=== PATIENT | female | born 2000 | race Caucasian/White ===

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

== ENCOUNTER 2023-07-24 17:36 | Outpatient (CLI) | payer OTHER, MEDICAID, SELFPAY ==
[2023-07-24 17:47] VITALS: BP 112/71; PULSE 73; PULSE 84; O2SAT 99
[2023-07-24 17:48] VITALS: TEMP 36.6
[2023-07-24 17:50] VITALS: BMI 35.3
--- OUTSIDE RECORDS SUMMARY | 2023-07-24 17:52 | XMS RPT_ITS | CCD ---
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 Name Role Phone SANDRA CHOI Keven Unavailable Unavailable REFERRED, SELF Unavailable Unavailable DAVE, IMANI A Unavailable Unavailable DAVE, IMANI A Unavailable Unavailable REFERRED, SELF Unavailable Unavailable DAVE, IMANI A Unavailable Unavailable TERELL MEJIA Unavailable Unavailable REFERRED, SELF Unavailable Unavailable DAVE, IMANI A Unavailable Unavailable DAVE, IMANI A Unavailable Unavailable REFERRED, SELF Unavailable Unavailable DAVE, IMANI A Unavailable Unavailable Unavailable Primary Care Provider Unavailabl e Unavailable Primary Care Provider Unavailabl e Luz Cooper Primary Care Provider Luz Cooper CNP Primary Care Provider LUZ COOPER Primary Care Unavailable ALLISON, LUZ Admitting Unavailable ALLISON, LUZ Attending Unavailable ALLISON, LUZ Consulting Unavailable PROVIDER, UNKNOWN Consulting Unavailable ALLISON, LUZ Primary Care Unavailable ALLISON, LUZ Consulting Unavailable ALLISON, LUZ Admitting Unavailable ALLISON, LUZ Attending Unavailable PROVIDER, UNKNOWN Consulting Unavailable RIZZO, MARE R Admitting Unavailable ALLISON, LUZ Consulting Unavailable RIZZORHONDA SCHWABLE R Attending Unavailable RIZZO, MARE R Primary Care Unavailable PROVIDER, UNKNOWN Consulting Unavailable ALLISON, LUZ Primary Care Unavailable ALLISON, LUZ Admitting Unavailable ALLISON, LUZ Attending Unavailable ALLISON, LUZ Consulting Unavailable PROVIDER, UNKNOWN Consulting Unavailable MEHUL NEVAREZ MD Admitting Unavailable ALLISON, LUZ Referring Unavailable MEHUL NEVAREZ MD Attending Unavailable MEHUL NEVAREZ MD Primary Care Unavailable ALLISON, LUZ Consulting Unavailable PROVIDER, UNKNOWN Consulting Unavailable ALLISON, LUZ Admitting Unavailable ALLISON, LUZ Attending Unavailable ALLISON, LUZ Consulting Unavailable ALLISON, LUZ Primary Care Unavailable PROVIDER, UNKNOWN Consulting Unavailable ALLISON, LUZ Primary Care Unavailable ALLISON, LUZ Admitting Unavailable ALLISON, LUZ Attending Unavailable ALLISON, LUZ Consulting Unavailable PROVIDER, UNKNOWN Consulting Unavailable ALLISON, LUZ K Primary Care Unavailable FER RIOS Attending Unavail able ALLISON, LUZ K Primary Care Unavailable FRANNY MCKEON Attending Unavailable ALLISON, LUZ K Primary Care Unavailable ITA OLIVAS Referring Unavailable ALLISON, LUZ K Primary Care Unavailable ALLISON, LUZ K Primary Care Unavailable KARLA ACOSTA Attending Unavailable ALLISON, LUZ K Primary Care Unavailable KARLA ACOSTA Attending Unavailable ALLISON, LUZ K Primary Care Unavailable KARLA ACOSTA Referring Unavailable ALLISON, LUZ K Primary Care Unavailable BAN, KELLY Referring Unavailable KARLA ACOSTA Attending Unavailable ALLISON, LUZ K Primary Care Unavailable FRANNY MCKEON Attending Unavailable ALLISON, LUZ K Primary Care Unavailable JARED JACOBS Attending Unavailable ALLISON, LUZ K Primary Care Unavailable BAN, KELLY Referring Unavailable ALLISON, LUZ K Primary Care Unavailable BAN, KELLY Referring Unavailable ALLISON, LUZ K Primary Care Unavailable KAYLYN VIVEROS Referring Unavailable ALLISON, LUZ K Primary Care Unavailable ALLISON, LUZ K Primary Care Unavailable KELLY IRELAND Attending Unavailable ITA OLIVAS Referring Unavailable ALLISON, LUZ K Primary Care Unavailable Medications Current Medications Medication Drug Class(es) Dates Sig (Normalized) Sig (Original) metroNIDAZOLE 500 mg oral tablet (2 sources) Nitroimidazole Antimicrobial Start: 01-13-2022 End: 01-20-2022 take 1 tablet by mouth twice daily metroNIDAZOLE (FLAGYL) 500 mg tablet Indications: BV (bacterial vaginosis) Take 1 tablet by mouth twice daily for 7 days. 14 tablet 0 01/13/2022 01/20/2022 Active Completed/Discontinued Medications Medication Drug Class(es) Dates Sig (Normalized) Sig (Original) cephalexin 500 mg oral capsule (3 sources) Cephalosporin Antibacterial Start: 03-25-2023 End: 04-01-2023 take 1 capsule by mouth four times daily cephALEXin (KEFLEX) 500 mg capsule Indications: 12 weeks gestation of , Dysuria Take 1 capsule by mouth four times daily for 7 days. 28 capsule 0 03/25/2023 04/01/2023 Problems Active Problems Problem Classification Problem Date Documented Date Episodic/Chronic Allergic reactions (1 source) Contact dermatitis; Translations: [Unspecified contact dermatitis, unspecified cause] Episodic Genitourinary symptoms and ill-defined conditions (1 source) Dysuria; Translations: [Dysuria] 03-25-2023 Episodic Immunizations and screening for infectious disease (6 sources) Patient encounter status; Translations: [Encounter for screening for infections with a predominantly sexual mode of transmission] Onset: 04-30-2023 Episodic Other female genital disorders (1 source) Vaginal discharge; Translations: [Other specified noninflammatory disorders of vagina] 05-06-2023 Episodic Other and delivery including normal (20 sources) with uncertain dates; Translations: [Encounter for supervision of normal , unspecified, first trimester] Onset: 03-04-2023 03-04-2023 Episodic Other screening for suspected conditions (not mental disorders or infectious disease) (1 source) Encounter for screening for nuchal translucency; Translations: [Encounter for screening for nuchal translucency] Onset: 05-06-2023 Episodic Residual codes; unclassified (2 sources) Gestation period, 13 weeks; Translations: [13 weeks gestation of ] 03-28-2023 Episodic Residual codes; unclassified (1 source) Gestation period, 12 weeks; Translations: [12 weeks gestation of ] 03-25-2023 Episodic Residual codes; unclassified (1 source) Gestation period, 15 weeks; Translations: [15 weeks gestation of ] 04-15-2023 Episodic Residual codes; unclassified (2 sources) Gestation period, 18 weeks; Translations: [18 weeks gestation of ] 05-06-2023 Episodic Residual codes; unclassified (1 source) Gestation period, 22 weeks; Translations: [22 weeks gestation of ] 06-03-2023 Episodic Residual codes; unclassified (1 source) 22 weeks gestation of ; Translations: [22 weeks gestation of ] Onset: 07-16-2023 Episodic Past or Other Problems Problem Classification Problem Date Documented Da te Episodic/Chronic Inflammatory diseases of female pelvic organs (1 source) Female pelvic inflammatory disease, unspecified; Translations: [Female pelvic inflammatory disease, unspecified] Onset: 12-05-2022 Episodic Nausea and vomiting (3 sources) Vomiting, unspecified; Translations: [Vomiting, unspecified] Onset: 05-11-2022 Episodic Other complications of (2 sources) with inconclusive viability, not applicable or unspecified; Translations: [ with inconclusive viability] Onset: 03-04-2023 03-04-2023 Episodic Other lower respiratory disease (1 source) Shortness of breath; Translations: [SOB (shortness of breath)] Onset: 11-29-2022 Episodic NEGATED: Highlighted row has been ruled out!Unclassified (3 sources) No known active problems 03-04-2023 Results Test Name Value Interpretation Reference Range Facil ity Vital Signs Date Time Vital Sign Value Performing Clinician Faci lity 06-03-2023 11:54-0500 Body height 157.5 cm Karla Acosta MD Work Phone: [facility] 06-03-2023 11:47-0500 Body weight 82.37 kg Karla Acosta MD Work Phone: [facility] 06-03-2023 11:47-0500 Diastolic blood pressure 60 mm[Hg] Karla Acosta MD Work Phone: [facility] 06-03-2023 11:47-0500 Systolic blood pressure 98 mm[Hg] Karla Acosta MD Work Phone: [facility] 05-06-2023 11:41-0500 Body weight 73.9368 kg LUZ COOPER [facility] Encounters Encounter Date Encounter Type Care Provider Facility Start: 07-16-2023 End: 07-17-2023 ambulatory LUZ COOPER Facility:[facility] Start: 06-03-2023 End: 06-03-2023 ambulatory LUZ COOPER Facility:[facility] Start: 06-03-2023 End: 06-03-2023 Patient encounter procedure Karla Acosta MD Work Phone: OB/Gynecology Procedures Date Procedure Procedure Detail Performing Clinician Start: 06-03-2023 URINE OB DIP B/O Dion Acosta MD Work Phone: Start: 05-06-2023 URINE OB DIP B/O Franny suárez MD Work Phone: Start: 05-06-2023 Us preg uterus after 1st trimest 1/ gestation Ita Olivas APRN.CNM Work Phone: Start: 04-15-2023 INFLUENZA VACCINE, A GE 6 MO - 64 YR, QUADRIVALENT (AFLURIA, FLULAVAL, FLUZONE) Fer Alicea MD Work Phone: Start: 04-01-2023 nuchal translucency 1st gestation Kelly Ireland APRNShahidFLOATLIGHT LOADING SUPERVISOR Work Phone: Start: 03-28-2023 URINE OB DIP B/O Jared Jacobs MD Work Phone: Start: 03-25-2023 Urnls dip stick/tabl et rgnt auto w/o microscopy Franny Mckeon MD Work Phone: Start: 03-11-2023 Antibody screen LUZ CROWELL Plan of Treatment Date Care Activity Detail Author Start: 01-27-2025 Urine microalbumin profile DTaP,Tdap,Td Vaccine (7 - Td or Tdap) [facility] Start: 04-30-2024 Chlamydia Screening (18-24) Chlamydia Screening (18-24) [facility] Start: 04-30-2024 GC (Gonorrhea) Screening (18-24) GC (Gonorrhea) Screening (18-24) [facility] Start: 03-04-2024 CHLAMYDIA SCREENING (18-24) CHLAMYDIA SCREENING (18-24) [facility] Start: 03-04-2024 GC (GONORRHEA) SCREENING (18-24) GC (GONORRHEA) SCREENING (18-24) [facility] Start: 01-23-2024 CHLAMYDIA SCREENING (18-24) CHLAMYDIA SCREENING (18-24) [facility] Start: 01-23-2024 GC (GONORRHEA) SCREENING (18-24) GC (GONORRHEA) SCREENING (18-24) [facility] Start: 07-04-2023 End: 10-03-2023 CBC W Auto Differential panel - Blood CBC + DIFF Lab Routine 22 weeks gestation of Encounter for supervision of normal first in second trimester Expected: 07/04/2023 (Approximate), Expires: 10/03/2023 [facility] Work Phone: Immunizations Immunization Date Immunization Notes Care Provider Fa cility 04-15-2023 influenza, injectabl e, quadrivalent, contains preservative Fer Alicea MD Work Phone: [facility] 04-07-2009 influenza virus vacc ine, unspecified formulation Franny Mckeon MD Work Phone: [facility] Payers Date Payer Category Payer Medicaid [id number] 2021 Unknown [id number] 2021 Unknown MMO MMO [employer] [id number] 2021-Present [phone] [address] [address] [place] [address] Indemnity [id number] 2021 Unknown [id number] 2002 Unknown [id number] 2002 Unknown [id number] 2002 Unknown [id number] 2002 Unknown [id number] 2002 Unknown [id number] 2002 Unknown [id number] 1979 Unknown [id number] Social History Date Type Detail Facility Start: 01-12-2022 End: 09-17-2022 Tobacco smoking status NHIS Occasional tobacco smoker [facility] Start: 01-12-2022 End: 03-04-2023 Tobacco use and exposure Smokeless tobacco non-user [facility] Start: 01-12-2022 End: 09-17-2022 Tobacco Comment Occasional Vape [facility] Start: 2002 Sex Assigned At Not on file [facility] Start: 01-02-2022 End: 01-12-2022 Exposure to SARS-CoV-2 (event) Not sure [facility] Start: 03-04-2023 Tobacco smoking stat us NHIS Ex-smoker [facility] Work Phone: History of tobacco use Current smoker [facility] Work Phone: History of tobacco use Cigarette Smoker [facility] Work Phone: Start: 03-04-2023 End: 06-03-2023 Alcohol intake Lifetime non-drinker (finding) [facility] Start: 03-04-2023 End: 03-28-2023 History of Social function [facility] Start: 03-04-2023 End: 03-28-2023 Tobacco use panel [facility] Start: 01-08-2023 [facility] Start: 2002 Sex Assigned At Female [facility] Start: 03-09-2023 Gender identity Identifies as female gender (finding) [facility] Start: 03-09-2023 Sexual orientation Heterosexual (fin ding) [facility] National Score (1-100), lower number is lower risk 48 [facility] NEGATED: Highlighted rowStart: NINF History of tobacco use Passive smoker [facility] Work Phone: Goals Date Patient Goal Desired Activity /State Personal health goal Clinical Notes 01-12-2022 to 06-03-2023 Quick Notes - Karla Acosta MD - 06/03/2023 11:55 AM ESTPatient InstructionsPrenatal Quick Notes - Franny Mckeon MD - 05/06/2023 9:05 AM ESTPatient InstructionsPatient Instructions Note Date & Type Note Facility 06-03-2023 Miscellaneous Notes RR- VB No. LOF No. CTXS No. Movement: present. Other c/o: gets lightheaded w/ standing at [employer] register at works Medication list reviewed. Physical Exam See Flow Sheet Abd: soft, nontender, gravid Ext: edema: Trace A/P 22w6d Estimated Date of Delivery: 10/01/23 d./w her symptomatic measures for lightheadedness at work. Note for stool at dow[employer] register given f/u in 4-5 weeks for 28 week labs reviewed US. Karla Acosta M.D. documented in this encounter [facility] 06-03-2023 Instructions Ramonita AvilezJEFF - 06/03/2023 11:41 AM EST SEQUENTIAL SCREENINGS The [facility] offers sequential screenings for women who are interested in screenings for chromosomal abnormalities and certain defects during a . The sequential screen combines ultrasound and blood tests to determine the risk of chromosomal abnormalities, including Down's Syndrome (Trisomy 21) and Trisomy 18, as well as open neural tube defects including spina bifida. Ultrasound examination is performed between 11 weeks and 13 weeks gestational age. Blood tests are drawn after the ultrasound and again later in the between 15 and 21 weeks gestational age. Please let your physician know if you are interested in this testing. It will require an appointment with our emergency department technician. This is not an ultrasound performed by a physician in our office during a routine visit. SIGNS AND SYMPTOMS OF LABOR 1. Contractions every 10 minutes or more often 2. Clear, pink, or brownish fluid (water) leaking from vagina 3. Feeling that baby is pushing down, pressure 4. Low, dull backache 5. Cramps that feel like a period 6. Cramps with or without diarrhea If you notice any of the above symptoms, contact our office at [phone] and ask to speak with a nurse. After hours, you can call doctors registry at [phone] OR call [facility] at [phone] and ask to have the doctor subscription agent paged. If you consider this an emergency, dial [phone]- or go to your nearest emergency department. NEED HELP? Are you dealing with a violent or abusive relationship? Are you a victim of rape or sexual assult? Call [facility] ([place]) 24 hour Crisis Hotline: 488.792.3647 or 446-309-1578. MANUAL Your Guide to a Healthy manual is now on-line. Visit [email or web address] to download your free copy documented in this encounter [facility] 05-06-2023 Miscellaneous Notes SW- Having thick vaginal discharge, vaginal itching and burning. Has had yeast infections before and this feels similar. Has been on antibiotics twice now. Has some spotting. No cramping or LOF. No FM yet. No fevers, chills, nausea, vomiting, urinary symptoms. Instructed to start Monistat 7. Most recent urine cx reviewed with pt from ER. Anatomy US today and final report pending. Blood work today to complete sequential screen. Bleeding and pain precautions reviewed. RTO 4 wks. Franny Mckeon DO documented in this encounter [facility] 05-06-2023 Instructions Ramonita Avilez MA - 05/06/2023 8:54 AM EST SEQUENTIAL SCREENINGS The [facility] offers sequential screenings for women who are interested in screenings for chromosomal abnormalities and certain defects during a . The sequential screen combines ultrasound and blood tests to determine the risk of chromosomal abnormalities, including Down's Syndrome (Trisomy 21) and Trisomy 18, as well as open neural tube defects including spina bifida. Ultrasound examination is performed between 11 weeks and 13 weeks gestational age. Blood tests are drawn after the ultrasound and again later in the between 15 and 21 weeks gestational age. Please let your physician know if you are interested in this testing. It will require an appointment with our emergency department technician. This is not an ultrasound performed by a physician in our office during a routine visit. SIGNS AND SYMPTOMS OF LABOR 1. Contractions every 10 minutes or more often 2. Clear, pink, or brownish fluid (water) leaking from vagina 3. Feeling that baby is pushing down, pressure 4. Low, dull backache 5. Cramps that feel like a period 6. Cramps with or without diarrhea If you notice any of the above symptoms, contact our office at [phone] and ask to speak with a nurse. After hours, you can call doctors registry at [phone] OR call [facility] at [phone] and ask to have the doctor subscription agent paged. If you consider this an emergency, dial 9--6 or go to your nearest emergency department. NEED HELP? Are you dealing with a violent or abusive relationship? Are you a victim of rape or sexual assult? Call [facility] ([place]) 24 hour Crisis Hotline: 783.779.3430 or 479-541-0108. MANUAL Your Guide to a Healthy manual is now on-line. Visit [email or web address] to download your free copy documented in this encounter [facility] 05-01-2023 Miscellaneous Notes Patient is on antibiotics. Notified other recommendations. Denise Reid RN Agree with plan of care. I assume she is taking antibiotics for the UTI? Keep well hydrated, and wiping front to back, keeping dry and wearing cotton underwear. Ita Olivas APRN.CNM 18w1d Appointment 05/06 with [facility]. Called patient to further triage and patient reported going to [facility] ED last night and they are treating her for UTI. Denies any further blood and unable to differentiate if from urine or vaginal. Patient didn't have further concerns regarding symptoms, but asking recommendations to prevent UTIs. This RN did advise wiping front to back and urinating after intercourse but patient states she already does that and wondering if we have any further recommendations for her. Denise Reid RN documented in this encounter [facility] 04-15-2023 Miscellaneous Notes DM- Pt doing well today. Denies Vaginal Bleeding, Leaking fluid, or contractions. Pt reports good movement. Will start ASA. Repeat urine culture today. Flu vaccine today. RTO 4 wks. Fer Lara MD documented in this encounter [facility] 04-15-2023 Instructions Raghav RamonitaJEFF colindres - 04/15/2023 8:20 AM EDT SEQUENTIAL SCREENINGS The [facility] offers sequential screenings for women who are interested in screenings for chromosomal abnormalities and certain defects during a . The sequential screen combines ultrasound and blood tests to determine the risk of chromosomal abnormalities, including Down's Syndrome (Trisomy 21) and Trisomy 18, as well as open neural tube defects including spina bifida. Ultrasound examination is performed between 11 weeks and 13 weeks gestational age. Blood tests are drawn after the ultrasound and again later in the between 15 and 21 weeks gestational age. Please let your physician know if you are interested in this testing. It will require an appointment with our emergency department technician. This is not an ultrasound performed by a physician in our office during a routine visit. SIGNS AND SYMPTOMS OF LABOR 1. Contractions every 10 minutes or more often 2. Clear, pink, or brownish fluid (water) leaking from vagina 3. Feeling that baby is pushing down, pressure 4. Low, dull backache 5. Cramps that feel like a period 6. Cramps with or without diarrhea If you notice any of the above symptoms, contact our office at [phone] and ask to speak with a nurse. After hours, you can call doctors registry at [phone] OR call [facility] at [phone] and ask to have the doctor subscription agent paged. If you consider this an emergency, dial 9--2 or go to your nearest emergency department. NEED HELP? Are you dealing with a violent or abusive relationship? Are you a victim of rape or sexual assult? Call [facility] ([place]) 24 hour Crisis Hotline: 912.805.2855 or 074-313-8975. MANUAL Your Guide to a Healthy manual is now on-line. Visit [email or web address] to download your free copy documented in this encounter [facility] 03-28-2023 Miscellaneous Notes KJ - No VB/LOF/ctxs. She still has some lower abdominal pain but flank pain has resolved. Patient is taking the keflex. A&P: NT next week Routine care Jared Jacobs MD documented in this encounter [facility] 03-28-2023 Instructions Masters Jordon Epperson - 03/28/2023 9:53 AM EDT SEQUENTIAL SCREENINGS The [facility] offers sequential screenings for women who are interested in screenings for chromosomal abnormalities and certain defects during a . The sequential screen combines ultrasound and blood tests to determine the risk of chromosomal abnormalities, including Down's Syndrome (Trisomy 21) and Trisomy 18, as well as open neural tube defects including spina bifida. Ultrasound examination is performed between 11 weeks and 13 weeks gestational age. Blood tests are drawn after the ultrasound and again later in the between 15 and 21 weeks gestational age. Please let your physician know if you are interested in this testing. It will require an appointment with our emergency department technician. This is not an ultrasound performed by a physician in our office during a routine visit. SIGNS AND SYMPTOMS OF LABOR 1. Contractions every 10 minutes or more often 2. Clear, pink, or brownish fluid (water) leaking from vagina 3. Feeling that baby is pushing down, pressure 4. Low, dull backache 5. Cramps that feel like a period 6. Cramps with or without diarrhea If you notice any of the above symptoms, contact our office at [phone] and ask to speak with a nurse. After hours, you can call doctors registry at [phone] OR call [facility] at [phone] and ask to have the doctor subscription agent paged. If you consider this an emergency, dial or go to your nearest emergency department. NEED HELP? Are you dealing with a violent or abusive relationship? Are you a victim of rape or sexual assult? Call [facility] ([place]) 24 hour Crisis Hotline: 952.645.7533 or 189-361-9045. MANUAL Your Guide to a Healthy manual is now on-line. Visit [email or web address] to download your free copy documented in this encounter [facility] 03-25-2023 Miscellaneous Notes SW- Add on visit for left flank pain. She notices a discomfort with uriantion. No hematuria. +Increased urinary frequency. No urinary urgency. No vb, lof. No ctx or abd pain. Denies fevers, chills, nausea, vomiting. PE: Gen: NAD, well appearing Abd: Soft, gravid, NT MSK: No CVA tenderness +FHT on doppler A/p 13 wk gestation with urinary symptoms - Start Keflex - Urine dip and urine cx - Discussed signs and symptoms of pyelo and reasons to call Franny Mckeon DO documented in this encounter [facility] 03-25-2023 Instructions Ramonita Avilez MA - 03/25/2023 2:21 PM EDT SEQUENTIAL SCREENINGS The [facility] offers sequential screenings for women who are interested in screenings for chromosomal abnormalities and certain defects during a . The sequential screen combines ultrasound and blood tests to determine the risk of chromosomal abnormalities, including Down's Syndrome (Trisomy 21) and Trisomy 18, as well as open neural tube defects including spina bifida. Ultrasound examination is performed between 11 weeks and 13 weeks gestational age. Blood tests are drawn after the ultrasound and again later in the between 15 and 21 weeks gestational age. Please let your physician know if you are interested in this testing. It will require an appointment with our emergency department technician. This is not an ultrasound performed by a physician in our office during a routine visit. SIGNS AND SYMPTOMS OF LABOR 1. Contractions every 10 minutes or more often 2. Clear, pink, or brownish fluid (water) leaking from vagina 3. Feeling that baby is pushing down, pressure 4. Low, dull backache 5. Cramps that feel like a period 6. Cramps with or without diarrhea If you notice any of the above symptoms, contact our office at [phone] and ask to speak with a nurse. After hours, you can call doctors registry at [phone] OR call [facility] at [phone] and ask to have the doctor subscription agent paged. If you consider this an emergency, dial [phone] or go to your nearest emergency department. NEED HELP? Are you dealing with a violent or abusive relationship? Are you a victim of rape or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 reviewed. No pertinent family history. Social History Tobacco Use Smoking status: Some Days Smokeless tobacco: Never Tobacco comments: Occasional Vape BP 98/54 Pulse 89 Temp 37 C (98.6 F) Resp 21 Wt 81.6 kg (179 lb 12.8 oz) LMP 12/22/2021 (LMP Unknown) SpO2 100% Review of Systems Constitutional: Negative for chills, fever and malaise/fatigue. HENT: Negative for congestion, ear discharge, ear pain, sinus pain and sore throat. Eyes: Negative for blurred vision, pain, discharge and redness. Respiratory: Negative for cough, hemoptysis, sputum production, shortness of breath, wheezing and stridor. Cardiovascular: Negative for chest pain. Gastrointestinal: Negative for abdominal pain, diarrhea, nausea and vomiting. Musculoskeletal: Negative for myalgias. Skin: Positive for itching and rash. Neurological: Negative for dizziness and headaches. Objective Physical Exam Constitutional: General: She is not in acute distress. Appearance: She is not diaphoretic. HENT: Head: Normocephalic. Mouth/Throat: Mouth: Mucous membranes are moist. Pharynx: Oropharynx is clear. No oropharyngeal exudate or posterior oropharyngeal erythema. Eyes: Conjunctiva/sclera: Conjunctivae normal. Pupils: Pupils are equal, round, and reactive to light. Cardiovascular: Rate and Rhythm: Normal rate and regular rhythm. Heart sounds: Normal heart sounds. Pulmonary: Effort: Pulmonary effort is normal. No tachypnea, accessory muscle usage or respiratory distress. Breath sounds: Normal breath sounds. No stridor. Abdominal: General: There is no distension. Palpations: Abdomen is soft. Tenderness: There is no abdominal tenderness. There is no guarding or rebound. Musculoskeletal: Cervical back: Normal range of motion and neck supple. No rigidity or tenderness. Lymphadenopathy: Cervical: No cervical adenopathy. Skin: General: Skin is warm and dry. Comments: Maculopapular rash linear fluid-filled vesicles in the highlighted area. No remote redness. No adenopathy. No involvement of palms of hands. No mucosal membrane involvement. Neurological: Mental Status: She is alert and oriented to person, place, and time. ASSESSMENT/PLAN: 1. Contact dermatitis, unspecified contact dermatitis type, unspecified trigger - ICD9: 692.9, ICD10: L25.9 Diagnosed with contact dermatitis. Suspicious of poison kathi etiology. Use trace and along cream as instructed. Notable areas of thin skin face or with occlusive dressing. If symptoms are not improving with topical use of cream over the next 48 to 72 hours will discontinue cream and use steroid taper. Patient was educated on supportive therapies. Patient will follow up with primary care provider as needed. Patient was instructed to immediately proceed to emergency room for any new, worsening, or symptoms lasting longer than anticipated. The patient's clinical presentation is otherwise unremarkable at this time. Based on exam and clinical finding, the patient is stable for discharge. Plan of care was discussed with patient. Patient verbalizes understanding and agrees to plan of care. This note was generated using Double Fusion software. It may contain errors in wording, punctuation, or spelling. Pepito Johansen APRN.[facility] documented in this encounter [facility] 01-13-2022 Miscellaneous Notes Results have returned. Syphillis negative HIV negative Hep C negative Hep B negative Herpes simplex has returned +, Reached out to patient. Results discussed. She remains asymptomatic. No lesions At this time no action needed Follow up with PCP documented in this encounter [facility] 01-13-2022 Miscellaneous Notes Patient notified. Verbalized understanding. Please call and inform patient that her gonorrhea and chlamydia are negative. documented in this encounter [facility] 01-12-2022 History of Presen t illness Narrative Subjective HPI Nidia Gunn is a 21 year old female who presents with concern for STD. She wants to have full STD panel testing. States she may have had an exposure to genital herpes. She denies any current symptoms of herpes. She is currently sexually active, multiple male partners, not using condoms. LMP 12/22/21. Has Nexplanon for control. Review of Systems Constitutional: Negative for chills and fever. Respiratory: Negative. Cardiovascular: Negative. Genitourinary: Negative for dysuria, frequency and urgency. Skin: Negative for itching and rash. BP 108/72 Pulse 78 Temp 37.3 C (99.2 F) Resp 20 Wt 83.2 kg (183 lb 6.4 oz) LMP 12/22/2021 (LMP Unknown) SpO2 99% No past medical history on file. No past surgical history on file. ALLERGIES Patient has no known allergies. MEDICATIONS etonogestrel (NEXPLANON) subdermal implant 68 mg 68 mg by SUBDERMAL route. citalopram (CELEXA) 20 mg tablet Take by mouth once daily. pantoprazole DR (PROTONIX) 40 mg tablet TAKE 1 TABLET ORALLY DAILY, WITH SIP OF WATER 30 MINS PRIOR TO EATING IN THE AM No family history on file. Social History Tobacco Use Smoking status: Current Some Day Smoker Smokeless tobacco: Never Used Tobacco comment: Occasional Vape Substance Use Topics Alcohol use: Not on file Drug use: Not on file Objective Physical Exam Vitals and nursing note reviewed. Exam conducted with a cigar tobacco processing supervisor present. Constitutional: Appearance: She is obese. Cardiovascular: Rate and Rhythm: Normal rate. Pulmonary: Effort: Pulmonary effort is normal. Genitourinary: General: Normal vulva. Exam position: Lithotomy position. Pubic Area: No rash. Labia: Right: No rash, tenderness, lesion or injury. Left: No rash, tenderness, lesion or injury. Urethra: No urethral pain or urethral lesion. Vagina: Normal. No vaginal discharge, tenderness or lesions. Cervix: Normal. Skin: General: Skin is warm and dry. Findings: No erythema or rash. Neurological: Mental Status: She is alert. ASSESSMENT/PLAN: 1. Screening for STD (sexually transmitted disease) - ICD9: V74.5, ICD10: Z11.3 (primary diagnosis) - GC/CHLAMYDIA DNA DET - SYPHILIS TOTAL W/REFLEX - HIV 1 2 COMBO(AG/AB),WITH REFLEX TO DIFFERENTIATION - HEP C AB IA W/CONF SCRN - HEP B SURF AG SCRN - HERPES SIMPLEX TYPE 1 AND 2 IG - WAQAR / TRICHOMONAS AMPLIFICATION - BACTERIAL VAGINOSIS AMPLIFICATION 2. Exposure to genital herpes - ICD9: V01.79, ICD10: Z20.2 - GC/CHLAMYDIA DNA DET - SYPHILIS TOTAL W/REFLEX - HIV 1 2 COMBO(AG/AB),WITH REFLEX TO DIFFERENTIATION - HEP C AB IA W/CONF SCRN - HEP B SURF AG SCRN - HERPES SIMPLEX TYPE 1 AND 2 IG - WAQAR / TRICHOMONAS AMPLIFICATION - BACTERIAL VAGINOSIS AMPLIFICATION - exam is normal today, no evidence of genital herpes. Kaylyn Viveros APRN.CNP documented in this encounter [facility] 01-12-2022 Instructions Kaylyn Viveros APRN.CNP - 01/12/2022 4:18 PM EDT ASSESSMENT/PLAN: 1. Screening for STD (sexually transmitted disease) - ICD9: V74.5, ICD10: Z11.3 (primary diagnosis) - GC/CHLAMYDIA DNA DET - SYPHILIS TOTAL W/REFLEX - HIV 1 2 COMBO(AG/AB),WITH REFLEX TO DIFFERENTIATION - HEP C AB IA W/CONF SCRN - HEP B SURF AG SCRN - HERPES SIMPLEX TYPE 1 AND 2 IG - WAQAR / TRICHOMONAS AMPLIFICATION - BACTERIAL VAGINOSIS AMPLIFICATION 2. Exposure to genital herpes - ICD9: V01.79, ICD10: Z20.2 - GC/CHLAMYDIA DNA DET - SYPHILIS TOTAL W/REFLEX - HIV 1 2 COMBO(AG/AB),WITH REFLEX TO DIFFERENTIATION - HEP C AB IA W/CONF SCRN - HEP B SURF AG SCRN - HERPES SIMPLEX TYPE 1 AND 2 IG - WAQAR / TRICHOMONAS AMPLIFICATION - BACTERIAL VAGINOSIS AMPLIFICATION - exam is normal today, no evidence of genital herpes. Kaylyn Viveros APRN.CNP SAFER SEX: Your doctor wants you to have this information about the infections that can be transmitted from sexual contact and how to prevent them. The idea behind safer sex is that you can be sexually active and at the same time reduce the risk of giving or getting a sexually transmitted disease (STD). STD s are transmitted by sharing body fluids which harbor viruses or bacteria. Semen, urine, blood and vaginal mucous can all transmit infections during sex. Examples of sexually transmitted infections include chlamydia, gonorrhea, herpes, hepatitis, genital warts and AIDS. Sexual diseases often cause few or no symptoms until they are advanced, so a person can be infected and spread the infection without knowing it. You never become immune to sexual diseases. Some STD s respond to treatment very well, others, like AIDS and herpes, cannot be cured, but are treated to reduce their effects. Being careful cannot eliminate all risk of infection, but sex can be made much safer. Safe sexual practices include hugging, body massage, and gentle touching. Masturbation is safe as long as body fluids do not contact any skin that has sores or cuts. Dry kissing and oral sex on a man wearing a latex condom or on a woman wearing a female condom is also safe. Slightly less safe is intercourse while the man wears a latex condom and wet kissing. Alcohol and recreational drugs are often the reason given for not practicing safer sex. These substances affect not only your judgment, but also impair your immune system, making you more vulnerable to disease. Risky and dangerous sexual practices include vaginal or anal sex without a condom, oral sex on a man without a condom, oral sex on a woman without a female condom, using saliva to lubricate a condom, or any other sexual contact in which body fluids or blood from one partner contacts the other. You should use only latex condoms and water soluble lubricants like K-Y jelly. Vaseline or oils used to lubricate a condom will weaken the condom and increase the chance it will break. Use spermacide gel that contains at least 5% Nonoxynol-9 along with the condom; this reduces the risk of as well as transmitting the AIDS virus. Think very carefully before having sex with anyone who is high risk for STD and AIDS. These include IV drug users, people with multiple sexual partners, or those that have had a positive HIV blood test. documented in this encounter [facility] Diagnosis Contact dermatitis, unspecified contact dermatitis type, unspecified trigger- Primary [facility] Diagnosis with uncertain dates in first trimester- Primary Encounter for care in first trimester of first [facility] Diagnosis with uncertain dates in first trimester- Primary of unknown anatomic location state, incidental [facility] [place] [facility] Diagnosis care, subsequent in first trimester- Primary 13 weeks gestation of state, incidental Encounter for supervision of normal first in first trimester Supervision of normal first [facility] Diagnosis 12 weeks gestation of - Primary state, incidental with uncertain dates in first trimester Dysuria [facility] Diagnosis Encounter for (NT) nuchal translucency scan- Primary Other specified screening Encounter for care in first trimester of first 13 weeks gestation of state, incidental [facility] [place] [facility]* Diagnosis 15 weeks gestation of - Primary state, incidental Encounter for supervision of normal first in second trimester Supervision of normal first Need for influenza vaccination Need for prophylactic vaccination and inoculation against influenza [facility] [place] [facility]* Diagnosis 18 weeks gestation of - Primary state, incidental Encounter for supervision of normal first in second trimester Supervision of normal first Vaginal discharge Leukorrhea, not specified as infective [facility] [place] [facility]* Diagnosis Encounter for anatomic survey- Primary Encounter for supervision of normal first in second trimester Supervision of normal first 18 weeks gestation of state, incidental [facility] [place] [facility]* Diagnosis 22 weeks gestation of - Primary state, incidental Encounter for supervision of normal first in second trimester Supervision of normal first [facility] Diagnostic Procedure Only (Routine) - Authorized Specialty Diagnoses / Procedures Referred By Silver wheeler Referred To Contact [facility] Diagnoses with uncertain dates in first trimester Encounter for care in first trimester of first Procedures NUCHAL TRANSLUCENCY WHI US NUCHAL TRANSLUCENCY 1ST GESTATION Kelly Ireland APRN.CNP [address] [place] [address] [address] Referral ID Status Reason Start Date Expiration Date Visits Requested Visits Authorized [id number] Authorized Auto-Generat ed Referral 03/04/2023 03/03/2024 1 1 [facility] Summary Purpose Family History No Family History Records FoundNo Family History Records FoundNo Family History Records FoundNo Family History Records Found Advance Directives No Advanced Directives Records FoundNo Advanced Directives Records FoundNo Advanced Directives Records FoundNo Advanced Directives Records Found Health Concerns Problem Noted Date Diagnosed Date [facility] - [facility] 03/04/2023 Education - [place] 03/04/2023 Problem Noted Date Diagnosed Date [facility] - [facility] 03/04/2023 Education - [place] 03/04/2023 Problem Noted Date Diagnosed Date [facility] - [facility] 03/04/2023 Education - [place] 03/04/2023 Problem Noted Date Diagnosed Date [facility] - [facility] 03/04/2023 Education - [place] 03/04/2023 Problem Noted Date Diagnosed Date [facility] - [facility] 03/04/2023 Education - [place] 03/04/2023 Problem Noted Date Diagnosed Date [facility] - [facility] 03/04/2023 Education - [place] 03/04/2023 Problem Noted Date Diagnosed Date [facility] - [facility] 03/04/2023 Education - [place] 03/04/2023 Problem Noted Date Diagnosed Date [facility] - [facility] 03/04/2023 Education - [place] 03/04/2023 Additional Source Comments INFORMATION SOURCE (unrecogn ized section and content) DATE CREATED AUTHOR AUTHOR'S ORGANIZ ATION 04/23/2021 [facility] DATE CREATED AUTHOR AUTHOR'S ORGANIZ ATION 05/07/2023 [facility] DATE CREATED AUTHOR AUTHOR'S ORGANIZ ATION 07/18/2023 [facility] Source Comments (unrecognize d section and content) In the event this informatio n is protected by the Federal Confidentiality of Alcohol and Drug Abuse Patient Records regulations: The Federal rules restrict any use of the information to criminally investigate or prosecute any alcohol or drug abuse patient.[facility] the event this information is protected by the Federal Confidentiality of Alcohol and Drug Abuse Patient Records regulations: The Federal rules restrict any use of the information to criminally investigate or prosecute any alcohol or drug abuse patient.[facility] the event this information is protected by the Federal Confidentiality of Alcohol and Drug Abuse Patient Records regulations: The Federal rules restrict any use of the information to criminally investigate or prosecute any alcohol or drug abuse patient.[facility] the event this information is protected by the Federal Confidentiality of Alcohol and Drug Abuse Patient Records regulations: The Federal rules restrict any use of the information to criminally investigate or prosecute any alcohol or drug abuse patient.[facility] the event this information is protected by the Federal Confidentiality of Alcohol and Drug Abuse Patient Records regulations: The Federal rules restrict any use of the information to criminally investigate or prosecute any alcohol or drug abuse patient.[facility] the event this information is protected by the Federal Confidentiality of Alcohol and Drug Abuse Patient Records regulations: The Federal rules restrict any use of the information to criminally investigate or prosecute any alcohol or drug abuse patient.[facility] the event this information is protected by the Federal Confidentiality of Alcohol and Drug Abuse Patient Records regulations: The Federal rules restrict any use of the information to criminally investigate or prosecute any alcohol or drug abuse patient.[facility] the event this information is protected by the Federal Confidentiality of Alcohol and Drug Abuse Patient Records regulations: The Federal rules restrict any use of the information to criminally investigate or prosecute any alcohol or drug abuse patient.[facility] the event this information is protected by the Federal Confidentiality of Alcohol and Drug Abuse Patient Records regulations: The Federal rules restrict any use of the information to criminally investigate or prosecute any alcohol or drug abuse patient.[facility] the event this information is protected by the Federal Confidentiality of Alcohol and Drug Abuse Patient Records regulations: The Federal rules restrict any use of the information to criminally investigate or prosecute any alcohol or drug abuse patient.[facility] the event this information is protected by the Federal Confidentiality of Alcohol and Drug Abuse Patient Records regulations: The Federal rules restrict any use of the information to criminally investigate or prosecute any alcohol or drug abuse patient.[facility] the event this information is protected by the Federal Confidentiality of Alcohol and Drug Abuse Patient Records regulations: The Federal rules restrict any use of the information to criminally investigate or prosecute any alcohol or drug abuse patient.[facility] the event this information is protected by the Federal Confidentiality of Alcohol and Drug Abuse Patient Records regulations: The Federal rules restrict any use of the information to criminally investigate or prosecute any alcohol or drug abuse patient.[facility] the event this information is protected by the Federal Confidentiality of Alcohol and Drug Abuse Patient Records regulations: The Federal rules restrict any use of the information to criminally investigate or prosecute any alcohol or drug abuse patient.[facility] the event this information is protected by the Federal Confidentiality of Alcohol and Drug Abuse Patient Records regulations: The Federal rules restrict any use of the information to criminally investigate or prosecute any alcohol or drug abuse patient.[facility] Reason for Visit (unrecogniz ed section and content) Specialty Diagnoses / Procedures Referred By Silver wheeler Referred To Contact [facility] Diagnoses with uncertain dates in first trimester Encounter for care in first trimester of first Procedures NUCHAL TRANSLUCENCY WHI US NUCHAL TRANSLUCENCY 1ST GESTATION Kelly Ireland, SMITH.FLOATLIGHT LOADING SUPERVISOR [address] [place] [address] [facility] [place] [address] [place] [address] Referral ID Status Reason Start Date Expiration Date V isits Requested Visits Authorized [id number] Closed Auto-Generate d Referral 03/04/2023 03/03/2024 1 1 Reason Comments STD check, possible expo sure Reason Comments Results Reason Comments Rash Poison kathi all over x 2 weeks Reason Comments New OB Reason Comments OB UTI Reason Onset Date Comments Care 03/28/2023 Reason Onset Date Comments Care 03/25/2023 Reason Onset Date Comments Care 04/15/2023 Immunizations 04/15/2023 Flu vaccination Reason Onset Date Comments Care 05/06/2023 Specialty Diagnoses / Procedures Referred By Silver wheeler Referred To Contact [facility] Diagnoses Encounter for supervision of normal first in second trimester Procedures OBSTETRIC ULTRASOUND WHI US PREG UTERUS AFTER 1ST TRIMEST GESTATION Ita Olivas APRN.[facility] [address] [place] [address] [facility] [place] [address] [place] [address] Referral ID Status Reason Start Date Expiration Date V isits Requested Visits Authorized [id number] Closed Auto-Generate d Referral 05/06/2023 06/23/2023 1 1 Reason Onset Date Comments Care 06/03/2023 Care Teams (unrecognized sec tion and content) High 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 Kettle 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 Relationship Specialty Start Date End Date Luz Cooper [address] [phone] PCP - General Family Medicine 11/29/22 High Pressure Kettle Operator Relationship Specialty Start Date End Date Luz Cooper [address] [phone] PCP - General Family Medicine 11/29/22 High Pressure Kettle Operator Relationship Specialty Start Date End Date Luz Cooper [address] [phone] PCP - General Family Medicine 11/29/22 High Pressure Kettle Operator Relationship Specialty Start Date End Date Luz Cooper [address] [phone] PCP - General Family Medicine 11/29/22 High Pressure Kettle Operator Relationship Specialty Start Date End Date Luz Cooper [address] [place] [address] PCP - General Family Medicine 11/29/22 High Pressure Kettle Operator Relationship Specialty Start Date End Date Luz Cooper CNP [address] [place] [address] PCP - General Family Medicine 11/29/22 High Pressure Kettle Operator Relationship Specialty Start Date End Date Luz Cooper CNP [address] [place] [address] PCP - General Family Medicine 11/29/22 High Pressure Kettle Operator Relationship Specialty Start Date End Date Luz Cooper CNP [address] [place] [address] PCP - General Family Medicine 11/29/22 FOR RECORDS PERTAINING TO PATIENTS WHO ARE OR HAVE BEEN ENROLLED IN A CHEMICAL DEPENDENCY/SUBSTANCEABUSE PROGRAM, SOME INFORMATION MAY BE OMITTED. This clinical summary was aggregated from multiple sources. Caution should be exercised in using it in the provision of clinical care. This summary normalizes information from multiple sources, and as a consequence, information in this document may materially change the coding, format and clinical context of patient data. In addition, data may be omitted in some cases. CLINICAL DECISIONS SHOULD BE BASED ON THE PRIMARY CLINICAL RECORDS. [facility]. provides no warranty or guarantee of the accuracy or completeness of information in this document.
[2023-07-24 18:53] LABS: Mucous, Urine 0 SEEN /hpf (<or=2+)
[2023-07-24 19:00] LABS: Color, Urine Yellow (Yellow); Glucose, Dipstick Normal (Normal); Ketone-Dipstick Negative (Negative); Leukocyte Esterase-Dipstick 500 /ul (Negative); Nitrite-Dipstick Negative (Negative); Occult Blood-Urine 150 /ul (Negative); Protein-Dipstick 15 mg/dl (Negative); Urine Bilirubin Dipstick Negative (Negative); Urine Clarity Sl. Cloudy (Clear); Urine Urobilinogen Normal (Normal)
[2023-07-24 19:07] LABS: Red Blood Cells-Urine 25-50 SEEN /hpf (0-5); White Blood Cells 10-25 SEEN /hpf (0-5)
[2023-07-24 19:08] LABS: Bacteria 1+ /hpf (None Seen)
[2023-07-24 19:09] LABS: Squamous Epithelial Cells - UA 5-10 SEEN /hpf (5-10)
--- NOTE | 2023-07-24 20:58 | OB.TRI.NOTE ---
HPI - General HPI Johny HANNA, is a 23 F at 30 weeks gestation who presents to triage with vaginal spotting. Stated after she went to the bathroom, noticed small amount of blood on toilet paper after wiping. No cramps or pain. No current bleeding. Denies any recent intercourse. has been uncomplicated. PFSH PFSH Home Medications pantoprazole 40 mg tablet,delayed release (Protonix) 40 mg PO DAILY #30 tabs 12/27/21 [Rx Last Taken 07/24/23 08:00] ferrous sulfate 325 mg (65 mg iron) tablet (Iron (ferrous sulfate)) 325 mg PO DAILY 07/24/23 [History Last Taken 07/24/23 08:00] vit no.95-ferrous fumarate 28 mg-folic acid 800 mcg tablet ( Multivitamins) 1 tab PO DAILY 07/24/23 [History Last Taken 07/24/23 08:00] Allergy/AdvReac Type Severity Reaction Status Date / Time No Known Allergies Allergy Verified 07/24/23 17:52 ROS Eyes Eyes: Denies blurry vision Cardiovascular Cardiovascular: Reports none; Denies chest pain at rest, chest pain with activity or dizziness Respiratory/Chest Respiratory/Chest: Denies cough or dyspnea Gastrointestinal Gastrointestinal: Reports none and other; Denies diarrhea or vomiting Genitourinary Genitourinary: Denies dysuria Musculoskeletal Musculoskeletal: Reports none Integumentary Integumentary: Reports none; Denies rash Neurologic Neurologic: Denies dizziness, headache(s) or other visual disturbances Psychiatric Psychiatric: Reports none Physical Exam Const alert and no apparent distress General Appearance: cooperative Orientation / Consciousness: awake Exam Limitations: no limitations HEENT normocephalic Eyes General Eye: normal appearance of both eyes Neck full ROM Chest inspection of chest normal Resp normal respiratory effort and normal air movement Effort and Inspection: symmetric chest movement Auscultation: clear to auscultation bilaterally Cardio regular rate GI soft to palpation, non-tender and non-distended Inspection: and other Back/Spine normal ROM Extremity full ROM, normal capillary refill and no calf tenderness Skin no rashes or lesions noted Neuro oriented x3 and CN's II-XII intact bilaterally Psych mental status grossly normal NST FHR Rate Baby A Baseline: 140 Variability:: Moderate Accelerations:: 10 x 10 Decelerations:: None NST Reactive:: Yes Uterine Activity:: None Assessment & Plan (1) 30 weeks gestation of : (2) Vaginal bleeding during , antepartum: (3) History of herpes genitalis: PLAN: Plan No further bleeding Extended monitoring UA - contaminated- + protein, occ blood- Culture sent No contractions palpated or seen via TOCO Reassurance provided Bleeding precautions reviewed Keep scheduled appointment in office Patient agrees with plan of care
== END 2023-07-24 19:42 | disposition home or self-care (01) ==
LOC: WPOUT 17:37 → WP 17:38
PROVIDERS: Referring Provider Advanced Practice Midwife; Visit Provider Advanced Practice Midwife
DX: O46.93 Antepartum hemorrhage, unspecified, third trimester (principal); Z3A.30 30 weeks gestation of pregnancy
CPT/HCPCS: 59025; 59050; 81001; 87086; 87088; 99221; G0378

== ENCOUNTER 2023-09-10 18:55 | Inpatient (IN) | payer OTHER, MEDICAID, SELFPAY ==
[2023-07-24 17:48] VITALS: RESP 16
[2023-09-10 19:29] VITALS: BP 135/87; PULSE 87; RESP 16
[2023-09-10] MEDS: Lactated Ringers 1,000 ML 50 ML IV (19:40)
[2023-09-10 20:07] VITALS: BMI 38.9
[2023-09-10 20:12] LABS: Absolute Lymphocyte Count 1.74 X10^3/uL (0.83-4.51); Absolute Neutrophil Count 7.3 X10^3/uL (2.0-7.7); Basophil# 0.03 X10^3/uL; Basophil% 0.3 % (0-1); Eosinophil# 0.05 X10^3/uL; Eosinophils% 0.5 % (0-5); Hematocrit 35.8 % (37-47); Hemoglobin 12.3 g/dL (12.0-15.0); Lymphocyte # 1.74 X10^3/ul (0.83-4.51); Lymphocyte % 17.5 % (19-41); Mean Corp Hgb Conc 34.4 g/dL (32-36); Mean Corpuscular Hgb 31.7 pg (27.0-32.0); Mean Corpuscular Volume 92.3 fL (81-99); Monocyte# 0.76 X10^3/uL; Monocyte% 7.7 % (0-10); NRBC Flagged by Analyzer 0 % (0-5); Neutrophil % 73.5 % (47-70); Platelet Count 254 K/mm3 (150-450); RBC Distribution Width CV 14.1 % (11.6-14.6); RBC Distribution Width SD 46.9 fl (35.1-43.9); Red Blood Count 3.88 M/mm3 (4.2-5.4); White Blood Count 9.9 K/mm3 (4.4-11.0)
--- NOTE | 2023-09-10 20:32 | PCM.HP.OB ---
HPI - General General Date of Admission: 09/10/23 Date of Service: 09/10/23 Chief Complaint: IOL for IUGR 3%. HPI Narrative NIDIA HANNA, is a 23 F who presents induction of labor for IUGR in the 3% Maternal Data Information Final JASMINE: 10/01/23 Gestational age: 37 PFSH PFS Medical History Chlamydia infection affecting Genital herpes affecting Headache Home Medications pantoprazole 40 mg tablet,delayed release (Protonix) 40 mg PO DAILY heartburn #30 tabs 12/27/21 [Rx Last Taken 09/10/23 08:00 40 mg] ferrous sulfate 325 mg (65 mg iron) tablet (Iron (ferrous sulfate)) 325 mg PO DAILY 07/24/23 [History Last Taken 09/10/23 08:00 325 mg] vit no.95-ferrous fumarate 28 mg-folic acid 800 mcg tablet ( Multivitamins) 1 tab PO DAILY 07/24/23 [History Last Taken 09/10/23 08:00 1 TAB] acyclovir 400 mg tablet 400 mg PO TID HSV 09/10/23 [History Last Taken 09/10/23 13:00 400 mg] folic acid 1 mg tablet 1 mg PO DAILY as directed 09/10/23 [History Last Taken 09/10/23 08:00 1 mg] Allergy/AdvReac Type Severity Reaction Status Date / Time No Known Allergies Allergy Verified 09/10/23 19:51 Surgical History History of surgery Social History Smoking Status: Never smoker History 1 Elective abortions Hx Para 0 Spontaneous abortions Hx # Term Pregnancies Ectopic pregnancies Hx # Pregnancies Multiple births # of living children NST FHR Rate Baby A Baseline: 120 Variability:: Moderate Accelerations:: 15 x 15 Decelerations:: None NST Reactive:: Yes FHR Category:: Category I Uterine Activity:: none ROS Constitutional Constitutional: Denies fatigue, fever(s) or malaise Eyes Eyes: Denies change in vision ENT HEENT: Denies dizziness or headache(s) Cardiovascular Cardiovascular: Denies chest pain, dyspnea or lightheadedness Respiratory/Chest Respiratory/Chest: Denies cough or dyspnea Gastrointestinal Gastrointestinal: Denies change in bowel habits Genitourinary Genitourinary: Denies burning urination or genital lesions Integumentary Integumentary: Denies rash Neurologic Neurologic: Denies confusion, dizziness, headache(s), numbness or weakness Vital Signs Vital Signs Vital Signs: 09/10/23 19:29 09/10/23 19:29 Pulse Rate 87 Blood Pressure 135/87 H BP Systolic 135 BP Diastolic 87 Weight Weight: 96.5 kg Body Mass Index (BMI) 38.9 Physical Exam Const alert and no apparent distress General Appearance: cooperative HEENT normocephalic Resp normal respiratory effort Cardio regular rate GI soft to palpation GI Narrative: gravid, nontender, appropriate for gestational age Extremity no calf tenderness General Extremity: edema Skin no wounds Rashes: No rashes noted Psych activity/motor behavior normal Labs Labs Labs: Blood Type Pending Antibody Screen Pending Hct 35.8 % (37-47) L Hgb 12.3 g/dL (12.0-15.0) Syphilis Total Ab Non-reactive Hep Bs Antigen Non-Reactive (Nonreactive) Hepatitis C Antibody Non-Reactive (Nonreactive) Chlamydia DNA (SASCHA) Negative (Negative) N.gonorrhoeae DNA (SASCHA) Negative (Negative) HIV 1&2 Antibody Non-Reactive (Nonreactive) Miscellaneous Test Assessment & Plan (1) Intrauterine growth restriction (IUGR) affecting care of mother, third trimester, single gestation: PLAN: Collazo bulb induction of labor (2) 37 weeks gestation of : (3) History of herpes genitalis:
[2023-09-10 21:08] LABS: Syphilis Antibodies Non-reactive
[2023-09-10 21:16] VITALS: BP 136/83; PULSE 82
[2023-09-10] MEDS: 0.9% Saline Lock 10 ML Syringe IV (21:20)
[2023-09-10] MEDS: miSOPROStol 25 MCG TABLET VAGINAL (21:20)
[2023-09-10 23:28] VITALS: BP 133/82; PULSE 68; RESP 16; TEMP 36.8
[2023-09-10] MEDS: Acetaminophen 500 MG Tablet PO (23:31)
[2023-09-11] VITALS (48 sets, daily range): BP systolic 114–183; BP diastolic 60–102; PULSE 58–143; RESP 16–18; TEMP 36.8–37.7; O2SAT 64–100
--- NOTE | 2023-09-11 | PLAC_PTH ---
PATIENT: NIDIA HANNA LOC: WP U#:[id number] AGE/SX: 23F ROOM: WP010 RE09/10/[address]: Dr. Shruti Hunter MD : 2000 BED: 1 DIS: 09/14/2023 SPEC #: [id number] RECD: 09/12/23 06:11 STATUS: IQRA GENAO #: [id number] HERBER: 09/11/23 00:[address]: Tasha Sahu DEPT: SURGICAL PATHOLOGY RECD BY: Freddie Art ENTERED: 09/12/23 10:05 SP TYPE: PLACENTA OTHR DR: MD Luz Falk, SOFTWARE ARCHITECT-C Tissues: Placenta, NOS Procedures: Surgery Specimen Level V Comments: @ Ordering doctor for SUV edited from to @ by PETER at 09/17/23 1022 @ Submitting doctor edited from to @ jackson GREEN at 09/17/23 1022 HEADER OPERATION: Section PRE-OP DIAGNOSIS: IUGR TISSUE SUBMITTED: Placenta MICROSCOPIC DIAGNOSIS Placenta: Placental disc - third trimester placenta (417 gm). Membranes - no pathologic diagnosis. Umbilical cord - three blood vessels and no pathologic diagnosis. SJ:mr 09/16/2023 MICROSCOPIC DESCRIPTION Slides are reviewed. GROSS DESCRIPTION SPECIMEN: PLACENTA / CLINICAL INFORMATION: A. Weight: 2.17 kg B. Gestational Age: 37 weeks C. Sex: Male PLACENTAL WEIGHT (POST FIXATION): 417 gm PLACENTAL DIMENSIONS: 16.0 x 15.0 x3.5 cm PLACENTAL SHAPE: Usual ovoid PLACENTAL WEIGHT FOR GESTATIONAL AGE: Within 10-99th percentile MEMBRANES - Present A. Insertion: Marginal B. Site of rupture from edge: 6 cm from edge of placental disc C. Color of membrane: Patton-novoa D. Abnormalities: None UMBILICAL CORD - Present A. Color: Patton-novoa B. Insertion: Central C. Length: 22 cm D. Diameter: 1.2 cm E. Number of vessels: Three F. Abnormalities: None PLACENTAL DISC - Present A. Color of surface: Patton-novoa B. surface abnormalities: None C. Maternal cotyledons: Appears partially disrupted, however appears to be complete D. Attached retro placental clot: No clot E. Cut surface: Dark red and spongy F. Lesions: None G. Separate clot: Absent SECTIONS SUBMITTED: 1. Membrane roll 2. Cord, maternal end 3. Cord, end 4. Placental disc, and maternal surfaces 5. Placental disc, and maternal surfaces 6. Placental disc, and maternal surfaces SJ/mr 09/13/23 TC:5 CPT: 14872
[2023-09-11] MEDS: miSOPROStol 25 MCG TABLET VAGINAL ×2 (01:59→06:02)
[2023-09-11] MEDS: fentaNYL 100 MCG/2 ML Ampul IV ×2 (06:15→09:36)
[2023-09-11] MEDS: 0.9% Saline Lock 10 ML Syringe IV ×2 (06:15→08:06)
[2023-09-11] MEDS: Lactated Ringers 1,000 ML 500 ML IV ×2 (08:06→12:07)
[2023-09-11] MEDS: 0.9% Normal Saline Single 100 ML IV.SOLN. INTRA-UTER (08:34)
[2023-09-11] MEDS: LACTATED RINGERS 500 ML 999 ML IV (09:45)
--- NOTE | 2023-09-11 10:47 | PN.OBGYN_ITS ---
Subjective Subjective Resting in bed. Objective Data Objective Data Vital Signs: Vital Signs Temp Pulse Resp BP 99.2 F H 60 18 148/95 H 09/11/23 07:52 09/11/23 10:37 09/11/23 07:52 09/11/23 10:37 Weight: 212 lb 11.937 oz Body Mass Index (BMI) 38.9 Intake & Output: Intake and Output for Last 24 Hours 09/09/23 09/10/23 09/11/23 23:59 23:59 23:59 Intake Total 203.33 / 203.33 0 / 0 Output Total 100 / 100 Balance 103.33 / 103.33 0 / 0 Lab / Micro Data 09/12/23 08:30 09/11/23 11:00 Labs: Laboratory Results - last 24 hr 09/10/23 19:40: WBC 9.9, RBC 3.88 L, Hgb 12.3, Hct 35.8 L, MCV 92.3, MCH 31.7, MCHC 34.4, RDW Std Deviation 46.9 H, RDW Coeff of Edwin 14.1, Plt Count 254, MPV 11.0, Immature Gran % (Auto) 0.500, Neut % (Auto) 73.5 H, Lymph % (Auto) 17.5 L, Bollinger % (Auto) 7.7, Eos % (Auto) 0.5, Baso % (Auto) 0.3, Absolute Neuts (auto) 7.3, Absolute Lymphs (auto) 1.74, Nucleated RBC % 0, Syphilis Total Ab Non- reactive, Blood Type O POSITIVE, Antibody Screen NEGATIVE Physical Exam Manual OB Exam: presentation cephalic and other faria catheter with stylus inserted through cervix and 30ml NS instilled. Patient tolerated well. NST FHR Rate Baby A Baseline: 145 Variability:: Moderate Accelerations:: 15 x 15 Decelerations:: None FHR Category:: Category I Uterine Activity:: Irregular Assessment & Plan (1) Intrauterine growth restriction (IUGR) affecting care of mother, third trimester, single gestation: (2) 37 weeks gestation of : PLAN: Plan 1) Faria inserted. 2) Start pitocin once out and next dose of cytotec due 3) collaborative physican and notified of patient status, above assessment and plan.
[2023-09-11 11:15] LABS: Hematocrit 38.6 % (37-47); Mean Corp Hgb Conc 33.7 g/dL (32-36); Mean Corpuscular Volume 92.1 fL (81-99); Mean Platelet Vol. 10.1 fl (6.2-12.0); Platelet Count 269 K/mm3 (150-450); RBC Distribution Width CV 14.1 % (11.6-14.6); Red Blood Count 4.19 M/mm3 (4.2-5.4); White Blood Count 16.6 K/mm3 (4.4-11.0)
[2023-09-11 11:28] LABS: AST(SGOT) 21 U/L (15-37); Alanine Aminotransfer ALT/SGPT 20 U/L (13-56); Creatinine, Serum 0.63 mg/dL (0.55-1.02); EST Glomerular Filtration Rate 127 mL/min (>60); Est Glom Filt Rate - Afr Amer 153 mL/min (>60); Estimated Creatinine Clearance 153.11 ml/min; LDH 212 U/L (84-246); Uric Acid 5.6 mg/dL (2.6-6.0)
[2023-09-11] MEDS: Oxytocin 15 Units/NS 250ml 15 UNITS/250 ML IV.SOLN 2 UNITS IV (11:55)
[2023-09-11 13:25] LABS: Protein:Creat Ratio 444 mg/g CRE (0-200)
[2023-09-11] MEDS: CHLORHEXIDINE GLUC 2% CLOTH 1 EACH TOWELETTE TOPICAL (13:47)
[2023-09-11] MEDS: Terbutaline 1 MG/ML Vial 0.25 MG SC (14:15)
[2023-09-11] MEDS: fentaNYL-bupivacaine (epidural) 100 ML BAG EPIDURAL (14:21)
[2023-09-11] MEDS: Cefazolin 2 GM in 0.9% Normal Saline (100mL Bag) 100 ML IV (15:00)
[2023-09-11] MEDS: Azithromycin 500 MG in Dextrose 5%-Water (250mL Bag) 250 ML 250 MG IV (15:15)
--- NOTE | 2023-09-11 15:41 | EX.PCM.OBRPT ---
Assessment & Plan (1) 37 weeks gestation of : (2) Intrauterine growth restriction (IUGR) affecting care of mother, third trimester, single gestation: (3) delivery delivered: (4) Non-reassuring electronic monitoring tracing: (5) High-risk in third trimester: (6) Outcome of delivery, single liveborn: (7) Maternal obesity syndrome in third trimester: (8) Obesity, Class II, BMI 35-39.9: Maternal Data Information Final JASMINE: 10/01/23 Gestational age: 37 1/7 Details Operative Information Date of Procedure: 09/11/23 Pre-Operative Diagnosis: persistent category 2 FHTs, nonreassuring fhts remote from delivery, IUGR Post-Operative Diagnosis: same Classification: WALLACE Procedure Type: low transverse blade operator #1: Eliot Valderrama blade operator #2: Anita Oneil MS3 Type of Anesthesia: Epidural Anesthesiologist: Jason Horan Special Medications: durmorph Antibiotic Given: Ancef 2 grams IV x1 and Zithromax 500 mg/5 mL X1 Drain: Collazo to straight drain Estimated Blood Loss: 800 Fluids Replaced: 1000 Procedure Start Time: 15:08 Procedure Stop Time: 15:11 Time of Delivery: 15:42 Findings Description of Procedure: The patient underwent Collazo and Cytotec cervical ripening. She was noted to perhaps have tachysystole. An IUPC was placed and artificial rupture membranes was performed. The fetus was then having variable and late decelerations. An amnioinfusion was started and a dose of terbutaline was given. Several fluid boluses had to give better, she was on oxygen and had been position. Despite all these measures she was remote from delivery with persistent category 2 heart tracing and now with minimal variability. Decision was made for section and the patient was prepped for this and an WALLACE fashion. The patient was taken to the operating room. She was prepped and draped in the dorsal supine position with a leftward tilt. A Pfannenstiel skin incision was made approximately 2 cm above the symphysis pubis and carried through to underlying layer fascia with the scalpel. The fascia was incised incised in the midline and extended laterally with the Faustin scissors. The fascia was dissected off the rectus muscles with blunt and sharp dissection. The rectus muscles were in the midline and the peritoneum was entered bluntly. The peritoneal incision was stretched and the bladder blade was placed. The uterine incision was made in a low transverse fashion with the scalpel and extended superiorly and inferiorly with blunt dissection. The amniotic membranes were ruptured bluntly and clear amniotic fluid returned. The 's head was brought to the incision in the flexed position and delivered without difficulty. The remainder of the infant was delivered with gentle traction and fundal pressure in the standard fashion. The mouth and nares were bulb suctioned. The cord was clamped and cut as the was stimulated. Cord clamping was not delayed because the was not immediately crying.. The was handed off to the waiting nursing staff. The placenta was delivered with fundal massage and gentle traction in the standard fashion. The uterus was exteriorized and cleared of all clots and debris. . The uterine incision was closed with #1 Vicryl in a running locked fashion. A second layer of the same suture was used in an imbricating fashion and several 0 Vicryl [id number] sutures to obtain hemostasis. The incision was examined and was found to be hemostatic. Some hemoblast was placed over the incision prophylactically to prevent bleeding from the peritoneal edges. The uterus was placed back into the peritoneal cavity and hemostasis was again confirmed. The rectus muscles were examined and any bleeding was Bovie cauterized. The parietal peritoneum and rectus muscles were closed en bloc with an 0 Vicryl running suture. Some hemoblast was placed over the rectus muscles. The rectus fascia was examined and any bleeding was Bovie cauterized and the rectus fascia was closed with #1 PDS suture in a running standard fashion. The subcutaneous tissue was examining and any bleeding was Bovie cauterized. The subcutaneous tissue was irrigated and some hemoblast was placed in this layer. The subcutaneous tissue was reapproximated with 3-0 Vicryl suture. The skin was closed in a subcuticular fashion with Monocryl by the IRRIGATION EQUIPMENT INSTALLER with me present in the labor and delivery suite. I performed the remainder of the procedure with assistance. All sponge, lap, and needle counts were correct. The patient was taken to her room for recovery in a stable condition. Presentation: Positive for Vertex Amniotic Membrane Rupture Type: Artificial Amniotic Fluid Description: Clear Placental Delivery Description: Expressed Placenta Disposition: Sent to Pathology Cord Vessel Description: 3 Vessels Cord Entanglement: None Infant A Gender: Male (1 minute): 8 (5 minute): 9 Delayed Cord Clamping: No Complications Complications: none
[2023-09-11] MEDS: Methylergonovine 0.2 MG/ML Ampul IM (16:08)
[2023-09-11] MEDS: Oxytocin 15 Units/NS 250ml 15 UNITS/250 ML IV.SOLN 83 UNITS IV (16:15)
[2023-09-11] MEDS: Ketorolac 30 MG/ML Syringe IV ×2 (16:44→23:41)
[2023-09-11] MEDS: LORazepam 0.5 MG Tablet PO (17:48)
[2023-09-11] MEDS: Acetaminophen 500 MG Tablet 1000 MG PO (17:59)
[2023-09-11] MEDS: Lactated Ringers 1,000 ML 100 ML IV (19:14)
[2023-09-11 20:00] LABS: HIV - WCH Non-Reactive (Nonreactive); Hepatitis B Surface Antibody Non-Reactive; Hepatitis B Surface Antigen Non-Reactive (Nonreactive); Hepatitis C Antibody Non-Reactive (Nonreactive)
[2023-09-12] VITALS (7 sets, daily range): BP systolic 119–150; BP diastolic 74–100; PULSE 63–91; RESP 16–18; TEMP 36.5–37.3; O2SAT 95–100
[2023-09-12] MEDS: Acetaminophen 500 MG Tablet 1000 MG PO ×4 (00:47→18:47)
[2023-09-12] MEDS: Enoxaparin 40 MG/0.4 ML Syringe SC ×2 (03:40→16:11)
[2023-09-12] MEDS: Ketorolac 30 MG/ML Syringe IV ×2 (04:13→11:05)
[2023-09-12 06:17] LABS: Pathology Specimen OB SEE PATHOLOGY REPORT
--- NOTE | 2023-09-12 08:49 | PCM.PN.CNM ---
Subjective Subjective Patient seen at bedside. Falling asleep during assessment and while talking. Objective Data Objective Data Vital Signs: Vital Signs Temp Pulse Resp BP Pulse Ox O2 Del Method 98.1 F 82 18 125/83 H 95 Room Air 09/12/23 03:15 09/12/23 03:15 09/12/23 03:15 09/12/23 03:15 09/12/23 03:15 09/12/23 03:15 Oxygen Delivery Method Room Air Weight: 212 lb 11.937 oz Body Mass Index (BMI) 38.9 Intake & Output: Intake and Output for Last 24 Hours 09/10/23 09/11/23 09/12/23 23:59 23:59 23:59 Intake Total 203.33 / 203.33 3365 / 3365 1000 / 1000 Output Total 100 / 100 1350 / 1350 500 / 500 Balance 103.33 / 103.33 2014 500 / 500 Lab / Micro Data 09/11/23 11:00 09/11/23 11:00 Labs: Laboratory Results - last 24 hr 09/11/23 11:00: WBC 16.6 H, RBC 4.19 L, Hgb 13.0, Hct 38.6, MCV 92.1, MCH 31.0, MCHC 33.7, RDW Std Deviation 47.0 H, RDW Coeff of Edwin 14.1, Plt Count 269, MPV 10.1, Creatinine 0.63, Estim Creat Clear Calc 153.11, Est GFR (MDRD) Af Amer 153, Est GFR (MDRD) Non-Af 127, Uric Acid 5.6, AST 21, ALT 20, Lactate Dehydrogenase 212 09/11/23 12:48: U Random Total Protein 80.0 H, Urine Creatinine 180.00, Protein/Creatinin Ratio 444 H 09/11/23 18:50: Hep Bs Antigen Non-Reactive, Hep Bs Antibody Non-Reactive, Hepatitis C Antibody Non-Reactive, HIV 1&2 Antibody Non-Reactive 09/12/23 06:35: WBC Cancelled, Corrected WBC Cancelled, RBC Cancelled, Hgb Cancelled, Hct Cancelled, MCV Cancelled, MCH Cancelled, MCHC Cancelled, RDW Std Deviation Cancelled, RDW Coeff of Edwin Cancelled, Plt Count Cancelled, MPV Cancelled, Differential Comment Cancelled, Diff Path Review Cancelled ROS Eyes Eyes: Denies blurry vision, change in vision or spots in vision ENT HEENT: Denies dizziness or headache(s) Cardiovascular Cardiovascular: Denies abdominal pain, chest pain or dyspnea Respiratory/Chest Respiratory/Chest: Denies cough, dyspnea, shortness of breath at rest or shortness of breath with exertion Gastrointestinal Gastrointestinal: Denies abdominal pain, diarrhea or vomiting Genitourinary Genitourinary: Denies change in urinary stream, difficulty urinating or dysuria Musculoskeletal Musculoskeletal: Reports none Integumentary Integumentary: Denies rash Neurologic Neurologic: Denies dizziness, headache(s), memory loss or weakness Physical Exam Narrative Dressing is dry and intact Const alert and no apparent distress General Appearance: cooperative and comfortable Exam Limitations: no limitations HEENT normocephalic Eyes General Eye: normal appearance of both eyes Neck full ROM General: normal visual inspection Chest Chest: symmetrical chest wall rise Resp normal respiratory effort and normal air movement Effort and Inspection: symmetric chest movement Auscultation: clear to auscultation bilaterally Cardio regular rate and regular rhythm GI normal to inspection, nondistended, normoactive bowel sounds Back/Spine normal ROM Extremity full ROM and no calf tenderness General Extremity: normal exam except as noted Skin no rashes or lesions noted Neuro CN's II-XII intact bilaterally Psych mental status grossly normal Assessment & Plan (1) delivery delivered: (2) Intrauterine growth restriction (IUGR) affecting care of mother, third trimester, single gestation: (3) Non-reassuring electronic monitoring tracing: PLAN: Plan POD 1 Primary C/S Pain control Increase ambulation today Feeding support
[2023-09-12 08:57] LABS: Hematocrit 30.3 % (37-47); Mean Corpuscular Hgb 31.3 pg (27.0-32.0); Mean Corpuscular Volume 94.7 fL (81-99); Platelet Count 191 K/mm3 (150-450); RBC Distribution Width CV 14.4 % (11.6-14.6); RBC Distribution Width SD 49.5 fl (35.1-43.9)
[2023-09-12] MEDS: Senna/Docusate Sodium 1 Tablet PO (11:05)
[2023-09-12] MEDS: 0.9% Saline Lock 10 ML Syringe IV (11:06)
--- NOTE | 2023-09-12 13:27 | CM.ED ---
Social Work Assessment Labor and Delivery Unit Patient Address: [address] [place] [address] [address] [place] [address] Phone number: [phone] Date of Referral: 09/12/23 Time of Referral:? 829 Referred By: [facility] Date of Intervention: ?09/12/23? Time of Intervention:? 929 Reason for Referral:? mental health Sw completed chart review and acknowledges social work consult due to maternal mental health. Sw presented to bedside and introduced self to mother of baby (MOB- Abbey) and father of baby (FOB- Segundo). Also present at bedside was maternal grandma, MOB stated okay to complete assessment with grandma present. Sw met with MOB and completed psychosocial assessment. MOB also completed [place] Depression Scale. History obtained from: medical records, MOB and FOB- although FOB only answered questions when directly asked of him. Household composition: MOB states that she is currently residing with her mother, FOB currently resides with his mother. Patient's parent/guardian status:?CELESTINE states that she and FOB have been together for a year. No concerns regarding domestic violence or intimate partner violence. Medical History: ?CELESTINE is 23 year old female who is 1, para 0- now 1 following labor and delivery of . CELESTINE received routine care during with [facility] during . CELESTINE presented to hospital for an induction of labor and delivered baby on 09/11/23 via at 37 weeks gestation. Baby boy, named Yeni Camara, was born weighing 4lb 15oz and his apgars were 8 and 9 at one and five minutes of life, respectfully. Baby will be followed by Dr. Sr for pediatrics. MOB states that she is breast feeding. Educational Status:? MOB completed high school, FOB also reports to completing high school. Financial Status: CELESTINE is unemployed, she states that she was previously working, but is not employed at this time. FOB states that he works at [employer] and is able to get time off now that baby has been born. Infant Supplies:?? CELESTINE states that she has everything that she needs for baby, including: car seat, safe sleep space, clothes, diapers and wipes. MOB states that she also has a breast pump for home. Childcare/Caregiver(s):? MOB will be primary caregiver to baby Transportation:?? MOB reports to having a valid drivers license and reliable means of transportation. Programs/Agencies Involved: ???MOB is connected to insurance through [employer]. MOB was informed to get baby added to insurance within thirty days. MOB is also receiving WIC and [employer]. Children Services/Legal Issues:??No history of involvement, no issues or concerns warranting referral at this time. ? Behavioral Health Issues: ??Mental Health History:??FOB denies mental health diagnoses. MOB states that she has been diagnosed with anxiety and depression. Nursing staff indicated that patient was highly anxious and given dose of ativan to help. MOB tearful while discussing her mental health status. MOB states that she is nervous to go home. MOB not observed to provide hands on care to baby, but does indicate that she is bonded with him and feels a connection. MOB completed an [place] Depression Scale, her score was 11. Sw provided education and support. Sw encouraged MOB to get connected to a mental health professional or to talk to her OBGYN about low dose medication to help her manage her mental health symptoms during this period. MOB stated that she does not want to be on medication. ? Substance Use History: MOB denies substance use prior to and during . ?? Family History:???MOB states that her father is an alcoholic, but is not involved in providing care to baby. Sw discussed this concern with MOB and her being predisposed to having a substance use disorder if she seeks comfort from drugs or alcohol instead of utilizing healthy and appropriate coping skills. MOB expressed understanding.? Drug Screens: ?No drug screens observed during chart review. ? Family/Social Stressors:? MOB denies any issues, concerns or stressors at this time. Support Systems: MOB identifies that her mom is her biggest support person. Depression/Shaken Baby/Safe Sleeping:? Sw spoke at length regarding signs and symptoms of baby blues and depression/ anxiety. Sw encouraged MOB and FOB to talk regarding what FOB can do to be supportive of MOB if she were to struggle. Maternal grandma also present and states that there are other family members that MOB can talk to if she is struggling with her mental health. Sw educated parents on shaken baby prevention and ABCs of safe sleep. MOB expressed understanding. ASSESSMENT:? MOB and baby admitted following labor and delivery. MOB tearful throughout completion of psychosocial assessment. MOB expressing feeling anxious and nervous to be discharged. During sw assessment, FOB observed to hold baby and care for him lovingly. MOB appeared tired and somewhat withdrawn. MOB able to recognize that she is struggling but hesitant to engage in counseling supports or get prescribed medication to help account manager b2b her symptoms. MOB lives with her mom so she has built in help and someone to help her with baby. MOB has obtained all necessary baby supplies. PLAN:? MOB and baby to be discharged when medically ready- MOB stated she is not sure if this will be today or tomorrow. Sw encouraged MOB to stay until tomorrow so that she feels more prepared for discharge. Sw encouraged MOB to talk to about any feeding issues she is having. ?No other services requested or indicated. Eliseo Srivastava, WIRE INSPECTOR, SUPERINTENDENT PIER
[2023-09-12] MEDS: Ibuprofen 600 MG Tablet PO ×2 (16:53→22:59)
[2023-09-12] MEDS: oxyCODONE 5 MG Tablet PO (21:03)
[2023-09-13] MEDS: Acetaminophen 500 MG Tablet 1000 MG PO ×4 (01:37→19:57)
[2023-09-13 01:55] VITALS: BP 131/81; PULSE 86; RESP 16; TEMP 37.1; O2SAT 98
[2023-09-13] MEDS: Enoxaparin 40 MG/0.4 ML Syringe SC ×2 (03:43→18:05)
[2023-09-13 05:07] LABS: Hepatitis B Core Ab Total Negative (Negative)
[2023-09-13] MEDS: oxyCODONE 5 MG Tablet PO ×3 (06:32→22:45)
[2023-09-13] MEDS: Ibuprofen 600 MG Tablet PO ×3 (06:32→18:04)
--- NOTE | 2023-09-13 08:51 | PCM.PN.OB ---
Subjective Subjective pain well controlled, average lochia. Denies N/V. Ambulating, tolerating regular diet without difficulty. Objective Data Objective Data Vital Signs: Vital Signs Temp Pulse Resp BP Pulse Ox O2 Del Method 98.7 F 86 16 131/81 H 98 Room Air 09/13/23 01:55 09/13/23 01:55 09/13/23 01:55 09/13/23 01:55 09/13/23 01:55 09/13/23 01:55 Oxygen Delivery Method Room Air Weight: 96.5 kg Body Mass Index (BMI) 38.9 Intake & Output: Intake and Output for Last 24 Hours 09/11/23 09/12/23 09/13/23 23:59 23:59 23:59 Intake Total 3365 / 3365 1000 / 1000 Output Total 1350 / 1350 1100 / 1100 Balance 2014 -100 / -100 Lab / Micro Data 09/12/23 08:30 09/11/23 11:00 Labs: Laboratory Results - last 24 hr 09/11/23 18:50: Hep B Core Total Ab Negative 09/12/23 08:30: WBC 12.0 H, RBC 3.20 L, Hgb 10.0 L, Hct 30.3 L, MCV 94.7, MCH 31.3, MCHC 33.0, RDW Std Deviation 49.5 H, RDW Coeff of Edwin 14.4, Plt Count 191, MPV 10.0 Physical Exam Narrative awake, alert, NAD abd- softly, mildly distended, appropriate tenderness incision - bandage is clean, dry and intact ext- 2+ DTRs, no clonus 1+ edema Assessment & Plan (1) delivery delivered: PLAN: POD#2 s/p primary c/s, IUGR, working on patient stable D/w her pain management expectations likely d/c home tomorrow
[2023-09-13 09:04] VITALS: BP 128/81; PULSE 71; RESP 16; TEMP 36.9; O2SAT 100
[2023-09-13 14:10] VITALS: BP 142/79; PULSE 98; RESP 16; TEMP 37.3; O2SAT 100
--- NOTE | 2023-09-13 16:04 | CASEMGMT ---
Labor and Delivery Geomatics Professor Sw followed up with patient at bedside. Patient reports that last night was a little rough for her, indicating that she was tearful when baby would cry and extremely anxious. Sw educated and encouraged MOB- explaining that for the first couple of weeks it will be a learning experience for her and for baby. Sw asked MOB if she has given any more thought to getting started on medication to help her anxiety/ mood. Patient stated that she wants to find relief but has reservations about medication. Sw asked patient to explain what her reservations are. Patient reports that she was on zoloft her freshman year of high school and she felt like a zombie. Sw encouraged patient to have this discussion with her OBGYN who would know the best route for patient. Sw also reminded patient that it would also be beneficial for her to engage in mental health supports/ counseling during this period as another layer of support. Patient expressed understanding. Patient observed to be more lively than yesterday, but still flat affect and quiet. Patient currently resides with her mom who will be a strong support for her post discharge. Sw contacted [facility] on- call doctorZoila Mckeon, and left detailed voicemail of above information. Eliseo Srivastava, ORDER CHECKER PACKER PROCESSER, SENIOR PIPING DESIGNER
[2023-09-13 20:00] VITALS: BP 139/92; PULSE 70; RESP 16; TEMP 36.8; O2SAT 100
[2023-09-14] MEDS: Ibuprofen 600 MG Tablet PO ×3 (00:14→11:18)
[2023-09-14] MEDS: Acetaminophen 500 MG Tablet 1000 MG PO ×2 (02:19→08:32)
[2023-09-14 02:25] VITALS: BP 137/85; PULSE 76; RESP 16; TEMP 36.8
[2023-09-14] MEDS: Enoxaparin 40 MG/0.4 ML Syringe SC (04:04)
[2023-09-14 08:00] VITALS: BP 132/90; PULSE 71; RESP 16; TEMP 36.6; O2SAT 97
--- NOTE | 2023-09-14 09:32 | PCM.PN.OB ---
Subjective Subjective Patient is doing well. She reports she is feeling some depression and she is anxious. She has a history of depression and is established with a counselor. She has been on Zoloft before in the past and she did not like the way it made her feel. She does not wish to start medication. She denies headache or vision changes. Pain has been well-controlled. She is eating without nausea or vomiting. She is ambulating and voiding without difficulty. Lochia is normal. She is breast-feeding without complaints. Objective Data Objective Data Vital Signs: Vital Signs Temp Pulse Resp BP Pulse Ox O2 Del Method 97.8 F 71 16 132/90 H 97 Room Air 09/14/23 08:00 09/14/23 08:00 09/14/23 08:00 09/14/23 08:00 09/14/23 08:00 09/14/23 08:00 Oxygen Delivery Method Room Air Weight: 212 lb 11.937 oz Body Mass Index (BMI) 38.9 Intake & Output: Intake and Output for Last 24 Hours 09/12/23 09/13/23 09/14/23 23:59 23:59 23:59 Intake Total 1000 / 1000 Output Total 1100 / 1100 Balance -100 / -100 Lab / Micro Data 09/12/23 08:30 09/11/23 11:00 Physical Exam Const alert and no apparent distress General Appearance: comfortable HEENT normocephalic Resp normal respiratory effort GI soft to palpation and non-distended GI Narrative: ATTP, dressing c/d/i Extremity no calf tenderness Assessment & Plan (1) Anxiety disorder: PLAN: She reports some anxiety and depression this morning. She has tried Zoloft in the past and did not do well with it - she states she felt like a zombie. Discussed risks, benefits, alternatives to starting Paxil and she desires to start medication. She has a counselor that she is established with and she will call her counselor on Saturday. She will see us in the office this week for follow-up. No suicidal homicidal ideations. (2) delivery delivered: PLAN: Patient is postoperative day 3 from a section. She is doing well and desires to go home. Meeting milestones for discharge. She has had an occasional mild range blood pressure but most blood pressures have been normal. She does report she is anxious here. Discussed need for a blood pressure check in the office early in the week. She has no pre e symptoms.
--- NOTE | 2023-09-14 09:55 | DCINST_ITS ---
Discharge Instructions Diet Discharge Diet: No restrictions Activity Discharge Activity: May Drive (once you feel strong enough to slam on a brake or turn a steering wheel sharply) and May Shower May resume sexual activity in: 6 weeks Ice area for (Minutes): 15 Weight Bearing Status: Weight bearing as tolerated Lifting Restrictions: nothing heavier than baby Dressing / Incision Call your doctor if your incision/area has: Continuous Slow Oozing, Sudden Increased Bleeding, Increased Pain/ Swelling, Increased Redness, Foul Smelling Discharge and Swelling at the incision site Call your doctor if you observe: Fever of 101 or Higher, Coldness, Increased Pain, Numbness or Tingling, Change in Color, Inability to urinate, Inability to have a bowel movement, Using more than 1 pad per hour, Shortness of breath, Dizziness, Fainting spells, Swelling in the ankles, Chest pain, Prolonged hiccupping, Increased palpitations (irregular heartbeat), Calf discomfort and Uncontrolled pain Suture Line Care: Avoid Pulling/Pushing and Avoid Pinching/Bending Remove Dressing in: leave in place till F/U Cleanse incision/area with: Soap & Water Follow Up Care When: Early this week for a blood pressure check 6 week Test Results: Test results from this visit will be discussed in further detail at your follow- up appointment, if applicable. Discharge Plan Admission Admit Date/Time: 09/10/23 18:55 Primary Reason for Your Visit: delivery Attending Provider: Shruti Hunter Primary Care Provider: Luz Whitehead NP Instructions Patient Instructions: After a Discharge Orders/Prescriptions Prescriptions: New paroxetine HCl [Paxil] 10 mg tablet 10 mg PO DAILY Qty: 30 0RF oxycodone-acetaminophen [Percocet] 5-325 mg tablet 1 tab PO Q6H PRN (Reason: pain) 7 Days Qty: 10 0RF ibuprofen 600 mg tablet 600 mg PO Q6H PRN (Reason: pain) Qty: 30 0RF docusate sodium [Colace] 100 mg capsule 100 mg PO BID PRN PRN (Reason: constipation) Qty: 30 0RF Continued PNV cmb#95-ferrous fumarate-FA [ Multivitamins] 28 mg iron- 800 mcg tablet 1 tab PO DAILY ferrous sulfate [Iron (ferrous sulfate)] 325 mg (65 mg iron) tablet 325 mg PO DAILY Discontinued pantoprazole [Protonix] 40 mg tablet,delayed release (DR/EC) 40 mg PO DAILY Qty: 30 0RF Rx Instructions: take with sip of water 30 mins prior to eating in the AM. folic acid 1 mg tablet 1 mg PO DAILY acyclovir 400 mg tablet 400 mg PO TID Referrals / Follow Up: Luz Whitehead POLE PEELING MACHINE OPERATOR HELPER, POLE PEELING MACHINE OPERATOR HELPER-C [Primary Care Provider] - Disposition Disposition (needs filled in before D/C Order can be placed): Home, Self Care
[2023-09-14 11:02] VITALS: BP 133/97; PULSE 86; RESP 16; TEMP 36.8; O2SAT 99
== END 2023-09-14 11:45 | disposition home or self-care (01) | DRG 788 ==
PROVIDERS: Advanced Practice Midwife; Obstetrics & Gynecology; Admitting Provider Obstetrics & Gynecology; PCP Nurse Practitioner Family; Visit Provider Obstetrics & Gynecology
DX: O76 Abnormality in fetal heart rate and rhythm complicating labor and delivery (principal); O36.5930 Maternal care for other known or suspected poor fetal growth, third trimester, not applicable or unspecified; F32.A Depression, unspecified; F41.9 Anxiety disorder, unspecified; O99.345 Other mental disorders complicating the puerperium; O26.03 Excessive weight gain in pregnancy, third trimester; Z37.0 Single live birth; Z3A.37 37 weeks gestation of pregnancy; Z86.19 Personal history of other infectious and parasitic diseases
CPT/HCPCS: 59025; 59050; 82565; 82570; 83615; 84156; 84450; 84460; 84550; 85025; 85027; 86703; 86704; 86706; 86780; 86803; 86850; 86900; 86901; 87340; 88307; 99221; J7120; A4216; G0378; J2405

== ENCOUNTER 2023-09-15 14:24 | Inpatient (IN) | payer OTHER, MEDICAID, SELFPAY ==
[2023-09-15] VITALS (94 sets, daily range): BP systolic 119–190; BP diastolic 60–100; PULSE 76–103; RESP 14–18; TEMP 36.4–37.1; O2SAT 96–100; BMI 38.3
[2023-09-15 14:21] LABS: Hematocrit 31.2 % (37-47); Hemoglobin 10.5 g/dL (12.0-15.0); Mean Corp Hgb Conc 33.7 g/dL (32-36); Mean Corpuscular Hgb 31.4 pg (27.0-32.0); Mean Corpuscular Volume 93.4 fL (81-99); Mean Platelet Vol. 8.8 fl (6.2-12.0); Platelet Count 313 K/mm3 (150-450); RBC Distribution Width CV 14.4 % (11.6-14.6); RBC Distribution Width SD 48.4 fl (35.1-43.9); Red Blood Count 3.34 M/mm3 (4.2-5.4); White Blood Count 9.7 K/mm3 (4.4-11.0)
[2023-09-15] MEDS: Labetalol (Prefilled) 20 MG/4 ML IV (14:31)
[2023-09-15 14:36] LABS: Uric Acid 5.1 mg/dL (2.6-6.0)
[2023-09-15 14:38] LABS: ALB/GLOB Ratio 0.6 RATIO (0.9-2.4); AST(SGOT) 38 U/L (15-37); Alanine Aminotransfer ALT/SGPT 33 U/L (13-56); Albumin, Serum 2.5 g/dL (3.2-5.0); Alkaline Phosphatase 116 U/L (45-117); Anion Gap 7 (5-15); BUN 11 mg/dL (7-18); BUN/Creat Ratio 15.2 RATIO (10-20); Calcium,Total 9.2 mg/dL (8.5-10.1); Chloride 111 mmol/L (98-107); Creatinine, Serum 0.72 mg/dL (0.55-1.02); EST Glomerular Filtration Rate 108 mL/min (>60); Est Glom Filt Rate - Afr Amer 130 mL/min (>60); Estimated Creatinine Clearance 132.86 ml/min; Glucose 92 mg/dL (74-106); Potassium 3.9 mmol/L (3.5-5.1); Protein, Total 6.5 g/dL (6.4-8.2); Sodium Level 142 mmol/L (136-145)
[2023-09-15] MEDS: Magnesium Sulfate 4gm/100mL 4 GM/100 ML IV.SOLN. IV (14:41)
[2023-09-15] MEDS: Labetalol (Prefilled) 20 MG/4 ML 40 MG IV (14:45)
[2023-09-15] MEDS: Magnesium Sulfate 4gm/100mL 2 GM/50 ML IV.SOLN. IV (15:01)
[2023-09-15] MEDS: Labetalol 100 MG/20 ML Vial 80 MG IV (15:03)
[2023-09-15] MEDS: Magnesium Sulfate 20 GM/500 ML BAG IV (15:14)
[2023-09-15] MEDS: Labetalol 200 MG Tablet PO ×2 (15:34→21:39)
[2023-09-15] MEDS: Acetaminophen 500 MG Tablet 1000 MG PO ×2 (15:42→21:39)
[2023-09-15] MEDS: Ibuprofen 600 MG Tablet PO (17:10)
[2023-09-16] VITALS (35 sets, daily range): BP systolic 113–183; BP diastolic 57–99; PULSE 75–102; RESP 16–18; TEMP 36.2–37.1; O2SAT 96–99
[2023-09-16] MEDS: Magnesium Sulfate 20 GM/500 ML BAG IV ×2 (00:36→10:44)
[2023-09-16] MEDS: Metoclopramide 10 MG/2 ML Vial IV (01:34)
[2023-09-16] MEDS: Ibuprofen 600 MG Tablet PO ×2 (03:49→09:33)
[2023-09-16] MEDS: Acetaminophen 500 MG Tablet 1000 MG PO ×3 (06:48→21:42)
--- NOTE | 2023-09-16 08:26 | PCM.HP.BLA ---
History and Physical Date of Admission: 09/15/23 23-year-old female status post primary section on 09/11/2023 presents on day #4 with complaint of headache and elevated blood pressures at home. Moderate persistent headache. Still mild this a.m. Medications did help. Intermittent visual changes. No nausea vomiting diarrhea. No fevers or chills. Pain is well-controlled. Has not had a bowel movement since delivery. See H&P from admission 09/10/2023. She underwent induction for intrauterine growth restriction at 37 weeks. She had some elevated blood pressures intermittently during labor and after delivery. However, she did not meet the criteria for severe preeclampsia and did not receive magnesium intrapartum or . Physical exam: See vital General: Patient was sleeping comfortably, awakens easily to alert in no acute distress Abdomen: Moderate pannus, soft, appropriate tenderness, nondistended Bandage removed off the incision and the incision is clean dry and intact Extremities have 2+ edema, symmetrical no erythema, 1 beat of clonus and 3+ DTRs Assessment & Plan Assessment/Plan (1) Preeclampsia: PLAN: Labs reviewed. Vitals reviewed. On magnesium for 24 hours. Will monitor blood pressures on oral medications after magnesium is discontinued. Likely home tomorrow with close follow-up and surveillance. Currently on labetalol 200 mg p.o. twice daily. Has not had a bowel movement yet, will give Senokot to help initiate this. Encourage ambulation after magnesium is off. Okay for Reglan for headaches. (2) Obesity, Class II, BMI 35-39.9: (3) delivery delivered:
--- NOTE | 2023-09-16 08:58 | NURSING ---
During initial assessment, fundus undetectable,lochia scant
[2023-09-16] MEDS: Labetalol 200 MG Tablet PO ×3 (09:33→21:43)
[2023-09-16] MEDS: Senna/Docusate Sodium 1 Tablet PO ×2 (09:33→22:14)
[2023-09-16] MEDS: Metoclopramide 5 MG TABLET PO (09:33)
--- NOTE | 2023-09-16 19:59 | NURSING ---
call to provider to update on pt BP. BP was 183/91 and retaken 15 minutes later, 171/60. blood pressures prior to my assessment were 120's/50's. pt was up ambulating and before blood pressure was taken. order to give Procardia PO 10 mg fast acting x1 now, and give 200 mg labetalol PO now and change existing BID labetalol order to TID.
[2023-09-16] MEDS: NIFEdipine 10 MG Capsule PO ×2 (20:12→21:02)
--- NOTE | 2023-09-16 20:52 | NURSING ---
Addendum entered by Mariely Tirado 09/16/23 20:56: verbal order given to give Procardia 10 mg PO now. Original Note: provider on unit, notified that BP 15 minutes after administration of Procardia 10 mg PO and Labetalol 200 mg PO was 171/60. blood pressure at 2048 was 171/99, provider still on unit and has been made aware.
--- NOTE | 2023-09-16 21:25 | NURSING ---
Provider on unit and told this RN that she put in orders for Procardia XL 30 to be given daily and to give the first dose now, and labetolol 200mg to be given at the previously scheduled time of 2200, and that she wants the labetolol to remain BID. Orders communicated to primary nurse ABeard RN
[2023-09-16] MEDS: NIFEdipine 30 MG Tablet PO (21:43)
[2023-09-17] VITALS (12 sets, daily range): BP systolic 126–163; BP diastolic 72–89; PULSE 84–92; RESP 16–20; TEMP 37.1–37.4; O2SAT 97–99
[2023-09-17] MEDS: Ibuprofen 600 MG Tablet PO ×2 (00:40→08:40)
[2023-09-17] MEDS: MOTHER'S OWN BREAST MILK 1 BOTTLE PO (01:45)
[2023-09-17] MEDS: Acetaminophen 500 MG Tablet 1000 MG PO ×3 (06:19→22:01)
--- NOTE | 2023-09-17 08:35 | PCM.PN.OB ---
Subjective Subjective Pain well controlled. Still mild GREER, same as yesterday. Average lochia. No N/V. C/o some burning w urination w/ last night Objective Data Objective Data Vital Signs: Vital Signs Temp Pulse Resp BP Pulse Ox O2 Del Method 98.7 F 87 16 146/75 H 97 Room Air 09/17/23 04:30 09/17/23 04:52 09/17/23 04:30 09/17/23 04:52 09/17/23 04:49 09/17/23 00:28 Oxygen Delivery Method Room Air Weight: 95.073 kg Body Mass Index (BMI) 38.3 Intake & Output: Intake and Output for Last 24 Hours 09/15/23 09/16/23 09/17/23 23:59 23:59 23:59 Intake Total 1020 / 1020 3269.16 / 3269.16 Output Total 1525 / 1525 2150 / 2150 Balance -505 / -505 1119.16 / 1119.16 Lab / Micro Data 09/15/23 14:10 09/15/23 14:10 Physical Exam Narrative Awake, alert NAD abd- soft, appropriate tenderness, nondistended ext-2+ edema, 2+ dtrs, no clonus Assessment & Plan (1) Preeclampsia: PLAN: Hospital day #2 status post readmission, status post primary on 09/11/2023. preeclampsia. Status post 24 hours of magnesium that was discontinued last night. Received a breakthrough dose of extra 200 mg of labetalol p.o. last night, also started on Procardia. Received 2 doses of short acting Procardia last night and then started on Procardia 30 mg XL daily. Will monitor this morning. May need to spend another night since blood pressure spiked last night. Discussed with patient importance of control of blood pressures before DC home. is in room with patient and doing well.
[2023-09-17] MEDS: Labetalol 200 MG Tablet PO ×2 (08:44→22:00)
[2023-09-17] MEDS: NIFEdipine 30 MG Tablet PO (11:45)
[2023-09-18] MEDS: Ibuprofen 600 MG Tablet PO (01:09)
--- NOTE | 2023-09-18 02:18 | NURSING ---
This RN received report from Donnie VERA at this time, this RN to resume patient care.
[2023-09-18 04:15] VITALS: BP 142/91; PULSE 62; RESP 16; TEMP 36.9; O2SAT 98
[2023-09-18 04:30] VITALS: BP 136/81
[2023-09-18] MEDS: Acetaminophen 500 MG Tablet 1000 MG PO (05:47)
--- NOTE | 2023-09-18 08:18 | PCM.PN.OB ---
Subjective Subjective No GREER or vision changes. Feels good. Breast feeding well. Reviewed BPs. Has a BP cuff at home. Discussed F/u in office for BP check. Objective Data Objective Data Vital Signs: Vital Signs Temp Pulse Resp BP Pulse Ox O2 Del Method 98.5 F 62 16 136/81 H 98 Room Air 09/18/23 04:15 09/18/23 04:15 09/18/23 04:15 09/18/23 04:30 09/18/23 04:15 09/18/23 04:15 Oxygen Delivery Method Room Air Weight: 95.073 kg Body Mass Index (BMI) 38.3 Intake & Output: Intake and Output for Last 24 Hours 09/16/23 09/17/23 09/18/23 23:59 23:59 23:59 Intake Total 3269.16 / 3269.16 Output Total 2150 / 2150 Balance 1119.16 / 1119.16 Lab / Micro Data 09/15/23 14:10 09/15/23 14:10 ROS Constitutional Constitutional: Denies fatigue or weakness Eyes Eyes: Denies blind spots, blurry vision or floaters ENT HEENT: Denies headache(s) Cardiovascular Cardiovascular: Reports systems reviewed and no addt'l complaints, except as documented Respiratory/Chest Respiratory/Chest: Reports systems reviewed and no addt'l complaints, except as documented Genitourinary Genitourinary: Reports systems reviewed and no addt'l complaints, except as documented Neurologic Neurologic: Denies headache(s) or loss of vision Psychiatric Psychiatric: Reports systems reviewed and no addt'l complaints, except as documented Physical Exam Const alert, oriented x3 and no apparent distress General Appearance: cooperative and comfortable HEENT normocephalic and head/scalp atraumatic Eyes PERRL and EOMs intact bilaterally Neck full ROM Resp normal respiratory effort GI Palpation: soft Extremity normal to inspection and full ROM General Extremity: normal exam except as noted Skin no rashes or lesions noted Neuro oriented x3 and CN's II-XII intact bilaterally Psych mental status grossly normal, thought process normal and cooperative Assessment & Plan (1) Preeclampsia: PLAN: Home with Procardia and labetalol. BP Check Saturday if ablel
--- NOTE | 2023-09-18 08:27 | DS.PCM_ITS ---
Providers Date of Admission: 09/15/23 Date of Discharge: 09/18/23 Primary Care Physician: RIO Wills Reason For Visit: POST PRE E Diagnosis Discharge Diagnosis (1) Preeclampsia: Status: Acute Code(s): O14.90 - Unspecified pre-eclampsia, unspecified trimester Qualifiers: Trimester: unspecified trimester Qualified Code(s): O14.90 - Unspecified pre-eclampsia, unspecified trimester Plan: Home with Procardia and labetalol. BP Check Saturday if ablel Medications at Discharge Home Medications vit no.95-ferrous fumarate 28 mg-folic acid 800 mcg tablet ( Multivitamins) 1 tab PO DAILY 07/24/23 docusate sodium 100 mg capsule (Colace) 100 mg PO BID PRN PRN constipation #30 caps 09/14/23 ibuprofen 600 mg tablet 600 mg PO Q6H PRN pain #30 tabs 09/14/23 paroxetine HCl 10 mg tablet (Paxil) 10 mg PO DAILY #30 tabs 09/14/23 labetalol 200 mg tablet 200 mg PO BID #60 tabs 09/18/23 nifedipine 30 mg tablet,extended release 24 hr 30 mg PO DAILY #30 tabs 09/18/23 Hospital Course Operations None Procedures None Summary of Care Provided Minutes Spent on Discharge: 23 Hospital Course: Readmit post for pre eclampsia. Treated with labetalol and then Procardia. Had 24 hours of magnesium. Physical Exam Const alert General Appearance: cooperative GI GI Narrative: soft, moderate distention, fundus firm, appropriately tender. Abdominal bandage clean dry and intact Weight / BMI Weight Weight: 95.073 kg Body Mass Index (BMI) 38.3 ABG / Lab / Microbiology Data 09/15/23 14:10 09/15/23 14:10 Meaningful Use Info Meaningful Use Diagnoses (Choose all that apply): None applicable Discharge Plan Admission Admit Date/Time: 09/15/23 14:24 Primary Reason for Your Visit: readmit with pre eclampsia Attending Provider: Kayla Rodriguez Primary Care Provider: Luz Whitehead NP Instructions Patient Instructions: Understanding Preeclampsia Additional Instructions / Restrictions: needs follow up appointment in 3 days Discharge Orders/Prescriptions Prescriptions: New labetalol 200 mg Tablet 200 mg PO BID Qty: 60 0RF nifedipine 30 mg Tablet Extended Release 24hr 30 mg PO DAILY Qty: 30 0RF Continued PNV cmb#95-ferrous fumarate-FA [ Multivitamins] 28 mg iron- 800 mcg tablet 1 tab PO DAILY paroxetine HCl [Paxil] 10 mg tablet 10 mg PO DAILY Qty: 30 0RF ibuprofen 600 mg tablet 600 mg PO Q6H PRN (Reason: pain) Qty: 30 0RF docusate sodium [Colace] 100 mg capsule 100 mg PO BID PRN PRN (Reason: constipation) Qty: 30 0RF Discontinued oxycodone-acetaminophen [Percocet] 5-325 mg tablet 1 tab PO Q6H PRN (Reason: pain) 7 Days Qty: 10 0RF Referrals / Follow Up: Luz Whitehead NP, SALES FACILITATOR-C [Primary Care Provider] - Disposition Disposition (needs filled in before D/C Order can be placed): Home, Self Care
[2023-09-18 08:50] VITALS: BP 140/90; PULSE 72; RESP 16; TEMP 36.3; O2SAT 97
[2023-09-18] MEDS: Labetalol 200 MG Tablet PO (09:12)
[2023-09-18] MEDS: Senna/Docusate Sodium 1 Tablet PO (09:12)
--- NOTE | 2023-09-19 16:06 | NURSING ---
Follow up phone call performed. Pt reports feeling good, denies s+s overall. Had a headache this morning that resolved with a nap. Reports BP high this morning but due for medicine (high reading was 139/98 --> 117/83 after medication administration). RN informed pt. if she has any s+s of pre-e, including vision changes, edema, or headache that is persistent to call OBGYN or get triaged. Pt. verbalized understanding. Denies questions or concerns.
== END 2023-09-18 11:30 | disposition home or self-care (01) | DRG 776 ==
LOC: WPOUT 14:25 → WP 14:25
PROVIDERS: Admitting Provider Advanced Practice Midwife; PCP Nurse Practitioner Family; Visit Provider Advanced Practice Midwife
DX: O14.95 Unspecified pre-eclampsia, complicating the puerperium (principal); O99.215 Obesity complicating the puerperium; Z3A.37 37 weeks gestation of pregnancy
CPT/HCPCS: 80053; 84550; 85027; 87086

== ENCOUNTER → 2025-01-20 | Outpatient (CLI) | payer OTHER, MEDICAID, SELFPAY ==
[2025-01-22 15:08] LABS: Calprotectin, Stool 163 ug/g (0-120)
== END | disposition home or self-care (01) ==
LOC: LABSPEC 11:02
PROVIDERS: PCP Nurse Practitioner Family; Referring Provider Student in an Organized Health Care Education/Training Program; Visit Provider Student in an Organized Health Care Education/Training Program
DX: K58.9 Irritable bowel syndrome, unspecified (principal); R19.5 Other fecal abnormalities; K21.9 Gastro-esophageal reflux disease without esophagitis
CPT/HCPCS: 83993; 87177; 87209; 87329; 87493; 87506

== ENCOUNTER 2025-02-25 07:15 | Day surgery (SDC) | payer MEDICAID, SELFPAY ==
--- NOTE | 2025-02-18 18:49 | PAT.ANESEVAL ---
Pre-Assessment Diagnosis/Proposed Procedure Planned Operative Procedure(s): Colonoscopy,EGD Anesthesia History Anesthesia History - veneer repairer machine: Anesthesia History - veneer repairer machine Hx Hospitalization No 02/18/25 15:14 Any Problems With Anesthesia No 02/18/25 15:14 Cholinesterase deficiency No 02/18/25 15:14 You/Your Family Experience No 02/18/25 15:14 fever (hyperthermia) with Relationship Recent Exposure to Contagious Disease Does patient have nerve No 02/18/25 15:14 stimulator Patient instructed to have device shut off --Does patient have Pacemaker or ICD? When Was Last Pacemaker Check QUESTION #4 FULL TEXT: You/Your Family Experience fever (hyperthermia) with Anesthesia Last Oral Intake Last Oral intake: Last Oral Intake NPO since Meds taken in AM with sips of water? Meds patient instructed to take am of surgery PONV PONV - veneer repairer machine: PONV - veneer repairer machine Female Yes 02/18/25 15:14 HX of Motion Sickness Yes 02/18/25 15:14 HX of N/V After Surgery No 02/18/25 15:14 Non-Smoker Yes 02/18/25 15:14 Duration of Surgery greater No 02/18/25 15:14 than 60 minutes Number of Risk Factors 3 02/18/25 15:14 PONV Score Moderate Risk 02/18/25 15:14 Height & Weight Height & Weight: Anesthesia: Height & Weight Height 5 ft 2 in 09/15/23 14:14 Respiratory Assessment Respiratory Assessment - veneer repairer machine: Respiratory Tract Infection Hx - veneer repairer machine Hx Respiratory Tract Infection No 02/18/25 15:14 STOP Sleep Apnea STOP Sleep Apnea - veneer repairer machine: STOP Sleep Apnea - veneer repairer machine Hx Hypertension No 02/18/25 15:14 Hx Sleep Apnea No 02/18/25 15:14 CPAP BIPAP Do you snore loudly (louder No 02/18/25 15:14 than talking or can be heard Do you often feel tired/ No 02/18/25 15:14 fatigued/ sleepy during daytime? Has anyone observed you stop No 02/18/25 15:14 breathing during sleep? STOP Results Negative 02/18/25 15:14 QUESTION #5 FULL TEXT : Do you snore loudly (louder than talking or can be heard through closed doors)? Tobacco Use History Tobacco Use History - veneer repairer machine: Tobacco Use History - veneer repairer machine Tobacco Use Smoking Status Never smoker 02/18/25 15:14 Hx Tobacco Use No 02/18/25 15:14 Years Smoking Packs Smoked per Day Smoking Cessation Date was within the last 15 years Hx Smoking Cessation Date Hx Smoking Cessation Counseling Hematologic Medial History Hematologic Hx - veneer repairer machine: Hematologic Medical Hx - brand representative Hx of Blood Transfusion No 02/18/25 15:14 Hx of Transfusion in last 3 No 02/18/25 15:14 Months Date of Last Transfusion (if within last 3 months) Ever experience any problems No 02/18/25 15:14 with transfusion(s)? Specify any problems Hx of Preganancy in last 3 No 02/18/25 15:14 Months Nurse Filling Out Transfusion JZOLLINGE 02/18/25 15:14 & Questions: Date: 02/18/25 02/18/25 15:14 Time: 15:15 02/18/25 15:14 Patient unable to answer at this time (ie. confused, unrespo /Reproduction History /Reproductive History - veneer repairer machine: /Reproductive Hx- veneer repairer machine Hx Now No 02/18/25 15:14 Gestational Age (in weeks): EDC: Hx Hx Para Hx Section SAB No 02/18/25 15:14 PFS Medical History (Updated 02/18/25 @ 15:29 by Codi Hadley) Marijuana use Alcohol use Anemia Gastric reflux Former smoker Cardiology follow-up encounter History of echocardiogram History of stress test Constipation Cannabis dependence Depression Anxiety Heart palpitations Nausea delivery delivered Intrauterine growth restriction (IUGR) affecting care of mother, third trimester, single gestation Genital herpes affecting Chlamydia infection affecting Headache Home Medications ?Medication ?Instructions ?Recorded ?Last Taken ?Type famotidine 20 mg tablet 20 mg PO QDAY 12/29/24 Unknown History levonorgestrel-ethinyl estradiol 1 tab PO QDAY 12/29/24 Unknown History 0.1 mg-20 mcg tablet (Aviane) omeprazole 20 mg capsule,delayed 20 mg PO QDAY 01/13/25 Unknown History release oxybutynin chloride 10 mg 10 mg PO DAILY 02/18/25 Unknown History tablet,extended release 24 hr Allergy/AdvReac Type Severity Reaction Status Date / Time No Known Allergies Allergy Verified 09/15/23 15:24 Surgical History (Updated 12/29/24 @ 15:15 by Sara Rodriguez) Previous section History of surgery Social History (Updated 12/29/24 @ 15:17 by Sara Rodriguez) Smoking Status: Never smoker alcohol intake: current alcohol intake frequency: a few times a week substance use type: marijuana Audit: Pertinent Findings Pertinent Findings EKG Perinent findings: 01/22/2025. Normal sinus rhythm. Stress test pertinent findings: 10/19/2024. Patient achieved 9.0 METS. Stress EKG is negative for inducible ischemia. Echo (EF%) pertinent findings: 10/20/2024. EF of 60 to 65%. No significant valvular dysfunction. RVSP is 23 mmHg. Consult pertinent findings: 01/22/2025. Cecilia PACHECO 1. PVCs-patient is feeling much better. She stopped all her cardiac medications about 1 month ago due to side effects. Palpitations have improved since school is over. Likely related to stress. Patient is to work with PCP and her counselor. Additional pertinent findings: Holter monitor. 08/27/2024. Baseline rhythm was sinus rhythm. Triggered events due to sinus rhythm with PVCs. Ventricular bigeminy was marked. No A-fib or a flutter, No supraventricular tachycardia. No ventricular tachycardia. Recommendation Anesthesia Recommendation Anesthesia recommendation: OPTIMIZED for anesthesia
[2025-02-25] VITALS (8 sets, daily range): BP systolic 120–132; BP diastolic 58–81; PULSE 67–92; RESP 16–18; TEMP 36.4–37.3; O2SAT 96–100; BMI 39.4
--- OUTSIDE RECORDS SUMMARY | 2025-02-25 07:24 | XMS RPT_ITS | CCD ---
Author Organization [facility] Care Team Providers Care Park Guard Name Role Phone SANDRA CHOI Unavailable Unavailable REFERRED, SELF Unavailable Unavailable IMANI ACOSTA A Unavailable Unavailable DAVE, IMANI A Unavailable Unavailable REFERRED, SELF Unavailable Unavailable IMANI ACOSTA A Unavailable Unavailable TERELL MEJIA Unavailable Unavailable REFERRED, SELF Unavailable Unavailable DAVE, IMANI A Unavailable Unavailable DAVE, IMANI A Unavailable Unavailable REFERRED, SELF Unavailable Unavailable IMANI ACOSTA A Unavailable Unavailable Unavailable Primary Care Provider Unavailabl e Unavailable Primary Care Provider UnavailSid Kelsey Primary Care Provider [place] FREGOSO, Sid K Primary Care Provider [phone] [place] FREGOSO, Sid K Primary Care Provider SAUL LOW Attending Unavailable VENTURA, SID K Primary Care Unavailable VENTURA, SID K Primary Care Unavailable KAYLA RODRIGUEZ Attending Unavailable ISAAC WALTER Attending Unavailable VENTURA, SID K Primary Care Unavailable KELLY CEVALLOS Attending Unavailable JACIEL WHITEHEADA K Primary Care Unavailable [place] GIRLS TENNIS COACH-C, Sid Referring Provider Jeni Silva Attending Provider [phone] Derek GIRLS TENNIS COACH-CMeena Primary Care Provider Jeni Silva Referring Provider [phone] MARIA LUZ RODRIGUEZ Attending Unavailable JACIEL WHITEHEADA K Primary Care Unavailable MARIA LUZ RODRIGUEZ Attending Unavailable VENTURA, SID K Primary Care Unavailable MARIA LUZ RODRIGUEZ Referring Unavailable VENTURA SID K Primary Care Unavailable MEENA REED APRN Consulting Unavailable GAVIOTA MARKS MD Primary Care UnavailGAVIOTA Gary MD Attending UnavailGAVIOTA Gary MD Admitting Unavailabl e PROVIDER, UNKNOWN Consulting Unavailable REDE MEENA OFFICE MACHINE PUNCH OPERATOR Admitting Unavailable MEENA REED APRN Attending Unavailable MEENA REED APRN Primary Care Unavailable DEERK MEENA OFFICE MACHINE PUNCH OPERATOR Consulting Unavailable PROVIDER, UNKNOWN Consulting Unavailable MEENA REED APRN Referring Unavailable MEENA REED OFFICE MACHINE PUNCH OPERATOR Consulting Unavailable LEMADITHYA QUINTANA Primary Care Unavailable ADITHYA RIVERA Attending Unavailable ADITHYA RIVERA Admitting Unavailable PROVIDER, UNKNOWN Consulting Unavailable DEREK MEENA ARREDONDON Referring Unavailable REED MEENA ARREDONDON Consulting Unavailable ROBI BOYD MD Primary Care Unavailable ROBI BOYD MD Attending Unavailable ROBI BOYD MD Admitting Unavailable PROVIDER, UNKNOWN Consulting Unavailable MEENA REED APRN Consulting Unavailable GAVIOTA MARKS MD Primary Care Unavailabl e GAVIOTA MARKS MD Attending Unavailabl e GAVIOTA MARKS MD Admitting Unavailabl e PROVIDER, UNKNOWN Consulting Unavailable MEENA REED APRN Attending Unavailable EMENA REED APRN Primary Care Unavailable MEENA REED OFFICE MACHINE PUNCH OPERATOR Consulting Unavailable DEREK MEENA OFFICE MACHINE PUNCH OPERATOR Admitting Unavailable PROVIDER, UNKNOWN Consulting Unavailable MEENA REED APRN Primary Care Unavailable REED MEENA OFFICE MACHINE PUNCH OPERATOR Consulting Unavailable MEENA REED APRN Attending Unavailable MEENA REED OFFICE MACHINE PUNCH OPERATOR Admitting Unavailable PROVIDER, UNKNOWN Consulting Unavailable DEREK MEENA ARREDONDON Consulting Unavailable SID WHITEHEAD Primary Care Unavailable SID WHITEHEAD Attending Unavailable SID WHITEHEAD Admitting Unavailable PROVIDER, UNKNOWN Consulting Unavailable MEENA REED APRN Attending Unavailable MEENA REED OFFICE MACHINE PUNCH OPERATOR Admitting Unavailable MEENA REED APRN Primary Care Unavailable DEREK MEENA OFFICE MACHINE PUNCH OPERATOR Consulting Unavailable PROVIDER, UNKNOWN Consulting Unavailable MEENA REED OFFICE MACHINE PUNCH OPERATOR Admitting Unavailable MEENA REED APRN Attending Unavailable MEENA REED APRN Primary Care Unavailable MEENA REED APRN Attending Unavailable MEENA REED APRN Primary Care Unavailable MEENA REED OFFICE MACHINE PUNCH OPERATOR Admitting Unavailable Jeni Petit Attending Unavailable Meena Reed Primary Care Unavailkeegan Whitehead GIRLS TENNIS COACH, Sid Referring Unavailable Neymar Greenfield Attending Unavailable Meena Reed Referring Unavailabl e Meena Reed Primary Care Unavailabl Jeni Morrell Referring Unavailable Jeni Petit Attending Unavailable Meena Reed Primary Care Unavailabl e Medications Current Medications Medication Drug Class(es) Dates Sig (Normalized) Sig (Original) benoxinate hydrochloride 4 mg/ml / fluorescein sodium 2.5 mg/ml ophthalmic solution (1 source) Diagnostic Dye Start: 08-27-2024 End: 08-27-2024 fluorescein-beba xinate 0.25-0.4 % 1 Drop (FLURESS) ethinyl estradiol 0.02 mg / levonorgestrel 0.1 mg oral tablet (8 sources) Progestin, Estrogen, Progestin-containin g Intrauterine Device Start: 12-29-2024 take 1 tablet by mouth once daily Levonorgestrel-E thinyl Estrad (Aviane) 0.1-20 mg-mcg tablet Active 1 {tbl} PO daily December 29, 2024 12:00am Start: 11-20-2024 End: 10-22-2025 take 1 tablet by mouth once daily Levonorgestrel-Ethinyl Estrad (AVIANE) 0.1mg - 20mcg per tablet Take 1 tablet by mouth once daily. 84 tablet 3 11/20/2024 10/22/2025 Active famotidine 20 mg oral tablet (2 sources) Histamine-2 Receptor Antagonist Start: 12-29-2024 take 1 tablet by mouth once daily Famotidine 20 mg tablet Active 20 mg PO daily December 29, 2024 12:00am hydrocortisone 25 mg/ml topical cream (1 source) Corticosteroid Start: 12-29-2024 End: 01-05-2025 hydrocortisone 2.5 % cream Indications: Rash Apply 1 application to affected area two times a day for 7 days. 28 g 12/29/2024 01/05/2025 Active ibuprofen 600 mg oral tablet (4 sources) Nonsteroidal Anti-inflammatory Drug Start: 09-14-2023 take 1 tablet by mouth every six hours as needed for pain Ibuprofen 600 mg tablet Active 600 mg PO EVERY 6 HOURS as needed for pain 30 0 September 14, 2023 12:00am methylPREDNISolone (1 source) Corticosteroid Start: 12-29-2024 End: 01-04-2025 methylPREDNISolone (MEDROL, ALANNA,) 4 mg Dose-Pack Indications: Rash Take as instructed per package. 21 tablet 12/29/2024 01/04/2025 Active metroNIDAZOLE 0.0075 mg/mg vaginal gel (7 sources) Nitroimidazole Antimicrobial Start: 01-15-2024 End: 01-25-2024 metroNIDAZOLE (METROGEL VAGINAL) 0.75 % (37.5mg/5 gram) Vaginal Gel Use 1 Applicatorful vaginally daily at bedtime for 10 days. 140 g 0 01/15/2024 01/25/2024 Active Start: 12-23-2023 End: 12-31-2023 take 1 tablet by mouth twice daily metroNIDAZOLE (FLAGYL) 500 mg tablet Take 1 tablet by mouth two times a day for 7 days. 14 tablet 0 12/24/2023 12/31/2023 Active Start: 08-23-2023 End: 08-23-2023 take 4 tablets by mouth once metroNIDAZOLE (FLAGYL) 50 0 mg tablet Take 4 tablets by mouth one time only for 1 dose. 4 tablet 0 08/23/2023 08/23/2023 Active Start: 01-13-2022 End: 01-20-2022 take 1 tablet by mouth twice daily metroNIDAZOLE (FLAGYL) 500 mg tablet Indications: BV (bacterial vaginosis) Take 1 tablet by mouth twice daily for 7 days. 14 tablet 0 01/13/2022 01/20/2022 Active Comment on above: Take 1 tablet by roxann twice daily for 7 days. Take 4 tablets by mo [facility] one time only for 1 dose. miconazole nitrate 20 mg/ml vaginal cream (1 source) Azole Antifungal Start: 3 End: 3 miconazole (MONISTAT 7) 2 % vaginal cream Indications: 18 weeks gestation of , Encounter for supervision of normal first in second trimester , Vaginal discharge Use 1 Applicator vaginally daily at bedtime for 7 days. 45 g 0 05/06/2023 05/13/2023 Active Comment on above: Use 1 Applicator vag inally daily at bedtime for 7 days. omeprazole 20 mg delayed release oral capsule (8 sources) Proton Pump Inhibitor Start: take 1 capsule by mouth once daily Omeprazole 20 mg capsule,delayed release(DR/EC) Active 20 mg PO daily January 13, 2025 12:00am take 1 capsule by mouth once nayana ly omeprazole (PRILOSEC) 10 mg capsule Take 10 mg by mouth once daily. Active 24 hr oxybutynin chloride 15 mg extended release oral tablet (4 sources) Cholinergic Muscarinic Antagonist Start: 01-29-2025 End: 03-30-2025 take 1 tablet by mouth once daily oxybutynin ER (DITROPAN XL) 15 mg 24 hr Extended Rel Tab Indications: Feeling of incomplete bladder emptying , Frequency of micturition Take 1 tablet by mouth once daily. 30 tablet 1 01/29/2025 03/30/2025 Active Start: 12-11-2024 End: 02-09-2025 take 1 tablet by mouth once daily oxybutynin ER (DITROPAN XL) 10 mg 24 hr tablet Indications: Feeling of incomplete bladder emptying , Frequency of micturition , Overactive bladder , Urinary urgency Take 1 tablet by mouth once daily. 30 tablet 1 12/11/2024 02/09/2025 Active PARoxetine hydrochloride 10 mg oral tablet (18 sources) Serotonin Reuptake Inhibitor Start: 09-14-2023 End: 11-20-2024 take 1 tablet by mouth once daily Paroxetine Hcl (Paxil) 10 mg tablet Active 10 mg PO DAILY 30 September 14, 2023 12:00am Comment on above: Take 1 tablet by roxann th every afternoon. Pnv Cmb#95-Ferrous Fumarate-Fa ( Multivitamins) 28 mg iron- 800 mcg tablet (4 sources) Start: 07-24-2023 Pnv Cmb#95-Ferrous Fumarate-Fa ( Multivitamins) 28 mg iron- 800 mcg tablet Active 1 {tbl} PO DAILY July 24, 2023 1:00am Start: 07-24-2023 take 1 tablet by roxann th once daily Pnv Cmb#95-Ferrous Fumarate-Fa ( Multivitamins) 28 mg iron- 800 mcg tablet Active 1 TABLET PO DAILY July 24, 2023 1:00am triamcinolone acetonide 1 mg/ml topical cream (1 source) Corticosteroid Start: 09-17-2022 End: 09-24-2022 triamcinolone acetonide (KENALOG) 0.1 % cream Apply 1 application to affected area twice daily for 7 days. Apply sparingly to area for rash/itching. 45 g 0 09/17/2022 09/24/2022 Active Comment on above: Apply 1 application to affected area twice daily for 7 days. Apply sparingly to area for rash/itching. tropicamide 10 mg/ml ophthalmic solution (1 source) Anticholinergic Start: 08-27-2024 End: 08-27-2024 tropicamide 1 % 1 Drop (MYDRIACYL) Verapamil (6 sources) Calcium Channel Jayne verapami l HCl (VERAPAMIL ORAL) Take by mouth once daily. Active Completed/Discontinued Medications Medication Drug Class(es) Dates Sig (Normalized) Sig (Original) acetaminophen 325 mg / oxyCODONE hydrochloride 5 mg oral tablet (4 sources) Opioid Agonist Start: 09-14-2023 End: 09-18-2023 Oxycodone-Acetamino phen (Percocet) 5-325 mg tablet Discontinued 1 {tbl} PO EVERY 6 HOURS as needed for pain 10 7 0 September 14, 2023 September 18, 2023 8:24am Postoperative pain delivery delivered Other acute postprocedural pain Encounter for delivery without indication acyclovir 400 mg oral tablet (20 sources) Herpesvirus Nucleoside Analog DNA Polymerase Inhibitor, Herpes Simplex Virus Nucleoside Analog DNA Polymerase Inhibitor, Herpes Zoster Virus Nucleoside Analog DNA Polymerase Inhibitor Start: 08-13-2023 End: 12-24-2023 take 1 tablet by mouth three times daily Acyclovir 400 mg tablet Discontinued 400 mg PO THREE TIMES A DAY September 10, 2023 12:00am September 14, 2023 9:40am HSV Comment on above: Take 1 tablet by roxann three times a day. cephalexin 500 mg oral capsule (3 sources) Cephalosporin Antibacterial Start: 03-25-2023 End: 04-01-2023 take 1 capsule by mouth four times daily cephALEXin (KEFLEX) 500 mg capsule Indications: 12 weeks gestation of , Dysuria Take 1 capsule by mouth four times daily for 7 days. 28 capsule 0 03/25/2023 04/01/2023 Comment on above: Take 1 capsule by mo [facility] four times daily for 7 days. citalopram 20 mg oral tablet (5 sources) Serotonin Reuptake Inhibitor End: 03-04-2023 citalopram (CELEXA) 20 mg tablet Take by mouth once daily. 0 03/04/2023 Discontinued Comment on above: Take by mouth once d aily. clindamycin 300 mg oral capsule (5 sources) Lincosamide Antibacterial Start: 11-23-2022 End: 03-28-2023 take 1 capsule by mouth four times daily clindamycin (CLEOCIN) 300 mg capsule TAKE 1 CAPSULE BY MOUTH FOUR TIMES A DAY UNTIL GONE 0 11/23/2022 03/28/2023 Discontinued Comment on above: TAKE 1 CAPSULE BY MO [facility] FOUR TIMES A DAY UNTIL GONE docusate sodium 100 mg oral capsule (4 sources) Start: 09-14-2023 End: 01-13-2025 take 1 capsule by mouth twice daily as needed for constipation Docusate Sodium (Colace) 100 mg capsule Discontinued 100 mg PO TWICE DAILY NEEDED as needed for constipation 30 0 September 14, 2023 9:49am January 13, 2025 11:26am etonogestrel 68 mg drug implant (5 sources) Progestin End: 03-04-2023 etonogestrel (NEXPLANON) subdermal implant 68 mg 68 mg by SUBDERMAL route. 0 03/04/2023 Discontinued Comment on above: 68 mg by SUBDERMAL r oute. ferrous sulfate 325 mg oral tablet (4 sources) Start: 07-24-2023 End: 09-15-2023 take 1 tablet by mouth once daily Ferrous Sulfate (Iron (Ferrous Sulfate)) 325 mg (65 mg iron) tablet Discontinued 325 mg PO DAILY July 24, 2023 1:00am September 15, 2023 2:16pm folic acid 1 mg oral tablet (20 sources) Start: 02-20-2023 End: 12-24-2023 take 1 tablet by mouth once daily Folic Acid 1 mg tablet Discontinued 1 mg PO DAILY September 10, 2023 12:00am September 14, 2023 9:40am as directed Comment on above: Take 1 tablet by roxann every afternoon. labetalol hydrochloride 200 mg oral tablet (5 sources) beta-Adrenergic Jayne Start: 09-18-2023 End: 09-30-2023 take 1 tablet by mouth every twelve hours labetalol (TRANDATE) 200 mg tablet Take 1 tablet by mouth every 12 hours. 0 09/18/2023 09/30/2023 Discontinued Start: 09-18-2023 take 1 tablet by roxann twice daily Labetalol 200 mg Tablet Active 200 mg PO TWICE A DAY 60 0 September 18, 2023 12:00am Comment on above: Take 1 tablet by roxann every 12 hours. levonorgestrel/ethin.e stradiol (AVIANE ORAL) (2 sources) End: 11-20-2024 levonorgestrel/ethin.estra diol (AVIANE ORAL) Take by mouth. 11/20/2024 Discontinued levonorgestrel/e thin.estradiol (AVIANE ORAL) Take by mouth. Active magnesium oxide 420 mg oral tablet (20 sources) Start: 07-30-2023 End: 12-24-2023 take 1 tablet by mouth once daily Magnesium Oxide 420 mg tab Take 1 tablet by mouth once daily. 100 tablet 2 07/30/2023 12/24/2023 Discontinued Comment on above: Take 1 tablet by roxann th once daily. NIFEdipine 30 mg osmotic 24 hr extended release oral tablet (6 sources) Dihydropyridine Calcium Channel Jayne Start: 09-18-2023 End: 10-03-2023 take 1 tablet by mouth every hour NIFEdipine ER (PROCARDIA XL) 30 mg 24 hr tablet Take 1 tablet by mouth every afternoon. 0 09/18/2023 10/03/2023 Discontinued (Course of therapy completed) Start: 09-18-2023 take 1 tablet by roxann th once daily Nifedipine 30 mg Tablet Extended Release 24hr Active 30 mg PO DAILY 30 September 18, 2023 12:00am Comment on above: Take 1 tablet by roxann th every afternoon. norethindrone 0.35 mg oral tablet (4 sources) Start: 4 End: 4 take 1 tablet by mouth once daily Norethindrone, Contraceptive, 0.35 mg tablet Take 1 tablet by mouth once daily. 28 tablet 2 10/24/2023 12/24/2023 Discontinued ondansetron 4 mg oral tablet (20 sources) Serotonin-3 Receptor Antagonist Start: 4 End: 5 take 1 tablet by mouth every eight hours as needed ondansetron (ZOFRAN) 4 mg tablet Take 1 tablet by mouth every 8 hours as needed for nausea/vomiting. 30 tablet 12/24/2023 11/20/2024 Discontinued Start: 02-20-2023 End: 09-30-2023 ondansetron orally disintegr ating (ZOFRAN ODT) 4 mg disintegrating tablet Comment on above: 1 TABLET EVERY 8 CHRISTEN RS NEEDED FOR NAUSEA AND VOMITING pantoprazole 40 mg delayed release oral tablet (13 sources) Proton Pump Inhibitor Start: 2 End: take 1 tablet by mouth once daily Pantoprazole (Protonix) 40 mg tablet,delayed release (DR/EC) Discontinued 40 mg PO DAILY 30 December 27, 2021 12:00am December 27, 2021 3:32pm Start: 12-27-2021 End: 09-14-2023 take 1 tablet by mouth in the morning Pantoprazole (Protonix) 40 mg tablet,delayed release (DR/EC) Discontinued 40 mg PO DAILY 30 December 27, 2021 12:00am September 14, 2023 9:40am heartburn take with sip of water 30 mins prior to eating in the AM. Comment on above: TAKE 1 TABLET ORALLY DAILY, WITH SIP OF WATER 30 MINS PRIOR TO EATING IN THE AM predniSONE 10 mg oral tablet (2 sources) Start: 09-17-2022 End: 03-04-2023 predniSONE (DELTASONE) 10 mg tablet Take 4 tabs daily for 3 days, then 2 tabs daily for 3 days, then 1 tab daily for 3 days with food. 21 tablet 0 09/17/2022 03/04/2023 Discontinued Comment on above: Take 4 tabs daily fo r 3 days, then 2 tabs daily for 3 days, then 1 tab daily for 3 days with food. VITAMIN 27 mg iron- 0.8 mg tablet (20 sources) Start: 01-22-2023 End: 11-20-2024 take 1 tablet by mouth once VITAMIN 27 mg iron- 0.8 mg tablet Take 1 tablet by mouth every afternoon. 01/22/2023 11/20/2024 Discontinued Start: 01-22-2023 take 1 tablet by mouth once [place] ENATAL VITAMIN 27 mg iron- 0.8 mg tablet Take 1 tablet by mouth every afternoon. 01/22/2023 Active Start: 01-22-2023 take 1 tablet by mouth once [place] ENATAL VITAMIN 27 mg iron- 0.8 mg tablet Take 1 tablet by mouth every afternoon. 0 01/22/2023 Active Comment on above: Take 1 tablet by roxann th every afternoon. promethazine hydrochloride 12.5 mg oral tablet (11 sources) Phenothiazine Start: 02-16-2023 End: 06-03-2023 promethazine (PHENERGAN) 12.5 mg tablet Take 12.5 mg by mouth. 0 02/16/2023 06/03/2023 Discontinued Comment on above: Take 12.5 mg by mout h. Problems Active Problems Problem Classification Problem Date Documented Da te Episodic/Chronic Abdominal pain (6 sources) Abdominal pain; Translations: [Unspecified abdominal pain] Onset: 5 12-27-2021 Episodic Allergic reactions (1 source) Contact dermatitis; Translations: [Unspecified contact dermatitis, unspecified cause] Episodic Anxiety disorders (6 sources) Anxiety disorder; Translations: [Anxiety disorder, unspecified] 12-27-2021 Chronic Blindness and vision defects (4 sources) Blurring of visual image; Translations: [Other visual disturbances] 08-27-2023 Episodic Contraceptive and procreative management (2 sources) Oral contraception; Translations: [Encounter for surveillance of contraceptive pills] Onset: 5 11-20-2024 Episodic Esophageal disorders (7 sources) Gastroesophageal reflux disease; Translations: [Gastro-esophageal reflux disease without esophagitis] Onset: 5 12-27-2021 Chronic Hemorrhage during ; abruptio placenta; placenta previa (6 sources) Antepartum hemorrhage; Translations: [Antepartum hemorrhage, unspecified, unspecified trimester] 07-24-2023 Episodic Immunizations and screening for infectious disease (9 sources) Patient encounter status; Translations: [Encounter for screening for infections with a predominantly sexual mode of transmission] Episodic Mood disorders (1 source) Mood disorders; Translations: [Depression, unspecified] Onset: 4 Nausea and vomiting (1 source) Nausea; Translations: [Nausea] Onset: 5 Episodic Noninfectious gastroenteritis (1 source) Gastroenteritis; Translations: [Noninfective gastroenteritis and colitis, unspecified] 12-24-2023 Episodic Other complications of ; puerperium affecting management of mother (4 sources) Deliveries by ; Translations: [Encounter for delivery without indication] 09-11-2023 Episodic Other complications of ; puerperium affecting management of mother (3 sources) Encounter for delivery without indication; Translations: [ delivery, without mention of indication, delivered, with or without mention of antepartum condition] 09-14-2023 Episodic Other complications of (6 sources) Obesity complicating , third trimester; Translations: [Maternal obesity syndrome in third trimester] 09-11-2023 Chronic Other complications of (1 source) with inconclusive viability, not applicable or unspecified; Translations: [ with inconclusive viability] 03-04-2023 Episodic Other complications of (1 source) Reduced movement; Translations: [Decreased movements, second trimester, not applicable or unspecified] 08-07-2023 Episodic Other complications of (8 sources) Poor growth affecting management; Translations: [Maternal care for other known or suspected poor growth, third trimester, not applicable or unspecified] 09-02-2023 Episodic Other complications of (4 sources) Finding of heart rate; Translations: [Maternal care for abnormalities of the heart rate or rhythm, unspecified trimester, not applicable or unspecified] 09-11-2023 Episodic Other complications of (2 sources) Supervision of high risk , unspecified, third trimester; Translations: [Supervision of unspecified high-risk ] 09-14-2023 Episodic Other complications of (2 sources) Maternal care for other known or suspected poor growth, third trimester, not applicable or unspecified; Translations: [Poor growth, affecting management of mother, antepartum condition or complication] 09-14-2023 Episodic Other complications of (2 sources) Maternal care for abnormalities of the heart rate or rhythm, unspecified trimester, not applicable or unspecified; Translations: [Abnormality in heart rate or rhythm, unspecified as to episode of care or not applicable] 09-14-2023 Episodic Other diseases of bladder and urethra (1 source) Overactive bladder; Translations: [Overactive bladder] 12-11-2024 Chronic Other diseases of bladder and urethra (1 source) Overactive bladder; Translations: [Overactive bladder] Onset: Chronic Other female genital disorders (1 source) Vaginal discharge; Translations: [Other specified noninflammatory disorders of vagina] 05-06-2023 Episodic Other female genital disorders (2 sources) Vulval irritation; Translations: [Other specified noninflammatory disorders of vulva and perineum] 09-09-2023 Episodic Other female genital disorders (1 source) Other specified noninflammatory disorders of vulva and perineum; Translations: [Irritation of vulva] Onset: 05-30-202 5 Episodic Other gastrointestinal disorders (1 source) Irritable bowel syndrome without diarrhea; Translations: [Irritable bowel syndrome, unspecified] Onset: Chronic Other gastrointestinal disorders (4 sources) Loose stool; Translations: [Other fecal abnormalities] 01-13-2025 Episodic Other gastrointestinal disorders (1 source) Other fecal abnormalities; Translations: [Other fecal abnormalities] Onset: Episodic Other infections; including parasitic (4 sources) Personal history of other infectious and parasitic diseases; Translations: [Personal history of other infectious and parasitic diseases] 07-24-2023 Episodic Other lower respiratory disease (1 source) Dyspnea; Translations: [Shortness of breath] 11-29-2022 Episodic Other nervous system disorders (4 sources) Postoperative pain ; Translations: [Other acute postprocedural pain] 09-14-2023 Episodic Other nutritional; endocrine; and metabolic disorders (4 sources) Obese class II; Translations: [Obesity, unspecified] 09-11-2023 Chronic Other nutritional; endocrine; and metabolic disorders (3 sources) Obesity, unspecified; Translations: [Obesity, unspecified] 09-14-2023 Chronic Other and delivery including normal (20 sources) with uncertain dates; Translations: [Encounter for supervision of normal , unspecified, first trimester] Onset: 3 03-04-2023 Episodic Other screening for suspected conditions (not mental disorders or infectious disease) (1 source) Cancer cervix screening status; Translations: [Encounter for screening for malignant neoplasm of cervix] 10-24-2023 Episodic Other skin disorders (1 source) Eruption; Translations: [Rash and other nonspecific skin eruption] 12-29-2024 Episodic Other skin disorders (1 source) Rash and other nonspecific skin eruption; Translations: [Rash] Onset: Episodic Residual codes; unclassified (2 sources) Gestation [...] 06-03-2023 Episodic Residual codes; unclassified (1 source) Gestation period, 31 weeks; Translations: [31 weeks gestation of ] 07-30-2023 Episodic Residual codes; unclassified (1 source) Gestation period, 32 weeks; Translations: [32 weeks gestation of ] 08-07-2023 Episodic Residual codes; unclassified (1 source) Gestation period, 33 weeks; Translations: [33 weeks gestation of ] 08-13-2023 Episodic Residual codes; unclassified (1 source) Gestation period, 34 weeks; Translations: [34 weeks gestation of ] 08-21-2023 Episodic Residual codes; unclassified (3 sources) Gestation period, 35 weeks; Translations: [35 weeks gestation of ] 09-02-2023 Episodic Residual codes; unclassified (1 source) Gestation period, 36 weeks; Translations: [36 weeks gestation of ] 09-05-2023 Episodic Residual codes; unclassified (4 sources) Gestation period, 30 weeks; Translations: [30 weeks gestation of ] 07-24-2023 Episodic Residual codes; unclassified (4 sources) Gestation period, 37 weeks; Translations: [37 weeks gestation of ] 09-10-2023 Episodic Residual codes; unclassified (2 sources) 30 weeks gestation of ; Translations: [ state, incidental] 07-24-2023 Episodic Residual codes; unclassified (2 sources) 37 weeks gestation of ; Translations: [ state, incidental] 09-14-2023 Episodic Unclassified (2 sources) [facility] Education - COMMON Onset: 3 03-04-2023 Unclassified (2 sources) Education - [place] Onset: 3 03-04-2023 Past or Other Problems Problem Classification Problem Date Documented Da te Episodic/Chronic Cardiac dysrhythmias (3 sources) Palpitations; Translations: [Palpitations] Onset: 08-21-2024 Episodic Conditions associated with dizziness or vertigo (1 source) Dizziness and giddiness; Translations: [Dizziness and giddiness] Onset: 08-21-2024 Episodic Genitourinary symptoms and ill-defined conditions (14 sources) Dysuria; Translations: [Dysuria] Onset: 08-28-2024 03-25-2023 Episodic Hypertension complicating ; childbirth and the puerperium (20 sources) -induced hypertension; Translations: [Gestational [-induced] hypertension without significant proteinuria, third trimester] Onset: 08-27-2023 Resolved: 08-27-2023 08-21-2023 Episodic Nonspecific chest pain (3 sources) Other chest pain; Translations: [Other chest pain] Onset: 06-07-2024 Episodic Other aftercare (1 source) Other care home (current) drug therapy; Translations: [Other care home (current) drug therapy] Onset: 06-07-2024 Episodic Other complications of (20 sources) High risk ; Translations: [Supervision of high risk , unspecified, second trimester] Onset: 03-28-2023 Resolved: 10-03-2023 08-13-2023 Episodic Other infections; including parasitic (20 sources) History of sexually transmitted disease; Translations: [Personal history of other infectious and parasitic diseases] Onset: 07-30-2023 07-30-2023 Episodic Other infections; including parasitic (20 sources) Infection by Trichomonas; Translations: [Trichomoniasis, unspecified] Onset: 08-22-2023 08-22-2023 Episodic Urinary tract infections (1 source) Urinary tract infection, site not specified; Translations: [Urinary tract infection, site not specified] Onset: 06-07-2024 Episodic NEGATED: Highlighted row has been ruled out!Unclassified (3 sources) No known active problems 03-04-2023 Results Test Name Value Interpretation Reference Range Facil ity MR/PAT.ANEon 02-18-2025 MR/PAT.[facility] Medical Records Department [address] [place] [address] PAT - Anesthesia 02/18/25 1849 MR#: [id number] Acct: [id number] Name: ABBEY HANNA Rep #: [id number] : 2000 24 From: Ellis Linares MD PCP: RIO Otto Status:PRE [facility] [place] Y Race: C Location: EN Pre-Assessment Diagnosis/Proposed Procedure Planned Operative Procedure(s): Colonoscopy,EGD Anesthesia History 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 When Was Last Pacemaker Check QUESTION #4 FULL TEXT: You/Your Family Experience fever (hyperthermia) with Anesthesia Last Oral Intake Last Oral intake: Last Oral Intake NPO since Meds taken in AM with sips of water? Meds patient instructed to take am of surgery PONV PONV - trust vault clerk: PONV - trust vault clerk Female Yes 02/18/25 15:14 HX of Motion Sickness Yes 02/18/25 15:14 HX of N/V After Surgery No 02/18/25 15:14 Non-Smoker Yes 02/18/25 15:14 Duration of Surgery greater No 02/18/25 15:14 than 60 minutes Number of Risk Factors 3 02/18/25 15:14 PONV Score Moderate Risk 02/18/25 15:14 Height Weight Height Weight: Anesthesia: Height Weight Height 5 ft 2 in 09/15/23 14:14 Respiratory Assessment Respiratory Assessment - trust vault clerk: Respiratory Tract Infection Hx - trust vault clerk Hx Respiratory Tract Infection No 02/18/25 15:14 STOP Sleep Apnea STOP Sleep Apnea - trust vault clerk: STOP Sleep Apnea - trust vault clerk Hx Hypertension No 02/18/25 15:14 Hx Sleep Apnea No 02/18/25 15:14 CPAP BIPAP Do you snore loudly (louder No 02/18/25 15:14 than talking or can be heard Do you often feel tired/ No 02/18/25 15:14 fatigued/ sleepy during daytime? Has anyone observed you stop No 02/18/25 15:14 breathing during sleep? STOP Results Negative 02/18/25 15:14 QUESTION #5 FULL TEXT : Do you snore loudly (louder than talking or can be heard through closed doors)? 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 Specify any problems Hx of Preganancy in last 3 No 02/18/25 15:14 Months Nurse Filling Out Transfusion JZOLLINGE 02/18/25 15:14 Questions: Date: 02/18/25 02/18/25 15:14 Time: 15:15 02/18/25 15:14 Patient unable to answer at this time (ie. confused, unrespo /Reproductio n History /Reproductiv e History - trust vault clerk: /Reproductiv e Hx- trust vault clerk Hx Now No 02/18/25 15:14 Gestational Age (in weeks): EDC: Hx Hx Para Hx Section SAB No 02/18/25 15:14 [facility] Medical History (Updated 02/18/25 @ 15:29 by Codi Hadley) Marijuana use Alcohol use Anemia Gastric reflux Former smoker Cardiology follow-up encounter History of echocardiogram History of stress test Constipation Cannabis dependence Depression Anxiety Heart palpitations Nausea delivery delivered Intrauterine growth restriction (IUGR) affecting care of mother, third trimester, single gestation Genital herpes affecting Chlamydia infection affecting Headache Home Medications ???Medication ???Instructions ???Recorded ???Last Taken ???Type famotidine 20 mg tablet 20 mg PO QDAY 12/29/24 Unknown His tory levonorgestrel-ethiny l estradiol 1 tab PO QDAY 12/29/24 Unknown His tory 0.1 mg-20 mcg tablet (Aviane) omeprazole 20 mg capsule,delayed 20 mg PO QDAY 01/13/25 Unknown His tory release oxybutynin chloride 10 mg 10 mg PO DAILY 02/18/25 Unknown Hi story tablet,extended release 24 hr A (more content not included)... [facility] CNOVon 01-29-2025 CNOV Office Visit ([id number]) JACQUESABBEY ([id number]) 4 F Date Time Provider Department 01/29/25 11:20 AM MARIA LUZ RODRIGUEZ [id number] During your visit today, we recorded the following information about you: Pulse Blood pressure 76/minute 101/76 Maria Luz Rodriguez, OFFICE MACHINE PUNCH OPERATORMASON 01/29/2025 12:06 PM Signed [facility] ESTABLISHED PATIENT FOLLOW-UP NOTE PATIENT: Abbey Tamekamedhat Hanna (24 year old) PCP: Sid Whitehead CNP, CNP Assessment AND Plan Feeling of incomplete bladder emptying UA- neg PVR-6 cc Started on oxybutynin. Only mildly helpful. Increase to 15mg. Orders: BLADDER SCAN XR ABDOMEN 1V SUPINE; Future oxybutynin ER (DITROPAN XL) 15 mg 24 hr Extended Rel Tab; Take 1 tablet by mouth once daily. Frequency of micturition As above Orders: BLADDER SCAN XR ABDOMEN 1V SUPINE; Future oxybutynin ER (DITROPAN XL) 15 mg 24 hr Extended Rel Tab; Take 1 tablet by mouth once daily. Overactive bladder As above Orders: BLADDER SCAN Urinary urgency As above Orders: BLADDER SCAN Left flank pain Vague left flank pain. Ua- negative Obtain KUB Orders: XR ABDOMEN 1V SUPINE; Future FOLLOW UP: Return for Will call with results. CHIEF COMPLAINT: Patient presents with: Follow Up HISTORY OF PRESENT ILLNESS: Prior notes were reviewed. Pt known to me. referred by self for urinary frequency, and feeling of JOSH. DTF:q1-2 hours NTF: 1-2 times nightly URGENCY: yes UUI: yes intermittent DIPIKA:yes intermittent STRAINING: yes FEELING OF INCOMPLETE EMPTYING: yes PADS PER DAY: denies Urinary Frequency and Urgency: - Increased urinary frequency and urgency x1 year. - Voids more than every hour during the day. - Nocturia 1-2 times per night. - Experiences urgency and occasional urinary leakage, both with urgency and physical activities like coughing. - Feels incomplete bladder emptying with a tingly sensation post-void. - Occasionally strains to urinate. - Denies wearing pads for leakage. - Recent gynecological exam showed no abnormalities around the urethra. - Drinks one small coffee daily and soda 2-3 times per week. - Denies history of kidney stones, family history of kidney or bladder cancer, or previous surgeries involving the kidneys, bladder, or urethra. REVIEW OF SYSTEMS GENERAL:denies unintentional weight loss, malaise or fevers. NEUROLOGIC: pt is alert and oriented GASTROINTESTINAL: No nausea, vomiting, or diarrhea GENITOURINARY: See HPI MUSCULOSKELETAL: Negative for joint pain or swelling, back pain or muscle pain SKIN: Negative for lesions, rash, and itching. ALLERGIES: ALLERGIES No Known Allergies MEDICATIONS: omeprazole (PRILOSEC) 10 mg capsule Take 10 mg by mouth once daily. Levonorgestrel-Ethiny l Estrad (AVIANE) 0.1mg - 20mcg per tablet Take 1 tablet by mouth once daily. oxybutynin ER (DITROPAN XL) 15 mg 24 hr Extended Rel Tab Take 1 tablet by mouth once daily. verapamil HCl (VERAPAMIL ORAL) Take by mouth once daily. (Patient not taking: Reported on 12/11/2024) PAST HISTORY: PAST MEDICAL HISTORY Diagnosis Date Depression Encounter for supervision of high risk in second trimester, antepartum (HCC) 03/28/2023 Urinary retention PAST SURGICAL HISTORY Procedure Laterality Date SNGL 09/11/2023 FAMILY HISTORY Problem Relation Age of Onset Hypertension Mother No Known Problems Father No Known Problems Brother Hypertension Brother Heart Maternal Grandfather No Ocular Disease No Family History Social History Tobacco Use Smoking status: Former Current packs/day: 0.00 Types: Cigarettes Quit date: 2020 Years since quittin.6 Passive exposure: Never Smokeless tobacco: Never Tobacco comments: Occasional Vape Vaping Use Vaping status: Former Substance Use Topics Alcohol use: Yes Comment: occa-vodka Drug use: Yes Types: Marijuana PHYSICAL EXAMINATION: BP 101/76 Pulse 76 LMP 12/21/2024 (Exact Date) SpO2 100% Constitutional: In no acute distress. Well appearing. Respiratory: Normal respiratory effort without use of accessory muscles. Clinic: GLUCOSE UA (POCT) (mg/dL) Date Value 01/29/2025 Negative BILIRUBIN UA (POCT) (no units) Date Value 01/29/2025 Negative KETONE UA (POCT) (mg/dL) Date Value 01/29/2025 Negative SPECIFIC GRAVITY UA (POCT) (no units) Date Value 01/29/2025 1.020 HEMOGLOBIN/BLOOD UA (POCT) (no units) Date Value 01/29/2025 Negative PH UA (POCT) (no units) Date Value 01/29/2025 6.5 PROTEIN UA (POCT) (mg/dL) Date Value 01/29/2025 N (more content not included)... Normal [facility] XR ABDOMEN 1V SUPINEon 01-29 XR ABDOMEN 1V SUPINE * * *Final Report* * * DATE OF EXAM: Jan 29 2025 11:47AM RHX [id number] - XR ABDOMEN 1V SUPINE / PROCEDURE REASON: multiple diagnoses * * * * Physician Interpretation * * * * XR ABDOMEN 1V SUPINE Ordering Physician: MARIA LUZ RODRIGUEZ Clinical Statement: Left-sided abdominal pain FINDINGS: No visible renal or ureteral calculi. Unremarkable bowel gas pattern. No acute osseous abnormality. Visualized portions of the lungs are clear. IMPRESSION: No acute findings Transmission And Coordination Engineer: PSCB Transcribe Date/Time: Jan 31 2025 6:20A Dictated by : IFTIKHAR GUNN MD This examination was interpreted and the report reviewed and electronically signed by: IFTIKHAR GUNN MD on Jan 31 2025 6:21AM EST [id number] N [facility] M7400.3302on 01-28-2025 M7400.3302 _ TESTING PERFORMED AT [facility]. ORIGINAL REPORT ON FILE IN LAB CONTAINS ADDITIONAL TEST SITE INFORMATION. Giardia Lamblia EIA NEGATIVE [facility] Comment on above: Performed By: #### L 7000.0700, M600.5000, M100.637, M100.6796, M7400.3302 #### [facility] [address] [place], [address] Ova and Parasites 8623on OP OVA AND PARASITES EXAM, ROUTINE These results were obtained using wet preparation(s) and trichrome stained smear. This test does not include testing for Crytosporidium parvum, Cyclospora, or Microsporidia. One negative specimen does not rule out the possibility of a parasitic infection. TESTING PERFORMED AT [facility]. ORIGINAL REPORT ON FILE IN LAB CONTAINS ADDITIONAL TEST SITE INFORMATION. Ova/Parasite Exam NO OVA, CYSTS, OR PARASITES FOUND. Normal [facility] Comment on above: Performed By: #### L 7000.0700, M600.5000, M100.637, M100.6796, M7400.3302 #### [facility] [address] [place], [address] Calprotectin, Stoolon [address] 163 ug/g Abnormal 0-120 [facility] Comment on above: Result Comment: Conc entration Interpretation Follow-Up < 5 - 50 ug/g Normal None >50 -120 ug/g Borderline Re-evaluate in 4-6 weeks >120 ug/g Abnormal Repeat as clinically indicated Performed at: [facility] [id number] Hvac Engineer: Tra Walden MD, Phone: [phone] Performed By: #### L 7000.0700, M600.5000, M100.637, M100.6796, M7400.3302 #### [facility] [address] [place], [place], [id number] CDIFF (PCR)on 01-20-2025 CDIFF A positive C. difficile molecular test does not differentiate between an active C. difficile infection and C. difficile colonization. Use clinical judgement and paired toxin/antigen testing to identify true infection and need for treatment. C diff DNA Spec Ql SASCHA+probe Reference Range: Negative Cepheid GeneXpert: polymerase chain reaction (PCR) 027 027 NAP1-B1 Presumptive Negative *for epidemiolologic???use C. Diff PCR Negative- No toxigenic C. Diff Detected Normal [facility] Comment on above: Performed By: #### L 7000.0700, M600.5000, M100.637, M100.6796, M7400.3302 #### [facility] [address] [place], [address] Calprotectin stoolOrdered By : Jeni Petit on 01-20-2025 Calprotectin stool 163 ug/g High 0-120 [facility] Comment on above: Concentration Interp retation Follow-Up< 5 - 50 ug/g Normal None>50 -120 ug/g Borderline Re-evaluate in 4-6 weeks >120 ug/g Abnormal Repeat as clinically indicatedPerformed at: [address] [id number] Director: Tra Walden MD, Phone: [phone] Clostridium difficile detect ion by polymerase chain reactionOrdered By: Jeni Petit on 01-20-2025 C. difficile DNA SASCHA+probe Ql (Unsp spec) [facility] ENTERIC PATHOGEN PANEL STOOL on 01-20-2025 EP PANEL Normal Reference Range = Not Detected Nucleic acid amplification test method Not detected for Campylobacter group, Salmonella species, Shigella species, Vibrio Group, Yersinia enterocolitica, EHEC (Shiga Toxin 1, Shiga Toxin 2), Norovirus Gl/Gll, and Rotavirus A. Other common stool pathogens are not detected on this panel include: Aeromonas/Plesiomonas or parasites. Order testing for these organisms separately if suspected. This is an amplified DNA test which makes it both specific and sensitive. CAMPYLOBACTER Not Detected Norovirus Not Detected Rotavirus Not Detected Salmonella Not Detected Shiga Toxin Not Detected Shigella sp. Not Detected VIBRIO Not Detected Yersinia Not Detected Normal [facility] Comment on above: Performed By: #### L 7000.0700, M600.5000, M100.637, M100.6796, M7400.3302 #### [facility] [address] [place], [address] Gastroenterology Visit Repor ton 01-13-2025 Gastroenterology Visit Report [facility]enter[facility] [address] [place] [address] OFFICE VISIT Date of Service: 01/13/25 MR#: [id number] Acct: [id number] Name: ABBEY HANNA Rep #: [id number] : 2000 Provider: CAROL Miramontes Age/Sex: 24/F Location: [facility] Status: Signed Intake Vital Signs 09/15/23 14:14 Height 5 ft 2 in Intake Visit Reasons: GERD (pedi) Chief Complaint: heartburn Allergies No Known Allergies Allergy (Verified 09/15/23 15:24) Medications ???Medication ???Instructions ???Recorded ???Confirmed ???Type vit no.95-ferrous 1 tab PO DAILY 07/24/23 0 09/15/23 History fumarate 28 mg-folic acid 800 mcg tablet ( Multivitamins) ibuprofen 600 mg tablet 600 mg PO Q6H PRN pain #30 tabs 09/15/23 Rx paroxetine HCl 10 mg tablet (Paxil) 10 mg PO DAILY #30 tabs 4 09/15/23 Rx labetalol 200 mg tablet 200 mg PO BID #60 tabs 09/18/23 R x nifedipine 30 mg tablet,extended 30 mg PO DAILY #30 tabs 09/18/23 Rx release 24 hr famotidine 20 mg tablet 20 mg PO QDAY 12/29/24 12/29/24 Hi story levonorgestrel-ethiny l estradiol 1 tab PO QDAY 12/29/24 12/29/24 Hi story 0.1 mg-20 mcg tablet (Aviane) omeprazole 20 mg capsule,delayed 20 mg PO QDAY 01/13/25 01/13/25 Hi story release Patient : No Have you fallen in the past year?: No Nurse's Note: OV 01/13/25 Pt here to establish care with [facility]. Pt reports n/v/c/d, abdominal pain, gas, and bloating. Pt has been taking omeprazole and famotidine. No prior hx of EGD, or colonoscopy. [facility] Medical History (Updated 01/13/25 @ 11:40 by CAROL Miramontes) Constipation Cannabis dependence Depression Anxiety Heart palpitations Nausea delivery delivered Intrauterine growth restriction (IUGR) affecting care of mother, third trimester, single gestation Genital herpes affecting Chlamydia infection affecting Headache Surgical History (Updated 12/29/24 @ 15:15 by Sara Rodriguez) Previous section History of surgery Social History (Updated 12/29/24 @ 15:17 by Sara Rodriguez) Smoking Status: Never smoker alcohol intake: current alcohol intake frequency: a few times a week substance use type: marijuana HPI HPI Chief Complaint: heartburn Details: ABBEY HANNA, is a 24 F who presents to the office today for establishment with [facility]. Pt has had issues with heartburn, n/v, bloating and alternating bowel habits for about 5 years now. She has heartburn on a daily basis and has been on PPIs on and off for 5 years. She is currently on omeprazole 20 mg and Pepcid with moderate relief in her symptoms. She notices worsening after eating especially spicy foods. She has nausea most mornings and evenings. She does not vomit daily. She has flares of diarrhea for about one week at a time and then complete resolution. She has a bm daily but with straining. She has never had an EGD or colonoscopy. She smokes marijuana daily and has for years. ROS Const Constitutional: Positive for fatigue ENT ENT: No difficulty swallowing Cardio Cardiology: Positive for leg pain with exertion Gastro GI: Positive for bloating, constipation, diarrhea, heartburn, excessive flatus, nausea/dyspepsia and vomiting; No abdominal pain, belching, change in bowel habits, change in stool character, coffee ground emesis, cramping, difficulty swallowing, feeling full early, incontinent of stools, Vomiting blood/hematemesis, Blood in stool, loose stools, Black,tarry stools, pain with swallowing or other Musc Musculoskeletal: Positive for back pain, restless legs and leg pain with exertion Skin Skin: No yellowing of the eye or itchy eyes Neuro Neurology: Positive for restless legs Psych Psychiatric: Positive for anxiety and Positive for depression Endo Endocrine: Positive for fatigue Aller/Imm Allergy/Immunologic: No itchy eyes Dejon/Lymp Hematologic/Lymphatic : Positive for easy bruising Exam Const General: cooperative, healthy appearing and comfortable Orientation: alert HENMT Head: normal to inspection Eyes General: appearance normal, both eyes and all related structures Neck Neck: normal visual inspection Chest Chest palpation inspection: normal inspection of the chest Resp Effort Inspection: normal respiratory effort Cardio Rate: regular rate Rhythm: regular rhythm GI Inspection: normal to inspection Auscultation: normal bowel sounds Palpation: soft and nontender Assessment and Plan Assessment and Plan (1) GERD (gastroesophageal reflux disease): Status: Acute Plan: Abbey is a 24 yo female pt here today for evaluation of abdominal symptoms over the past 5 years. Pt has heartburn daily. Omeprazole and Pepcid have provided moderate re (more content not included)... [facility] ([facility]) ABBEY HANNA ([id number]) 4 F Date Time Provider Department 12/29/24 3:30 PM SAUL LOW During your visit today, we recorded the following information about you: Temperature Pulse Respiration Blood pressure 98.3 degrees 88/minute 16/minute 122/76 Weight Last Period 98.2 kg 12/21/24 Saul Low MD 12/29/2024 3:38 PM Signed [facility] [address] [place] [address] Emergency Department Diagnosis: Assessment NONSPECIFIC RASH: Our exam shows you have a rash which has no clear cause. Rashes can result from infections, allergies, or irritation of the skin by chemicals or other environmental factors. Rashes can also result from scratching or rubbing the skin too much to relieve itching. Further medical examination may be needed to identify the specific cause and proper treatment of your skin rash. You should treat your rash as recommended by your doctor. If you have itching, you should avoid scratching as much as possible, as this further damages the skin. Ask your doctor or pharmacist if you have any questions about what topical medicines may help relieve your symptoms. Call your doctor right away if your rash is not better in 2-3 days, if it worsens, or if there are signs of infection (increased pain, redness, drainage or pus). Saul Low MD 12/29/2024 3:46 PM Signed URGENT CARE [facility] Abbey Hanna is a 24 year old female. Patient presents with: Rash: left hand, right elbow, itching, warm to touch x last night Pt here with 3 spots on right arm and 1 spot on right 2nd finger now itchy was warm at night not now feels well overall no malaise no sT Rash Pertinent negatives include no congestion, fatigue, fever or sore throat. Review of Systems Constitutional: Negative for chills, fatigue and fever. HENT: Negative for congestion and sore throat. Skin: Positive for rash. Objective BP 122/76 Pulse 88 Temp 36.8 ?C (98.3 ?F) Resp 16 Wt 98.2 kg (216 lb 7.9 oz) LMP 12/21/2024 (Exact Date) SpO2 97% BMI 38.35 kg/m? Physical Exam Vitals and nursing note reviewed. Constitutional: Appearance: Normal appearance. She is not ill-appearing. Skin: Findings: Rash present. Comments: Papuloerythematous blancheable rash in 3 locations on right arm 1 cm in diameter and 0.5 cm round rash left 2nd finger All lesions are similar in nature Neurological: Mental Status: She is alert. {ASSESSMENT/PLAN: 1. Rash - ICD9: 782.1, ICD10: R21 Suspect insect bites - METHYLPREDNISOLONE 4 MG TABLETS IN A DOSE PACK - HYDROCORTISONE 2.5 % TOPICAL CREAM Return here as needed Saul Low MD Differential Diagnoses - insect bites is more likely for the following reason(s): suggested by HANDP - cellulitis is less likely for the following reason(s): no warmth multiple sites short duration, HANDP not suggestive Disposition The patient was discharged. Procedures Allergies As of Date: 12/29/2024 (No Known Allergies) Date Reviewed: 12/29/2024 Reviewed by: Shawna Mackey MA - Fully Assessed Reason for Visit: Rash [1087] Cmt: left hand, right elbow, itching, warm to touch x last night Primary Visit Diagnosis:Rash [R21] Order(s):methylPREDNI Solone (MEDROL, ALANNA,) 4 mg Dose-PackTake as instructed per package.Disp: 21 tabletRfl: 0 hydrocortisone 2.5 % creamApply 1 application to affected area two times a day for 7 days.Disp: 28 gRfl: 0 Prescriptions as of 12/29/2024 - methylPREDNISolone (MEDROL, ALANNA,) 4 mg Dose-Pack Take as instructed per package. - hydrocortisone 2.5 % cream Apply 1 application to affected area two times a day for 7 days. - oxybutynin ER (DITROPAN XL) 10 mg 24 hr tablet Take 1 tablet by mouth once daily. - verapamil HCl (VERAPAMIL ORAL) Take by mouth once daily. - omeprazole (PRILOSEC) 10 mg capsule Take 10 mg by mouth once daily. - Levonorgestrel-Ethiny l Estrad (AVIANE) 0.1mg - 20mcg per tablet Take 1 tablet by mouth once daily. Problem List As Of Date 12/29/2024 Noted Resolved Encounter for supervision of high risk pregnanc*03/28/2023 10/03/2023 History of herpes genitalis [Z86.19] 07/30/2023 Trichomoniasis [A59.9] 08/22/2023 Gestational hypertension without significant pr*08/27/2023 08/27/2023 Other instructions from your clinician: [facility] [address] [place] [address] Emergency Department Diagnosis: Assessment NONSPECIFIC RASH: Our exam shows you have a rash which has no clear cause. Rashes can result from infections, allergies, or irritation of the skin by chemicals or other environmental factors. Rashes can also result from scratching or rubbing the skin too much to relieve itching. Further medical examination may be needed to identify the specific cause (more content not included)... Normal [facility] H PYLORI BREATH TEST PEDS (< 17) [OLD]on 12-21-2024 H PYLORI BREATH TEST PEDS (<17) [OLD] Normal [facility] Comment on above: Result Comment: _H P YLORI BREATH TEST PEDS [CCL]_ SEE SCANNED REPORT Performed By: #### 2 [id number] #### [place] [address] ALLERGEN FOOD ADULT/CHILD [C CL]on 12-20-2024 Clam <0.35 Normal <0.35 [facility] Comment on above: Performed By: #### 2 91530 ####[facility],[address] [place] [address] Clam-Class Class 0 Normal Class 0 [facility] Comment on above: Performed By: #### 2 62036 ####[facility],[address] [place] [address] Codfish <0.35 Normal <0.35 [facility] Comment on above: Performed By: #### 2 61554 ####[facility],[address] [place] [address] Codfish-Class Class 0 Normal Class 0 [facility] Comment on above: Performed By: #### 2 60375 ####[facility],[address] [place] [address] Somerset Class Class 0 Normal Class 0 [facility] Comment on above: Performed By: #### 2 36534 ####[facility],[address] [place] [address] Somerset IgE <0.35 Normal <0.35 [facility] Comment on above: Performed By: #### 2 03512 ####[facility],[address] [place], [place] [id number] Egg White Class Class 0 Normal Class 0 [facility] Comment on above: Result Comment: [facility] [address] [place] [address] Manjeet Retana III, M.D. [id number] Performed By: #### 2 91827 ####[facility],[address] [place] [address] Egg White IgE <0.35 Normal <0.35 [facility] Comment on above: Performed By: #### 2 18955 ####[facility],[address] [place] [address] Milk, Cow Class Class 0 Normal Class 0 [facility] Comment on above: Performed By: #### 2 87860 ####[facility],[address] [place] [address] Milk, Cow IgE <0.35 Normal <0.35 [facility] Comment on above: Performed By: #### 2 75325 ####[facility],[address] [place] [address] Peanut Class Class 0 Normal Class 0 [facility] Comment on above: Performed By: #### 2 10425 ####[facility],[address] [place], [place] [id number] Peanut IgE <0.10 Normal <0.10 [facility] Comment on above: Performed By: #### 2 74105 ####[facility],[address] [place] [address] Scallop <0.35 Normal <0.35 [facility] Comment on above: Performed By: #### 2 57339 ####[facility],[address] [place] [address] Scallop-Class Class 0 Normal Class 0 [facility] Comment on above: Performed By: #### 2 18137 ####[facility],[address] [place] [address] Shrimp Class Class 0 Normal Class 0 [facility] Comment on above: Performed By: #### 2 70472 ####[facility],[address] [place], [place] [id number] Shrimp IgE <0.35 Normal <0.35 [facility] Comment on above: Performed By: #### 2 32153 ####[facility],[address] [place] [address] Soybean Class Class 0 Normal Class 0 [facility] Comment on above: Performed By: #### 2 23044 ####[facility],[address] [place], [place] [phone] Soybean IgE <0.35 Normal <0.35 [facility] Comment on above: Performed By: #### 2 59478 ####[facility],[address] [place], [place] [phone] Brewster, IgE <0.35 Normal <0.35 [facility] Comment on above: Performed By: #### 2 75241 ####[facility],[address] [place] [address] Brewster-Class Class 0 Normal Class 0 [facility] Comment on above: Performed By: #### 2 83186 ####[facility],[address] [place] [address] Wheat Class Class 0 Normal Class 0 [facility] Comment on above: Performed By: #### 2 59345 ####[facility],[address] [place] [address] Wheat IgE <0.35 Normal <0.35 [facility] Comment on above: Performed By: #### 2 56415 ####[facility],[address] [place] [address] ALGN FOOD ADULT/CHILDon 11-23 Clam IgE Qn (S) <0.35 Normal <0.35 [facility] Comment on above: Order Comment: Speci men Type: SWAB Ordering Facility: [facility] Address: [address] [place] [address] Performed By: #### B VAMP, CVTV #### [facility] CLIA [id number] [address] [place] [address] [place] Clam IgE RAST class (S) Class 0 Normal Class 0 [facility] Comment on above: Order Comment: Speci men Type: SWAB Ordering Facility: [facility] Address: [address] [place] [address] Performed By: #### B VAMP, CVTV #### [facility] CLIA [id number] [address] [place] [address] [place] Codfish IgE Qn (S) <0.35 Normal <0.35 [facility] Comment on above: Order Comment: Speci men Type: SWAB Ordering Facility: [facility] Address: [address] [place] [address] Performed By: #### B VAMP, CVTV #### [facility] CLIA [id number] [address] [place] [address] [place] Codfish IgE RAST class (S) Class 0 Normal Class 0 [facility] Comment on above: Order Comment: Speci men Type: SWAB Ordering Facility: [facility] Address: [address] [place] [address] Performed By: #### B VAMP, CVTV #### [facility] CLIA [id number] [address] [place] [address] [place] Somerset IgE Qn (S) <0.35 Normal <0.35 [facility] Comment on above: Order Comment: Speci men Type: SWAB Ordering Facility: [facility] Address: [address] [place] [address] Performed By: #### B VAMP, CVTV #### [facility] CLIA [id number] [address] [place] [address] [place] Somerset IgE RAST class (S) Class 0 Normal Class 0 [facility] Comment on above: Order Comment: Speci men Type: SWAB Ordering Facility: [facility] Address: [address] [place] [address] Performed By: #### B VAMP, CVTV #### [facility] CLIA [id number] [address] [place] [address] [place] Cow milk IgE Qn (S) <0.35 Normal <0.35 [facility] Comment on above: Order Comment: Speci men Type: SWAB Ordering Facility: [facility] Address: [address] [place] [address] Performed By: #### B VAMP, CVTV #### [facility] CLIA [id number] [address] [place] [address] [place] Cow milk IgE RAST class (S) Class 0 Normal Class 0 [facility] Comment on above: Order Comment: Speci men Type: SWAB Ordering Facility: [facility] Address: [address] [place] [address] Performed By: #### B VAMP, CVTV #### [facility] CLIA [id number] [address] [place] [address] [place] Egg white IgE Qn (S) <0.35 Normal <0.35 [facility] Comment on above: Order Comment: Speci men Type: SWAB Ordering Facility: [facility] Address: [address] [place] [address] Performed By: #### B VAMP, CVTV #### [facility] CLIA [id number] [address] [place] [address] [place] Egg white IgE RAST class (S) Class 0 Normal Class 0 [facility] Comment on above: Order Comment: Speci men Type: SWAB Ordering Facility: [facility] Address: [address] [place] [address] Performed By: #### B VAMP, CVTV #### [facility] CLIA [id number] [address] [place] [address] [place] Peanut IgE Qn (S) <0.10 Normal <0.10 [facility] Comment on above: Order Comment: Speci men Type: SWAB Ordering Facility: [facility] Address: [address] [place] [address] Performed By: #### B VAMP, CVTV #### [facility] CLIA [id number] [address] [place] [address] [place] Peanut IgE RAST class (S) Class 0 Normal Class 0 [facility] Comment on above: Order Comment: Speci men Type: SWAB Ordering Facility: [facility] Address: [address] [place] [address] Performed By: #### B VAMP, CVTV #### [facility] CLIA [id number] [address] [place] [address] [place] Scallop IgE Qn (S) <0.35 Normal <0.35 [facility] Comment on above: Order Comment: Speci men Type: SWAB Ordering Facility: [facility] Address: [address] [place] [address] Performed By: #### B VAMP, CVTV #### [facility] CLIA [id number] [address] [place] [address] [place] Scallop IgE RAST class (S) Class 0 Normal Class 0 [facility] Comment on above: Order Comment: Speci men Type: SWAB Ordering Facility: [facility] Address: [address] [place] [address] Performed By: #### B VAMP, CVTV #### [facility] CLIA [id number] [address] [place] [address] [place] Shrimp IgE Qn (S) <0.35 Normal <0.35 [facility] Comment on above: Order Comment: Speci men Type: SWAB Ordering Facility: [facility] Address: [address] [place] [address] Performed By: #### B VAMP, CVTV #### [facility] CLIA [id number] [address] [place] [address] [place] Shrimp IgE RAST class (S) Class 0 Normal Class 0 [facility] Comment on above: Order Comment: Speci men Type: SWAB Ordering Facility: [facility] Address: [address] [place] [address] Performed By: #### B VAMP, CVTV #### [facility] CLIA [id number] [address] [place] [address] [place] Soybean IgE Qn (S) <0.35 Normal <0.35 [facility] Comment on above: Order Comment: Speci men Type: SWAB Ordering Facility: [facility] Address: [address] [place] [address] Performed By: #### B VAMP, CVTV #### [facility] CLIA [id number] [address] [place] [address] [place] Soybean IgE RAST class (S) Class 0 Normal Class 0 [facility] Comment on above: Order Comment: Speci men Type: SWAB Ordering Facility: [facility] Address: [address] [place] [address] Performed By: #### B VAMP, CVTV #### [facility] CLIA [id number] [address] [place] [address] [place] Brewster IgE Qn (S) <0.35 Normal <0.35 [facility] Comment on above: Order Comment: Speci men Type: SWAB Ordering Facility: [facility] Address: [address] [place] [address] Performed By: #### B VAMP, CVTV #### [facility] CLIA [id number] [address] [place] [address] [place] Brewster IgE RAST class (S) Class 0 Normal Class 0 [facility] Comment on above: Order Comment: Speci men Type: SWAB Ordering Facility: [facility] Address: [address] [place] [address] Performed By: #### B VAMP, CVTV #### [facility] CLIA [id number] [address] [place] [address] [place] Wheat IgE Qn (S) <0.35 Normal <0.35 [facility] Comment on above: Order Comment: Speci men Type: SWAB Ordering Facility: [facility] Address: [address] [place] [address] Performed By: #### B VAMP, CVTV #### [facility] CLIA [id number] [address] [id number] [address] [place] Wheat IgE RAST class (S) Class 0 Normal Class 0 [facility] Comment on above: Order Comment: Speci men Type: SWAB Ordering Facility: [facility] Address: [address] [place] [address] Performed By: #### B VAMP, CVTV #### [facility] CLIA [id number] [address] [place] [address] [place] Urea Breath Test-aCncon 06-2 CO2 post dose urea Qn (Exhl gas) Negative Normal Negative [facility] Comment on above: Order Comment: Speci men Type: SWAB Ordering Facility: [facility] Address: [address] [place] [address] Result Comment: Urea Breath Test is used as an aid in diagnosis of current infection with Helicobacter pylori. False positive results may occur in infection with Helicobacter heilmannii or contamination with other urease-producing bacteria. False negative results may be seen in patients with hypochlorhydria. Clinical correlation is required. Performed By: #### B VAMP, CVTV #### [facility] CLIA [id number] [address] [place] [address] [place] BLADDER SCANon 12-11-2024 PVR 13ml [facility] CNOVon 12-11-2024 CNOV Office Visit ([id number]) ABBEY HANNA ([id number]) 4 F Date Time Provider Department 12/11/24 2:00 PM MARIA LUZ RODRIGUEZ [id number] During your visit today, we recorded the following information about you: Pulse Blood pressure 86/minute 117/74 Maria Luz Rodriguez, OFFICE MACHINE PUNCH OPERATOR.SENIOR DRAFTER 12/11/2024 3:23 PM Signed [facility] NEW PATIENT HISTORY AND PHYSICAL EXAMINATION PATIENT: Abbey Hanna (24 year old) PCP: Sid Whitehead CNP, ILDEFONSO Assessment AND Plan Feeling of incomplete bladder emptying Ua- negative Pvr- 13 cc. - Experiencing urinary frequency, urgency, and a sensation of incomplete bladder emptying for the past year. No history of kidney stones or family history of kidney or bladder cancer. No previous surgeries involving the kidneys, bladder, or urethra. Recent gynecological examination revealed no abnormalities around the urethra. Abdominal imaging showed no significant findings. Discussed potential bladder irritants such as coffee and soda. Initiated oxybutynin at a low dose to manage symptoms; advised on potential side effects, including dry mouth, and recommended increasing fluid intake. Follow-up in 6 weeks to assess response to treatment. Orders: BLADDER SCAN oxybutynin ER (DITROPAN XL) 10 mg 24 hr tablet; Take 1 tablet by mouth once daily. Frequency of micturition Orders: oxybutynin ER (DITROPAN XL) 10 mg 24 hr tablet; Take 1 tablet by mouth once daily. Overactive bladder Orders: oxybutynin ER (DITROPAN XL) 10 mg 24 hr tablet; Take 1 tablet by mouth once daily. Urinary urgency Orders: oxybutynin ER (DITROPAN XL) 10 mg 24 hr tablet; Take 1 tablet by mouth once daily. FOLLOW UP: Return in about 6 weeks (around 01/22/2025). CHIEF COMPLAINT: Patient presents with: Urinary Retention HISTORY OF PRESENT ILLNESS: I personally reviewed the patient's past medical records. Ms. Hanna is a 24 year old female referred by self for urinary frequency, and feeling of JOSH. Previous Urologist: denies Hx of kidney stones: denies Family hx of kidney stones/treatment: denies Personal/family hx of kidney cancer, bladder cancer, or prostate cancer: denies Previous surgery on kidneys, bladder, urethra, or prostate: denies Hx of smoking: denies Environmental/occupat ional exposures: denies DTF:q1-2 hours NTF: 1-2 times nightly URGENCY: yes UUI: yes intermittent DIPIKA:yes intermittent STRAINING: yes FEELING OF INCOMPLETE EMPTYING: yes PADS PER DAY: denies Urinary Frequency and Urgency: - Increased urinary frequency and urgency x1 year. - Voids more than every hour during the day. - Nocturia 1-2 times per night. - Experiences urgency and occasional urinary leakage, both with urgency and physical activities like coughing. - Feels incomplete bladder emptying with a tingly sensation post-void. - Occasionally strains to urinate. - Denies wearing pads for leakage. - Recent gynecological exam showed no abnormalities around the urethra. - Drinks one small coffee daily and soda 2-3 times per week. - Denies history of kidney stones, family history of kidney or bladder cancer, or previous surgeries involving the kidneys, bladder, or urethra. REVIEW OF SYSTEMS GENERAL:denies unintentional weight loss, malaise or fevers. NEUROLOGIC: pt is alert and oriented GASTROINTESTINAL: No nausea, vomiting, or diarrhea GENITOURINARY: See HPI MUSCULOSKELETAL: Negative for joint pain or swelling, back pain or muscle pain SKIN: Negative for lesions, rash, and itching. ALLERGIES: ALLERGIES No Known Allergies MEDICATIONS: omeprazole (PRILOSEC) 10 mg capsule Take 10 mg by mouth once daily. Levonorgestrel-Ethiny l Estrad (AVIANE) 0.1mg - 20mcg per tablet Take 1 tablet by mouth once daily. oxybutynin ER (DITROPAN XL) 10 mg 24 hr tablet Take 1 tablet by mouth once daily. verapamil HCl (VERAPAMIL ORAL) Take by mouth once daily. (Patient not taking: Reported on 12/11/2024) PAST HISTORY: PAST MEDICAL HISTORY Diagnosis Date Depression Encounter for supervision of high risk in second trimester, antepartum (HCC) 03/28/2023 Urinary retention PAST SURGICAL HISTORY Procedure Laterality Date SNGL 09/11/2023 FAMILY HISTORY Problem Relation Age of Onset Hypertension Mother No Known Problems Father No Known Problems Brother Hypertension Brother Heart Maternal Grandfather No Ocular Disease No Family History Social History Tobacco Use Smoking status: Former Current packs/day: 0.00 Types: Cigarettes Quit date: 2020 Years since quittin.4 Pas (more content not included)... Normal [facility] UA DIP, URINE (POC)on 2024 BILIRUBIN UA (POCT) Negative Negative [facility] CLARITY UA (POCT) Slightly Cloudy Cl [place] COLOR UA (POCT) Yellow [facility] GLUCOSE UA (POCT) Negative Negative mg/dL [facility] Hemoglobin Ql (U) Negative Negative [facility] KETONE UA (POCT) Negative Negative mg/dL [facility] LEUKOCYTES UA (POCT) Negative Negative [facility] NITRITE UA (POCT) Negative Negative [facility] PH UA (POCT) 7 4.5 - 8.0 [facility] Protein Ql (U) Negative Negative mg/dL [facility] SPECIFIC GRAVITY UA (POCT) 1.015 1.005 - 1.030 [facility] UROBILINOGEN UA (POCT) 0.2 Normal E.U./d L [facility] BACTERIAL VAGINOSIS NAATon 0 - Lactobacillus crispatus+gasseri+jense kinga + Gardnerella vaginalis + Atopobium vaginae rRNA SASCHA+probe Ql (Vag fld) Not detected Normal Not detected [facility] Comment on above: Order Comment: Speci men Type: SWAB Ordering Facility: [facility] Address: [address] [place] [address] Performed By: #### B VAMP, CVTV #### [facility] CLIA [id number] [address] [place] [address] OF [place] WAQAR/TRICHOMONAS NAATon 0 11-20-2024 C. glabrata RNA SASCHA+probe Ql (Vag fld) Not detected Normal Not detected [facility] Comment on above: Order Comment: Speci men Type: SWAB Ordering Facility: [facility] Address: [address] [place] [address] Performed By: #### Marcella VAMP, CVTV #### [facility] CLIA [id number] [address] [place] [address] OF [facility] Waqar sp DNA SASCHA+probe Ql (Vag fld) Not detected Normal Not detected [facility] Comment on above: Order Comment: Speci men Type: SWAB Ordering Facility: [facility] Address: [address] [place] [address] Result Comment: The Waqar species group target includes C. albicans, C. tropicalis, C. parapsilosis, and C. dubliniensis. Performed By: #### Marcella VAMP, CVTV #### [facility] CLIA [id number] [address] [place] [address] OF [place]HELLE T. vaginalis DNA SASCHA+probe Ql (Unsp spec) Not detected Normal Not detected [facility] Comment on above: Order Comment: Speci men Type: SWAB Ordering Facility: [facility] Address: [address] [place] [address] Performed By: #### Marcella VAMP, CVTV #### [facility] CLIA [id number] [address] [place] [address] [place] CNOVon 11-20-2024 CNOV Office Visit (OBGYWM ) ABBEY HANNA ([id number]) 4 F Date Time Provider Department 11/20/24 3:00 PM KELLY CEVALLOS OBGYWM During your visit today, we recorded the following information about you: Blood pressure Weight Height Last Period 114/72 97.1 kg 1.6 m 11/20/24 Kelly Cevallos APRN.CNP 11/20/2024 3:33 PM Signed Abbey is a 24 year old who presents for an annual gynecologic exam with complaints, urinary discomfort. See urology next month LMP: 11/20/2024 Menses: cycles every 28 days and 5 days of flow Contraception: Pill HPV vaccine: Yes had at least 1 hpv vaccine Last pap smear: 10/24/2023 HPV: NA History of abnormal pap: No Last mammogram: never Sexually active: yes Patient concerns for STD exposure: No. OB History Gravida1 Para1 Term1 Preterm0 AB0 Living1 SAB0 IAB0 Ectopic0 Multiple0 Live Births1 Secondary Education Professor History LMP: 11/20/2024 (Exact Date), IUD Age at Menarche: Age at First : Age at Menopause: Secondary Education Professor History Comments: Sexual Activity: Not Asked; Male; not asked Contraception: No contraception data on record PAST MEDICAL HISTORY Diagnosis Date Depression Encounter for supervision of high risk in second trimester, antepartum (HCC) 03/28/2023 PAST SURGICAL HISTORY Procedure Laterality Date SNGL 09/11/2023 FAMILY HISTORY Problem Relation Age of Onset Hypertension Mother No Known Problems Father No Known Problems Brother Hypertension Brother Heart Maternal Grandfather No Ocular Disease No Family History SOCIAL HISTORY Social History Tobacco Use Smoking status: Former Types: Cigarettes Passive exposure: Never Smokeless tobacco: Never Tobacco comments: Occasional Vape Vaping Use Vaping status: Former Substance Use Topics Alcohol use: Never Drug use: Never REVIEW OF SYSTEMS Abdomen: No abdominal pain, nausea, vomiting, diarrhea, or constipation. No bloating, early satiety, indigestion, or increased flatulence. Bladder: . Breast: No breast lumps, nipple d/c, overlying skin changes, redness or skin retraction. Allergies and current medication updated:Yes SENSITIVE EXAM: The sensitive examination was discussed with the Patient or Patient's Authorized Cinder Man. As applicable, any other physician, advance practice provider, medical student, or other health professional student that will be observing or involved in the sensitive examination for educational or training purposes was discussed with the Patient or Authorized Cinder Man. The Patient or Authorized Cinder Man has agreed to proceed with the sensitive examination. (Sensitive examination includes inspection and/or palpation of the breasts, pelvis, prostate and anorectal regions). EXAM: BP 114/72 Ht 5' 3 (1.60m) Wt 214 lb (97.1kg) LMP 11/20/2024 BMI 37.92 kg/(m2). GENERAL: pleasant, female in no apparent distress HEENT: Normocephalic, atraumatic, mucus membranes moist, and no lesions DERMATOLOGY: Normal, without lesions, non-icteric, and non-hirsute BREAST: soft, non-tender, symmetric, no dominant mass, normal nipple-areolar complex, no lymphadenopathy, and no nipple discharge CHEST: Normal inspiratory effort ABDOMEN: soft, non-tender, and no masses PELVIC: external genitalia normal, normal Bartholin's glands, urethra, Sikeston's glands, no vulvar lesions, no cervical lesions, good vaginal support, physiologic discharge present, normal appearing perineal body and perianal region BIMANUAL: uterus normal size, shape and consistency, no adnexal masses, and non-tender RECTOVAGINAL: deferred. NEURO: alert and oriented x3,exam grossly non-focal EXTREMITIES: normal ASSESSMENT/PLAN: 1) Health maintenance: Pap/HPV up to date. Mammogram starting age 40. Nutrition, exercise and routine health maintenance exams reviewed. Calcium/Vitamin D supplementation information provided. Colon cancer screening: start at age 45 2) Contraception: combined hormonal contraceptives. Contraceptive options reviewed and information provided. 3) STD screening: Declined STD check. 4) Follow up one year or sooner as needed 5) BV/yeast ordered- Will notify patient of test results. Kelly Cevallos APRN.CNP Allergies As of Date: 11/20/2024 (No Known Allergies) Date Reviewed: 11/20/2024 Reviewed by: Kelly Cevallos APRN.CNP - Fully Assessed Reason for Visit: Well Woman [1463] Primary Visit Diagnosis:Encounter for gynecological examination (general) (routine) without abnormal findings [Z01.419] Other Visit Diagnoses:Irritation of vulva [N90.89] Encounter for surveillance of contraceptive pills [Z30.41] Order(s):UA DIP, URINE (POC) [[id number]] Order #: [id number] #:[id number] Levonorgestrel-Ethiny l Estrad (AVIANE) 0.1mg - 20mcg per tabletTake 1 tablet by mouth once daily.Disp: 84 tabletRfl: (more content not included)... Normal [facility] UA DIP, URINE (POC)on 2024 BILIRUBIN UA (POCT) Negative Negative [facility] CLARITY UA (POCT) Clear [facility] [place] COLOR UA (POCT) Yellow [facility] GLUCOSE UA (POCT) Negative Negative mg/dL [facility] Hemoglobin Ql (U) Large Abnormal Negative [facility] Interpretation and review of laboratory results Abnormal [facility] KETONE UA (POCT) Negative Negative mg/dL [facility] LEUKOCYTES UA (POCT) Negative Negative [facility] NITRITE UA (POCT) Negative Negative [facility] PH UA (POCT) 7 4.5 - 8.0 [facility] Protein Ql (U) Negative Negative mg/dL [facility] SPECIFIC GRAVITY UA (POCT) 1.02 1.005 - 1.030 [facility] UROBILINOGEN UA (POCT) 0.2 Normal E.U./d L [facility] Location:[facility], [address] [place], [place], [address] [place] [address] POINT OF CARE [facility] CV ECHO COMPLETE WITHOUT CON TRASTon 10-19-2024 CV ECHO COMPLETE WITHOUT CONTRAST [place] [address] Patient: ABBEY HANNA Phone#: : 2000 Age: 24 Gender: F Pt. Type: Out Account: [id number] Location: [facility] Ordering: GAVIOTA MARKS Exam Date: 10/19/2024/7:20 Family Phys: MEENA REED Charge Code: [id number] Physician: Ramsey Order #: [id number] Dose#: CORRECTION Corrected on: 10/20/2024; PROCEDURE: ECHOCARDIOGRAM WITH DOPPLER AND COLOR FLOW HISTORY: Patient is a 24-year-old female with PVCs INDICATIONS: PVCs COMPARISON: None. TECHNIQUE: A 2-D ultrasound, color spectral Doppler and M-mode evaluation of the heart and great vessels. PATIENT MEASUREMENTS: Height (in.): 62 BSA: 1.95 Weight (lbs.): 210 BP: 145/79 Motel Maid: AMRITA M MODE 2D MEASUREMENTS AND CALCULATIONS: LVIDd: 4.42 cm LVIDs: 2.83 cm IVSd: 0.73 cm LVPWd: 0.94 cm LVOT diam: 1.98 cm FS: 35.90 % Ao Root diam: 1.91 cm LA diam: 3.6 cm LA Volume Index: 16 mL/m2 LA A4 Area: 12.48 cm2 RA A4 Area: 10.2 cm2 RVDd: 3.4 cm TAPSE: 19 mm DOPPLER MEASUREMENTS AND CALCULATIONS MITRAL MV E MAX rubina: 1.36 m/s MV A MAX rubina: 0.49 m/s MV E-A ratio: 2.80 MVA VTI 2.11 cm2 Continued Report - Page 2 of 3 Patient: ABBEY HANNA Phone#: : 2000 Age: 24 Gender: F Pt. Type: Out Account: [id number] Location: [facility] Ordering: GAVIOTA MARKS Exam Date: 10/19/2024/7:20 Family Phys: MEENA REED Charge Code: [id number] Physician: Ramsey Order #: [id number] Dose#: MV V2 max: 1.53 m/s MV max P.32 mm[Hg] MV V2 mean: 0.70 m/s MV mean P.64 mm[Hg] MV V2 VTI: 36.29 cm MV PHT: 60.89 ms MVA PHT 3.61 cm2 Lat Peak E' Rubina 22 cm/sec Septal Peak E' RUBINA 14 cm/sec E/E' lateral 6.2 E/E' medial 10.1 AORTIC Ao V2 max: 1.68 m/s Ao max P.25 mm[Hg] Ao V2 mean: 1.20 m/s Ao mean P.57 mm[Hg] Ao V2 VTI: 39.49 cm BALBINA (V Max): 2.26 cm2 BALBINA (VTI): 1.94 cm2 LV V1 Max 1.23 m/s LV V1 Max PG 6.09 mm[Hg] LV V1 Mean PG 3.45 mm[Hg] LV V1 mean 0.88 m/s LV V1 VTI 24.86 cm PULMONIC PA V2 Max 1.41 m/s PA Max PG 7.93 mm[Hg] TRICUSPID TR Max Rubina 2.22 m/s TR max PG 19.69 mm[Hg] RVSP 23 mm Hg 2D/M-MODE AND COLOR FLOW LEFT VENTRICLE: Left ventricle is normal in size and thickness. Systolic ejection fraction is 60-65%. There are no regional wall motion abnormality seen. Normal diastolic function. WALL MOTION: 1 - Basal anterior: Normal. 7 - Mid anterior: Normal. 13 - Apical anterior: Normal. 2 - Basal anteroseptal: Normal. 8 - Mid anteroseptal: Normal. 14 - Apical septal: Normal. 3 - Basal inferoseptal: Normal. 9 - Mid inferoseptal: Normal. 15 - Apical inferior: Normal. 4 - Basal inferior: Normal. 10-Mid inferior: Normal. 16 - Apical lateral: Normal. 5 - Basal inferolateral: Normal. 11-Mid inferolateral: Normal. Continued Report - Page 3 of 3 Patient: ABBEY HANNA Phone#: : 2000 Age: 24 Gender: F Pt. Type: Out Account: [id number] Location: [facility] Ordering: GAVIOTA MARKS Exam Date: 10/19/2024/7:20 Family Phys: MEENA REED Charge Code: [id number] Physician: Ramsey Order #: [id number] Dose#: 6 - Basal anterolateral: Normal. 12-Mid anterolateral: Normal. RIGHT VENTRICLE: Right ventricle is normal in size and systolic function. LEFT ATRIUM: Left atrium is normal size. RIGHT ATRIUM: Right atrium is normal size. ATRIAL SEPTUM: There is no large interatrial shunt seen. PFO was not assessed. MITRAL VALVE: Mitral valve appears normal structure. There is trivial regurgitation and no stenosis seen. TRICUSPID VALVE: Tricuspid valve is normal structure. There is trivial regurgitation no stenosis seen. AORTIC VALVE: Aortic valve is trileaflet. There is no regurgitation or stenosis seen PULMONIC VALVE: Pulmonic valve is normal structure. There is trivial regurgitation and no stenosis seen. AORTIC ROOT: Aortic root is normal size. AORTIC ARCH: Aortic arch normal in size. DESC THORACIC AORTA: Inadequately visualized. Doppler shows normal flow IVC/SVC: IVC is normal size more than 50% collapse of inspiration. Estimated atrial pressure is 3 mm Hg. PULMONARY VEINS: Normal pulmonic vein flow. PERICARDIUM: There is no pericardial effusion seen. CONCLUSION: 1. Left ventricle is normal in size and thickness. Systolic ejection fraction is 60-65% with normal wall motion. 2. There are no significant valvular dysfunction seen 3. Right ventricle is normal in size and systolic function. 4. Estimated right ventricular systolic pressure is 23 mm Hg Dictated by: GAVIOTA MARKS MD on 10/20/2024 at 8:33 Approved by: GAVIOTA MARKS MD on 10/20/2024 at 8:53 Dictated by: GAVIOTA MARSK MD on 10/20/2024 at 12:50 Approved by: GAVIOTA MARKS MD on 10/20/2024 at 12:50 Normal [facility] STRESS TEST (DGEST) [facility] 10-19-2024 STRESS TEST (DGEST) [place] [address] Patient: ABBEY HANNA Phone#: : 2000 Age: 24 Gender: F Pt. Type: Out Account: [id number] Location: [facility] Ordering: GAVIOTA MARKS Exam Date: 10/19/2024/6:59 Family Phys: MEENA REED Charge Code: [id number] Physician: Ramsey Order #: [id number] Dose#: PROCEDURE: DGEST HISTORY: Patient is a 24-year-old female with PVCs COMPARISON: None. INDICATIONS: PVCs TECHNIQUE: Electrocardiogram stress test was performed using the protocol listed below. STRESS RESULTS: Protocol: Brayan Duration: 07:22minutes Reason for termination: SOB Resting Heart Rate: 69 bpm. Resting Blood Pressure: 136/79 mmHg Peak Heart Rate: 173 which is 87% of maximum predicted heart rate Peak Blood Pressure: 154/72 occurring at 01:50 into recovery. Workload: 9.0 METs. Symptoms with stress: Patient complained of non limiting chest pain with stress and upper back pain. Stress test was ended due to shortness of breath EKG Data EKG at Baseline: EKG at baseline showed sinus rhythm at 68 BPM. Normal EKG. EKG with Stress: EKG with stress showed sinus tachycardia at 173 BPM. There are no ST or T- wave changes from baseline to suggest inducible ischemia CONCLUSION: 1. Patient complained of non limiting chest pain with stress will with lower back pain. Stress test was ended due to shortness of breath. 2. Patient was able to achieve average workload capacity. 3. Patient had appropriate heart rate and blood pressure response with stress 4. Stress EKG is negative for inducible ischemia 5. There were no arrhythmia or ectopic beats seen. [place] [address] Patient: ABBEY HANNA Phone#: : 2000 Age: 24 Gender: F Pt. Type: Out Account: [id number] Location: [facility] Ordering: GAVIOTA MARKS Exam Date: 10/19/2024/6:59 Family Phys: MEENA REED Charge Code: [id number] Physician: Ramsey Order #: [id number] Dose#: Dictated by: GAVIOTA MARKS MD on 10/19/2024 at 10:24 Approved by: GAVIOTA MARKS MD on 10/19/2024 at 10:37 Normal [facility] TSH W/ REFLEX TO FREE T4on 0 10-09-2024 TSH Qn 1.27 m[IU]/L Normal 0.34 - 5.60 [facility] Comment on above: Performed By: #### 2 [id number] #### [facility],[address] [place], [place] [id number] ED MED ADMINISTRATION DETAIL on 09-24-2024 ED MED ADMINISTRATION DETAIL Field Organizer Medication Administration Record [address] [address] [id number] 09/23/2024 Patient: ABBEY HANNA Sex: Female : 2000 Age: 24y MEASUREMENTS: Wt: 95.3 kg, Ht/Frederick: 62.0 in, BMI: 38.41 ALLERGIES: No known drug allergies Medication Ordered Medication Administration Date/Time 1 of 1 Normal [facility] ED NURSES CLINICAL NOTEon ED NURSES CLINICAL NOTE Nurse Narrative Nurse Clinical Narrative [place] [id number] [facility] [place] [address] [phone] 09/23/2024 Patient: ABBEY HANNA Sex: Female : 2000 Age: 24y Disposition: Discharge to Home Disposition Decision Time: 17:53 09/23/2024 Departure Time: 18:17 09/23/2024 TRIAGE Arrived by private vehicle. Historian: (patient). Triage time: 13:32 09/23/2024. Acuity: LEVEL 3. Chief Complaint: CHEST PAIN. This started just prior to arrival. ( dx with polymorphic ventricular tachycardia. recent halter monitor, 08/2024). The patient has had difficulty breathing and nausea. SEPSIS SCREEN: NEGATIVE. SIRS criteria negative. -- 13:40 09/23/24 EDT Rashmi Arcos R.N. 13:36 09/23/24. BP: 166/89 taken on right arm. MAP: 115. HR: 75. RR: 16. O2 saturation: 97% Temperature: 98.3 F. Pain level now 7/10. Describes the pain as sharp. -- 13:37 09/23/24 EDT Rashmi Arcos R.N. Measurements: 13:35 09/23/24 Wt: 95.3 kg, Ht/Frederick: 62.0 in, BMI: 38.41 -- 13:35 09/23/24 SPENCERT Rashmi Arcos R.N. Medications: escitalopram 10 mg tablet -- 13:34 09/23/24 SPENCERT Rashmi Arcos R.N. Aviane 0.1 mg-20 mcg tablet -- 13:34 09/23/24 EDT Rashmi Arcos R.N. famotidine 10 mg tablet: 10 mg once a day as needed for gastroesophageal reflux disease. -- 13:35 09/23/24 SPENCERT Rashmi Arcos R.N. 1 of 4 Nurse Narrative 13:32 09/23/24. Pref[facility]acy: ([facility] -- 13:40 09/23/24 EDT Rashmi Arcos R.N. Allergies: no known drug allergies -- 13:34 09/23/24 EDT Rashmi Arcos R.N. Problems: Tachycardia -- 13:40 09/23/24 SPENCERT Rashmi Arcos R.N. ADDITIONAL SURGERIES: wisodm teeth -- 13:35 09/23/24 SPENCERT Rashmi Arcos R.N. Tonsillectomy -- 13:35 09/23/24 SPENCERT Rashmi Arcos R.N. Adenoidectomy -- 13:35 09/23/24 SPENCERT Rashmi Arcos R.N. : Performed 2023 -- 13:35 09/23/24 RAISSA Arcos R.N. History 13:09/23/24. SOCIAL HX: Never smoker. The patient has not traveled outside the [place] Infectious disease exposure: No infectious disease exposure. ABUSE ASSESSMENT: Abuse denied. No suspicion of abuse. SELF HARM ASSESSMENT: Self harm assessment was performed. The patient answered no to the question(s) Have you recently felt down, depressed, or hopeless?, Do you have thoughts of harming or killing yourself?, Do you have a plan for harming or killing yourself?, Have you recently had thoughts about harming or killing others?, Do you have any dangerous items in your possession?, Have you noticed less interest or pleasure in doing things?, Are you here because you tried to hurt yourself? and Have you ever tried to hurt yourself before today?. NUTRITIONAL RISK ASSESSMENT: The nutritional risk assessment revealed no deficiencies. FUNCTIONAL ASSESSMENT: Functional assessment: no impairments noted. -- 13:40 09/23/24 SPENCERT Rashmi Arcos R.N. 2 of 4 Nurse Narrative 13:09/23/24. FALL RISK ASSESSMENT: Fall risk assessment completed. No risk factors identified. -- 13:41 09/23/24 RAISSA Arcos R.N. Interventions 13:32 09/23/24. Advanced care plan. Patient does not have advanced directive. -- 13:40 09/23/24 EDT Rashmi Arcos R.N. PHYSICAL ASSESSMENT 14:35 09/23/24. Ambulatory to room. GENERAL / NEURO / PSYCH: Alert. Oriented X 4. Appears in no acute distress. RESPIRATORY: Respirations not labored. Breath sounds within normal limits. CVS: Normal sinus rhythm noted. Heart sounds within normal limits. Pulses within normal limits. ( Pt states around 1200 she noticed a pain going from her right breast into her back. She states it was sharp shooting. Now it is a dull pressure.). Capillary refill less than 2 seconds. GI / : The patient has had nausea. SKIN: Skin is warm and dry. -- 14:45 09/23/24 EDT Bonnie Pedro R.N. NURSING PROGRESS NOTES :09/23/24. 12-LEAD EKG: EKG time: (09/23/2024). 12-Lead EKG was performed by me and shown to the ED physician. -- 13:59 09/23/24 EDT Shannon Spivey 14:14 09/23/24. Site #1 started via IV in the right hand with a 20g angiocath with good blood return; 2 attempts. Blood drawn: rainbow set tube(s). Labeled in the presence of the patient and sent to the lab. Saline lock flushed with 5 mL saline. -- 14:14 09/23/24 EDT Rashmi Arcos R.N. 14:47 09/23/24. Patient ID band checked: patient confirmed. Blood samples drawn from the right hand peripheral IV site with syringe by me per protocol ; labeled in presence of the patient: cardiac enzymes (2nd set). Initial blood discarded. Line flushed with 5 mL normal saline post blood draw. -- 14:52 09/23/24 EDT Bonnie Pedro R.N. DISPOSITION / DISCHARGE 18:12 09/23/24. HR: 79 bpm. O2 saturation: 97%. -- 18:20 09/23/24 EDT Ector Ocampo R.N. 18:14 09/23/24. BP: 121/77 MAP: 100 mmHg. HR: 65 bpm. -- 18:20 09/23/24 EDT Ector Ocampo R.N. 18:15 09/23/24. RR: 16. Temperature: Deferred . Pain level now 0/10. (more content not included)... Normal [facility] ED ORDER SHEET (CPOE ONLY)on 09-24-2024 ED ORDER SHEET (CPOE ONLY) Order Sheet Order Sheet [facility] [address] [place] [address] [phone] 09/23/2024 Patient: ABBEY HANNA Sex: Female : 2000 Age: 24y MEASUREMENTS: Wt: 95.3 kg, Ht/Frederick: 62.0 in, BMI: 38.41 ALLERGIES: No known drug allergies MEDICATION/IV/DRIP/FL UID ORDERS Order Description Priority Entered Acknowledged Completed LAB ORDERS Order Description Priority Entered Acknowledged Collected Completed CBC w Diff Stat Stat 13:32 09/23/2024 13:42 09/23/2024 15:31 09/23/2024 Carla Moore Lemasters, D.O. R.N. CMP Stat Stat 13:32 09/23/2024 13:42 09/23/2024 15:31 09/23/2024 Carla Moore Lemasters, D.O. R.N. EKG - ED Stat Stat 13:32 09/23/2024 13:42 09/23/2024 15:31 09/23/2024 Carla Moore Lemasters, D.O. R.N. Troponin-I Protocol Stat 13:32 09/23/2024 13:42 09/23/2024 15:31 09/23/2024 (STAT 1hr) (Sched: q1h Carla Moore, 1 of 3 Order Sheet X2); Stat 1 of 2 Urszula Rivera R.N. Troponin-I Protocol Stat 13:32 09/23/2024 14:40 09/23/2024 14:40 09/23/2024 (STAT 1hr) (Sched: q1h Adithya Pedro, Bonnie Pedro, X2); Stat 2 of 2 Urszula Rivera R.N. RCleve D-Dimer Stat Stat 13:32 09/23/2024 13:42 09/23/2024 15:31 09/23/2024 Carla Moore Lemasters, D.O. R.N. DIAGNOSTIC STUDY ORDERS Order Description Priority Entered Acknowledged Completed Chest 1V Stat Stat 13:32 09/23/2024 13:42 15:31 Adithya Rivera, 09/23/2024 09/23/2024 Carla Jones R.N. Order Comments: 13:32 09/23/2024: Status: Not . Adithya Rivera D.O. Reason for Study: Chest Pain CT Chest PE Study Stat Stat 15:21 09/23/2024 15:32 Adithya Rivera, 09/23/2024 Urszula Pedro R.N. Reason for Study: Chest Pain STAFF ORDERS Order Description Priority Entered Acknowledged Collected Completed Oxygen titrate to 92% 13:32 09/23/2024 13:42 09/23/2024 15:31 09/23/2024 Carla Moore Lemasters, D.O. R.N. Blow Mold Operator 13:32 09/23/2024 13:42 09/23/2024 15:31 09/23/2024 Carla Moore, 2 of 3 Order Sheet Urszula Rivera R.N. Vital signs every 15 13:32 09/23/2024 13:42 09/23/2024 15:31 09/23/2024 minutes Carla Moore Lemasters, D.O. R.N. IV Saline Lock 13:32 09/23/2024 13:42 09/23/2024 15:31 09/23/2024 Carla Moore Lemasters, D.O. R.N. [Electronically signed by Adithya Rivera D.O. (09/23/2024 17:55 EDT)] 3 of 3 Normal [facility] ED PHYSICIAN CLINICAL REPORT on 09-24-2024 ED PHYSICIAN CLINICAL REPORT Narrative Physician Clinical Narrative [facility] [address] [place] [address] [phone] 09/23/2024 Patient: ABBEY HANNA Sex: Female : 2000 Age: 24y Disposition: Discharge Disposition Decision Time: 17:53 09/23/2024 Measurements Wt: 95.3 kg, Ht/Frederick: 62.0 in, BMI: 38.41 Initial Vital Sign Measured Time BP MAP HR RR O2Sat ETCO2 Temp Pain GCS RTS 13:36 09/23/2024 166/89 115 75 16 97% 98.3 F 7 Time Seen: 13:28 09/23/2024. Arrived- By private vehicle. Historian- patient. HISTORY OF PRESENT ILLNESS Chief Complaint: CHEST PAIN. It is described as located in the right chest area and radiating to the upper back. This started 1 hours ago and is still present. No nausea, vomiting or diaphoresis. The patient has had difficulty breathing. (Recently diagnosed with polymorphic ventricular tachycardia. States this was by Holter monitor. Is due to follow up with Cardiology.). REVIEW OF SYSTEMS CONSTITUTIONAL: No fever or chills. RESPIRATORY: No cough. Status: Not . 1 of 11 Narrative PAST HISTORY Tachycardia Surgeries: Adenoidectomy : [2023] Tonsillectomy wisodm teeth Medications: Aviane 0.1 mg-20 mcg tablet escitalopram 10 mg tablet famotidine 10 mg tablet: 10 mg once a day as needed for gastroesophageal reflux disease. Allergies: no known drug allergies SOCIAL HISTORY No alcohol use or drug use. ADDITIONAL NOTES The nursing notes have been reviewed. PHYSICAL EXAM Vital Signs: Have been reviewed. Appearance: Alert. No acute distress. ENT: Pharynx normal. Neck: Normal inspection. Neck supple. CVS: Normal heart rate and rhythm. Heart sounds normal. Pulses normal. Respiratory: No respiratory distress. Breath sounds normal. Abdomen: Soft and nontender. Skin: Skin warm and dry. Normal skin color. 2 of 11 Narrative Extremities: No lower extremity edema. Neuro: No motor deficit. No sensory deficit. LABS, X-RAYS, AND EKG 12-LEAD EKG: EKG time: 13:30 09/23/2024. Normal sinus rhythm. Rate: 67. Normal P waves. RBBB. Normal ST and T waves. The study has been interpreted contemporaneously by me. Interpretation time: 13:33 09/23/2024. Laboratory Tests: CBC + DIFF Final HERBER: 09/23/2024 13:56:00 EDT MsgRcvd: 09/23/2024 14:12 EDT Lab Test Result Reference Status Received Comments 09/23/2024 14:12 CBC-COMPLETE CBC + DIFF Final EDT BLOOD COUNT 09/23/2024 14:12 WBC 8.0 x 10/UL 4.5 - 10.8 Final EDT 09/23/2024 14:12 RBC 4.91 x 10/UL 4.10 - 5.30 Final EDT 09/23/2024 14:12 HEMOGLOBIN 14.4 g/dl 12.0 - 16.0 Final EDT 09/23/2024 14:12 HEMATOCRIT 42.7 % 34.0 - 46.0 Final EDT 09/23/2024 14:12 MCV 87 fl 80 - 99 Final EDT 09/23/2024 14:12 MCH 29 pg 27 - 33 Final EDT 09/23/2024 14:12 MCHC 34 X10 3 32 - 36 Final EDT 3 of 11 Narrative Lab Test Result Reference Status Received Comments 09/23/2024 14:12 RDW/CV 13.4 % 12.0 - 15.6 Final EDT 09/23/2024 14:12 PLATELET 331 x10/UL 150 - 450 Final EDT 09/23/2024 14:12 AUTOMATED MPV 7.7 fl 6.6 - 10.5 Final EDT DIFFERENTIAL 09/23/2024 14:12 NEUT % 63.7 % 46.0 - 76.0 Final EDT 09/23/2024 14:12 LYMPH % 29.1 % 20.0 - 45.0 Final EDT 09/23/2024 14:12 MONOS % 5.5 % 0.0 - 10.0 Final EDT 09/23/2024 14:12 EO % 1.5 % 0.0 - 7.0 Final EDT 09/23/2024 14:12 BASO % 0.2 % 0.0 - 2.0 Final EDT 09/23/2024 14:12 Lymph # 2.33 x10/UL 0.80 - 2.80 Final EDT 09/23/2024 14:12 Neut # 5.10 x10/UL 1.50 - 7.10 Final EDT 09/23/2024 14:12 [place] # 0.44 x10/UL 0.20 - 1.00 Final EDT 09/23/2024 14:12 EO # 0.12 x10/UL 0.00 - 0.50 Final EDT 09/23/2024 14:12 Baso # 0.02 x10/UL 0.00 - 0.10 Final EDT 4 of 11 Narrative Lab Test Result Reference Status Received Comments 09/23/2024 14:12 MANUAL DIFF N/A New Order EDT 09/23/2024 14:12 MORPHOLOGY N/A New Order EDT CMP with eGFR Final HERBER: 09/23/2024 13:56:00 EDT MsgRcvd: 09/23/2024 14:46 EDT Lab Test Result Reference Status Received Comments COMPREHENSIVE 09/23/2024 CMP with eGFR Final METABOLIC 14:46 EDT PANEL 09/23/2024 SODIUM 136 mmol/l 136 - 145 Final 14:46 EDT 09/23/2024 POTASSIUM 5.0 mmol/L 3.5 - 5.1 Final 14:46 EDT 09/23/2024 CHLORIDE 103 mmol/L 98 - 107 Final 14:46 EDT 09/23/2024 CO2 23.8 mmol/L 21.0 - 32.0 Final 14:46 EDT 09/23/2024 GLUCOSE 78 mg/dl 74 - 106 Final 14:46 EDT 09/23/2024 BUN 12 mg/dl 7 - 18 Final 14:46 EDT 09/23/2024 CREATININE 0.62 mg/dl 0.55 - 1.02 Final 14:46 EDT 5 of 11 Narrative Lab Test Result Reference Status Received Comments 41 U/L 09/23/2024 AST/SGOT Above high 13 - 39 Final 14:46 EDT normal 09/23/2024 ALK PHOS 91 U/L 46 - 116 Final 14 (more content not included)... Normal [facility] ED SUPER BILLon 09-24-2024 ED SUPER BILL [facility] [address] [place] [address] [phone] 09/23/2024 Patient: ABBEY HANNA Sex: Female : 2000 Age: 24y Item Professional Category Description Facility Code Code Quantity Fee Total Nurse/E/M EMERGENCY 790999 1 $0.00 $0.00 DEPARTMENT VISIT HIGH/URGENT SEVERITY (74370-50) Grand Total $0.00 Providers Adithya Rivera D.O. Chief Complaint CHEST PAIN. Principal Diagnosis Chest pain. ICD-10 Codes 1 of 2 Superbill R07.9: Chest pain, unspecified 2 of 2 Normal [facility] ED VISIT SUMMARYon ED VISIT SUMMARY Visit Overview Visit Overview [address] [address] [id number] 09/23/2024 Patient: ABBEY HANNA Sex: Female : 2000 Age: 24y 09/24/2024 07:45 AM EDT ED Arrival:13:30 09/23/2024 EDT Status:not Recent Travel:no Language:eng Adv Directive:No Isolation Status: Ethnicity:N Fall Risk:no risk Infectious Disease Exposure:no Measurements:5'2 / 157.5 Self-Harm Status:no risk Sepsis Screen:negative cm 210.0 lb / 95.3 kg Chief Complaint:CHEST PAIN and (dx with polymorphic ventricular tachycardia. recent halter monitor, 08/2024) ALLERGIES No Known Drug Allergies HOME MEDICATIONS Aviane 0.1 mg-20 mcg tablet escitalopram 10 mg tablet famotidine 10 mg tablet: 10 mg once a day as needed for gastroesophageal reflux disease. 3 Visit Overview PAST MEDICAL HISTORY / PROBLEMS Tachycardia PAST SURGICAL HISTORY Adenoidectomy : Performed 2023 Tonsillectomy wisodm teeth SOCIAL HISTORY Nutritional assessment: No deficits Functional assessment: No impairments Smoking status: No ED COURSE MEDICATIONS GIVEN IN EMERGENCY DEPARTMENT IV SITE INFORMATION INTAKE OUTPUT REASSESMENT (most recent) 14:35 09/23/24. Ambulatory to room. GENERAL / NEURO / PSYCH: Alert. Oriented X 4. Appears in no acute distress. RESPIRATORY: Respirations not labored. Breath sounds within normal limits. CVS: Normal sinus rhythm noted. Heart sounds within normal limits. Pulses within normal limits. ( Pt states around 1200 she noticed a pain going from her right breast into her back. She states it was sharp shooting. Now it is a dull pressure.). Capillary refill less than 2 seconds. GI / : The patient has had nausea. SKIN: Skin is warm and dry. VITAL SIGNS First Vitals Last Vitals Temp 13:36 09/23/24 98.3 F Temp 18:15 09/23/24 BP 13:36 09/23/24 166/89 BP 18:15 09/23/24 2 of 3 Visit Overview First Vitals Last Vitals HR 13:36 09/23/24 75 HR 18:15 09/23/24 RR 13:36 09/23/24 16 RR 18:15 09/23/24 16 O2 Sat 13:36 09/23/24 97% O2 Sat 18:15 09/23/24 Pain 13:36 09/23/24 7 Pain 18:15 09/23/24 0 ETCO2 13:36 09/23/24 ETCO2 18:15 09/23/24 GCS 13:36 09/23/24 GCS 18:15 09/23/24 RTS 13:36 09/23/24 RTS 18:15 09/23/24 PROCEDURES NURSING INTERVENTIONS LABS / STUDIES LABS / STUDIES ORDERED CBC w Diff Chest 1V CMP CT Chest PE Study D-Dimer EKG - ED Troponin-I Protocol (STAT 1hr) Troponin-I Protocol (STAT 1hr) CLINICAL IMPRESSION CHEST PAIN 3 of 3 Normal [facility] ED VITALS FLOW SHEETon 09-24 ED VITALS FLOW SHEET Vitals Vital Sign Flow Sheet [address] [address] [id number] 09/23/2024 Patient: ABBEY HANNA Sex: Female : 2000 Age: 24y Measurements Wt: 95.3 kg, Ht/[place]: 62.0 in, BMI: 38.41 Measured Time BP MAP HR RR O2Sat ETCO2 Temp Pain GCS RTS 18:15 09/23/2024 16 0 18:14 09/23/2024 121/77 100 65 18:12 09/23/2024 79 97% 18:07 09/23/2024 87 98% 18:02 09/23/2024 79 97% 17:59 09/23/2024 129/80 96 70 17:57 09/23/2024 78 97% 17:52 09/23/2024 65 97% 17:47 09/23/2024 79 97% 17:44 09/23/2024 148/85 106 76 17:42 09/23/2024 63 97% 17:37 09/23/2024 69 96% 17:32 09/23/2024 71 96% 17:29 09/23/2024 132/78 96 70 17:27 09/23/2024 76 97% 1 of 3 Vitals Measured Time BP MAP HR RR O2Sat ETCO2 Temp Pain GCS RTS 17:22 09/23/2024 68 96% 17:17 09/23/2024 75 96% 17:14 09/23/2024 143/72 106 77 16:17 09/23/2024 95 97% 16:16 09/23/2024 137/89 110 76 16:12 09/23/2024 84 98% 16:07 09/23/2024 85 98% 16:02 09/23/2024 74 99% 16:01 09/23/2024 136/84 105 73 15:57 09/23/2024 73 98% 15:52 09/23/2024 83 99% 15:47 09/23/2024 82 97% 15:46 09/23/2024 129/92 107 83 15:42 09/23/2024 68 98% 15:37 09/23/2024 78 100% 15:32 09/23/2024 87 98% 15:31 09/23/2024 134/83 101 81 15:27 09/23/2024 79 100% 15:22 09/23/2024 80 99% 15:17 09/23/2024 81 97% 15:16 09/23/2024 143/85 101 85 15:12 09/23/2024 87 95% 15:07 09/23/2024 89 97% 15:02 09/23/2024 72 92% 15:01 09/23/2024 138/82 103 71 2 of 3 Vitals Measured Time BP MAP HR RR O2Sat ETCO2 Temp Pain GCS RTS 14:57 09/23/2024 75 96% 14:52 09/23/2024 80 98% 14:47 09/23/2024 84 97% 14:46 09/23/2024 145/78 100 68 14:42 09/23/2024 78 95% 14:37 09/23/2024 78 94% 14:32 09/23/2024 74 96% 14:31 09/23/2024 124/88 104 70 14:28 09/23/2024 123/81 98 71 14:27 09/23/2024 79 99% 14:22 09/23/2024 72 98% 14:17 09/23/2024 70 98% 13:36 09/23/2024 166/89 115 75 16 97% 98.3 F 7 3 of 3 Normal [facility] CBC + DIFFon 09-23-2024 Baso # 0.02 x10EE3/UL Normal 0.00 - 0.10 [facility] Comment on above: Performed By: #### 2 46676 #### [facility],[address] [place] [address] Basophils/100 WBC (Bld) 0.2 % Normal 0.0 - 2.0 [facility] Comment on above: Performed By: #### 2 37841 #### [facility],[address] [place] [address] CBC + DIFF Normal [facility] Comment on above: Result Comment: CBC- COMPLETE BLOOD COUNT Performed By: #### 2 21760 #### [facility],[address] [place] [address] EO # 0.12 x10EE3/UL Normal 0.00 - 0.50 [facility] Comment on above: Performed By: #### 2 53868 #### [facility],[address] [place] [address] Eosinophils/100 WBC (Bld) 1.5 % Normal 0.0 - 7.0 [facility] Comment on above: Performed By: #### 2 28336 #### [facility],[address] [place] [address] Erythrocyte distribution width (RBC) [Ratio] 13.4 % Normal 12.0 - 15.6 [facility] Comment on above: Performed By: #### 2 43331 #### [facility],[address] [place], [place] [phone] Hematocrit (Bld) [Volume fraction] 42.7 % Normal 34.0 - 46.0 [facility] Comment on above: Performed By: #### 2 31694 #### [facility],[address] [place] [address] Hemoglobin (Bld) [Mass/Vol] 14.4 g/dL Normal 12.0 - 16.0 [facility] Comment on above: Performed By: #### 2 33155 #### [facility],[address] [place] [address] Lymph # 2.33 x10EE3/UL Normal 0.80 - 2.80 [facility] Comment on above: Performed By: #### 2 45413 #### [facility],[address] [place], [place] [phone] Lymphocytes/100 WBC (Bld) 29.1 % Normal 20.0 - 45.0 [facility] Comment on above: Performed By: #### 2 85407 #### [facility],[address] [place], [place] [phone] MANUAL DIFF N/A Normal [facility] Comment on above: Performed By: #### 2 72272 #### [facility],[address] [place], [place] [phone] MCH (RBC) [Entitic mass] 29 pg Normal 27 - 33 [facility] Comment on above: Performed By: #### 2 32190 #### [facility],[address] [place] [address] MCHC 34 X10 3 Normal 32 - 36 [facility] Comment on above: Performed By: #### 2 06206 #### [facility],[address] [place] [address]653 MCV (RBC) [Entitic vol] 87 fL Normal 80 - 99 [facility] Comment on above: Performed By: #### 2 76108 #### [facility],[address] [place] [address] [place] # 0.44 x10EE3/UL Normal 0.20 - 1.00 [facility] Comment on above: Performed By: #### 2 80731 #### [facility],[address] [place] [address] MONOS % 5.5 % Normal 0.0 - 10.0 [facility] Comment on above: Performed By: #### 2 95148 #### [facility],[address] [place] [address] Morphology Arnie (Bld) [Interp] N/A Normal [facility] Comment on above: Performed By: #### 2 99120 #### [facility],[address] [place] [address] Neut # 5.10 x10EE3/UL Normal 1.50 - 7.10 [facility] Comment on above: Performed By: #### 2 19842 #### [facility],[address] [place] [address] Neutrophils/100 WBC (Bld) 63.7 % Normal 46.0 - 76.0 [facility] Comment on above: Performed By: #### 2 57998 #### [facility],[address] [place] [address] 22891 PLATELET 331 x10EE3/UL Normal 150 - 450 [facility] Comment on above: Performed By: #### 2 88519 #### [facility],[address] [place] [address] Platelet mean volume (Bld) [Entitic vol] 7.7 fL Normal 6.6 - 10.5 [facility] Comment on above: Result Comment: AUTO MATED DIFFERENTIAL Performed By: #### 2 81492 #### [facility],[address] [place] [address]3732 RBC 4.91 x 10EE6/UL Normal 4.10 - 5.30 [facility] Comment on above: Performed By: #### 2 36932 #### [facility],[address] [place] [address]4795 WBC 8.0 x 10EE3/UL Normal 4.5 - 10.8 [facility] Comment on above: Performed By: #### 2 55025 #### [facility],[address] [place] [address] CHEST 1 VIEWon 09-23-2024 CHEST 1 VIEW [place] [address] Patient: ABBEY HANNA Phone#: : 2000 Age: 24 Gender: F Pt. Type: ER Account: [id number] Location: [facility] Ordering: ADITHYA RIVERA Exam Date: 09/23/2024/13:33 Family Phys: MEENA REED Charge Code: [id number] Physician: Ramsey Order #: [id number] Dose#: PROCEDURE: X-RAY CHEST 1 VIEW COMPARISON: [facility], XR, CHEST 1 VIEW, 06/07/2024, 19:53. INDICATIONS: Chest pain. FINDINGS: LUNGS: Normal. No significant pulmonary parenchymal abnormalities. VASCULATURE: Normal. Unremarkable pulmonary vasculature. CARDIAC: Normal. No cardiac silhouette abnormality or cardiomegaly. MEDIASTINUM: Normal. No visible mass or adenopathy. PLEURA: Normal. No effusion or pleural thickening. BONES: Normal. No fracture or visible bony lesion. OTHER: Negative. CONCLUSION: No acute disease. No significant change has occurred. Dictated by: Catie Meehan MD on 09/23/2024 at 14:04 Approved by: Catie Meehan MD on 09/23/2024 at 14:04 Normal [facility] CMP with eGFRon 09-23-2024 AGE 24 years Normal [facility] Comment on above: Performed By: #### 2 83721 #### [facility],[address] [place] [address]276 Albumin [Mass/Vol] 3.8 g/dL Normal 3.4 - 5.0 [facility] Comment on above: Performed By: #### 2 55119 #### [facility],[address] [place] [address]292 Albumin/Globulin [Mass ratio] 0.9 {ratio} Normal 0.9 - 1.6 [facility] Comment on above: Performed By: #### 2 58724 #### [facility],[address] [place] [address] 84076 ALK PHOS 91 U/L Normal 46 - 116 [facility] Comment on above: Performed By: #### 2 79094 #### [facility],[address] [place] [address] 79171 ALT [Catalytic activity/Vol] 25 U/L Normal 16 - 63 [facility] Comment on above: Performed By: #### 2 10602 #### [facility],[address] [place] [address]394 Anion gap [Moles/Vol] 14 mmol/L Normal 10 - 20 [facility] Comment on above: Performed By: #### 2 19511 #### [facility],[address] [place] [address] 80865 AST [Catalytic activity/Vol] 41 U/L High 13 - 39 [facility] Comment on above: Performed By: #### 2 67413 #### [facility],[address] [place] [address] 48668 B/C RATIO 19 ratio Normal 0 - 30 [facility] Comment on above: Performed By: #### 2 51992 #### [facility],[address] [place] [address] 12958 Bilirubin [Mass/Vol] 0.5 mg/dL Normal 0.2 - 1.0 [facility] Comment on above: Performed By: #### 2 72438 #### [facility],[address] [place] [address] 06967 Calcium [Mass/Vol] 9.1 mg/dL Normal 8.5 - 10.1 [facility] Comment on above: Performed By: #### 2 59521 #### [facility],[address] [place] [address] 64263 Chloride [Moles/Vol] 103 mmol/L Normal 98 - 107 [facility] Comment on above: Performed By: #### 2 82089 #### [facility],[address] [place] [address] 09857 CMP with eGFR Normal [facility] Comment on above: Result Comment: COMP REHENSIVE METABOLIC PANEL Performed By: #### 2 79636 #### [facility],[address] [place] [address] 11315 CO2 [Moles/Vol] 23.8 mmol/L Normal 21.0 - 32.0 [facility] Comment on above: Performed By: #### 2 84989 #### [facility],[address] [place], [place] [phone] Creatinine [Mass/Vol] 0.62 mg/dL Normal 0.55 - 1.02 [facility] Comment on above: Performed By: #### 2 59519 #### [facility],[address] [place] [address] 32287 GFR/1.73 sq M.predicted among non-blacks MDRD (S/P/Bld) [Vol rate/Area] mL/min/{1.73_m2} Normal 60 - 999 [facility] Comment on above: Performed By: #### 2 32360 #### [facility],[address] [place], [place] [phone] Result Comment: ACCO RDING TO THE NATIONAL KIDNEY DISEASE EDUCATION PROGRAM(NKDE), A NORMAL eGFR IS A VALUE GREATER THAN OR EQUAL TO 60 ML/MIN/1.73 SQ METERS. CHRONIC KIDNEY DISEASE: <60mL/MIN/1.73 SQ METERS KIDNEY FAILURE: <15mL/MIN/1.73 SQ METERS THIS TEST SHOULD ONLY BE USED FOR PATIENTS 18 YEARS OF AGE AND OLDER. Globulin (S) [Mass/Vol] 4.3 g/dL High 1.5 - 3.8 [facility] Comment on above: Performed By: #### 2 68321 #### [address] [address] Glucose [Mass/Vol] 78 mg/dL Normal 74 - 106 [facility] Comment on above: Performed By: #### 2 52828 #### [address] [address] Potassium [Moles/Vol] 5.0 mmol/L Normal 3.5 - 5.1 [facility] Comment on above: Performed By: #### 2 36812 #### [address] [address] Protein [Mass/Vol] 8.1 g/dL Normal 6.4 - 8.2 [facility] Comment on above: Performed By: #### 2 69060 #### [address] [address] Sodium [Moles/Vol] 136 mmol/L Normal 136 - 145 [facility] Comment on above: Performed By: #### 2 72769 #### [address] [address] Urea nitrogen [Mass/Vol] 12 mg/dL Normal 7 - 18 [facility] Comment on above: Performed By: #### 2 66979 #### [address] [address] [address] CHEST (PE PROTOCOL)on CT CHEST (PE PROTOCOL) [place] [address] Patient: ABBEY HANNA Phone#: : 2000 Age: 24 Gender: F Pt. Type: ER Account: [id number] Location: 052 Ordering: ADITHYA RIVERA Exam Date: 09/23/2024/17:00 Family Phys: MEENA REED Charge Code: [id number] Physician: Ramsey Order #: [id number] Dose#: 7.70 PROCEDURE: CT CHEST WITH CONTRAST FOR PE COMPARISON: None. INDICATIONS: Chest pain. TECHNIQUE: After obtaining the patient's consent, CT images were obtained with non-ionic intravenous contrast material. Multi-planar images were created to optimize visualization of vascular anatomy with MPR/MIPS and 3D imaging. All CT scans at this facility use dose modulation, iterative reconstruction, and/or weight based dosing when appropriate to reduce radiation dose to as low as reasonably achievable. IV CONTRAST: Omnipaque 350,80ml TOTAL DOSE: 7.70 CTDIvol(mGy) FINDINGS: VASCULATURE: No visible pulmonary arterial thrombus or attenuation. Contrast bolus is insufficient to exclude emboli. AORTA: Normal. No aneurysm or dissection. LUNGS: Normal. No visible pulmonary disease. SHANNEN: Normal. No mass or adenopathy. MEDIASTINUM: Normal. No mass or adenopathy. CARDIAC: Normal. No enlargement, pericardial thickening, or significant calcification. PLEURA: Normal. No mass or effusion. CHEST WALL: Normal. No mass or axillary adenopathy. LIMITED ABDOMEN: Normal. Limited images of the upper abdomen are unremarkable. BONES: Normal. No bony lesion or fracture. OTHER: Negative. CONCLUSION: 1. There is no evidence of acute pulmonary abnormality. Dictated by: Catie Meehan MD on 09/23/2024 at 17:36 Continued Report - Page 2 of 2 Patient: ABBEY HANNA Phone#: : 2000 Age: 24 Gender: F Pt. Type: ER Account: [id number] Location: 052 Ordering: AIDTHYA RIVERA Exam Date: 09/23/2024/17:00 Family Phys: MEENA REED Charge Code: [id number] Physician: Ramsey Order #: [id number] Dose#: 7.70 Approved by: Catie Meehan MD on 09/23/2024 at 17:39 Normal [facility] D-DIMER, QUANTITATIVEon 04-0 D-DIMER QUANT 427 ng/ml High 0 - 230 [facility] Comment on above: Performed By: #### 2 88779 #### [facility],[address] [place] [address]58 D-DIMER, QUANTITATIVE Normal [facility] Comment on above: Result Comment: KAVITHA T D-DIMER Performed By: #### 2 29107 #### [facility],[address] [place] [address] 87713 TROPONINon 09-23-2024 HS TROPONIN 26.7 pg/mL Normal 0.0 - 51.4 [facility] Comment on above: Performed By: #### 2 08691 #### [facility],[address] [place] [address] 38479 HS TROPONIN 29.0 pg/mL Normal 0.0 - 51.4 [facility] Comment on above: Performed By: #### 2 43369 #### [facility],[address] [place] [address] 85971 US PELVIC (NON OB) LIMITEDon 09-21-2024 US PELVIC (NON OB) LIMITED [address] [address] Patient: ABBEY HANNA Phone#: : 2000 Age: 24 Gender: F Pt. Type: Out Account: [id number] Location: [facility] Ordering: MEENA REED Exam Date: 09/21/2024/11:04 Family Phys: Charge Code: [id number] Physician: Ramsey Order #: [id number] Dose#: PROCEDURE: PELVIC (NON OB) LIMITED ULTRASOUND COMPARISON: None. INDICATIONS: Urinary retention. TECHNIQUE: Pelvic ultrasound was performed in the usual manner. FINDINGS: CUL-DE-SAC: Normal. No fluid or mass. BLADDER: Bilateral ureteral jets noted in the bladder. Bladder volume measures 94.8 mL. Postvoid bladder volume measures 17.9 mL. OTHER: Incidental right ovarian cyst measures 2.8 x 3.2 x 2.7 cm. CONCLUSION: 1. Small postvoid residual Dictated by: Elenita Issa MD on 09/21/2024 at 13:01 Approved by: Elenita Issa MD on 09/21/2024 at 13:04 Normal [facility] URINE CULTURE [CCL]on 2024 Bacteria identified Cx Nom (U) URCUL See Results Below See Below CULTURE, URINE NORMAL UROGENITAL MAX 10,000 -<50,000 CFU/ml Normal urogenital max SOURCE: Urine (Nonspecific) [place] [address] [place] [id number] Manjeet Retana III, M.D. [id number] SEND TO IC NO Normal [facility] Comment on above: Performed By: #### 2 93316 ####[address] [address] GC/CHLAM AMPLIFICATION [CCL] on 09-15-2024 Chlamydia trachomatis RNA Not detected Normal Not detected [facility] Comment on above: Result Comment: This FDA-approved assay has been modified to accept rectal swabs self-collected in a healthcare setting. For self-collected rectal swabs, the test was developed and its performance characteristics determined by the [facility]'s [facility] [place] ([facility]). It has not been cleared or approved by the FDA. [facility] is regulated under CLIA as qualified to perform high-complexity testing. This test is used for clinical purposes. It should not be regarded as investigational or for research. SOURCE: Vagina [facility] [employer] [address] [place] [address] Manjeet Retana III, M.D. [id number] Performed By: #### 2 07112 #### [address] [address] Neisseria gonorrhoeae RNA Not detected Normal Not detected [facility] Comment on above: Performed By: #### 2 19218 #### [facility],[address] [place] [address]10 TRICHOMONAS VAGINALIS AMPLIF ICATION[CCL]on 09-15-2024 Trichomonas vaginalis RNA Not detected Normal Not detected [facility] Comment on above: Result Comment: SOUR CE: Vagina [facility] [address] [place] [address] Manjeet Retana III, M.D. [id number] Performed By: #### 2 89883 #### [facility],[address] [place] [address] 17899 Bacteria Ur Culton Bacteria identified Cx Nom (U) ORGANISM ID: 1 10,000 -<50,000 CFU/ml Normal urogenital max Normal [facility] Comment on above: Performed By: #### 6 30-4, 25037-5, TRVAMP #### [facility] CLIA [id number] [address] [place] [address] OF [facility] C. trachomatis+N. gonorrhoea e DNA SASCHA+probe Ql (Unsp spec)on 09-14-2024 C. trachomatis rRNA SASCHA+probe Ql (Unsp spec) Not detected Normal Not detected [facility] Comment on above: Order Comment: Speci men Type: MICROBIAL ISOLATE Ordering Facility: [facility] Address: [address] [place] [address] Performed By: #### 6 30-4, 17170-3, TRVAMP #### [facility] CLIA [id number] [address] [place] [address] OF [facility] N. gonorrhoeae rRNA SASCHA+probe Ql (Unsp spec) Not detected Normal Not detected [facility] Comment on above: Order Comment: Speci men Type: MICROBIAL ISOLATE Ordering Facility: [facility] Address: [address] [place] [address] Performed By: #### 6 30-4, 20183-7, TRVAMP #### [facility] CLIA [id number] [address] [place] [address] [place] TRICHOMONAS VAGINALIS NAATon 09-14-2024 T. vaginalis DNA SASCHA+probe Ql (Unsp spec) Not detected Normal Not detected [facility] Comment on above: Order Comment: Speci men Type: MICROBIAL ISOLATE Ordering Facility: [facility] Address: [address] [place] [address] Performed By: #### 6 30-4, 10109-9, TRBETH #### [facility] CLIA [id number] [address] [place] [address] [place] URINE CULTURE [CCL]on 2024 Bacteria identified Cx Nom (U) URCUL See Results Below See Below CULTURE, URINE NORMAL UROGENITAL MAX 10,000 -<50,000 CFU/ml Normal urogenital max SOURCE: Urine (Nonspecific) [place] [address] Manjeet Retana III, M.D. [id number] SEND TO IC YES Normal [facility] Comment on above: Performed By: #### 2 16594 ####[facility],[address] [place] [address] Bacteria Ur Culton Bacteria identified Cx Nom (U) ORGANISM ID: 1 10,000 -<50,000 CFU/ml Normal urogenital max Normal [facility] Comment on above: Performed By: #### B BETH, CVTV #### [facility] CLIA [id number] [address] [place] [address] [place] URINE CULTURE [CCL]on 2024 Bacteria identified Cx Nom (U) URCUL See Results Below See Below CULTURE, URINE NORMAL UROGENITAL MAX 10,000 -<50,000 CFU/ml Normal urogenital max SOURCE: Urine (Nonspecific) [facility] [address] [place], [place] [id number] Manjeet Retana III, M.D. [id number] SEND TO IC NO Normal [facility] Comment on above: Performed By: #### 2 [id number] #### [facility],[address] [place] [address] Bacteria Ur Culton 5 Bacteria identified Cx Nom (U) ORGANISM ID: 1 10,000 -<50,000 CFU/ml Normal urogenital max Normal [facility] Comment on above: Performed By: #### B VAMP, CVTV #### [facility] CLIA [id number] [address] [place] [address] [place] ED MED ADMINISTRATION DETAIL on 06-08-2024 ED MED ADMINISTRATION DETAIL Field Organizer Medication Administration Record [address] [address] [id number] 06/07/2024 Patient: ABBEY HANNA Sex: Female : 2000 Age: 24y MEASUREMENTS: Wt: 95.3 kg, Ht/Frederick: 62.0 in, BMI: 38.41 ALLERGIES: No known drug allergies Medication Ordered Medication Administration Date/Time 1 of 1 Normal [facility] ED NURSES CLINICAL NOTEon ED NURSES CLINICAL NOTE Nurse Narrative Nurse Clinical Narrative [address] [address] [id number] 06/07/2024 Patient: ABBEY HANNA Sex: Female : 2000 Age: 24y Disposition: Discharge to Home Disposition Decision Time: 22:11 06/07/2024 Departure Time: 22:14 06/07/2024 TRIAGE Arrived by private vehicle. Historian: patient. Unaccompanied. Primary physician (best miller). Triage time: 19:12 06/07/2024. Acuity: LEVEL 3. Chief Complaint: CHEST PAIN and DISCOMFORT and (hypertension). SEPSIS SCREEN: NEGATIVE. SIRS criteria negative. No possible sources of infection. -- 19:43 06/07/24 RENETTA Sr R.N. 19:18 06/07/24. RR: 16. Temperature: 98.5 F. Pain level now 0/10. -- 19:43 06/07/24 RENETTA Sr R.N. 19:31 06/07/24. BP: 138/107 MAP: 119 mmHg. HR: 91 bpm. -- 19:43 06/07/24 RENETTA Sr R.N. 19:33 06/07/24. HR: 93 bpm. O2 saturation: 98%. -- 19:43 06/07/24 RENETTA Sr R.N. Measurements: 19:18 06/07/24 Wt: 95.3 kg, Ht/Frederick: 62.0 in, BMI: 38.41 -- 19:43 06/07/24 RENETTA Sr R.N. Medications: escitalopram 10 mg tablet: TAKE 1 TABLET BY MOUTH ONCE DAILY -- 19:45 06/07/24 RENETTA Sr R.N. Aviane 0.1 mg-20 mcg tablet: TAKE 1 TABLET BY MOUTH ONCE DAILY -- 19:45 06/07/24 RENETTA Sr R.N. 1 of 4 Nurse Narrative Allergies: no known drug allergies -- 19:30 06/07/24 RENETTA Sr R.N. Problems: Depression -- 19:31 06/07/24 RENETTA Sr R.N. ADDITIONAL SURGERIES: Tonsillectomy -- 19:31 06/07/24 RENETTA Sr R.N. Adenoidectomy -- 19:31 06/07/24 RENETTA Sr R.N. wisodm teeth -- 19:32 06/07/24 RENETTA Sr R.N. History 19:12 06/07/24. PAST MEDICAL HX: Hypertension. SOCIAL HX: Heavy vaping. No alcohol use or drug use. The patient has not traveled outside the [place] Infectious disease exposure: No infectious disease exposure. ABUSE ASSESSMENT: The patient answered yes to the question(s) Do you feel safe in your home? and no to the question(s) Are you afraid to go home?. SELF HARM ASSESSMENT: Self harm assessment was performed. The patient answered no to the question(s) Have you recently felt down, depressed, or hopeless? and Do you have thoughts of harming or killing yourself?. FALL RISK ASSESSMENT: Fall risk assessment completed. No risk factors identified. -- 19:43 06/07/24 RENETTA Sr R.N. 19:19 06/07/24. PAST MEDICAL HX: Denies current . -- 19:44 06/07/24 RENETTA Sr R.N. Interventions 19:12 06/07/24. Identification band on patient. -- 19:43 06/07/24 RENETTA Sr R.N. 2 of 4 Nurse Narrative PHYSICAL ASSESSMENT 19:45 06/07/24. GENERAL / NEURO / PSYCH: Alert. Oriented X 4. Appears in no acute distress. HEENT: Mucous membranes are pink. RESPIRATORY: Respirations not labored. Chest nontender. Breath sounds within normal limits. ( productive cough, thick yellow). CVS: Normal sinus rhythm noted. Heart sounds within normal limits. Pulses within normal limits. Capillary refill less than 2 seconds. GI / : Abdomen soft and nontender. EXTREMITIES: No lower extremity edema. SKIN: Skin is warm and dry. Normal skin turgor. Skin is non-tender. -- 19:45 06/07/24 RENETTA Arango R.N. NURSING PROGRESS NOTES 19:25 06/07/24. Rounding: Proximity of possessions / care items: call light within easy reach. Set expectations: advised patient of rounding protocol timing and asked if they needed anything else at this time. Two patient identifiers checked. Call light placed in reach. Side rails up x 1. Bed placed in lowest position. Brakes of bed on. -- 19:25 06/07/24 RENETTA Arango R.N. 19:55 06/07/24. Portable chest x-ray completed. (done at bedside). -- 20:10 06/07/24 RENETTA Arango R.N. 20:02 06/07/24. 12-LEAD EKG: EKG time: (19:19 06/07/2024). 12-Lead EKG was ordered, performed by a nuclear chemistry technician and shown to the ED physician. -- 20:02 06/07/24 RENETTA Arango R.N. 21:08 06/07/24. Site #1 started via IV in the right antecubital space with a 20g angiocath with aseptic technique and good blood return; 1 attempt. Blood drawn: rainbow set tube(s). Saline lock flushed with 5 mL saline. -- 22:08 06/07/24 RENETTA Arango R.N. 21:14 06/07/24. Rounding: Pain: denies pain. Personal care / toileting: assisted with toileting. Set expectations: advised patient of rounding protocol timing and asked if they needed anything else at this time. -- 21:14 06/07/24 RENETTA Arango R.N. 22:09 06/07/24. Site #[address] upon discharge. Good blood return present. -- 22:06/07/24 RENETTA Arango R.N. DISPOSITION / DISCHARGE Departure time: 22:14 06/07/2024. Condition at departure: improved. No learning barriers present. Discharge instructions provided and reviewed with the patient. Reviewed medication(s) precautions and dosing information. 3 of (more content not included)... Normal [facility] ED ORDER SHEET (CPOE ONLY)on 06-08-2024 ED ORDER SHEET (CPOE ONLY) Order Sheet Order Sheet [address] [place] [address] [id number] 06/07/2024 Patient: ABBEY HANNA Sex: Female : 2000 Age: 24y MEASUREMENTS: Wt: 95.3 kg, Ht/Frederick: 62.0 in, BMI: 38.41 ALLERGIES: No known drug allergies MEDICATION/IV/DRIP/FL UID ORDERS Order Description Priority Entered Acknowledged Completed LAB ORDERS Order Description Priority Entered Acknowledged Collected Completed CBC w Diff Stat Stat 19:38 06/07/2024 20:01 06/07/2024 21:15 06/07/2024 Pippa Nina R.N. Anne Rutt, R.NShahid MGeo CMP Stat Stat 19:38 06/07/2024 20:01 06/07/2024 21:15 06/07/2024 Pippa Nina R.N. Anne Rutt, R.N. M.D. Troponin-I Stat Stat 19:38 06/07/2024 20:01 06/07/2024 21:15 06/07/2024 Pippa Nina R.N. Anne Rutt, R.N. M.D. D-Dimer Stat Stat 19:38 06/07/2024 20:01 06/07/2024 21:15 06/07/2024 Pippa Nina R.N. Anne Rutt RCleve 1 of 2 Order Sheet Indira EKG - ED Stat Stat 19:38 06/07/2024 20:01 06/07/2024 20:01 06/07/2024 Pippa Nina R.N. Anne Rutt, R.N. M.D. Urine - HCG Stat 19:38 06/07/2024 20:01 06/07/2024 21:15 06/07/2024 Stat Pippa Nina R.N. Anne Rutt, R.N. M.D. Urinalysis Stat Stat 19:38 06/07/2024 20:01 06/07/2024 21:15 06/07/2024 Pippa Nina R.N. Anne Rutt, R.N. M.D. DIAGNOSTIC STUDY ORDERS Order Description Priority Entered Acknowledged Completed Chest 1V Stat Stat 19:38 06/07/2024 20:05 20:10 Robi Boyd M.D. 06/07/2024 06/07/2024 Carla Broussard R.N. Order Comments: 19:38 06/07/2024: Status: Unknown. Robi Boyd M.D. Reason for Study: Chest Pain STAFF ORDERS Order Description Priority Entered Acknowledged Collected Completed [Electronically signed by Robi Boyd M.D. (06/08/2024 00:42 EST)] 2 of 2 Normal [facility] ED PHYSICIAN CLINICAL REPORT on 06-08-2024 ED PHYSICIAN CLINICAL REPORT Narrative Physician Clinical Narrative [address] [address] [id number] 06/07/2024 [facility] AJCQUES[id number] Sex[facility] Female : 2000 Age: 24y Disposition: Discharge to Home Disposition Decision Time: 22:11 06/07/2024 Departure Time: 22:14 06/07/2024 Measurements Wt: 95.3 kg, Ht/Frederick: 62.0 in, BMI: 38.41 Initial Vital Sign Measured Time BP MAP HR RR O2Sat ETCO2 Temp Pain GCS RTS 19:18 06/07/2024 16 98.5 F 0 Time Seen: 00:41 06/08/2024; upon arrival, in room, initial patient contact. Historian- patient. HISTORY OF PRESENT ILLNESS Chief Complaint: CHEST PAIN. This started today 24-year-old female, history of the present presents to the ED with complaint of episodic discomfort, shortness of breath lasted for few seconds. It has happened couple times a day. She is not sure if this is anxiety related. She has checked the blood pressure during 1 of the episode and felt that her blood pressure was elevated, prompting her to come to the ED. Denies pain radiating to back, extremities. Denies diaphoresis. Denies any recent travels. She is on control pills. REVIEW OF SYSTEMS negative review of system unless otherwise mentioned in HPI. Status: Unknown. PAST HISTORY 1 of 12 Narrative Depression Surgeries: Adenoidectomy Tonsillectomy wisodm teeth Medications: Aviane 0.1 mg-20 mcg tablet: TAKE 1 TABLET BY MOUTH ONCE DAILY escitalopram 10 mg tablet: TAKE 1 TABLET BY MOUTH ONCE DAILY Allergies: no known drug allergies SOCIAL HISTORY Never smoker. Alcohol use. FAMILY HISTORY Negative. ADDITIONAL NOTES The nursing notes have been reviewed. PHYSICAL EXAM Vital Signs: Have been reviewed. Appearance: Alert. Oriented X3. Eyes: Pupils equal, round and reactive to light. Eyes normal inspection. ENT: Ears normal. Neck: Normal inspection. CVS: Normal heart rhythm and rate. Heart sounds normal. Pulses normal. Respiratory: No respiratory distress. Breath sounds normal. Abdomen: Soft. No mass. Skin: Skin warm and dry. Normal skin color. 2 of 12 Narrative Extremities: Extremities exhibit normal ROM. Neuro: Oriented X 3. No motor deficit. LABS, X-RAYS, AND EKG Diagnostic Tests: Diagnostic tests have been ordered, with results reviewed and considered in the medical decision making process. CBC #2: WBC. Laboratory Tests: CBC + DIFF Final HERBER: 06/07/2024 20:11:00 EST MsgRcvd: 06/07/2024 20:29 EST Lab Test Result Reference Status Received Comments 06/07/2024 20:29 CBC-COMPLETE CBC + DIFF Final EST BLOOD COUNT 06/07/2024 20:29 WBC 7.6 x 10/UL 4.5 - 10.8 Final EST 06/07/2024 20:29 RBC 4.64 x 10/UL 4.10 - 5.30 Final EST 06/07/2024 20:29 HEMOGLOBIN 13.7 g/dl 12.0 - 16.0 Final EST 06/07/2024 20:29 HEMATOCRIT 40.7 % 34.0 - 46.0 Final EST 06/07/2024 20:29 MCV 88 fl 80 - 99 Final EST 06/07/2024 20:29 MCH 30 pg 27 - 33 Final EST 06/07/2024 20:29 MCHC 34 X10 3 32 - 36 Final EST 3 of 12 Narrative 06/07/2024 20:29 RDW/CV 13.5 % 12.0 - 15.6 Final EST 06/07/2024 20:29 PLATELET 364 x10/UL 150 - 450 Final EST 06/07/2024 20:29 AUTOMATED MPV 7.1 fl 6.6 - 10.5 Final EST DIFFERENTIAL 06/07/2024 20:29 NEUT % 55.8 % 46.0 - 76.0 Final EST 06/07/2024 20:29 LYMPH % 34.9 % 20.0 - 45.0 Final EST 06/07/2024 20:29 MONOS % 6.0 % 0.0 - 10.0 Final EST 06/07/2024 20:29 EO % 3.1 % 0.0 - 7.0 Final EST 06/07/2024 20:29 BASO % 0.2 % 0.0 - 2.0 Final EST 06/07/2024 20:29 Lymph # 2.64 x10/UL 0.80 - 2.80 Final EST 06/07/2024 20:29 Neut # 4.22 x10/UL 1.50 - 7.10 Final EST 06/07/2024 20:29 [place] # 0.46 x10/UL 0.20 - 1.00 Final EST 06/07/2024 20:29 EO # 0.23 x10/UL 0.00 - 0.50 Final EST 06/07/2024 20:29 Baso # 0.02 x10/UL 0.00 - 0.10 Final EST 06/07/2024 20:29 MANUAL DIFF N/A New Order EST 4 of 12 Narrative 06/07/2024 20:29 MORPHOLOGY N/A New Order EST CMP with eGFR Final HERBER: 06/07/2024 20:11:00 EST MsgRcvd: 06/07/2024 20:50 EST Lab Test Result Reference Status Received Comments COMPREHENSIVE 06/07/2024 CMP with eGFR Final METABOLIC 20:50 EST PANEL 06/07/2024 SODIUM 143 mmol/l 136 - 145 Final 20:50 EST 06/07/2024 POTASSIUM 3.6 mmol/L 3.5 - 5.1 Final 20:50 EST 06/07/2024 CHLORIDE 104 mmol/L 98 - 107 Final 20:50 EST 06/07/2024 CO2 28.2 mmol/L 21.0 - 32.0 Final 20:50 EST 06/07/2024 GLUCOSE 85 mg/dl 74 - 106 Final 20:50 EST 06/07/2024 BUN 16 mg/dl 7 - 18 Final 20:50 EST 06/07/2024 CREATININE 0.89 mg/dl 0.55 - 1.02 Final 20:50 EST 06/07/2024 AST/SGOT 16 U/L 13 - 39 Final 20:50 EST 06/07/2024 ALK PHOS 112 U/L 46 - 116 Final 20:50 EST 5 of 12 Narrative 06/07/2024 CALC (more content not included)... Normal [facility] ED SUPER BILLon 06-08-2024 ED SUPER BILL [facility] [address] [facility] [place] [address] [id number] 06/07/2024 Patient: ABBEY HANNA Sex: Female : 2000 Age: 24y Item Professional Category Description Facility Code Code Quantity Fee Total Nurse/E/M EMERGENCY 131443 1 $0.00 $0.00 DEPARTMENT VISIT HIGH/URGENT SEVERITY (82774-65) Grand Total $0.00 Providers Robi Boyd M.D. Chief Complaint CHEST PAIN. Principal Diagnosis Chest pain characterized as discomfort. Urinary tract infection. 1 of 2 Superbill ICD-10 Codes R07.89: Other chest pain N39.0: Urinary tract infection, site not specified 2 of 2 Normal [facility] ED VISIT SUMMARYon ED VISIT SUMMARY Visit Overview Visit Overview [facility] [address] [place] [address] [id number] 06/07/2024 Patient: ABBEY HANNA Sex: Female : 2000 Age: 24y 06/08/2024 12:42 AM EST ED Arrival:19:17 06/07/2024 EST Status:not Recent Travel:no Language:eng Adv Directive: Isolation Status: Ethnicity:N Fall Risk:no risk Infectious Disease Exposure:no Measurements:5'2 / 157.5 Self-Harm Status:risk Sepsis Screen:negative cm 210.0 lb / 95.3 kg Chief Complaint:CHEST DISCOMFORT, CHEST PAIN, (hypertension ), and ([place] ) ALLERGIES No Known Drug Allergies HOME MEDICATIONS Aviane 0.1 mg-20 mcg tablet: TAKE 1 TABLET BY MOUTH ONCE DAILY escitalopram 10 mg tablet: TAKE 1 TABLET BY MOUTH ONCE DAILY PAST MEDICAL HISTORY / PROBLEMS 1 of 3 Visit Overview Depression Hypertension PAST SURGICAL HISTORY Adenoidectomy Tonsillectomy wisodm teeth SOCIAL HISTORY Smoking status: Unknown Alcohol use: No Drug use: No ED COURSE MEDICATIONS GIVEN IN EMERGENCY DEPARTMENT IV SITE INFORMATION 21:08 06/07/24 Site #1 right AC, 20g. Saline lock. INTAKE OUTPUT REASSESMENT (most recent) 19:45 06/07/24. GENERAL / NEURO / PSYCH: Alert. Oriented X 4. Appears in no acute distress. HEENT: Mucous membranes are pink. RESPIRATORY: Respirations not labored. Chest nontender. Breath sounds within normal limits. ( productive cough, thick yellow). CVS: Normal sinus rhythm noted. Heart sounds within normal limits. Pulses within normal limits. Capillary refill less than 2 seconds. GI / : Abdomen soft and nontender. EXTREMITIES: No lower extremity edema. SKIN: Skin is warm and dry. Normal skin turgor. Skin is non-tender. VITAL SIGNS First Vitals Last Vitals Temp 19:18 06/07/24 98.5 F Temp 22:08 06/07/24 BP 19:18 06/07/24 BP 22:08 06/07/24 2 of 3 Visit Overview First Vitals Last Vitals HR 19:18 06/07/24 HR 22:08 06/07/24 67 RR 19:18 06/07/24 16 RR 22:08 06/07/24 O2 Sat 19:18 06/07/24 O2 Sat 22:08 06/07/24 97% Pain 19:18 06/07/24 0 Pain 22:08 06/07/24 ETCO2 19:18 06/07/24 ETCO2 22:08 06/07/24 GCS 19:18 06/07/24 GCS 22:08 06/07/24 RTS 19:18 06/07/24 RTS 22:08 06/07/24 PROCEDURES NURSING INTERVENTIONS LABS / STUDIES LABS / STUDIES ORDERED CBC w Diff Chest 1V CMP D-Dimer EKG - ED Troponin-I Urinalysis Urine - HCG CLINICAL IMPRESSION CHEST PAIN CHARACTERIZED DISCOMFORT URINARY TRACT INFECTION 3 of 3 Normal [facility] ED VITALS FLOW SHEETon 06-08 ED VITALS FLOW SHEET Vitals Vital Sign Flow Sheet [address] [place] [address] [id number] 06/07/2024 Patient: ABBEY HANNA Sex: Female : 2000 Age: 24y Measurements Wt: 95.3 kg, Ht/Frederick: 62.0 in, BMI: 38.41 Measured Time BP MAP HR RR O2Sat ETCO2 Temp Pain GCS RTS 22:08 06/07/2024 67 97% 22:03 06/07/2024 68 97% 21:58 06/07/2024 63 97% 21:53 06/07/2024 70 97% 21:48 06/07/2024 68 95% 21:48 06/07/2024 121/73 87 62 21:43 06/07/2024 62 96% 21:38 06/07/2024 67 96% 21:33 06/07/2024 69 97% 21:28 06/07/2024 64 96% 21:23 06/07/2024 59 95% 21:18 06/07/2024 66 96% 21:18 06/07/2024 117/74 88 66 19:38 06/07/2024 82 97% 19:33 06/07/2024 93 98% 1 of 2 Vitals Measured Time BP MAP HR RR O2Sat ETCO2 Temp Pain GCS RTS 19:31 06/07/2024 138/107 119 91 19:18 06/07/2024 16 98.5 F 0 2 of 2 Normal [facility] CBC + DIFFon 06-07-2024 Baso # 0.02 x10EE3/UL Normal 0.00 - 0.10 [facility] Comment on above: Performed By: #### 2 20230 #### [facility],[address] [place] [address] Basophils/100 WBC (Bld) 0.2 % Normal 0.0 - 2.0 [facility] Comment on above: Performed By: #### 2 31569 #### [facility],[address] [place] [address] CBC + DIFF Normal [facility] Comment on above: Result Comment: CBC- COMPLETE BLOOD COUNT Performed By: #### 2 [id number] #### [facility],[address] [place], [place] [id number] EO # 0.23 x10EE3/UL Normal 0.00 - 0.50 [facility] Comment on above: Performed By: #### 2 78643 #### [facility],[address] [place] [address] Eosinophils/100 WBC (Bld) 3.1 % Normal 0.0 - 7.0 [facility] Comment on above: Performed By: #### 2 60161 #### [facility],[address] [place] [address] Erythrocyte distribution width (RBC) [Ratio] 13.5 % Normal 12.0 - 15.6 [facility] Comment on above: Performed By: #### 2 03854 #### [facility],[address] [place] [address] Hematocrit (Bld) [Volume fraction] 40.7 % Normal 34.0 - 46.0 [facility] Comment on above: Performed By: #### 2 15976 #### [facility],[address] [place] [address] Hemoglobin (Bld) [Mass/Vol] 13.7 g/dL Normal 12.0 - 16.0 [facility] Comment on above: Performed By: #### 2 33889 #### [facility],[address] [place] [address] Lymph # 2.64 x10EE3/UL Normal 0.80 - 2.80 [facility] Comment on above: Performed By: #### 2 74513 #### [facility],[address] [place], [place] [phone] Lymphocytes/100 WBC (Bld) 34.9 % Normal 20.0 - 45.0 [facility] Comment on above: Performed By: #### 2 36264 #### [facility],[address] [place] [address] 266[address] MANUAL DIFF N/A Normal [facility] Comment on above: Performed By: #### 2 86752 #### [facility],[address] [place] [address] 12361 MCH (RBC) [Entitic mass] 30 pg Normal 27 - 33 [facility] Comment on above: Performed By: #### 2 16578 #### [facility],[address] [place] [address] MCHC 34 X10 3 Normal 32 - 36 [facility] Comment on above: Performed By: #### 2 76642 #### [facility],[address] [place] [address] 20017 MCV (RBC) [Entitic vol] 88 fL Normal 80 - 99 [facility] Comment on above: Performed By: #### 2 96260 #### [facility],[address] [place] [address] [place] # 0.46 x10EE3/UL Normal 0.20 - 1.00 [facility] Comment on above: Performed By: #### 2 48626 #### [facility],[address] [place] [address]114 MONOS % 6.0 % Normal 0.0 - 10.0 [facility] Comment on above: Performed By: #### 2 65083 #### [facility],[address] [place] [address] 17892 Morphology Arnie (Bld) [Interp] N/A Normal [facility] Comment on above: Performed By: #### 2 09566 #### [facility],[address] [place] [address]97 Neut # 4.22 x10EE3/UL Normal 1.50 - 7.10 [facility] Comment on above: Performed By: #### 2 51603 #### [facility],[address] [place] [address] 58981 Neutrophils/100 WBC (Bld) 55.8 % Normal 46.0 - 76.0 [facility] Comment on above: Performed By: #### 2 99073 #### [facility],[address] [place] [address] 63537 PLATELET 364 x10EE3/UL Normal 150 - 450 [facility] Comment on above: Performed By: #### 2 01661 #### [facility],[address] [place] [address] 20879 Platelet mean volume (Bld) [Entitic vol] 7.1 fL Normal 6.6 - 10.5 [facility] Comment on above: Result Comment: AUTO MATED DIFFERENTIAL Performed By: #### 2 63894 #### [facility],[address] [place] [address] 83752 RBC 4.64 x 10EE6/UL Normal 4.10 - 5.30 [facility] Comment on above: Performed By: #### 2 04718 #### [facility],[address] [place], [place] [phone] WBC 7.6 x 10EE3/UL Normal 4.5 - 10.8 [facility] Comment on above: Performed By: #### 2 20206 #### [facility],[address] [place], [place] [phone] CHEST 1 VIEWon 06-07-2024 CHEST 1 VIEW [place] [address] Patient: ABBEY HANNA Phone#: : 2000 Age: 24 Gender: F Pt. Type: ER Account: [id number] Location: [facility] Ordering: DR. ROBI BOYD Exam Date: 06/07/2024/19:53 Family Phys: SID WHITEHEAD Charge Code: 137084 Physician: Ramsey Order #: [id number] Dose#: PROCEDURE: X-RAY CHEST 1 VIEW COMPARISON: None. INDICATIONS: Chest pain. FINDINGS: LUNGS: Normal. No significant pulmonary parenchymal abnormalities. VASCULATURE: Normal. Unremarkable pulmonary vasculature. CARDIAC: Normal. No cardiac silhouette abnormality or cardiomegaly. MEDIASTINUM: Normal. No visible mass or adenopathy. PLEURA: Normal. No effusion or pleural thickening. BONES: Normal. No fracture or visible bony lesion. OTHER: Negative. CONCLUSION: No acute disease. Dictated by: Catie Meehan MD on 06/07/2024 at 21:13 Approved by: Catie Meehan MD on 06/07/2024 at 21:13 Normal [facility] CMP with eGFRon 06-07-2024 AGE 24 years Normal [facility] Comment on above: Performed By: #### 2 [id number] #### [facility],[address] [place], [place] [phone] Albumin [Mass/Vol] 3.9 g/dL Normal 3.4 - 5.0 [facility] Comment on above: Performed By: #### 2 15818 #### [facility],[address] [place] [address] 80540 Albumin/Globulin [Mass ratio] 1.0 {ratio} Normal 0.9 - 1.6 [facility] Comment on above: Performed By: #### 2 78101 #### [facility],[address] [place] [address] 05625 ALK PHOS 112 U/L Normal 46 - 116 [facility] Comment on above: Performed By: #### 2 93431 #### [facility],[address] [place] [address] 12997 ALT [Catalytic activity/Vol] 22 U/L Normal 16 - 63 [facility] Comment on above: Performed By: #### 2 89702 #### [facility],[address] [place] [address] 47977 Anion gap [Moles/Vol] 14 mmol/L Normal 10 - 20 [facility] Comment on above: Performed By: #### 2 47351 #### [facility],[address] [place] [address] 94466 AST [Catalytic activity/Vol] 16 U/L Normal 13 - 39 [facility] Comment on above: Performed By: #### 2 22493 #### [facility],[address] [place] [address] 96452 B/C RATIO 18 ratio Normal 0 - 30 [facility] Comment on above: Performed By: #### 2 32129 #### [facility],[address] [place] [address] 24169 Bilirubin [Mass/Vol] 0.2 mg/dL Normal 0.2 - 1.0 [facility] Comment on above: Performed By: #### 2 93728 #### [facility],[address] [place] [address] 15139 Calcium [Mass/Vol] 9.6 mg/dL Normal 8.5 - 10.1 [facility] Comment on above: Performed By: #### 2 71574 #### [facility],[address] [place], [place] [phone] Chloride [Moles/Vol] 104 mmol/L Normal 98 - 107 [facility] Comment on above: Performed By: #### 2 [id number] #### [facility],[address] [place] [address] 27611 CMP with eGFR Normal [facility] Comment on above: Result Comment: COMP REHENSIVE METABOLIC PANEL Performed By: #### 2 62391 #### [facility],[address] [place] [address] CO2 [Moles/Vol] 28.2 mmol/L Normal 21.0 - 32.0 [facility] Comment on above: Performed By: #### 2 96472 #### [facility],[address] [place] [address] Creatinine [Mass/Vol] 0.89 mg/dL Normal 0.55 - 1.02 [facility] Comment on above: Performed By: #### 2 08056 #### [facility],[address] [place] [address] GFR/1.73 sq M.predicted among non-blacks MDRD (S/P/Bld) [Vol rate/Area] mL/min/{1.73_m2} Normal 60 - 999 [facility] Comment on above: Performed By: #### 2 57444 #### [facility],[address] [place] [address] Result Comment: ACCO RDING TO THE NATIONAL KIDNEY DISEASE EDUCATION PROGRAM(NKDE), A NORMAL eGFR IS A VALUE GREATER THAN OR EQUAL TO 60 ML/MIN/1.73 SQ METERS. CHRONIC KIDNEY DISEASE: <60mL/MIN/1.73 SQ METERS KIDNEY FAILURE: <15mL/MIN/1.73 SQ METERS THIS TEST SHOULD ONLY BE USED FOR PATIENTS 18 YEARS OF AGE AND OLDER. Globulin (S) [Mass/Vol] 3.8 g/dL Normal 1.5 - 3.8 [facility] Comment on above: Performed By: #### 2 59827 #### [facility],[address] [place] [address]121 Glucose [Mass/Vol] 85 mg/dL Normal 74 - 106 [facility] Comment on above: Performed By: #### 2 09827 #### [facility],[address] [place] [address] 00196 Potassium [Moles/Vol] 3.6 mmol/L Normal 3.5 - 5.1 [facility] Comment on above: Performed By: #### 2 09762 #### [facility],[address] [place] [address] 83395 Protein [Mass/Vol] 7.7 g/dL Normal 6.4 - 8.2 [facility] Comment on above: Performed By: #### 2 46272 #### [facility],[address] [place] [address] 24169 Sodium [Moles/Vol] 143 mmol/L Normal 136 - 145 [facility] Comment on above: Performed By: #### 2 27755 #### [facility],[address] [place] [address] 76948 Urea nitrogen [Mass/Vol] 16 mg/dL Normal 7 - 18 [facility] Comment on above: Performed By: #### 2 79602 #### [facility],[address] [place] [address] 27805 D-DIMER, QUANTITATIVEon 05-24 D-DIMER QUANT <200 Normal 0 - 230 [facility] Comment on above: Performed By: #### 2 66341 #### [facility],[address] [place] [address] 78137 D-DIMER, QUANTITATIVE Normal [facility] Comment on above: Result Comment: KAVITHA T D-DIMER Performed By: #### 2 74535 #### [facility],[address] [place] [address] 98015 URINEon 06-07-2024 Beta HCG ( test) Ql (U) Negative Normal NEGATIVE [facility] Comment on above: Performed By: #### 2 08850 #### [facility],[address] [place] [address] 63281 EXTERNAL QC DONE? YES Normal [facility] Comment on above: Performed By: #### 2 92002 #### [facility],[address] [place], [place] [id number] INTERNAL QC PASS Normal [facility] Comment on above: Performed By: #### 2 03675 #### [facility],[address] [place] [address] 17034 TROPONINon 06-07-2024 HS TROPONIN 25.2 pg/mL Normal 0.0 - 51.4 [facility] Comment on above: Performed By: #### 2 16306 #### [facility],[address] [place], [place] [id number] URINALYSISon 06-07-2024 Amorphous NONE Normal [facility] Comment on above: Performed By: #### 2 48085 #### [facility],[address] [place] [address] Bacteria 1+ Normal [facility] Comment on above: Performed By: #### 2 57344 #### [facility],[address] [place], [place] [phone] Bilirubin Ql (U) 6 Abnormal NORMAL: NEGATIVE [facility] Comment on above: Performed By: #### 2 67796 #### [facility],[address] [place] [address] 25793 Casts NONE Normal [facility] Comment on above: Performed By: #### 2 22318 #### [facility],[address] [place] [address] 39698 Clarity (U) clear Normal NORMAL: CLEAR [facility] Comment on above: Performed By: #### 2 98630 #### [facility],[address] [place] [address] 15719 Color (U) ORANGE Normal NORMAL: YELLOW [facility] Comment on above: Performed By: #### 2 15374 #### [facility],[address] [place] [address] 31675 Crystals LM Nom (Urine sed) NONE Normal [facility] Comment on above: Performed By: #### 2 15019 #### [facility],[address] [place] [address] 18824 Epi Cells FEW Normal [facility] Comment on above: Performed By: #### 2 85820 #### [facility],[address] [place] [address] 71471 Glucose Ql (U) NORM Normal NORMAL: NORMAL [facility] Comment on above: Performed By: #### 2 36531 #### [facility],[address] [place] [address] 38657 Hemoglobin Ql (U) 50 Abnormal NORMAL: NEGATIVE [facility] Comment on above: Performed By: #### 2 64871 #### [facility],[address] [place] [address] 42102 Ketone Negative Normal NORMAL: NEGATIVE [facility] Comment on above: Performed By: #### 2 80241 #### [facility],[address] [place] [address] 13137 Leukocytes 25 Abnormal NORMAL: NEGATIVE [facility] Comment on above: Performed By: #### 2 05287 #### [facility],[address] [place] [address] 16430 Mucous NONE Normal [facility] Comment on above: Performed By: #### 2 78985 #### [facility],[address] [place] [address] 45531 Nitrite Ql (U) Positive Normal NORMAL: NEGATIVE [facility] Comment on above: Performed By: #### 2 02445 #### [facility],[address] [place] [address] 95250 pH (U) 7 [pH] Normal NORMAL: 5.0-8.0 [facility] Comment on above: Performed By: #### 2 81022 #### [facility],[address] [place] [address] Protein Ql (U) 15 Abnormal NORMAL: NEGATIVE [facility] Comment on above: Performed By: #### 2 25349 #### [facility],[address] [place] [address] Rbc 0-5 Normal 0-3/hpf [facility] Comment on above: Performed By: #### 2 72584 #### [facility],[address] [place] [address] Sp Mather 1.015 Normal NORMAL: 1.010-1.030 [facility] Comment on above: Performed By: #### 2 26216 #### [facility],[address] [place] [address] Specimen Type R Normal [facility] Comment on above: Performed By: #### 2 15872 #### [facility],[address] [place] [address] Urinalysis dipstick W Reflex Microscopic panel (U) SEE BELOW Normal [facility] Comment on above: Result Comment: MICR OSCOPIC Performed By: #### 2 19294 #### [facility],[address] [place] [address] Urobilinog 8 Abnormal NORMAL: NORMAL [facility] Comment on above: Performed By: #### 2 24240 #### [facility],[address] [place] [address] Wbc 1-5 Normal 0-5/hpf [facility] Comment on above: Performed By: #### 2 27159 #### [facility],[address] [place] [address] Yeast NONE Normal [facility] Comment on above: Performed By: #### 2 60769 #### [facility],[address] [place] [address] C. trachomatis+N. gonorrhoea e DNA SASCHA+probe Ql (Unsp spec)on 02-13-2024 C. trachomatis rRNA SASCHA+probe Ql (Unsp spec) Negative Normal Negative for Chlamydia trachomatis by amplificaton [facility] Comment on above: Order Comment: Speci men Type: SWAB Ordering Facility: [facility] Address: [address] [place] [address] Performed By: #### B VAMP, CVTV #### [facility] CLIA [id number] [address] [place] [address] [place] N. gonorrhoeae rRNA SASCHA+probe Ql (Unsp spec) Negative Normal Negative for Neisseria gonorrhoeae by amplification [facility] Comment on above: Order Comment: Speci men Type: SWAB Ordering Facility: [facility] Address: [address] [place] [address] Performed By: #### B VAMP, CVTV #### [facility] CLIA [id number] [address] [place] [address] [place] BACTERIAL VAGINOSIS NAATon 0 01-14-2024 Interpretation and review of laboratory results Abnormal [facility] Lactobacillus crispatus+gasseri+jense kinga + Gardnerella vaginalis + Atopobium vaginae rRNA SASCHA+probe Ql (Vag fld) Positive Abnormal Negative for bacterial vaginosis [facility] Lactobacillus crispatus+gasseri+jense kinga + Gardnerella vaginalis + Atopobium vaginae rRNA SASCHA+probe Ql (Vag fld) Positive Abnormal Negative for bacterial vaginosis [facility] Comment on above: Order Comment: Speci men Type: SWAB Ordering Facility: [facility] Address: [address] [place] [address] Performed By: #### B VAMP, CVTV #### [facility] CLIA [id number] [address] [place] [address] [place] C. trachomatis+N. gonorrhoea e DNA SASCHA+probe Ql (Unsp spec)on 01-14-2024 C. trachomatis rRNA SASCHA+probe Ql (Unsp spec) Negative Negative for Chlamydia trachomatis by amplificaton [facility] Interpretation and review of laboratory results Normal [facility] N. gonorrhoeae rRNA SASCHA+probe Ql (Unsp spec) Negative Negative for Neisseria gonorrhoeae by amplification [facility] C. trachomatis rRNA SASCHA+probe Ql (Unsp spec) Negative Normal Negative for Chlamydia trachomatis by amplificaton [facility] Comment on above: Order Comment: Speci men Type: SWAB Ordering Facility: [facility] Address: [address] [place] [address] Performed By: #### 3 6902-5 #### [facility] CLIA [id number] [address] [place] [address] [place] N. gonorrhoeae rRNA SASCHA+probe Ql (Unsp spec) Negative Normal Negative for Neisseria gonorrhoeae by amplification [facility] Comment on above: Order Comment: Speci men Type: SWAB Ordering Facility: [facility] Address: [address] [place] [address] Performed By: #### 3 6902-5 #### [facility] CLIA [id number] [address] [place] [address] [place] WAQAR/TRICHOMONAS NAATon 0 01-14-2024 C. glabrata RNA SASCHA+probe Ql (Vag fld) Negative Negative for Waqar glabrata [facility] Waqar sp DNA SASCHA+probe Ql (Vag fld) Negative Negative for Waqar species [facility] Interpretation and review of laboratory results Normal [facility] T. vaginalis DNA SASCHA+probe Ql (Unsp spec) Negative Negative for Trichomonas vaginalis by amplification [facility] C. glabrata RNA SASCHA+probe Ql (Vag fld) Negative Normal Negative for Waqar glabrata [facility] Comment on above: Order Comment: Speci men Type: SWAB Ordering Facility: [facility] Address: [address] [place] [address] Performed By: #### B VAMP, CVTV #### [facility] CLIA [id number] [address] [place] [address] [place] Waqar sp DNA SASCHA+probe Ql (Vag fld) Negative Normal Negative for Waqar species [facility] Comment on above: Order Comment: Speci men Type: SWAB Ordering Facility: [facility] Address: [address] [place] [address] Performed By: #### B VAMP, CVTV #### [facility] CLIA [id number] [address] [place] [address] [place] T. vaginalis DNA SASCHA+probe Ql (Unsp spec) Negative Normal Negative for Trichomonas vaginalis by amplification [facility] Comment on above: Order Comment: Speci men Type: SWAB Ordering Facility: [facility] Address: [address] [place] [address] Performed By: #### B VAMP, CVTV #### [facility] CLIA [id number] [address] [place] [address] [place] CNOVon 01-14-2024 CNOV Office Visit (OBGYWM ) ABBEY HANNA ([id number]) 4 F Date Time Provider Department 01/14/24 8:00 AM KAYLA RODRIGUEZ [facility] During your visit today, we recorded the following information about you: Blood pressure Weight Last Period 118/70 96.6 kg 01/12/24 Kayla Rodriguez APRN.CNM 01/20/2024 6:07 PM Signed Abbey Hanna is a 23 year old female who presents for problem visit for HPI: Presents today with pelvic pain and discomfort. She started her period yesterday and pain was into her mid to lower abdomen into her pelvis. Increased pain rating 7/10. Bleeding was her normal amount. Tested positive for trichomonas on 12/20/23. Both her and partner treated and no intercourse for 7 days after treatment. Nervous she has PID. Bottle feeding, 4 months old. 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 Comments: Sexual Activity: Not Currently; Male; not asked Contraception: No contraception data on record PAST MEDICAL HISTORY Diagnosis Date Depression Encounter for supervision of high risk in second trimester, antepartum 03/28/2023 PAST SURGICAL HISTORY Procedure Laterality Date SNGL 09/11/2023 FAMILY HISTORY Problem Relation Age of Onset Hypertension Mother No Known Problems Father No Known Problems Brother Hypertension Brother Heart Maternal Grandfather No Ocular Disease No Family History Social History Tobacco Use Smoking status: Former Types: Cigarettes Passive exposure: Never Smokeless tobacco: Never Tobacco comments: Occasional Vape Vaping Use Vaping Use: Former Substance Use Topics Alcohol use: Never Drug use: Never Current Outpatient Medications Medication Sig ondansetron (ZOFRAN) 4 mg tablet Take 1 tablet by mouth every 8 hours as needed for nausea/vomiting. PARoxetine (PAXIL) 10 mg tablet Take 1 tablet by mouth every afternoon. VITAMIN 27 mg iron- 0.8 mg tablet Take 1 tablet by mouth every afternoon. No current facility-administered medications for this visit. Allergies As of Date: 01/14/2024 (No Known Allergies) Fully Assessed 01/14/2024 REVIEW OF SYSTEMS Abdomen: No bloating, early satiety, indigestion, or increased flatulence. No abdominal pain, nausea, vomiting, diarrhea, or constipation. Bladder: No dysuria, gross hematuria, urinary frequency, urinary urgency, or incontinence. Breast: No breast lumps, nipple d/c, overlying skin changes, redness or skin retraction. Expanded ROS: N/A Allergies and current medication updated:Yes EXAM: BP 118/70 Wt 213 lb (96.6kg) LMP 01/12/2024 GENERAL: pleasant, female in no apparent distress HEENT: Normocephalic, atraumatic, mucus membranes moist, and no lesions CHEST: Normal inspiratory effort ABDOMEN: soft, non-tender, and no masses PELVIC: external genitalia normal, normal Bartholin's glands, urethra, Sikeston's glands, no vulvar lesions, no cervical lesions, good vaginal support, physiologic discharge present, normal appearing perineal body and perianal region BIMANUAL: uterus normal size, shape and consistency, no adnexal masses, and non-tender NEURO: alert and oriented x3,exam grossly non-focal EXTREMITIES: normal ASSESSMENT AND PLAN: Encounter Diagnosis ICD-10-CM 1. Screening for STDs (sexually transmitted diseases) Z11.3 Will complete full STD panel today and notify patient with results. Kayla Rodriguez APRN.CNM Allergies As of Date: 01/14/2024 (No Known Allergies) Date Reviewed: 01/14/2024 Reviewed by: Roe Forrest MA - Fully Assessed Reason for Visit: STD testing [Other] Primary Visit Diagnosis:Screening for STDs (sexually transmitted diseases) [Z11.3] Order(s):WAQAR/TRIC HOMONAS NAAT [SQCVTV] Order #: [id number]. #:[id number] BACTERIAL VAGINOSIS NAAT [SQBVAMP] Order #: [id number]. #:[id number] GONORRHEA/CHLAMYDIA NAAT [SQGCCT] Order #: [id number]. #:[id number] metroNIDAZOLE (METROGEL VAGINAL) 0.75 % (37.5mg/5 gram) Vaginal GelUse 1 Applicatorful vaginally daily at bedtime for 10 days.Disp: 140 gRfl: 0 Prescriptions as of 01/20/2024 - metroNIDAZOLE (METROGEL VAGINAL) 0.75 % (37.5mg/5 gram) Vaginal Gel Use 1 Applicatorful vaginally daily at bedtime for 10 days. - ondansetron (ZOFRAN) 4 mg tablet Take 1 tablet by mouth every 8 hours as needed for nausea/vomiting. - PARoxetine (PAXIL) 10 mg tablet Take 1 tablet by mouth every afternoon. - VITAMIN 27 mg iron- 0.8 mg tablet Take 1 tablet by mouth every afternoon. Problem List As Of Date 01/14/2024 Noted Resolved Encounter for supervision of high risk pregnanc*03/28/2023 10/03/2023 History of herpes genitalis [Z86.19] 07/30/2023 Trichomonias (more content not included)... Normal [facility] Mamadou 01-13-2024 JOAQUÍN Telephone (OBGYWM) ABBEY HANNA ([id number]) 4 F Date Time Provider Department 01/13/24 KAYLA RODRIGUEZ During your visit today, we recorded the following information about you: Shruti Walker RN 01/13/2024 8:24 AM Signed Patient and partner were treated for Trichomonas on 12/20/23. Patient states that she started her menses on Saturday. Last night her cramping pain was severe and had heavy bleeding. Pain rate of 8. States she could hardly walk. She put on an overnight pad. Little blood on the pad. Her cramping today is a 4. Patient is concerned for PID after searching online. Denies fever or chills. Mcdonough a little feverish last night, but did not take her temperature. This is her third menses since delivery in August. States both her and her partner completed treatment and refrained from intercourse for a week after. Advised that she can take NSAIDs and apply heat for pain relief. CHUY Briggs Jessica, APRN.[facility]ANDA 01/13/2024 8:57 AM Signed I can do repeat testing, please schedule appointment. Thank you, Kayla Rodriguez APRN.[facility] Vero Graham RN 01/13/2024 9:27 AM Signed Patient notified. Unable to come into office today. Requested tomorrow - appt scheduled. Vero Graham RN Allergies As of Date: 01/13/2024 (No Known Allergies) Date Reviewed: 12/24/2023 Reviewed by: Karla Acosta MD - Fully Assessed Reason for Visit: Pelvic Pain [282] Heavy Menses [Other] Prescriptions as of 01/13/2024 - ondansetron (ZOFRAN) 4 mg tablet Take 1 tablet by mouth every 8 hours as needed for nausea/vomiting. - PARoxetine (PAXIL) 10 mg tablet Take 1 tablet by mouth every afternoon. - VITAMIN 27 mg iron- 0.8 mg tablet Take 1 tablet by mouth every afternoon. Problem List As Of Date 01/13/2024 Noted Resolved Encounter for supervision of high risk pregnanc*03/28/2023 10/03/2023 History of herpes genitalis [Z86.19] 07/30/2023 Trichomoniasis [A59.9] 08/22/2023 Gestational hypertension without significant pr*08/27/2023 08/27/2023 Encounter Status:Closed by VERO GRAHAM on 01/13/24 Normal [facility] BACTERIAL VAGINOSIS NAATon 0 12-21-2023 Interpretation and review of laboratory results Abnormal [facility] Lactobacillus crispatus+gasseri+jense kinga + Gardnerella vaginalis + Atopobium vaginae rRNA SASCHA+probe Ql (Vag fld) Positive Abnormal Negative for bacterial vaginosis [facility] Bacteria identified Cx Nom ( U)Ordered By: Maria Luz Chino on 12-21-2023 [facility] C. trachomatis+N. gonorrhoea e DNA SASCHA+probe Ql (Unsp spec)on 12-21-2023 C. trachomatis rRNA SASCHA+probe Ql (Unsp spec) Negative Negative for Chlamydia trachomatis by amplificaton [facility] Interpretation and review of laboratory results Normal [facility] N. gonorrhoeae rRNA SASCHA+probe Ql (Unsp spec) Negative Negative for Neisseria gonorrhoeae by amplification [facility] WAQAR/TRICHOMONAS NAATon 0 12-21-2023 C. glabrata RNA SASCHA+probe Ql (Vag fld) Negative Negative for Waqar glabrata [facility] Waqar sp DNA SASCHA+probe Ql (Vag fld) Negative Negative for Waqar species [facility] Interpretation and review of laboratory results Abnormal [facility] T. vaginalis DNA SASCHA+probe Ql (Unsp spec) Positive Abnormal Negative for Trichomonas vaginalis by amplification [facility] URINE CULTUREOrdered By: Carmine Chino on 12-21-2023 Bacteria identified Cx Nom (U) 10,000 -<50,000 CFU/ml Normal urogenital max [facility] HBV surface Ag Ql (S)on 11-23 Interpretation and review of laboratory results Normal [facility] HCV Ab Ql (S)on 12-20-2023 Interpretation and review of laboratory results Normal [facility] HEPATITIS B SURFACE ANTIGENo n 12-20-2023 HBV surface Ag Ql (S) Negative Negative [facility] HEPATITIS C ANTIBODY IA WITH CONFIRMATIONon 12-20-2023 HCV Ab Ql (S) Negative Negative [facility] Comment on above: The result suggests no evidence of active infection with Hepatitis C virus. Should recent infection be suspected, repeat testing may be considered 4-6 weeks after this draw. HIV 1+2 Ab IA Qlon HIV 1 and 2 Ab IA.rapid Nom (S/P/Bld) [facility] Comment on above: Test not indicated. HIV 1+2 Ab+HIV1 p24 Ag IA Ql Non-Reactive Nonreactive [facility] HIV immunoassay testing algorithm interpretation (S/P/Bld) [Interp] [facility] Comment on above: No evidence of HIV-1 or HIV-2 infection. Should recent infection be suspected, repeat testing may be considered 2-3 weeks after this draw. [place] Rev. Code 3701.243(E): This information has been disclosed to you from confidential records protected from disclosure by state law. You shall make no further disclosure of this information without the specific, written, and informed release of the individual to whom it pertains or as otherwise permitted by state law. A general authorization for the release of medical or other information is not sufficient for the purpose of the release of HIV test results or diagnoses. [facility] Reagin and Treponema pallidu m IgG and IgM [Interp]on 12-20-2023 T. pallidum IgG+IgM IA Ql (S) Non-Reactive Nonreactive [facility] SYPHILIS TOTAL W/REFLEXon Reagin and Treponema pallidum IgG and IgM [Interp] Cannot exclude recent Treponemal infection if specimen collected within 7-10 days after appearance of suspect lesions or 2-3 weeks after an exposure. Clinical correlation is required. [facility] Basophil percentageOrdered B y: Kayla Michael on 09-15-2023 Bilirubin [Mass/Vol] 0.30 mg/dL 0.20-1.00 [facility] Comment on above: For patients on eltr ombopag therapy, use of Dimension [place] TBIL is not recommended. Chloride [Moles/Vol] 111 mmol/L 98-107 [facility] Glucose [Mass/Vol] 92 mg/dL 74-106 [facility] Hemoglobin (Bld) [Mass/Vol] 10.5 g/dL 12.0-15.0 [facility] Potassium [Moles/Vol] 3.9 mmol/L 3.5-5.1 [facility] Protein [Mass/Vol] 6.5 g/dL 6.4-8.2 [facility] Sodium [Moles/Vol] 142 mmol/L 136-145 [facility] WBC (Bld) [#/Vol] 9.7 10*3/uL 4.4-11.0 [facility] Determination of erythrocyte mean corpuscular volume (MCV)Ordered By: Kayla Rodriguez on 09-15-2023 MCV (RBC) [Entitic vol] 93.4 fL 81-99 [facility] Erythrocyte distribution wid th ratioOrdered By: Kayla Rodirguez on 09-15-2023 Erythrocyte distribution width (RBC) [Ratio] 14.4 % 11.6-14.6 [facility] Erythrocyte distribution wid th standard deviationOrdered By: Kayla Rodriguez on 09-15-2023 Erythrocyte distribution width (RBC) [Entitic vol] 48.4 fL 35.1-43.9 [facility] Hematocrit Auto (Bld) [Volum e fraction]Ordered By: Kayla Rodriguez on 09-15-2023 Hematocrit (Bld) [Volume fraction] 31.2 % 37-47 [facility] Laboratory - Chemistry and C hemistry - challengeOrdered By: Kayla Rodriguez on 09-15-2023 Albumin/Globulin [Mass ratio] 0.6 {ratio} 0.9-2.4 [facility] ALP [Catalytic activity/Vol] 116 U/L 45-117 [facility] ALT [Catalytic activity/Vol] 33 U/L 13-56 [facility] CO2 [Moles/Vol] 24.0 mmol/L 21.0-32.0 [facility] Globulin (S) [Mass/Vol] 4.0 g/dL 2.2-4.2 [facility] Urea nitrogen/Creatinine [Mass ratio] 15.2 mg/mg 10-20 [facility] Laboratory - Hematology and Cell countsOrdered By: Kayla Rodriguez on 09-15-2023 MCH (RBC) [Entitic mass] 31.4 pg 27.0-32.0 [facility] MCHC (RBC) [Mass/Vol] 33.7 g/dL 32-36 [facility] Platelet mean volume (Bld) [Entitic vol] 8.8 fL 6.2-12.0 [facility] Platelets (Bld) [#/Vol] 313 10*3/uL 150-450 [facility] No Panel InformationOrdered By: Kayla Rodriguez on 09-15-2023 Estimated Creatinine Clearance Calc 132.86 ml/min [facility] Estimated GFR (MDRD) Amer 130 mL/min >60 [facility] Comment on above: GFR Calc Estimated GFR (MDRD) Non-Af Amer 108 mL/min >60 [facility] Comment on above: Non- GFR Calc RBC Auto (Bld) [#/Vol]Ordere d By: Kayla Rodriguez on 09-15-2023 RBC (Bld) [#/Vol] 3.34 10*6/uL 4.2-5.4 [facility] Serum or plasma calcium juliano urement (mass/volume)Ordered By: Kayla Rodriguez on 09-15-2023 Calcium [Mass/Vol] 9.2 mg/dL 8.5-10.1 [facility] Serum or plasma creatinine m easurement (mass/volume)Ordered By: Kayla Rodriguez on 09-15-2023 Creatinine [Mass/Vol] 0.72 mg/dL 0.55-1.02 [facility] Comment on above: The validity of the calculated GFR & GFRAA in patients over 70 years has not been determined. Clinical correlation is essential. Serum or plasma urea nitroge n measurement (mass/volume)Ordered By: Kayla Rodriguez on 09-15-2023 Urea nitrogen [Mass/Vol] 11 mg/dL 7-18 [facility] Serum or plasma uric acid me asurement (mass/volume)Ordered By: Kayla Rodriguez on 09-15-2023 Urate [Mass/Vol] 5.1 mg/dL 2.6-6.0 [facility] Comment on above: The drugs N-Acetylcy steine and Metamizole may falsely depress this assay. Thin prep Papanicolaou smear with manual screeningOrdered By: Kayla Rodriguez on 09-15-2023 Thin prep Papanicolaou smear with manual screening 2.5 g/dL 3.2-5.0 [facility] Thin prep Papanicolaou smear with manual screening 38 U/L 15-37 [facility] Thin prep Papanicolaou smear with manual screening 7 5-15 [facility] Basophil percentageOrdered B y: Shruti Hunter on 09-12-2023 Hemoglobin (Bld) [Mass/Vol] 10.0 g/dL 12.0-15.0 [facility] WBC (Bld) [#/Vol] 12.0 10*3/uL 4.4-11.0 [facility] Determination of erythrocyte mean corpuscular volume (MCV)Ordered By: Shruti Hunter on 09-12-2023 MCV (RBC) [Entitic vol] 94.7 fL 81-99 [facility] Erythrocyte distribution wid th ratioOrdered By: Shruti Hunter on 09-12-2023 Erythrocyte distribution width (RBC) [Ratio] 14.4 % 11.6-14.6 [facility] Erythrocyte distribution wid th standard deviationOrdered By: Shruti Hunter on 09-12-2023 Erythrocyte distribution width (RBC) [Entitic vol] 49.5 fL 35.1-43.9 [facility] Hematocrit Auto (Bld) [Volum e fraction]Ordered By: Shruti Hunter on 09-12-2023 Hematocrit (Bld) [Volume fraction] 30.3 % 37-47 [facility] Laboratory - Hematology and Cell countsOrdered By: Shruti Hunter on 09-12-2023 MCH (RBC) [Entitic mass] 31.3 pg 27.0-32.0 [facility] MCHC (RBC) [Mass/Vol] 33.0 g/dL 32-36 [facility] Platelet mean volume (Bld) [Entitic vol] 10.0 fL 6.2-12.0 [facility] Platelets (Bld) [#/Vol] 191 10*3/uL 150-450 [facility] RBC Auto (Bld) [#/Vol]Ordere d By: Shruti Hunter on 09-12-2023 RBC (Bld) [#/Vol] 3.20 10*6/uL 4.2-5.4 [facility] Basophil percentageOrdered B y: Kayla Rodriguez on 09-11-2023 LDH [Catalytic activity/Vol] 212 U/L 84-246 [facility] HIV 1 and HIV-2 antibody ass ay with HIV-1 p24 antigen detectionOrdered By: Karla Acosta on 09-11-2023 HIV 1+2 Ab+HIV1 p24 Ag IA Ql Non-Reactive Nonreactive [facility] Laboratory - Chemistry and C hemistry - challengeOrdered By: Kayla Rodriguez on 09-11-2023 ALT [Catalytic activity/Vol] 20 U/L 13-56 [facility] No Panel InformationOrdered By: Karla Acosta on 09-11-2023 Hepatitis B Surface Antigen Non-Reactive Nonreactive [facility] Hepatitis C Antibody Non-Reactive Nonreactive [facility] Comment on above: Non Reactive: < 0.8 Equivocal: >/= 0.8 to < 1.0 Reactive: >/= 1.0The CDC requires that a reactive/equivocal HCV antibody result be sent out for confirmation. HCV Quant by PCR testing. No Panel InformationOrdered By: Kayla Rodriguez on 09-11-2023 Estimated Creatinine Clearance Calc 153.11 ml/min [facility] Estimated GFR (MDRD) Amer 153 mL/min >60 [facility] Comment on above: GFR Calc Estimated GFR (MDRD) Non-Af Amer 127 mL/min >60 [facility] Comment on above: Non- GFR Calc Serum hepatitis B virus core antibody detectionOrdered By: Karla Acosta on 09-11-2023 HBV core Ab Ql (S) Negative Negative [facility] Comment on above: Performed at: [facility] [place] [id number] Director: Shayan Escobar PhD, Phone: [phone] Serum hepatitis B virus surf osman antibody IgG detectionOrdered By: Karla Acosta on 09-11-2023 HBV surface IgG Ql (S) Non-Reactive [facility] Comment on above: Non Reactive: Incons istent with immunity less than <10 mIU/mL Reactive: Consistent with immunity greater than or equal to 10 mIU/mL Serum or plasma creatinine m easurement (mass/volume)Ordered By: Kayla Rodriguez on 09-11-2023 Creatinine [Mass/Vol] 0.63 mg/dL 0.55-1.02 [facility] Comment on above: The validity of the calculated GFR & GFRAA in patients over 70 years has not been determined. Clinical correlation is essential. Serum or plasma uric acid me asurement (mass/volume)Ordered By: Kayla Rodriguez on 09-11-2023 Urate [Mass/Vol] 5.6 mg/dL 2.6-6.0 [facility] Comment on above: The drugs N-Acetylcy steine and Metamizole may falsely depress this assay. Thin prep Papanicolaou smear with manual screeningOrdered By: Kayla Rodriguez on 09-11-2023 Protein (U) [Mass/Vol] 80.0 mg/dL 0.0-11.8 [facility] Thin prep Papanicolaou smear with manual screening 21 U/L 15-37 [facility] Urine creatinine measurement (mass/volume)Ordered By: Kayla Rodriguez on 09-11-2023 Creatinine (U) [Mass/Vol] 180.00 mg/dL NO RANGE EST. [facility] Urine protein/creatinine mas s ratioOrdered By: Kayla Rodriguez on 09-11-2023 Protein/Creatinine (U) [Mass ratio] 444 mg/g CRE 0-200 [facility] Absolute lymphocyte countOrd ered By: Shruti Hunter on 09-10-2023 Lymphocytes Auto (Unsp spec) [#/Vol] 1.74 10*3/uL 0.83-4.51 [facility] Automated lymphocyte count a s percentage of total leukocytesOrdered By: Shruti Hunter on 09-10-2023 Lymphocytes/100 WBC Auto (Unsp spec) 17.5 % 19-41 [facility] Basophil percentageOrdered B y: Shruti Hunter on 09-10-2023 Basophils/100 WBC (Bld) 0.3 % 0-1 [facility] Eosinophils/100 WBC (Bld) 0.5 % 0-5 [facility] Monocytes/100 WBC (Bld) 7.7 % 0-10 [facility] Neutrophils (Bld) [#/Vol] 7.3 10*3/uL 2.0-7.7 [facility] Neutrophils/100 WBC (Bld) 73.5 % 47-70 [facility] Immature granulocytes/100 WB C Auto (Bld)Ordered By: Shruti Hunter on 09-10-2023 Immature granulocytes/100 WBC (Bld) 0.500 % 0.0-0.9 [facility] Comment on above: IG% - Immature Granu locytes (promyelocytes, myelocytes and metamyelocytes) > 1% indicates that a LEFT SHIFT is Present. Laboratory - Hematology and Cell countsOrdered By: Shruti Hunter on 09-10-2023 Nucleated RBC/100 WBC (Bld) [Ratio] 0 % 0-5 [facility] Serum Treponema species anti body detectionOrdered By: Shruti Hunter on 09-10-2023 Treponema sp Ab Ql (S) Non-Reactive [facility] Biophysical profile.loco dy movement USon 09-09-2023 [facility] URINE OB DIP B/Oon 4 Glucose Ql (U) Negative Neg mg/dL [facility] Protein.monoclonal (U) [Mass/Vol] Negative Neg mg/dL [facility] Examination level ultrasound on 09-02-2023 [facility] URINE OB DIP B/Oon 4 Glucose Ql (U) Negative Neg mg/dL [facility] Protein.monoclonal (U) [Mass/Vol] Negative Neg mg/dL [facility] ALT/SGPTon 08-21-2023 ALT [Catalytic activity/Vol] 12 U/L 7 - 38 U/L [facility] AST/SGOT BLDon 08-21-2023 AST [Catalytic activity/Vol] 15 U/L 13 - 35 U/L [facility] C. trachomatis+N. gonorrhoea e DNA SASCHA+probe Ql (Unsp spec)on 08-21-2023 C. trachomatis rRNA SASCHA+probe Ql (Unsp spec) Negative Negative for Chlamydia trachomatis by amplificaton [facility] N. gonorrhoeae rRNA SASCHA+probe Ql (Unsp spec) Negative Negative for Neisseria gonorrhoeae by amplification [facility] CBC panel Auto (Bld)on 08-21 Erythrocyte distribution width (RBC) [Ratio] 13.7 % 11.5 - 15.0 % [facility] Hematocrit (Bld) [Volume fraction] 35.2 % Low 36.0 - 46.0 % [facility] Hemoglobin (Bld) [Mass/Vol] 11.9 g/dL 11.5 - 15.5 g/dL [facility] MCH (RBC) [Entitic mass] 30.5 pg 26.0 - 34.0 pg [facility] MCHC (RBC) [Mass/Vol] 33.8 g/dL 30.5 - 36.0 g/dL [facility] MCV (RBC) [Entitic vol] 90.3 fL 80.0 - 100.0 fL [facility] Nucleated RBC (Bld) [#/Vol] <0.01 k/uL [facility] Platelet mean volume (Bld) [Entitic vol] 9.7 fL 9.0 - 12.7 fL [facility] Platelets (Bld) [#/Vol] 259 10*3/uL 150 - 400 k /uL [facility] RBC (Bld) [#/Vol] 3.90 10*6/uL 3.90 - 5.2 0 m/uL [facility] WBC (Bld) [#/Vol] 8.71 10*3/uL 3.70 - 11. 00 k/uL [facility] PROTEIN CREATININE RATIOon 0 08-21-2023 Protein/Creatinine (U) [Mass ratio] 0.18 mg/mg High <0.15 mg/mg [facility] Protein/Creatinine (U) [Mass ratio]on 08-21-2023 Creatinine (U) [Mass/Vol] 89.3 mg/dL 20.0 - 300.0 mg/dL [facility] Protein (U) [Mass/Vol] 16 mg/dL 0 - 20 mg/dL [facility] TRICHOMONAS VAGINALIS NAATon 08-21-2023 T. vaginalis DNA SASCHA+probe Ql (Unsp spec) Positive Abnormal Negative for Trichomonas vaginalis by amplification [facility] URIC ACID BLOODon 08-21-2023 Urate [Mass/Vol] 5.8 mg/dL 2.5 - 6.6 mg/dL [facility] URINE OB DIP B/Oon Glucose Ql (U) Negative Neg mg/dL [facility] Protein.monoclonal (U) [Mass/Vol] Negative Neg mg/dL [facility] URINE OB DIP B/Oon 4 Glucose Ql (U) Negative Neg mg/dL [facility] Protein.monoclonal (U) [Mass/Vol] trace Neg mg/dL [facility] URINE OB DIP B/Oon 4 Glucose Ql (U) Negative Neg mg/dL [facility] Protein.monoclonal (U) [Mass/Vol] Negative Neg mg/dL [facility] Basophil percentageOrdered B y: Ita Boston on 07-24-2023 Basophil percentage 10-25 SEEN /hpf 0-5 [facility] Bilirubin Test strip Ql (U)O rdered By: Ita Boston on 07-24-2023 Bilirubin Ql (U) Negative Negative [facility] Culture, urineOrdered By: Grazyna Boston on 07-24-2023 Bacteria identified Cx Nom (U) Positive [facility] Ketones Test strip Ql (U)Ord ered By: Ita Boston on 07-24-2023 Ketones Ql (U) Negative Negative [facility] Mucus LM Ql (Urine sed)Order ed By: Ita Boston on 07-24-2023 Mucus Ql (Urine sed) 0 SEEN /hpf [facility] Nitrite Test strip Ql (U)Ord ered By: Ita Boston on 07-24-2023 Nitrite Ql (U) Negative Negative [facility] No Panel InformationOrdered By: Ita Boston on 07-24-2023 Urine RBC 25-50 SEEN /hpf 0-5 [facility] Protein Test strip Ql (U)Ord ered By: Ita Boston on 07-24-2023 Protein Ql (U) 15 mg/dl Negative [facility] Squamous epithelial cells de tection in urine sediment by light microscopyOrdered By: Ita Boston on 07-24-2023 Epithelial cells.squamous LM Ql (Urine sed) 5-10 SEEN /hpf 5-10 [facility] Urine blood detectionOrdered By: Ita Boston on 07-24-2023 RBC Ql (U) 150 /ul Negative [facility] Urine clarityOrdered By: Israel Boston on 07-24-2023 Clarity (U) Sl. Cloudy Clear [facility] Urine color determinationOrd ered By: Ita Boston on 07-24-2023 Color (U) Yellow Yellow [facility] Urine glucose detectionOrder ed By: Ita Boston on 07-24-2023 Glucose Ql (U) Normal mg/dl Normal [facility] Urine leukocyte esterase det ection by dipstickOrdered By: Ita Boston on 07-24-2023 Leukocyte esterase Test strip Ql (U) 500 /ul Negative [facility] Urine pHOrdered By: Ita Boston on 07-24-2023 pH (U) 8.0 [pH] 5.0 - 8.0 [facility] Urine sediment bacteria coun t by microscopy (number/high power field)Ordered By: Ita Boston on 07-24-2023 Bacteria LM.HPF (Urine sed) [#/Area] 1 /[HPF] None Seen [facility] Urine specific gravity measu rementOrdered By: Ita Boston on 07-24-2023 Specific gravity (U) [Rel density] 1.010 1.002-1.030 [facility] Urine urobilinogen measureme ntOrdered By: Ita Boston on 07-24-2023 Urobilinogen Ql (U) Normal mg/dl Normal [facility] URINE OB DIP B/Oon 3 Glucose Ql (U) Negative Neg mg/dL [facility] Protein.monoclonal (U) [Mass/Vol] Negative Neg mg/dL [facility] OBSTETRIC ULTRASOUND WHIon 1 07-06-2022 [facility] URINE OB DIP B/Oon 3 Glucose Ql (U) Negative Neg mg/dL [facility] Protein.monoclonal (U) [Mass/Vol] Negative Neg mg/dL [facility] NUCHAL TRANSLUCENCY WHIon [facility] URINE OB DIP B/Oon 3 Glucose Ql (U) Negative Neg mg/dL [facility] Protein.monoclonal (U) [Mass/Vol] Negative Neg mg/dL [facility] UA DIP, URINE (POC)on 2022 BILIRUBIN UA (POCT) Negative Negative [facility] CLARITY UA (POCT) Slightly Cloudy [facility] [place] COLOR UA (POCT) Light yellow [facility] GLUCOSE UA (POCT) Negative Negative mg/dL [facility] Hemoglobin Ql (U) Negative Negative [facility] KETONE UA (POCT) Negative Negative mg/dL [facility] LEUKOCYTES UA (POCT) Small Abnormal Negative [facility] NITRITE UA (POCT) Negative Negative [facility] PH UA (POCT) 7.0 4.5 - 8.0 [facility] Protein Ql (U) Negative Negative mg/dL [facility] SPECIFIC GRAVITY UA (POCT) <=1.005 Abnormal 1.005 - 1.030 [facility] UROBILINOGEN UA (POCT) 0.2 E.U./dL Normal E.U./ dL [facility] POC PRODUCTION DISPATCHER ULTRASOUNDon 03-04-20 [facility] XR Chest PA and Lateralon IMPRESSION: No acute radiographic abnormality. Transmission And Coordination Engineer: PSCB Transcribe Date/Time: Nov 29 2022 12:05P Dictated by : KAY ISBELL MD This examination was interpreted and the report reviewed and electronically signed by: KAY ISBELL MD on Nov 29 2022 12:05PM [facility] DIVISION OF RADIOLOGY * * *Final Report* * * DATE OF EXAM: Nov 29 2022 11:52AM WOX [id number] - XR CHEST 2V FRONTAL/LAT / PROCEDURE REASON: SOB (shortness of breath) * * * * Physician Interpretation * * * * EXAMINATION: CHEST RADIOGRAPH (2 VIEW FRONTAL & LATERAL) CLINICAL HISTORY: SOB (shortness of breath) MQ: XC2_6 EXAM DATE/TIME: 11/29/2022 11:52 AM COMPARISON: No relevant prior studies available. RESULT: Lines, tubes, and devices: None. Lungs and pleura: No consolidation. No lung mass. No pleural effusion. No pneumothorax. Cardiomediastinal silhouette: Normal cardiomediastinal silhouette. Bones and soft tissues: Unremarkable. DIVISION OF RADIOLOGY Provider, [facility] - 11/29/2022 * * *Final Report* * * DATE OF EXAM: Nov 29 2022 11:52AM WOX [id number] - XR CHEST 2V FRONTAL/LAT / PROCEDURE REASON: SOB (shortness of breath) * * * * Physician Interpretation * * * * EXAMINATION: CHEST RADIOGRAPH (2 VIEW FRONTAL & LATERAL) CLINICAL HISTORY: SOB (shortness of breath) MQ: XC2_6 EXAM DATE/TIME: 11/29/2022 11:52 AM COMPARISON: No relevant prior studies available. RESULT: Lines, tubes, and devices: None. Lungs and pleura: No consolidation. No lung mass. No pleural effusion. No pneumothorax. Cardiomediastinal silhouette: Normal cardiomediastinal silhouette. Bones and soft tissues: Unremarkable. IMPRESSION IMPRESSION: No acute radiographic abnormality. Transmission And Coordination Engineer: PSCB Transcribe Date/Time: Nov 29 2022 12:05P Dictated by : KAY ISBELL MD This examination was interpreted and the report reviewed and electronically signed by: KAY ISBELL MD on Nov 29 2022 12:05PM EST [facility] Radiology Study observation (narrative) [facility] XR Chest PA and LateralOrder ed By: [facility] Provider on 11-29-2022 [facility] GC/Chlamydia Amp, Uron 04-22 Chlamydia Amplif, Ur Normal [facility] Comment on above: Result Comment: Nega tive for For screening asymptomatic women, a vaginal swab specimen (APTIMA vaginal swab 642015) is optimal. Urine specimens have reduced sensitivity for Chlamydia trachomatis or Neisseria gonorrhoeae infection in female patients without symptoms. This test was developed and its performance characteristics determined by [facility]'s [facility] [place] ([facility]). It has not been cleared or approved by the FDA. [facility] is regulated under CLIA as qualified to perform high complexity testing. This test is used for clinical purposes. It should not be regarded as investigational or for research. Chlamydia For screening asymptomatic women, a vaginal swab specimen (APTIMA vaginal swab 458930) is optimal. Urine specimens have reduced sensitivity for Chlamydia trachomatis or Neisseria gonorrhoeae infection in female patients without symptoms. This test was developed and its performance characteristics determined by [facility]'s [facility] [place] ([facility]). It has not been cleared or approved by the FDA. [facility] is regulated under CLIA as qualified to perform high complexity testing. This test is used for clinical purposes. It should not be regarded as investigational or for research. trachomatis by For screening asymptomatic women, a vaginal swab specimen (APTIMA vaginal swab 577577) is optimal. Urine specimens have reduced sensitivity for Chlamydia trachomatis or Neisseria gonorrhoeae infection in female patients without symptoms. This test was developed and its performance characteristics determined by [facility] [place] ([facility]). It has not been cleared or approved by the FDA. [facility] is regulated under CLIA as qualified to perform high complexity testing. This test is used for clinical purposes. It should not be regarded as investigational or for research. amplification. For screening asymptomatic women, a vaginal swab specimen (APTIMA vaginal swab 176927) is optimal. Urine specimens have reduced sensitivity for Chlamydia trachomatis or Neisseria gonorrhoeae infection in female patients without symptoms. This test was developed and its performance characteristics determined by [facility] [place] ([facility]). It has not been cleared or approved by the FDA. [facility] is regulated under CLIA as qualified to perform high complexity testing. This test is used for clinical purposes. It should not be regarded as investigational or for research. Performed By: #### U GCCT #### [facility] Routine Lab [address] [place] [address] GC Amplification, Ur NGNEG Normal [facility] Comment on above: Performed By: #### U GCCT #### [facility] Routine Lab [address] [place] [address] GC/Chlamydia Amp, Uron 04-18 Chlamydia Amplif, Ur Normal [facility] Comment on above: Result Comment: Spec imen Rejected. The APTIMA Urine specimen transport tube has been overfilled or underfilled. Please recollect specimen. The correct volume of urine, approximately 2 mL, has been added when the fluid level is between the black fill lines on the urine specimen transport tube label. Account Credited Performed By: #### U GCCT #### [facility] Microbiology [address] [place] [id number] GC Amplification, Ur Normal [facility] Comment on above: Result Comment: Spec imen Rejected. The APTIMA Urine specimen transport tube has been overfilled or underfilled. Please recollect specimen. The correct volume of urine, approximately 2 mL, has been added when the fluid level is between the black fill lines on the urine specimen transport tube label. Account Credited Performed By: #### U GCCT #### [facility] Micro[facility] [address] [place] [place] [id number] GC/Chlamydia Amp, Uron 02-16 Chlamydia Amplif, Ur Normal [facility] Comment on above: Result Comment: Nega tive for For screening asymptomatic women, a vaginal swab specimen (APTIMA vaginal swab 856416) is optimal. Urine specimens have reduced sensitivity for Chlamydia trachomatis or Neisseria gonorrhoeae infection in female patients without symptoms. This test was developed and its performance characteristics determined by [facility] [place] ([facility]). It has not been cleared or approved by the FDA. [facility] is regulated under CLIA as qualified to perform high complexity testing. This test is used for clinical purposes. It should not be regarded as investigational or for research. Chlamydia For screening asymptomatic women, a vaginal swab specimen (APTIMA vaginal swab [id number]) is optimal. Urine specimens have reduced sensitivity for Chlamydia trachomatis or Neisseria gonorrhoeae infection in female patients without symptoms. This test was developed and its performance characteristics determined by [facility] [place] ([facility]). It has not been cleared or approved by the FDA. [facility] is regulated under CLIA as qualified to perform high complexity testing. This test is used for clinical purposes. It should not be regarded as investigational or for research. trachomatis by For screening asymptomatic women, a vaginal swab specimen (APTIMA vaginal swab 497662) is optimal. Urine specimens have reduced sensitivity for Chlamydia trachomatis or Neisseria gonorrhoeae infection in female patients without symptoms. This test was developed and its performance characteristics determined by [facility] [place] ( [facility]). It has not been cleared or approved by the FDA. [facility] is regulated under CLIA as qualified to perform high complexity testing. This test is used for clinical purposes. It should not be regarded as investigational or for research. amplification. For screening asymptomatic women, a vaginal swab specimen (APTIMA vaginal swab 308905) is optimal. Urine specimens have reduced sensitivity for Chlamydia trachomatis or Neisseria gonorrhoeae infection in female patients without symptoms. This test was developed and its performance characteristics determined by [facility] [place] ([facility]). It has not been cleared or approved by the FDA. [facility] is regulated under CLIA as qualified to perform high complexity testing. This test is used for clinical purposes. It should not be regarded as investigational or for research. Performed By: #### U GCCT #### [facility] Routine Lab [address], [place] [address] GC Amplification, Ur NGNEG Normal [facility] Reference Lab Comment on above: Performed By: #### U GCCT #### [facility] Routine Lab [address] [place] [address] GC/Chlamydia Amp, Uron 09-01 Chlamydia Amplif, Ur Normal [facility] Reference Lab Comment on above: Result Comment: Nega tive for For screening asymptomatic women, a vaginal swab specimen (APTIMA vaginal swab 169776) is optimal. Urine specimens have reduced sensitivity for Chlamydia trachomatis or Neisseria gonorrhoeae infection in female patients without symptoms. This test was developed and its performance characteristics determined by [facility] [place] ([facility]). It has not been cleared or approved by the FDA. [facility] is regulated under CLIA as qualified to perform high complexity testing. This test is used for clinical purposes. It should not be regarded as investigational or for research. Chlamydia For screening asymptomatic women, a vaginal swab specimen (APTIMA vaginal swab 270705) is optimal. Urine specimens have reduced sensitivity for Chlamydia trachomatis or Neisseria gonorrhoeae infection in female patients without symptoms. This test was developed and its performance characteristics determined by [facility] and [facility] [place] ([facility]). It has not been cleared or approved by the FDA. [facility] is regulated under CLIA as qualified to perform high complexity testing. This test is used for clinical purposes. It should not be regarded as investigational or for research. trachomatis by For screening asymptomatic women, a vaginal swab specimen (APTIMA vaginal swab [id number]) is optimal. Urine specimens have reduced sensitivity for Chlamydia trachomatis or Neisseria gonorrhoeae infection in female patients without symptoms. This test was developed and its performance characteristics determined by [facility] [place] ([facility]). It has not been cleared or approved by the FDA. [facility] is regulated under CLIA as qualified to perform high complexity testing. This test is used for clinical purposes. It should not be regarded as investigational or for research. amplification. For screening asymptomatic women, a vaginal swab specimen (APTIMA vaginal swab [id number]) is optimal. Urine specimens have reduced sensitivity for Chlamydia trachomatis or Neisseria gonorrhoeae infection in female patients without symptoms. This test was developed and its performance characteristics determined by [facility] [place] ([facility]). It has not been cleared or approved by the FDA. [facility] is regulated under CLIA as qualified to perform high complexity testing. This test is used for clinical purposes. It should not be regarded as investigational or for research. Performed By: #### U GCCT #### [facility] Routine Lab [address] [address] GC Amplification, Ur NGNEG Normal [facility] Reference Lab Comment on above: Performed By: #### U GCCT #### [facility] Routine Lab [address] [id number] Progress Noteon 05-14-2017 Loader Operator Authentication Interface Message Text Patient ID: Abbey Hanna is a 17 y.o. female. Her chief complaint(s)include: Contraception.Assessm ent:1. DysmenorrheaPlan:Nathaniel bloom was seen today for contraception.Diagnos es and all orders for this visit:DysmenorrheaNo Follow-up on file.Discussed continuing for a few months. Will continue monitoring symptoms. Tocall back after completing 3rd pack.Subjective:HPI Comments: Just started second pack of OCPs. Patient not going through a lotof pads. A little clottingShe is accompanied by her mother.Menstrual ProblemThe onset has been gradual. The course is unchanging.The patient's symptoms include: abdominal cramping (for about 10 days prior toperiod starting.) and vomiting (once this morning). The patient has: novaginal discharge.Patient displays good compliance with treatment. The patient has good toleranceof treatment.Primary Care Review of SystemsObjective:Phys ical ExamConstitutional: She appears well. She is active. No distress.HENT:Head: Atraumatic.Right Ear: Tympanic membrane normal.Left Ear: Tympanic membrane normal.Mouth/Throat: Mucous membranes are moist.Eyes: Conjunctivae are normal.Cardiovascular : Normal rate and regular rhythm.No murmur heard.Pulmonary/Chest : Breath sounds normal. There is normal air entry.Neurological: She is alert.Vitals reviewed: Blood pressure 119/67, pulse 67, height 156.6 cm, weight 75.9kg. Normal [facility] Progress Noteon 04-08-2017 Loader Operator Authentication Interface Message Text Patient ID: Abbey Hanna is a 16 y.o. female. Her chief complaint(s)include: Contraception.Assessm ent:1. OCP (oral contraceptive pills) initiationPlan:Magaly carter was seen today for contraception.Diagnos es and all orders for this visit:OCP (oral contraceptive pills) initiation- POCT urine HCGHCG negative. Discussed possible side effects, when to start pill, when to take,and what to do if forgetting to take 1 pill. Discussed that OCP does not protect(completely) against or STDs. Parent to schedule a [address] Acosta.Subjective:HP I Comments: Mother denied family hx of bleeding/clotting disorders, or heartdisorders.The patient's reason for visit is contraception. She is accompanied by hermother.Contracepti onCadence is here today regarding a new prescription. status: not.The patient has never had a significant other. Typically, she uses none as hercurrent contraceptive method.The patient has reached menarche. Abbey's age at menarche was 14. (Today).She states that her menstrual cycles normally last 5 days. She describes hercycle as having: excessive bleeding (menorrhagia) and severe pain. She usespads (sanitary napkins) during her cycle. She uses 4 in 24 hours. The sideeffects includes: headache and weight gain.Primary Care Review of SystemsObjective:Phys ical ExamConstitutional: She appears well. She is active. No distress.HENT:Head: Atraumatic.Cardiovasc ular: Normal rate and regular rhythm.No murmur heard.Pulmonary/Chest : Breath sounds normal. There is normal air entry. No stridor. Norespiratory distress. Air movement is not decreased. She has no wheezes. She hasno rhonchi. She has no rales. Exhibits no retraction.Neurologic al: She is alert.Skin: Skin is warm. Normal [facility] Progress Noteon 03-12-2017 Loader Operator Authentication Interface Message Text Patient ID: Abbey Hanna is a 16 y.o. female. Her chief complaint(s)include: Menorrhagia.Assessmen t:1. Menorrhagia with regular cycle2. Overweight for pediatric patientPlan:Abbey was seen today for menorrhagia.Diagnoses and all orders for this visit:Menorrhagia with regular cycle- Complete Blood Count; Future- GC Amplified Probe; Future- C. Trachomatis, amplified probe; Future- Testosterone, free; Future- Testosterone, Total; Future- TSH; Future- T4, free (Lab Collect); Future- Hemoglobin A1c (Lab Collect); Future- AST [SGOT] (Lab Collect); Future- ALT [SGPT] (Lab Collect); Future- Glucose (Lab Collect); FutureOverweight for pediatric patientReturn for Well Visit and as needed.Discussed increasing exercise. Will consider OCPs if labs are okSubjective:HPI Comments: Periods last 5 days. Using pads and tampons -- extra heavy.Changing every couple hours for first couple days.The patient's reason for visit is menorrhagia. She is accompanied by hermother.Menorrhagia The onset has been gradual. Characterized by: heavy periods and painfulperiods. The course is unchanging.The patient's symptoms include: abdominal cramping, breast tenderness, heavyflow and nausea. The patient has: no back pain, no dizziness, no syncope, nourinary frequency, no vomiting and no vaginal discharge. The patient'sassociated symptoms have included acne, diarrhea, hot flashes and mood changes.The patient is noted to be negative for poor growth, weight gain and weightloss.The patient has reached menarche. Abbey's age at menarche was 14. ([birth year]).She describes her cycle as having: regularity - every 28-30 days and dime-sizedclots.The patient has never had a significant other.The patient's family history is negative for the following: polycystic ovariansyndrome, chromosome abnormality, short stature, endometriosis and dysmenorrhea.(Thyroid ). Current treatments are: none (midol).Primary Care Review of SystemsObjective:Phys ical ExamConstitutional: She appears well. She is active. No distress.overweightHE NT:Head: Atraumatic.Right Ear: Tympanic membrane and external ear normal.Left Ear: Tympanic membrane and external ear normal.Nose: Nose normal.Mouth/Throat: Mucous membranes are moist. Dentition is normal.Eyes: Conjunctivae and EOM are normal. Pupils are equal, round, and reactive tolight.Neck: Neck supple. No adenopathy.Cardiovasc ular: Normal rate, regular rhythm, S1 normal and S2 normal. Pulsesare palpable.Pulmonary/Ch est: Effort normal and breath sounds normal.Abdominal: Soft. Bowel sounds are normal. She exhibits no distension and nomass. There is no tenderness.Musculoske letal: She exhibits no deformity.Neurologica l: She is alert. She has normal strength. She exhibits normal muscletone.Skin: No rash noted. No cyanosis. No pallor. Skin is warm.Vitals reviewed: Blood pressure 124/70, pulse 65, temperature 37 C (98.6 F),temperature source Temporal, height 155.8 cm, weight 74.9 kg, last menstrualperiod 03/06/2017. Normal [facility] Progress Noteon 01-14-2017 Loader Operator Authentication Interface Message Text Patient ID: Abbey Hanna is a 16 y.o. female. Her chief complaint(s)include: Jaw Pain.Assessment:1. Bilateral temporomandibular joint painPlan:Abbey was seen today for jaw pain.Diagnoses and all orders for this visit:Bilateral temporomandibular joint pain- naproxen (NAPROSYN) 250 MG tablet; Take 1 Tab (250 mg) by mouth 2 timesdaily for 7 daysLikely pain due to playing the sax a lot more; also mother thinks she grinds herteeth in her sleep.Will use NSAID for a week, and reduce sax playing time. May need a mouth guard.No Follow-up on file.Subjective:HPI Comments: Having pain bilat in the mandible, for a week. This is mainly ator near the TMJ's.Getting worse. Hurts the most with eating and with playing the sax.No injuries. No dental pain.No sickness; no fever, cough, r nose, or sore throat. 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 She is active. No distress.HENT:Head: Atraumatic.Right Ear: Tympanic membrane normal.Left Ear: Tympanic membrane normal.Mouth/Throat: Mucous membranes are moist. Oropharynx is clear.TMJ - bilat mild tenderness with palpation; also pain with opening her mouthwidelyEyes: Conjunctivae are normal.Neck: Neck supple. No adenopathy.Cardiovasc ular: Normal rate and regular rhythm.No murmur heard.Pulmonary/Chest : Breath sounds normal. There is normal air entry. She has nowheezes. She has no rales.Neurological: She is alert. Normal [facility] Vital Signs Date Time Vital Sign Value Performing Clinician Facility 12-29-2024 15:27-0400 Body mass index (BMI) [Ratio] 38.35 kg/m2 Saul Low MD Work Phone: [facility] 12-29-2024 15:27-0400 Body temperature 98.29 [degF] Saul Low MD Work Phone: [facility] 12-29-2024 15:27-0400 Body weight 98.2 kg Saul Low MD Work Phone: [facility] 12-29-2024 15:27-0400 Diastolic blood pressure 76 mm[Hg] Saul Low MD Work Phone: [facility] 12-29-2024 15:27-0400 Heart rate 88 /min Saul Low MD Work Phone: [facility] 12-29-2024 15:27-0400 Respiratory rate 16 /min Saul Low MD Work Phone: [facility] 12-29-2024 15:27-0400 SaO2% (BldA) [Mass fraction] 97 % Saul Low MD Work Phone: [facility] 12-29-2024 15:27-0400 Systolic blood pressure 122 mm[Hg] Saul Low MD Work Phone: [facility] 12-11-2024 14:03-0400 Diastolic blood pressure 74 mm[Hg] Maria Luz Piccari OFFICE MACHINE PUNCH OPERATOR.SENIOR DRAFTER Work Phone: [facility] 12-11-2024 14:03-0400 Heart rate 86 /min Maria Luz Piccari OFFICE MACHINE PUNCH OPERATOR.SENIOR DRAFTER Work Phone: [facility] 12-11-2024 14:03-0400 SaO2% (BldA) [Mass fraction] 95 % Maria Luz Piccari OFFICE MACHINE PUNCH OPERATOR.SENIOR DRAFTER Work Phone: [facility] 12-11-2024 14:03-0400 Systolic blood pressure 117 mm[Hg] Maria Luz Piccari OFFICE MACHINE PUNCH OPERATOR.SENIOR DRAFTER Work Phone: [facility] 11-20-2024 14:59-0400 Body height 160 cm Kelly Thurmont OFFICE MACHINE PUNCH OPERATOR.SENIOR DRAFTER Work Phone: [facility] 11-20-2024 14:59-0400 Body mass index (BMI) [Ratio] 37.91 kg/m2 Kelly Ban OFFICE MACHINE PUNCH OPERATOR.SENIOR DRAFTER Work Phone: [facility] 11-20-2024 14:59-0400 Body weight 97.07 kg Kelly Ban OFFICE MACHINE PUNCH OPERATOR.SENIOR DRAFTER Work Phone: [facility] 11-20-2024 14:59-0400 Diastolic blood pressure 72 mm[Hg] Kelly Thurmont OFFICE MACHINE PUNCH OPERATOR.SENIOR DRAFTER Work Phone: [facility] 11-20-2024 14:59-0400 Systolic blood pressure 114 mm[Hg] Kelly Thurmont OFFICE MACHINE PUNCH OPERATOR.SENIOR DRAFTER Work Phone: [facility] 01-14-2024 08:07-0400 Body mass index (BMI) [Ratio] 38.96 kg/m2 Kayla Rodriguez OFFICE MACHINE PUNCH OPERATOR.CNM Work Phone: [facility] 01-14-2024 08:07-0400 Body weight 96.62 kg Kayla Rodriguez OFFICE MACHINE PUNCH OPERATOR.CNM Work Phone: [facility] 01-14-2024 08:07-0400 Diastolic blood pressure 70 mm[Hg] Kayla Rodriguez OFFICE MACHINE PUNCH OPERATOR.CNM Work Phone: [facility] 01-14-2024 08:07-0400 Systolic blood pressure 118 mm[Hg] Kayla Rodriguez OFFICE MACHINE PUNCH OPERATOR.CNM Work Phone: [facility] 12-20-2023 16:12-0400 Body mass index (BMI) [Ratio] 39.14 kg/m2 Kayla Rodriguez OFFICE MACHINE PUNCH OPERATOR.CNM Work Phone: [facility] 12-20-2023 16:12-0400 Body weight 97.07 kg Kayla Rodriguez OFFICE MACHINE PUNCH OPERATOR.CNM Work Phone: [facility] 12-20-2023 16:12-0400 Diastolic blood pressure 62 mm[Hg] Kayla Rodriguez OFFICE MACHINE PUNCH OPERATOR.CNM Work Phone: [facility] 12-20-2023 16:12-0400 Systolic blood pressure 104 mm[Hg] Kayla Rodriguez OFFICE MACHINE PUNCH OPERATOR.CNM Work Phone: [facility] 10-24-2023 11:36-0400 Body height 157.5 cm Karla Acosta MD Work Phone: [facility] 10-24-2023 11:36-0400 Body mass index (BMI) [Ratio] 36.58 kg/m2 Karla Acosta MD Work Phone: [facility] 10-24-2023 11:36-0400 Body weight 90.72 kg Karla Acosta MD Work Phone: [facility] 10-24-2023 11:36-0400 Diastolic blood pressure 64 mm[Hg] Karla Acosta MD Work Phone: [facility] 10-24-2023 11:36-0400 Systolic blood pressure 110 mm[Hg] Karla Acosta MD Work Phone: [facility] 10-03-2023 10:50-0400 Body weight 87.54 kg Shruti Hunter MD Work Phone: [facility] 10-03-2023 10:50-0400 Diastolic blood pressure 72 mm[Hg] Shruti Hunter MD Work Phone: [facility] 10-03-2023 10:50-0400 Systolic blood pressure 108 mm[Hg] Shruti Hunter MD Work Phone: [facility] 09-18-2023 08:50-0400 Body temperature 97.4 [degF] [facility] 09-18-2023 08:50-0400 Diastolic blood pressure 90 mm[Hg] [facility] 09-18-2023 08:50-0400 Heart rate 72 /min [facility] 09-18-2023 08:50-0400 Respiratory rate 16 /min [facility] 09-18-2023 08:50-0400 SaO2% (BldA) [Mass fraction] 97 % [facility] 09-18-2023 08:50-0400 Systolic blood pressure 140 mm[Hg] [facility] 09-15-2023 14:14-0400 Body height 157.48 cm [facility] 09-15-2023 14:14-0400 Body mass index (BMI) [Ratio] 38.3 kg/m2 [facility] 09-15-2023 14:14-0400 Body weight 95.07 kg [facility] 09-14-2023 11:02-0400 Body temperature 98.3 [degF] [facility] 09-14-2023 11:02-0400 Diastolic blood pressure 97 mm[Hg] [facility] 09-14-2023 11:02-0400 Heart rate 86 /min [facility] 09-14-2023 11:02-0400 Respiratory rate 16 /min [facility] 09-14-2023 11:02-0400 SaO2% (BldA) [Mass fraction] 99 % [facility] 09-14-2023 11:02-0400 Systolic blood pressure 133 mm[Hg] [facility] 09-10-2023 20:07-0400 Body height 157.48 cm [facility] 09-10-2023 20:07-0400 Body mass index (BMI) [Ratio] 38.9 kg/m2 [facility] 09-10-2023 20:07-0400 Body weight 96.5 kg [facility] 09-09-2023 12:11-0400 Diastolic blood pressure 80 mm[Hg] [facility] Work Phone: [facility] 09-09-2023 12:11-0400 Systolic blood pressure 126 mm[Hg] [facility] Work Phone: [facility] 09-05-2023 11:23-0400 Body weight 95.44 kg Kim Mckeon MD Work Phone: [facility] 09-05-2023 11:23-0400 Diastolic blood pressure 80 mm[Hg] Kim Mckeon MD Work Phone: [facility] 09-05-2023 11:23-0400 Systolic blood pressure 120 mm[Hg] Kim Mckeon MD Work Phone: [facility] 09-02-2023 12:59-0400 Body weight 93.98 kg [facility] Work Phone: [facility] 09-02-2023 12:59-0400 Diastolic blood pressure 80 mm[Hg] [facility] Work Phone: [facility] 09-02-2023 12:59-0400 Systolic blood pressure 112 mm[Hg] [facility] Work Phone: [facility] 08-21-2023 10:38-0500 Body weight 93.44 kg Karla Acosta MD Work Phone: [facility] 08-21-2023 10:38-0500 Diastolic blood pressure 80 mm[Hg] Karla Acosta MD Work Phone: [facility] 08-21-2023 10:38-0500 Systolic blood pressure 128 mm[Hg] Karla Acosta MD Work Phone: [facility] 08-13-2023 11:00-0500 Body weight 90.72 kg Kayla Rodriguez OFFICE MACHINE PUNCH OPERATOR.CNM Work Phone: [facility] 08-13-2023 11:00-0500 Diastolic blood pressure 70 mm[Hg] Kayla Rodriguez OFFICE MACHINE PUNCH OPERATOR.CNM Work Phone: [facility] 08-13-2023 11:00-0500 Systolic blood pressure 126 mm[Hg] Kayla Michael OFFICE MACHINE PUNCH OPERATOR.CNM Work Phone: [facility] 08-07-2023 14:06-0500 Body weight 90.72 kg Amanda Alicea MD Work Phone: [facility] 08-07-2023 14:06-0500 Diastolic blood pressure 77 mm[Hg] Amanda Alicea MD Work Phone: [facility] 08-07-2023 14:06-0500 Systolic blood pressure 121 mm[Hg] Amanda Alicea MD Work Phone: [facility] 07-30-2023 10:45-0500 Body weight 88.45 kg Cheryl Clark MD Work Phone: [facility] 07-30-2023 10:45-0500 Diastolic blood pressure 68 mm[Hg] Cheryl Clark MD Work Phone: [facility] 07-30-2023 10:45-0500 Systolic blood pressure 116 mm[Hg] Cheryl Clark MD Work Phone: [facility] 07-24-2023 17:50-0500 Body mass index (BMI) [Ratio] 35.3 kg/m2 [facility] 07-24-2023 17:50-0500 Body weight 87.54 kg [facility] 07-24-2023 17:48-0500 Body temperature 97.8 [degF] [facility] 07-24-2023 17:47-0500 Diastolic blood pressure 71 mm[Hg] [facility] 07-24-2023 17:47-0500 Heart rate 73 /min [facility] 07-24-2023 17:47-0500 SaO2% (BldA) [Mass fraction] 99 % [facility] 07-24-2023 17:47-0500 Systolic blood pressure 112 mm[Hg] [facility] 06-03-2023 11:54-0500 Body height 157.5 cm Karla Acosta MD Work Phone: [facility] 06-03-2023 11:47-0500 Body weight 82.37 kg Karla Acosta MD Work Phone: [facility] 06-03-2023 11:47-0500 Diastolic blood pressure 60 mm[Hg] Karla Acosta MD Work Phone: [facility] 06-03-2023 11:47-0500 Systolic blood pressure 98 mm[Hg] Karla Acosta MD Work Phone: [facility] 05-06-2023 08:56-0500 Body weight 77.93 kg Kim Mckeon MD Work Phone: [facility] 05-06-2023 08:56-0500 Diastolic blood pressure 60 mm[Hg] Kim Mckeon MD Work Phone: [facility] 05-06-2023 08:56-0500 Systolic blood pressure 100 mm[Hg] Kim Mckeon MD Work Phone: [facility] 04-15-2023 08:21-0400 Body weight 75.66 kg Amanda Alicea MD Work Phone: [facility] 04-15-2023 08:21-0400 Diastolic blood pressure 80 mm[Hg] Amanda Alicea MD Work Phone: [facility] 04-15-2023 08:21-0400 Systolic blood pressure 120 mm[Hg] Amanda Alicea MD Work Phone: [facility] 03-28-2023 09:56-0400 Body weight 74.3 kg Cheryl Clark MD Work Phone: [facility] 03-28-2023 09:56-0400 Diastolic blood pressure 62 mm[Hg] Cheryl Clark MD Work Phone: [facility] 03-28-2023 09:56-0400 Systolic blood pressure 110 mm[Hg] Cheryl Clark MD Work Phone: [facility] 03-25-2023 14:33-0400 Body weight 74.12 kg Kim Mckeon MD Work Phone: [facility] 03-25-2023 14:33-0400 Diastolic blood pressure 60 mm[Hg] Kim Mckeon MD Work Phone: [facility] 03-25-2023 14:33-0400 Systolic blood pressure 100 mm[Hg] Kim Mckeon MD Work Phone: [facility] 03-04-2023 08:03-0400 Body weight 74.84 kg Kelly Ban OFFICE MACHINE PUNCH OPERATOR.SENIOR DRAFTER Work Phone: [facility] 03-04-2023 08:03-0400 Diastolic blood pressure 60 mm[Hg] Kelly Thurmont OFFICE MACHINE PUNCH OPERATOR.SENIOR DRAFTER Work Phone: [facility] 03-04-2023 08:03-0400 Systolic blood pressure 110 mm[Hg] Kelly Ban OFFICE MACHINE PUNCH OPERATOR.SENIOR DRAFTER Work Phone: [facility] 09-17-2022 13:04-0400 Body temperature 98.6 [degF] Pepito Pendlebury OFFICE MACHINE PUNCH OPERATOR.SENIOR DRAFTER Work Phone: [facility] 09-17-2022 13:04-0400 Body weight 81.56 kg Pepito Pendlebury OFFICE MACHINE PUNCH OPERATOR.SENIOR DRAFTER Work Phone: [facility] 09-17-2022 13:04-0400 Diastolic blood pressure 54 mm[Hg] Pepito Pendlebury OFFICE MACHINE PUNCH OPERATOR.SENIOR DRAFTER Work Phone: [facility] 09-17-2022 13:04-0400 Heart rate 89 /min Pepito Pendlebury OFFICE MACHINE PUNCH OPERATOR.SENIOR DRAFTER Work Phone: [facility] 09-17-2022 13:04-0400 Respiratory rate 21 /min Pepito Pendlebury OFFICE MACHINE PUNCH OPERATOR.SENIOR DRAFTER Work Phone: [facility] 09-17-2022 13:04-0400 SaO2% (BldA) [Mass fraction] 100 % Pepito Pendlebury OFFICE MACHINE PUNCH OPERATOR.SENIOR DRAFTER Work Phone: [facility] 09-17-2022 13:04-0400 Systolic blood pressure 98 mm[Hg] Pepito Pendlebury OFFICE MACHINE PUNCH OPERATOR.SENIOR DRAFTER Work Phone: [facility] 01-12-2022 15:59-0400 Body temperature 99.19 [degF] Kaylyn Praisler-Wood OFFICE MACHINE PUNCH OPERATOR.SENIOR DRAFTER Work Phone: [facility] 01-12-2022 15:59-0400 Body weight 83.19 kg Kaylyn Praisler-Wood OFFICE MACHINE PUNCH OPERATOR.SENIOR DRAFTER Work Phone: [facility] 01-12-2022 15:59-0400 Diastolic blood pressure 72 mm[Hg] Kaylyn Praisler-Wood OFFICE MACHINE PUNCH OPERATOR.SENIOR DRAFTER Work Phone: [facility] 01-12-2022 15:59-0400 Heart rate 78 /min Kaylyn Praisler-Wood OFFICE MACHINE PUNCH OPERATOR.SENIOR DRAFTER Work Phone: [facility] 01-12-2022 15:59-0400 Respiratory rate 20 /min Kaylyn Praisler-Wood OFFICE MACHINE PUNCH OPERATOR.SENIOR DRAFTER Work Phone: [facility] 01-12-2022 15:59-0400 SaO2% (BldA) [Mass fraction] 99 % Kaylyn Praisler-Wood OFFICE MACHINE PUNCH OPERATOR.SENIOR DRAFTER Work Phone: [facility] 01-12-2022 15:59-0400 Systolic blood pressure 108 mm[Hg] Kaylyn Praisler-Wood OFFICE MACHINE PUNCH OPERATOR.SENIOR DRAFTER Work Phone: [facility] Encounters Encounter Date Encounter Type Care Provider Facility Start: 02-25-2025 ambulatory Neymar Greenfield Facility :[facility] Start: 02-23-2025 Encounter for other preprocedural examination Neymar Greenfield [facility] Start: 02-16-2025 ambulatory MEENA Ramirez [facility] Start: 01-31-2025 End: 01-31-2025 Follow-up encounter Maria Luz Rodriguez APRN.SENIOR DRAFTER Work Phone: Urology Start: 01-29-2025 End: 01-29-2025 Subsequent hospital visit by physician [facility] Comment on above: Feeling of incomplet e bladder emptying [R39.14] Start: 01-29-2025 End: 01-29-2025 ambulatory MARIA LUZ RODRIGUEZ Facility:[id number] Start: 01-20-2025 End: 01-20-2025 ambulatory Sid Whitehead NP-C Work Phone: -Laboratory Specimen Start: 01-20-2025 End: 01-20-2025 Patient encounter procedure Jeni MEDINA -Laboratory Specimen Work Phone: Start: 01-20-2025 End: 01-20-2025 ambulatory Jeni Petit Facility:[facility] Start: 01-13-2025 End: 01-13-2025 Patient encounter procedure Jeni MEDINA -[facility] Work Phone: Start: 01-13-2025 End: 01-13-2025 ambulatory Sid PATE Work Phone: -[facility] Start: 12-29-2024 End: 12-29-2024 Office outpatient visit 25 minutes Saul Low MD Work Phone: [facility] Comment on above: Rash (Primary Dx) Start: 12-29-2024 End: 12-29-2024 ambulatory SAUL LOW Facility:[facility] Start: 12-18-2024 End: 12-18-2024 ambulatory MEENA REED [facility] Start: 12-11-2024 End: 12-11-2024 Office outpatient new 45 minutes Maria Luz Rodriguez APRN.SENIOR DRAFTER Work Phone: Urology Comment on above: Feeling of incomplet e bladder emptying (Primary Dx); Frequency of micturition; Overactive bladder; Urinary urgency Start: 12-11-2024 End: 12-11-2024 ambulatory MARIA LUZ RODRIGUEZ Facility:[id number] Start: 11-23-2024 End: 01-23-2025 Follow-up encounter Kelly Cevallos ML Work Phone: OB/Gynecology Start: 11-20-2024 End: 11-20-2024 Patient encounter procedure Kelly Cevallos APRMASON Work Phone: OB/Gynecology Comment on above: Encounter for gyneco logical examination (general) (routine) without abnormal findings (Primary Dx); Irritation of vulva; Encounter for surveillance of contraceptive pills Start: 11-20-2024 End: 11-20-2024 Patient encounter status Kelly Cevallos APRMASON Work Phone: [facility] Start: 11-20-2024 End: 11-20-2024 ambulatory KELLY CEVALLOS Facility:[facility] Start: 11-20-2024 Encounter for gynecological examination (general) (routine) without abnormal findings KELLYKACIE LOTTBAN [facility] Start: 10-19-2024 End: 10-19-2024 ambulatory MEENA MTZ [facility] Start: 10-09-2024 End: 10-09-2024 ambulatory MEENAANGELINA MTZ [facility] Start: 09-23-2024 End: 09-23-2024 Emergency department patient visit MEENA MTZ [facility] Start: 09-21-2024 End: 09-21-2024 ambulatory MEENAANGELINA MTZ [facility] Start: 09-14-2024 End: 09-14-2024 ambulatory MEENAANGELINA MTZ [facility] Start: 08-27-2024 End: 08-28-2024 ambulatory ISAAC WALTER Facility:[facility] Start: 08-27-2024 End: 08-27-2024 Patient encounter procedure Isaac Walter OD Work Phone: Ophthalmology Comment on above: Blurred vision, bila teral (Primary Dx); Regular astigmatism of both eyes Start: 08-21-2024 End: 08-21-2024 ambulatory MEENA REED [facility] Start: 07-03-2024 End: 07-03-2024 ambulatory MEENA REED [facility] Start: 06-07-2024 End: 06-07-2024 Emergency department patient visit MEENA REED [facility] Start: 01-14-2024 End: 01-14-2024 ambulatory SID WHITEHEAD Facility:[facility] Start: 01-14-2024 End: 01-14-2024 Patient encounter procedure Kayla Rodriguez APRN.CNM Work Phone: OB/Gynecology Comment on above: Screening for STDs ( sexually transmitted diseases) (Primary Dx) Start: 01-13-2024 Telephone encounter Kayla pope APRN.CNM Work Phone: OB/Gynecology Comment on above: Pelvic Pain; Heavy M enses Start: 12-24-2023 Telephone encounter Karla Acosta MD Work Phone: OB/Gynecology Comment on above: Partner Treatment Start: 12-24-2023 End: 12-24-2023 ambulatory Karla Acosta MD Work Phone: OB/Gynecology Comment on above: Encounter for IUD in sertion (Primary Dx); Gastroenteritis; Trichomoniasis Start: 12-24-2023 End: 12-24-2023 Telemedicine consultation with patient Karla Acosta MD Work Phone: OB/Gynecology Start: 12-23-2023 Telephone encounter Kayla pope APRN.CNM Work Phone: OB/Gynecology Comment on above: Results Start: 12-20-2023 End: 12-20-2023 Patient encounter procedure Kayla Rodriguez APRN.CNMorena Work Phone: OB/Gynecology Comment on above: Screening for STD (s exually transmitted disease) (Primary Dx); Dysuria Start: 10-24-2023 End: 10-24-2023 Patient encounter procedure Karla Acosat MD Work Phone: OB/Gynecology Comment on above: care and examination (Primary Dx); Screening for malignant neoplasm of cervix Start: 10-17-2023 Refill Amanda Alicea MD Work Phone: OB/Gynecology Comment on above: Refill Request Start: 10-03-2023 End: 10-03-2023 Patient encounter procedure Shruti Hunter MD Work Phone: OB/Gynecology Comment on above: care and examination of lactating mother (Primary Dx) Start: 09-27-2023 Telephone encounter Shruti phipps MD Work Phone: OB/Gynecology Comment on above: PP Blood Pressure Start: 09-23-2023 ambulatory Amanda Alicea MD Work Phone: OB/Gynecology Comment on above: Blood pressure Start: 09-15-2023 End: 09-18-2023 Evaluation and management of inpatient [facility] Work Phone: Start: 09-14-2023 Telephone encounter Kim franco MD Work Phone: OB/Gynecology Comment on above: Appointment Start: 09-11-2023 ambulatory Karla espinoza MD Work Phone: OB/Gynecology Comment on above: Ob Delivery Note Start: 09-10-2023 End: 09-14-2023 Evaluation and management of inpatient [facility] Work Phone: Start: 09-09-2023 End: 09-09-2023 Patient encounter procedure Kayla Rodriguez APRN.CNM Work Phone: OB/Gynecology Comment on above: Vulvar irritation (P rimary Dx) Poor growth af fecting management of mother in third trimester, single or unspecified fetus (Primary Dx); 35 weeks gestation of ; Encounter for supervision of normal first in third trimester; Gestational hypertension without significant proteinuria in third trimester Start: 09-05-2023 End: 09-05-2023 Patient encounter procedure Kim Mckeon MD Work Phone: OB/Gynecology Comment on above: 36 weeks gestation o f (Primary Dx); Encounter for supervision of normal first in third trimester; Gestational hypertension without significant proteinuria in third trimester; Poor growth affecting management of mother in third trimester, single or unspecified fetus Start: 09-02-2023 End: 09-02-2023 Patient encounter procedure [facility] Work Phone: OB/Gynecology Comment on above: Poor growth af fecting management of mother in third trimester, single or unspecified fetus (Primary Dx); 35 weeks gestation of ; Encounter for supervision of normal first in third trimester; Gestational hypertension without significant proteinuria in third trimester 35 weeks gestation o f (Primary Dx); Encounter for supervision of normal first in third trimester; Gestational hypertension without significant proteinuria in third trimester; Poor growth affecting management of mother in third trimester, single or unspecified fetus Start: 08-29-2023 Telephone encounter Shruti phipps MD Work Phone: OB/Gynecology Comment on above: OB Rash Start: 08-27-2023 End: 08-27-2023 Patient encounter procedure Isaac Walter OD Work Phone: Ophthalmology Comment on above: Blurred vision, bila teral (Primary Dx); Regular astigmatism of both eyes Start: 08-22-2023 Telephone encounter Karla Acosta MD Work Phone: OB/Gynecology Comment on above: Results Start: 08-21-2023 End: 08-21-2023 Patient encounter procedure Karla Acosta MD Work Phone: OB/Gynecology Comment on above: 34 weeks gestation o f (Primary Dx); Encounter for supervision of normal first in third trimester; Gestational hypertension without significant proteinuria in third trimester Start: 08-13-2023 End: 08-13-2023 Patient encounter procedure Kayla Rodriguez APRN.CNM Work Phone: OB/Gynecology Comment on above: Encounter for superv ision of normal first in third trimester (Primary Dx); 33 weeks gestation of ; History of herpes genitalis; Encounter for supervision of high risk in second trimester, antepartum; Encounter for supervision of high risk in third trimester, antepartum Start: 08-07-2023 Telephone encounter Amanda Alicea MD Work Phone: OB/Gynecology Comment on above: Decreased FM Breast Pump Start: 08-07-2023 End: 08-07-2023 Patient encounter procedure Amanda Alicea MD Work Phone: OB/Gynecology Comment on above: Decreased move ments in second trimester, single or unspecified fetus (Primary Dx); Encounter for supervision of normal first in third trimester; 32 weeks gestation of Start: 07-30-2023 End: 07-30-2023 Patient encounter procedure Cheryl Clark MD Work Phone: OB/Gynecology Comment on above: 31 weeks gestation o f (Primary Dx); Visit for eye and vision exam; History of herpes genitalis Start: 07-30-2023 End: 07-30-2023 Patient encounter status Cheryl Clark MD Work Phone: [facility] Work Phone: Start: 07-29-2023 Telephone encounter Kayla pope APRN.CNM Work Phone: OB/Gynecology Comment on above: OB Urinary Symptoms Start: 07-24-2023 End: 07-24-2023 [facility] Work Phone: Start: 06-03-2023 End: 06-03-2023 Patient encounter procedure Karla Acosta MD Work Phone: OB/Gynecology Comment on above: 22 weeks gestation o f (Primary Dx); Encounter for supervision of normal first in second trimester Start: 05-06-2023 End: 05-06-2023 Patient encounter procedure Kim Mckeon MD Work Phone: OB/Gynecology Comment on above: 18 weeks gestation o f (Primary Dx); Encounter for supervision of normal first in second trimester; Vaginal discharge Encounter for anatomic survey (Primary Dx); Encounter for supervision of normal first in second trimester; 18 weeks gestation of Start: 04-30-2023 ambulatory Amanda Alicea MD Work Phone: OB/Gynecology Comment on above: Blood in pee Start: 04-15-2023 End: 04-15-2023 Patient encounter procedure Amanda Alicea MD Work Phone: OB/Gynecology Comment on above: 15 weeks gestation o f (Primary Dx); Encounter for supervision of normal first in second trimester; Need for influenza vaccination Start: 04-01-2023 End: 04-01-2023 Patient encounter procedure [facility] Work Phone: OB/Gynecology Comment on above: Encounter for (NT) n uchal translucency scan (Primary Dx); Encounter for care in first trimester of first ; 13 weeks gestation of Start: 03-28-2023 End: 03-28-2023 Patient encounter procedure Cheryl Clark MD Work Phone: OB/Gynecology Comment on above: care, subse quent in first trimester (Primary Dx); 13 weeks gestation of ; Encounter for supervision of normal first in first trimester Start: 03-25-2023 End: 03-25-2023 Patient encounter procedure Kim Mckeon MD Work Phone: OB/Gynecology Comment on above: 12 weeks gestation o f (Primary Dx); with uncertain dates in first trimester; Dysuria Start: 03-25-2023 Telephone encounter Kim franco MD Work Phone: OB/Gynecology Comment on above: OB UTI Start: 03-04-2023 End: 03-04-2023 Patient encounter procedure Kelly Cevallos APRN.SENIOR DRAFTER Work Phone: OB/Gynecology Comment on above: with uncer tain dates in first trimester (Primary Dx); Encounter for care in first trimester of first with uncer tain dates in first trimester (Primary Dx); of unknown anatomic location Start: 11-29-2022 End: 11-29-2022 Subsequent hospital visit by physician Xr [facility] [place] Work Phone: Radiology Comment on above: SOB (shortness of br eath) [R06.02] Start: 09-17-2022 End: 09-17-2022 Office outpatient visit 15 minutes Pepito Johansen APRN.SENIOR DRAFTER Work Phone: [facility] Comment on above: Contact dermatitis, unspecified contact dermatitis type, unspecified trigger (Primary Dx) Start: 01-13-2022 Telephone encounter Kayla Matias rito OFFICE MACHINE PUNCH OPERATOR.[facility] Work Phone: [facility] Comment on above: Results Start: 01-12-2022 End: 01-12-2022 Patient encounter procedure Kaylyn Viveros OFFICE MACHINE PUNCH OPERATOR.[facility] Work Phone: [facility] Comment on above: Screening for STD (s exually transmitted disease) (Primary Dx); Exposure to genital herpes Start: 05-14-2017 End: 05-14-2017 Ambulatory IMANI ACOSTA [facility] Start: 04-08-2017 End: 04-08-2017 Ambulatory TERELL MEJIA [facility] Start: 03-12-2017 End: 03-12-2017 Ambulatory IMANI ACOSTA [facility] Start: 01-14-2017 End: 01-14-2017 Ambulatory SANDRA CHOI [facility] Procedures Date Procedure Procedure Detail Performing Clinician Start: 01-20-2025 Clostridium difficil e detection Sid Ventura [employer] Work Phone: Start: 01-20-2025 End: 01-20-2025 Giardia lamblia antigen assay Sid Ventura [employer] Work Phone: Start: 01-20-2025 Nucleic acid assay Jaciel bethea Ventura [employer] Work Phone: Start: 01-20-2025 Ova OR parasites identification Sid Ventura [employer] Work Phone: Start: 01-20-2025 Iadna-dna/rna gi pth gn multiplex probe tq 6-11 Sid Ventura [employer] Work Phone: Start: 12-11-2024 BLADDER SCAN Maria Luz Rodriguez OFFICE MACHINE PUNCH OPERATOR.SENIOR DRAFTER Work Phone: Start: 12-11-2024 Urnls dip stick/tabl et rgnt auto w/o microscopy Maria Luz Rodriguez OFFICE MACHINE PUNCH OPERATOR.SENIOR DRAFTER Work Phone: Start: 11-20-2024 Urnls dip stick/tabl et rgnt auto w/o microscopy Kelly Cevallos OFFICE MACHINE PUNCH OPERATOR.SENIOR DRAFTER Work Phone: Start: 06-07-2024 Urinalysis MEENA Ashley Comment on above: Result Comment: URIN ALYSIS Performed By: #### 2 [id number] #### [facility],[address] [place] [address] Start: 01-14-2024 BACTERIAL VAGINOSIS NAAT Kayla Rodriguez OFFICE MACHINE PUNCH OPERATOR.CNM Work Phone: Start: 01-14-2024 Iadna chlamydia trac homatis amplified probe tq Kayla Rodriguez OFFICE MACHINE PUNCH OPERATOR.CNM Work Phone: Start: 12-20-2023 BACTERIAL VAGINOSIS NAAT Kayla Rodriguez OFFICE MACHINE PUNCH OPERATOR.CNM Work Phone: Start: 12-20-2023 End: 12-20-2023 Iadna chlamydia trachomatis amplified probe tq Kayla Rodriguez OFFICE MACHINE PUNCH OPERATOR.CNM Work Phone: Start: 09-09-2023 biophysical pr ofile non-stress testing Shruti Hunter MD Work Phone: Start: 09-05-2023 URINE OB DIP B/O Kim suárez MD Work Phone: Start: 09-02-2023 URINE OB DIP B/O Nighat Hunter MD Work Phone: Start: 09-02-2023 Us preg uterus after 1st trimest 06/24 gestation Karla Acosta MD Work Phone: Start: 08-21-2023 Iadna chlamydia trac homatis amplified probe tq Karla Acosta MD Work Phone: Start: 08-21-2023 URINE OB DIP B/O Dion Acosta MD Work Phone: Start: 08-13-2023 URINE OB DIP B/O Nam Rodriguez OFFICE MACHINE PUNCH OPERATOR.CNM Work Phone: Start: 07-30-2023 URINE OB DIP B/O Cheryl Clark MD Work Phone: Start: 07-24-2023 Urine culture Start: 06-03-2023 URINE OB DIP B/O Dion Acosta MD Work Phone: Start: 05-06-2023 URINE OB DIP B/O Kim suárez MD Work Phone: Start: 05-06-2023 Us preg uterus after 1st trimest 1/ gestation Ita Boston OFFICE MACHINE PUNCH OPERATOR.CNM Work Phone: Start: 04-15-2023 INFLUENZA VACCINE, A GE 6 MO - 64 YR, QUADRIVALENT (AFLURIA, FLULAVAL, FLUZONE) Amanda Alicea MD Work Phone: Start: 04-01-2023 Us nuchal translucency 1st gestation Kelly Cevallos OFFICE MACHINE PUNCH OPERATOR.SENIOR DRAFTER Work Phone: Start: 03-28-2023 URINE OB DIP B/O Cheryl Clark MD Work Phone: Start: 03-25-2023 Urnls dip stick/tabl et rgnt auto w/o microscopy Kim Mckeon MD Work Phone: Start: 03-04-2023 Us uterus l imited 1/> fetuses Kelly Cevallos OFFICE MACHINE PUNCH OPERATOR.SENIOR DRAFTER Work Phone: Start: 11-29-2022 Radiologic exam ches t 2 views Kaylyn Viveros OFFICE MACHINE PUNCH OPERATOR.SENIOR DRAFTER Work Phone: Plan of Treatment Date Care Activity Detail Author Start: 07-16-2033 Urine microalbumin profile DTaP,Tdap,Td Vaccine (8 - Td or Tdap) [facility] Start: 10-23-2026 Screening for malignant neoplasm of cervix Cervical Cancer Screening [facility] Start: 11-22-2025 End: 11-22-2025 Patient encounter procedure 11/22/2025 4:00 PM EDT Office Visit OB/Gynecology [address] [place] [address] Kelly Cevallos, OFFICE MACHINE PUNCH OPERATOR.SENIOR DRAFTER [address] [place] [address] Annual OB/Gynecology Comment on above: Annual Start: 09-14-2025 GC (Gonorrhea) Screening (18-24) GC (Gonorrhea) Screening (18-24) [facility] Start: 09-14-2025 Screening for Chlamydia trachomatis Chlamydia Screening () [facility] Start: 08-30-2025 End: 08-30-2025 Patient encounter procedure 08/30/2025 10:00 AM EDT Office Visit [facility] Ophthalmology [address] [place], [place] [id number] Isaac Walter, OD [address] [place] [address] 1 YR F/U for complete eye exam. Ophthalmology Comment on above: 1 YR F/U for complete eye exam. Start: 02-22-2025 Influenza vaccination [facility] Start: 02-12-2025 GC (Gonorrhea) Screening () GC (Gonorrhea) Screening () [facility] Start: 02-12-2025 Screening for Chlamydia trachomatis Chlamydia Screening () [facility] Start: 01-29-2025 End: 01-29-2025 Patient encounter procedure 01/29/2025 11:20 AM EDT Office Visit Urology [address] [place], [place] [id number] Maria Luz Rodriguez, OFFICE MACHINE PUNCH OPERATOR.SENIOR DRAFTER [address] [facility] [place] [address] 6 week follow up Urology Comment on above: 6 week follow up Start: 01-27-2025 Urine microalbumin profile DTaP,Tdap,Td Vaccine (7 - Td or Tdap) [facility] Start: 01-13-2025 GC (Gonorrhea) Screening (18-24) GC (Gonorrhea) Screening (18-24) [facility] Start: 01-13-2025 Screening for Chlamydia trachomatis Chlamydia Screening () [facility] Start: 12-19-2024 GC (Gonorrhea) Screening (18-24) GC (Gonorrhea) Screening (18-24) [facility] Start: 12-19-2024 Screening for Chlamydia trachomatis Chlamydia Screening (18-24) [facility] Start: 12-04-2024 End: 12-04-2024 Patient encounter procedure 12/04/2024 1:00 PM EDT Office Visit Urology [address] [place] [address] Maria Luz Rodriguez, OFFICE MACHINE PUNCH OPERATOR.SENIOR DRAFTER [address] [facility] [place] [address] Urinary Retention Urology Comment on above: Urinary Retention Start: 11-20-2024 End: 11-20-2024 Patient encounter procedure 11/20/2024 3:00 PM EDT Office Visit OB/Gynecology [address] [place] [address] Kelly Cevallos, OFFICE MACHINE PUNCH OPERATOR.SENIOR DRAFTER [address] [place] [address] Annual OB/Gynecology Comment on above: Annual Start: 10-23-2024 End: 10-23-2024 Patient encounter procedure 10/23/2024 1:00 PM EDT Office Visit OB/Gynecology [address] [place] [address] Kelly Cevallos, OFFICE MACHINE PUNCH OPERATOR.SENIOR DRAFTER [address] [place] [address] Annual OB/Gynecology Comment on above: Annual Start: 08-27-2024 End: 08-27-2024 Patient encounter procedure 08/27/2024 9:00 AM EST Office Visit [facility] Ophthalmology [address] [place] [address] Isaac Walter, OD [address] [place] [address] complete eye exam Ophthalmology Comment on above: complete eye exam Start: 08-21-2024 GC (Gonorrhea) Screening (18-24) GC (Gonorrhea) Screening (18-24) [facility] Start: 08-21-2024 Screening for Chlamydia trachomatis Chlamydia Screening (18-24) [facility] Start: 04-30-2024 Chlamydia Screening (18-24) Chlamydia Screening (18-24) [facility] Start: 04-30-2024 GC (Gonorrhea) Screening (18-24) GC (Gonorrhea) Screening (18-24) [facility] Start: 04-30-2024 Screening for Chlamydia trachomatis Chlamydia Screening (18-24) [facility] Start: 03-04-2024 CHLAMYDIA SCREENING (18-24) CHLAMYDIA SCREENING (18-24) [facility] Start: 03-04-2024 GC (GONORRHEA) SCREENING (18-24) GC (GONORRHEA) SCREENING (18-24) [facility] Start: 02-23-2024 Covid-19 Vaccine ( season) Covid-19 Vaccine ( season) [facility] Start: 02-23-2024 Covid-19 Vaccine ( season) Covid-19 Vaccine ( season) [facility] Start: 02-23-2024 Influenza vaccination Influenza Vaccine (#1) [facility] Start: 01-23-2024 CHLAMYDIA SCREENING (18-24) CHLAMYDIA SCREENING (18-24) [facility] Start: 01-23-2024 GC (GONORRHEA) SCREENING (18-24) GC (GONORRHEA) SCREENING (18-24) [facility] Start: 01-14-2024 End: 01-14-2024 Patient encounter procedure 01/14/2024 8:00 AM EDT Office Visit OB/Gynecology [address] [place] [address] Kayla Rodriguez APRN.CN [address] [place] [address] STD testing - see phone note OB/Gynecology Comment on above: STD testing - see phone note Start: 12-24-2023 End: 12-24-2023 Follow-up encounter 12/24/2023 11:30 AM EDT [facility] OB/Gynecology [address] [place] [address] Karla Acosta MD [address] [place] [address] Follow up Virtual/ [facility] OB/Gynecology Comment on above: Follow up Virtual/ [facility] Start: 10-24-2023 End: 10-24-2023 Patient encounter procedure 10/24/2023 11:30 AM EDT Office Visit OB/Gynecology [address] [place] [address] Karla Acosta MD [address] [place] [address] PP OB/Gynecology Comment on above: PP Start: 09-18-2023 Patient discharge [facility] Start: 09-17-2023 Bacteria identified in Urine by Culture [facility] Start: 09-17-2023 [facility] Start: 09-17-2023 [facility] Start: 09-15-2023 End: 09-15-2023 [facility] Start: 09-15-2023 Fluid restriction [facility] Start: 09-15-2023 Admission procedure [facility] Start: 09-15-2023 Measuring intake and output [facility] Start: 09-15-2023 Notification of physician [facility] Start: 09-15-2023 Vital signs measurements [facility] Start: 09-15-2023 [facility] Start: 09-15-2023 [facility] Start: 09-14-2023 Patient discharge [facility] Start: 09-12-2023 Application of abdominal corset [facility] Start: 09-12-2023 Consultation [facility] Start: 09-11-2023 Application of intermittent pneumatic compression device [facility] Start: 09-11-2023 End: 09-11-2023 Notification of physician [facility] Start: 09-11-2023 Application of abdominal corset [facility] Start: 09-11-2023 Administration of blood product [facility] Start: 09-11-2023 Introduction of urinary catheter [facility] Start: 09-11-2023 End: 09-11-2023 [facility] Start: 09-11-2023 Administration of medication [facility] Start: 09-11-2023 Ambulation therapy management [facility] Start: 09-11-2023 Application of device [facility] Start: 09-11-2023 Application of intermittent pneumatic compression device [facility] Start: 09-11-2023 Assessment of risk of venous thromboembolism [facility] Start: 09-11-2023 Catheterization of vein [facility] Start: 09-11-2023 Deep breathing and coughing exercises [facility] Start: 09-11-2023 Exercises [facility] Start: 09-11-2023 Measuring intake and output [facility] Start: 09-11-2023 Procedure discontinued [facility] Start: 09-11-2023 Provision of activity privileges [facility] Start: 09-11-2023 Skin care [facility] Start: 09-11-2023 Vital signs measurements [facility] Start: 09-11-2023 Wound care [facility] Start: 09-11-2023 Notification of physician [facility] Start: 09-11-2023 Notification of physician [facility] Start: 09-10-2023 Notification of physician [facility] Start: 09-10-2023 acoustic stimulation test [facility] Start: 09-10-2023 Intrauterine catheterization [facility] Start: 09-10-2023 Notification of physician [facility] Start: 09-10-2023 [facility] Start: 09-10-2023 Application of intermittent pneumatic compression device [facility] Start: 09-10-2023 Insertion of catheter into peripheral vein [facility] Start: 09-10-2023 Introduction of urinary catheter [facility] Start: 09-10-2023 Obstetric monitoring [facility] Start: 09-10-2023 Provision of activity privileges [facility] Start: 09-10-2023 Vital signs measurements [facility] Start: 09-10-2023 Admission procedure [facility] Start: 08-21-2023 End: 08-21-2024 OBSTETRIC ULTRASOUND [facility] OBSTETRIC ULTRASOUND [facility] Anc Imaging Routine 34 weeks gestation of Encounter for supervision of normal first in third trimester Gestational hypertension without significant proteinuria in third trimester Expected: 08/21/2023, Expires: 08/21/2024 [facility] Work Phone: Comment on above: Expected: 08/21/2023, Expires: Start: 07-24-2023 Nonstress test [facility] Start: 07-24-2023 Obstetric monitoring [facility] Start: 07-24-2023 Vital signs measurements [facility] Start: 07-24-2023 [facility] Start: 07-24-2023 Patient discharge [facility] Start: 07-04-2023 End: 10-03-2023 CBC W Auto Differential panel - Blood CBC + DIFF Lab Routine 22 weeks gestation of Encounter for supervision of normal first in second trimester Expected: 07/04/2023 (Approximate), Expires: 10/03/2023 [facility] Work Phone: Comment on above: Expected: 07/04/2023 (Approximate), Expi res: 10/03/2023 Start: 07-04-2023 End: 10-03-2023 GEST GLUC SCREEN, 1-HR, 50 GM, NON-FASTING GEST GLUC SCREEN, 1-HR, 50 GM, NON-FASTING Lab Routine 22 weeks gestation of Encounter for supervision of normal first in second trimester Expected: 07/04/2023 (Approximate), Expires: 10/03/2023 [facility] Work Phone: Comment on above: Expected: 07/04/2023 (Approximate), Expi res: 10/03/2023 Start: 07-04-2023 End: 10-03-2023 SYPHILIS TOTAL W/REFLEX SYPHILIS TOTAL W/REFLEX Lab Routine 22 weeks gestation of Encounter for supervision of normal first in second trimester Expected: 07/04/2023 (Approximate), Expires: 10/03/2023 [facility] Work Phone: Comment on above: Expected: 07/04/2023 (Approximate), Expi res: 10/03/2023 Start: 06-24-2023 Behavioral Health Screening Behavioral Health Screening [facility] Start: 06-24-2023 Depression Assessment Depression Assessment [facility] Start: 05-05-2023 CHLAMYDIA SCREENING (18-24) CHLAMYDIA SCREENING (18-24) [facility] Start: 05-05-2023 GC (GONORRHEA) SCREENING (18-24) GC (GONORRHEA) SCREENING (18-24) [facility] Start: 2023 Pap Testing Pap Testing [facility] Start: 2023 Screening for malignant neoplasm of cervix Pap Testing [facility] Start: 03-04-2023 End: 05-04-2023 CBC panel - Blood by Automated count CBC Lab Routine with uncertain dates in first trimester Encounter for care in first trimester of first Expected: 03/04/2023, Expires: 05/04/2023 [facility] Work Phone: Comment on above: Expected: 03/04/2023, Expires: 3 Start: 03-04-2023 End: 05-04-2023 Hepatitis B virus surface Ag [Presence] in Serum HEP B SURF AG SCRN Lab Routine with uncertain dates in first trimester Encounter for care in first trimester of first Expected: 03/04/2023, Expires: 05/04/2023 [facility] Work Phone: Comment on above: Expected: 03/04/2023, Expires: 3 Start: 03-04-2023 End: 05-04-2023 Hepatitis C virus Ab [Presence] in Serum HEPATITIS C ANTIBODY IA WITH CONFIRMATION Lab Routine with uncertain dates in first trimester Encounter for care in first trimester of first Expected: 03/04/2023, Expires: 05/04/2023 [facility] Work Phone: Comment on above: Expected: 03/04/2023, Expires: 3 Start: 03-04-2023 End: 05-04-2023 HIV 1+2 Ab [Presence] in Serum or Plasma by Immunoassay HIV 1 2 COMBO(AG/AB),WITH REFLEX TO DIFFERENTIATION Lab Routine with uncertain dates in first trimester Encounter for care in first trimester of first Expected: 03/04/2023, Expires: 05/04/2023 [facility] Work Phone: Comment on above: Expected: 03/04/2023, Expires: 3 Start: 03-04-2023 End: 03-04-2024 NUCHAL TRANSLUCENCY WHI NUCHAL TRANSLUCENCY [facility]I Anc Imaging Routine with uncertain dates in first trimester Encounter for care in first trimester of first Expected: 03/04/2023, Expires: 03/04/2024 [facility] Work Phone: Comment on above: Expected: 03/04/2023, Expires: 4 Start: 03-04-2023 End: 05-04-2023 RUBELLA IGG AB RUBELLA IGG AB Lab Routine with uncertain dates in first trimester Encounter for care in first trimester of first Expected: 03/04/2023, Expires: 05/04/2023 [facility] Work Phone: Comment on above: Expected: 03/04/2023, Expires: 3 Start: 03-04-2023 End: 05-04-2023 SYPHILIS TOTAL W/REFLEX SYPHILIS TOTAL W/REFLEX Lab Routine with uncertain dates in first trimester Encounter for care in first trimester of first Expected: 03/04/2023, Expires: 05/04/2023 [facility] Work Phone: Comment on above: Expected: 03/04/2023, Expires: 3 Start: 03-04-2023 End: 05-04-2023 TYPE + SCREEN TYPE + SCREEN Blood Bank Routine with uncertain dates in first trimester Encounter for care in first trimester of first Expected: 03/04/2023, Expires: 05/04/2023 [facility] Work Phone: Comment on above: Expected: 03/04/2023, Expires: 3 Start: 02-22-2023 Covid-19 Vaccine () Covid-19 Vaccine () [facility] Start: 02-22-2023 Influenza vaccination [facility] Start: 01-12-2023 CHLAMYDIA SCREENING (18-24) CHLAMYDIA SCREENING (18-24) [facility] Start: 01-12-2023 GC (GONORRHEA) SCREENING (1824) GC (GONORRHEA) SCREENING (18-24) [facility] Start: 06-24-2022 DEPRESSION ASSESSMENT DEPRESSION ASSESSMENT [facility] Start: 02-22-2022 Influenza vaccination INFLUENZA (#1) [facility] Start: 01-12-2022 End: 03-14-2022 Hepatitis B virus surface Ab [Presence] in Serum by Immunoassay [facility] Work Phone: Comment on above: Expected: 01/12/2022, Expires: 2 Start: 01-12-2022 End: 03-14-2022 Hepatitis C virus Ab [Presence] in Serum [facility] Work Phone: Comment on above: Expected: 01/12/2022, Expires: 2 Start: 01-12-2022 End: 03-14-2022 HERPES SIMPLEX TYPE 1 AND 2 IG [facility] Work Phone: Comment on above: Expected: 01/12/2022, Expires: 2 Start: 01-12-2022 End: 03-14-2022 HIV 1+2 Ab [Presence] in Serum or Plasma by Immunoassay [facility] Work Phone: Comment on above: Expected: 01/12/2022, Expires: 2 Start: 01-12-2022 End: 03-14-2022 SYPHILIS TOTAL W/REFLEX [facility] Work Phone: Comment on above: Expected: 01/12/2022, Expires: 2 Start: 2021 Urine microalbumin profile [facility] Start: 2020 Anxiety Screening Anxiety Screening [facility] Start: 2020 CHLAMYDIA SCREENING (18-24) CHLAMYDIA SCREENING (18-24) [facility] Start: 2020 Depression Screening Depression Screening [facility] Start: 2020 GC (GONORRHEA) SCREENING (18-24) GC (GONORRHEA) SCREENING (18-24) [facility] Start: 2020 HEPATITIS C SCREENING HEPATITIS C SCREENING [facility] Start: 2020 HIV SCREENING HIV SCREENING [facility] Start: 2018 Meningococcal B Vaccine (1 of 2 - Standard) Meningococcal B Vaccine (1 of 2 - Standard) [facility] Start: 2018 Meningococcal B Vaccine: Consider Based On Risk (1 of 2 - Patient Seeks Protection) Meningococcal B Vaccine: Consider Based On Risk (1 of 2 - Patient Seeks Protection) [facility] Start: 2018 MENINGOCOCCAL B: Consider based on risk (1 of 2 - Patient Seeks Protection) MENINGOCOCCAL B: Consider based on risk (1 of 2 - Patient Seeks Protection) [facility] Start: 2016 PEDS TO ADULT TRANSITION ANNUAL ASSESSMENT PEDS TO ADULT TRANSITION ANNUAL ASSESSMENT [facility] Start: 2014 Adult depression screening assessment DEPRESSION SCREENING [facility] Start: 2014 PEDS TO ADULT TRANSITION INITIAL DISCUSSION PEDS TO ADULT TRANSITION INITIAL DISCUSSION [facility] Start: 2013 HPV VACCINE (1 - 2-dose series) HPV VACCINE (1 - 2-dose series) [facility] Start: 2012 MENINGOCOCCAL B: Consider based on risk (1 of 2 - Risk Bexsero 2-dose series) MENINGOCOCCAL B: Consider based on risk (1 of 2 - Risk Bexsero 2-dose series) [facility] Start: 2011 HPV VACCINE (1 - 2-dose series) HPV VACCINE (1 - 2-dose series) [facility] Start: 2008 PNEUMOCOCCAL (1 - PCV) PNEUMOCOCCAL (1 - PCV) [facility] Start: 2002 COVID-19 VACCINE (#1) COVID-19 VACCINE (#1) [facility] Start: 2002 HEPATITIS B (1 of 3 - 3-dose series) HEPATITIS B (1 of 3 - 3-dose series) [facility] Start: 2002 Hepatitis B Vaccine (1 of 3 - 3-dose series) Hepatitis B Vaccine (1 of 3 - 3-dose series) [facility] Bacteria identified in Urine by Culture URINE CULTURE Microbiology Routine with uncertain dates in first trimester Encounter for care in first trimester of first 03/04/2023 9:08 AM EDT [facility] Work Phone: Bacteria identified in Urine by Culture URINE CULTURE Microbiology Routine 15 weeks gestation of Encounter for supervision of normal first in second trimester 04/15/2023 8:25 AM EDT [facility] Work Phone: BACTERIAL VAGINOSIS AMPLIFICATION BACTERIAL VAGINOSIS AMPLIFICATION Lab Routine Screening for STD (sexually transmitted disease) Exposure to genital herpes Ordered: 01/12/2022 [facility] Work Phone: Comment on above: Ordered: 01/12/2022 BACTERIAL VAGINOSIS NAAT BACTERI AL VAGINOSIS NAAT Lab Routine Irritation of vulva 11/20/2024 4:09 PM [facility] End: 02-29-2024 BIOPHYSICAL PROFILE US I [facility] Work Phone: Comment on above: Once per week for 10 Occurrences startin g 09/02/2023 until 02/29/2024 WAQAR / TRICHOMONA S AMPLIFICATION WAQAR / TRICHOMONAS AMPLIFICATION Lab Routine Screening for STD (sexually transmitted disease) Exposure to genital herpes Ordered: 01/12/2022 [facility] Work Phone: Comment on above: Ordered: 01/12/2022 WAQAR/TRICHOMONAS NAAT WAQAR /TRICHOMONAS NAAT Lab Routine Irritation of vulva 11/20/2024 4:09 PM [facility] Work Phone: Chlamydia trachomatis+Neisseria gonorrhoeae DNA [Presence] in Unspecified specimen by SASCHA with probe detection GC/CHLAMYDIA DNA DET Lab Routine Screening for STD (sexually transmitted disease) Exposure to genital herpes Ordered: 01/12/2022 [facility] Work Phone: Comment on above: Ordered: 01/12/2022 Chlamydia trachomatis+Neisseria gonorrhoeae DNA [Presence] in Unspecified specimen by SASCHA with probe detection GONORRHEA/CHLAMYDIA NAAT Lab Routine with uncertain dates in first trimester Encounter for care in first trimester of first 03/04/2023 9:08 AM [facility] Work Phone: Clostridioides diffi cile DNA [Presence] in Unspecified specimen by SASCHA with probe detection [facility] End: 10-20-2023 nonstress test NON-STRESS TEST Procedures Routine 34 weeks gestation of Encounter for supervision of normal first in third trimester Gestational hypertension without significant proteinuria in third trimester Once per week for 4 Occurrences starting 08/21/2023 until 10/20/2023 [facility] Work Phone: Comment on above: Once per week for 4 Occurrences starting 08/21/2023 until 10/20/2023 nonstress test NON-S TRESS TEST Procedures Routine Poor growth affecting management of mother in third trimester, single or unspecified fetus Ordered: 09/02/2023 [facility] Work Phone: Comment on above: Ordered: 09/02/2023 Giardia lamblia Ag [Presence] in Stool by Immunoassay [facility] Insertion intrauteri ne device iud INSERT INTRAUTERINE DEVICE Procedures Routine Encounter for IUD insertion Ordered: 12/24/2023 [facility] Work Phone: Comment on above: Ordered: 12/24/2023 Nucleic acid assay [facility] Ova OR parasites identification [facility] PAP TEST PAP TEST Lab Rachna terrell care and examination Screening for malignant neoplasm of cervix 10/24/2023 1:20 PM EDT [facility] Work Phone: Patient Education [facility] Work Phone: Patient referral [facility] Work Phone: POC PRODUCTION DISPATCHER ULTRASOUND POC PRODUCTION DISPATCHER ULTRASO UND Anc Imaging Routine with uncertain dates in first trimester Ordered: 03/04/2023 [facility] Work Phone: Comment on above: Ordered: 03/04/2023 Protein measurement [facility] ROUTINE, GR OUP B STREP PCR ROUTINE, GROUP B STREP PCR Microbiology Routine 34 weeks gestation of 08/21/2023 11:41 AM EST [facility] Work Phone: URINE OB DIP B/O URINE OB DIP B/ O Lab Routine Encounter for supervision of normal first in third trimester 32 weeks gestation of Ordered: 08/07/2023 [facility] Work Phone: Comment on above: Ordered: 08/07/2023 XR Abdomen Supine an d Upright XR ABDOMEN 1V SUPINE Radiology Routine Feeling of incomplete bladder emptying Frequency of micturition Left flank pain 01/29/2025 11:47 AM EDT [facility] Work Phone: [facility] Immunizations Immunization Date Immunization Notes Care Provider Fa cility 07-16-2023 tetanus toxoid, redu andrew diphtheria toxoid, and acellular pertussis vaccine, adsorbed Kaylamerry Rodriguez APRN.CNM Work Phone: [facility] 04-15-2023 influenza, injectabl e, quadrivalent, contains preservative Amanda Alicea MD Work Phone: [facility] 04-15-2023 influenza virus vacc ine, unspecified formulation Kayla Rodriguez APRN.CNM Work Phone: [facility] 04-07-2009 influenza virus vacc ine, unspecified formulation Kim Mckeon MD Work Phone: [facility] Payers Date Payer Category Payer Self-pay [id number] 2023 Medicaid [id number] 2023 Private Health Insurance [id number] 2021 Private Health Insurance [id number] 2021 Unknown MMO MMO [employer] [id number] 2021-Present [phone] [address] [address] [place] [address] Indemnity [id number] 2021 Unknown [id number] 2021 Unknown [id number] 2002 Unknown [id number]. 651 2002 Unknown [id number] [id number]. 651 2002 Unknown [id number] [id number]. 651 2002 Unknown [id number] [id number]. 651 2002 Unknown [id number] [id number]. 651 2002 Unknown [id number] [id number]. 651 2002 Unknown [id number] [id number]. 651 2002 Unknown [id number] [id number]. 651 2002 Unknown [id number] [id number]. 651 2002 Unknown [id number] [id number]. 651 2002 Unknown [id number]. 651 Unknown [id number] [id number]. 462 Unknown [id number] [id number]. 462 Unknown [id number] 462 Social History Date Type Detail Facility Start: 01-12-2022 End: 09-17-2022 Tobacco smoking status NHIS Occasional tobacco smoker [facility] Start: 01-12-2022 End: 12-11-2024 Tobacco use and exposure Smokeless tobacco non-user [facility] Start: 01-12-2022 End: 09-17-2022 Tobacco Comment Occasional Vape [facility] Start: 2002 Sex Assigned At Not on file C [facility] Start: 01-02-2022 End: 01-12-2022 Exposure to SARS-CoV-2 (event) Not sure [facility] Start: 03-04-2023 End: 12-11-2024 Tobacco smoking status NHIS Ex-smoker [facility] Work Phone: End: 06-24-2020 History of tobacco use Current smoker [facility] Work Phone: End: 06-24-2020 History of tobacco use Cigarette Smoker [facility] Work Phone: Start: 03-04-2023 End: 11-20-2024 Alcohol intake Lifetime non-drinker (finding) [facility] Start: 03-04-2023 End: 03-28-2023 History of Social function [facility] Start: 03-04-2023 End: 03-28-2023 Tobacco use panel [facility] Start: 01-08-2023 [facility] Start: 2002 Sex Assigned At Female C [facility] Start: 03-09-2023 Gender identity Identifies as female gender (finding) [facility] Start: 03-09-2023 Sexual orientation Heterosexual (fin ding) [facility] Start: 01-12-2022 National Score (1-100), lower number is lower risk 48 [facility] Start: 09-10-2023 [facility] The thought of [address] myself has occurred to me Never [facility] Start: 12-11-2024 End: 01-29-2025 Alcoholic beverage intake Current drinker of alcohol (finding) [facility] Start: 12-11-2024 Alcohol Comment occa-vodka [facility] Start: 12-29-2024 Tobacco smoking stat us NHIS Never smoked tobacco (finding) [facility] NEGATED: Highlighted rowStart: NINF History of tobacco use Passive smoker [facility] Work Phone: Goals Date Patient Goal Desired Activity /State Personal health goal Mental Status Date Assessment Result Facility 09-17-2023 Cognitive function Appropriate [facility] Work Phone: 09-16-2023 Cognitive function Level Of Cons ciousness Awake;Alert;Appropriate [facility] Work Phone: 09-12-2023 Cognitive function Voice/Name [facility] Work Phone: Clinical Notes 01-12-2022 to 01-31-2025 Result Encounter Note - Maria Luz Rodriguez APRN.CNP - 01/31/2025 5:38 PM EDTResult Encounter Note - Maria Luz Rodriguez APRN.CNP - 01/31/2025 5:38 PM EDT Note Date & Type Note Facility 01-31-2025 Progress note Formatting of t his note might be different from the original. KUB negative. IF still having pain recommend CT flank. Maria Luz Rodriguez APRN.CNP [facility] 01-31-2025 Miscellaneous Notes Formattin g of this note might be different from the original. KUB negative. IF still having pain recommend CT flank. Maria Luz Rodriguez APRN.CNP documented in this encounter [facility] 01-29-2025 History of Presen t illness Narrative Summary: xray Radiology Service Progress Note PATIENT NAME: Abbey Hanna DATE OF SERVICE: January 29, 2025 TIME: 11:49 AM PATIENT IDENTITY VERIFICATION COMPLETED USING TWO (2) IDENTIFIERS: Name and Date of confirmed by patient verbally. FALL SCREENING: Has the patient had 2 falls in the last year or 1 fall with injury or currently using an Ambulatory Assistive Device (Walker, Cane, Wheelchair, Crutches, etc.)? No PATIENT GENDER DATA: Assigned female at . status: : No status: N/A PATIENT RELEVANT IMPLANT DATA REVIEWED: Not Applicable PATIENT PRESENTS WITH AN IMPLANTABLE OR ATTACHED VEHICLE DELIVERY WORKER: No RADIOLOGY DEPARTMENT: General X-ray: Exam(s) Completed: Abdomen X-Ray: Abdomen PERIPHERAL IV DATA: Not applicable SIGNED BY: KAMRYN Montenegro) January 29, 2025 11:49 AM documented in this encounter [facility] 01-29-2025 Note HNO ID: [id number] Author: DOT DIEZ RT(R) Service: Radiology Author Type: Technologist Type: Progress Notes Filed: 01/29/2025 11:49 Note Text: Summary: xray Radiology Service Progress Note PATIENT NAME: Abbey Hanna DATE OF SERVICE: January 29, 2025 TIME: 11:49 AM PATIENT IDENTITY VERIFICATION COMPLETED USING TWO (2) IDENTIFIERS: Name and Date of confirmed by patient verbally. FALL SCREENING: Has the patient had 2 falls in the last year or 1 fall with injury or currently using an Ambulatory Assistive Device (Walker, Cane, Wheelchair, Crutches, etc.)? No PATIENT GENDER DATA: Assigned female at . status: : No status: N/A PATIENT RELEVANT IMPLANT DATA REVIEWED: Not Applicable PATIENT PRESENTS WITH AN IMPLANTABLE OR ATTACHED VEHICLE DELIVERY WORKER: No RADIOLOGY DEPARTMENT: General X-ray: Exam(s) Completed: Abdomen X-Ray: Abdomen PERIPHERAL IV DATA: Not applicable SIGNED BY: RT Lan(R) January 29, 2025 11:49 AM [facility] 01-29-2025 Note HNO ID: [id number] Author: MARIA LUZ RODRIGUEZ APRN.CNP Service: ? Author Type: Nurse Practitioner Type: Progress Notes Filed: 01/29/2025 12:06 Note Text: [facility] ESTABLISHED PATIENT FOLLOW-UP NOTE PATIENT: Abbey Hanna (24 year old) PCP: Sid Whitehead CNP, ILDEFONSO ------ Assessment AND Plan Feeling of incomplete bladder emptying UA- neg PVR-6 cc Started on oxybutynin. Only mildly helpful. Increase to 15mg. Orders: BLADDER SCAN XR ABDOMEN 1V SUPINE; Future oxybutynin ER (DITROPAN XL) 15 mg 24 hr Extended Rel Tab; Take 1 tablet by mouth once daily. Frequency of micturition As above Orders: BLADDER SCAN XR ABDOMEN 1V SUPINE; Future oxybutynin ER (DITROPAN XL) 15 mg 24 hr Extended Rel Tab; Take 1 tablet by mouth once daily. Overactive bladder As above Orders: BLADDER SCAN Urinary urgency As above Orders: BLADDER SCAN Left flank pain Vague left flank pain. Ua- negative Obtain KUB Orders: XR ABDOMEN 1V SUPINE; Future FOLLOW UP: Return for Will call with results. ------ CHIEF COMPLAINT: Patient presents with: Follow Up HISTORY OF PRESENT ILLNESS: Prior notes were reviewed. Pt known to me. referred by self for urinary frequency, and feeling of JOSH. DTF:q1-2 hours NTF: 1-2 times nightly URGENCY: yes UUI: yes intermittent DIPIKA:yes intermittent STRAINING: yes FEELING OF INCOMPLETE EMPTYING: yes PADS PER DAY: denies Urinary Frequency and Urgency: - Increased urinary frequency and urgency x1 year. - Voids more than every hour during the day. - Nocturia 1-2 times per night. - Experiences urgency and occasional urinary leakage, both with urgency and physical activities like coughing. - Feels incomplete bladder emptying with a tingly sensation post-void. - Occasionally strains to urinate. - Denies wearing pads for leakage. - Recent gynecological exam showed no abnormalities around the urethra. - Drinks one small coffee daily and soda 2-3 times per week. - Denies history of kidney stones, family history of kidney or bladder cancer, or previous surgeries involving the kidneys, bladder, or urethra. REVIEW OF SYSTEMS GENERAL:denies unintentional weight loss, malaise or fevers. NEUROLOGIC: pt is alert and oriented GASTROINTESTINAL: No nausea, vomiting, or diarrhea GENITOURINARY: See HPI MUSCULOSKELETAL: Negative for joint pain or swelling, back pain or muscle pain SKIN: Negative for lesions, rash, and itching. ALLERGIES: ALLERGIES No Known Allergies MEDICATIONS: omeprazole (PRILOSEC) 10 mg capsule Take 10 mg by mouth once daily. Levonorgestrel-Ethinyl Estrad (AVIANE) 0.1mg - 20mcg per tablet Take 1 tablet by mouth once daily. oxybutynin ER (DITROPAN XL) 15 mg 24 hr Extended Rel Tab Take 1 tablet by mouth once daily. verapamil HCl (VERAPAMIL ORAL) Take by mouth once daily. (Patient not taking: Reported on 12/11/2024) PAST HISTORY: PAST MEDICAL HISTORY Diagnosis Date Depression Encounter for supervision of high risk in second trimester, antepartum (HCC) 03/28/2023 Urinary retention PAST SURGICAL HISTORY Procedure Laterality Date SNGL 09/11/2023 FAMILY HISTORY Problem Relation Age of Onset Hypertension Mother No Known Problems Father No Known Problems Brother Hypertension Brother Heart Maternal Grandfather No Ocular Disease No Family History Social History Tobacco Use Smoking status: Former Current packs/day: 0.00 Types: Cigarettes Quit date: 2020 Years since quittin.6 Passive exposure: Never Smokeless tobacco: Never Tobacco comments: Occasional Vape Vaping Use Vaping status: Former Substance Use Topics Alcohol use: Yes Comment: occa-vodka Drug use: Yes Types: Marijuana PHYSICAL EXAMINATION: BP 101/76 Pulse 76 LMP 12/21/2024 (Exact Date) SpO2 100% Constitutional: In no acute distress. Well appearing. Respiratory: Normal respiratory effort without use of accessory muscles. Clinic: GLUCOSE UA (POCT) (mg/dL) Date Value 01/29/2025 Negative BILIRUBIN UA (POCT) (no units) Date Value 01/29/2025 Negative KETONE UA (POCT) (mg/dL) Date Value 01/29/2025 Negative SPECIFIC GRAVITY UA (POCT) (no units) Date Value 01/29/2025 1.020 HEMOGLOBIN/BLOOD UA (POCT) (no units) Date Value 01/29/2025 Negative PH UA (POCT) (no units) Date Value 01/29/2025 6.5 PROTEIN UA (POCT) (mg/dL) Date Value 01/29/2025 Negative UROBILINOGEN UA (POCT) (E.U./dL) Date Value 01/29/2025 0.2 NITRITE UA (POCT) (no units) Date Value 01/29/2025 Negative LEUKOCYTES UA (POCT) (no units) Date Value 01/29/2025 Negative COLOR UA (POCT) (no units) D (more content not included)... [facility] 01-13-2025 Evaluation note Diagnosis Onset Date Resolution GERD (gastroesophageal reflux disease) acute January 13, 2025 11:09am Loose stools acute January 13, 025 11:09am [facility] Work Phone: 1(165) 942-142107-08-2025 NoteHNO ID: [id number] Author: SAUL LOW MD Service: ? Author Type: Physician Type: Progress Notes Filed: 12/29/2024 15:46 Note Text: URGENT CARE LILY Hanna is a 24 year old female. Patient presents with: Rash: left hand, right elbow, itching, warm to touch x last night Pt here with 3 spots on right arm and 1 spot on right 2nd finger now itchy was warm at night not now feels well overall no malaise no sT Rash Pertinent negatives include no congestion, fatigue, fever or sore throat. Review of Systems Constitutional: Negative for chills, fatigue and fever. HENT: Negative for congestion and sore throat. Skin: Positive for rash. Objective BP 122/76 Pulse 88 Temp 36.8 ?C (98.3 ?F) Resp 16 Wt 98.2 kg (216 lb 7.9 oz) LMP 12/21/2024 (Exact Date) SpO2 97% BMI 38.35 kg/m? Physical Exam Vitals and nursing note reviewed. Constitutional: Appearance: Normal appearance. She is not ill-appearing. Skin: Findings: Rash present. Comments: Papuloerythematous blancheable rash in 3 locations on right arm 1 cm in diameter and 0.5 cm round rash left 2nd finger All lesions are similar in nature Neurological: Mental Status: She is alert. {ASSESSMENT/PLAN: 1. Rash - ICD9: 782.1, ICD10: R21 Suspect insect bites - METHYLPREDNISOLONE 4 MG TABLETS IN A DOSE PACK - HYDROCORTISONE 2.5 % TOPICAL CREAM Return here as needed Saul Low MD Differential Diagnoses - insect bites is more likely for the following reason(s): suggested by HANDP - cellulitis is less likely for the following reason(s): no warmth multiple sites short duration, HANDP not suggestive Disposition The [facility] was [facility]. [facility] of Present illness Narrative* Saul Low MD - 12/29/2024 3:38 PM EDT URGENT CARE LILY Hanna is a 24 year old female. Patient presents with: Rash: left hand, right elbow, itching, warm to touch x last night Pt here with 3 spots on right arm and 1 spot on right 2nd finger now itchy was warm at night not now feels well overall no malaise no sT Rash Pertinent negatives include no congestion, fatigue, fever or sore throat. Review of Systems Constitutional: Negative for chills, fatigue and fever. HENT: Negative for congestion and sore throat. Skin: Positive for rash. Objective BP 122/76 Pulse 88 Temp 36.8 C (98.3 F) Resp 16 Wt 98.2 kg (216 lb 7.9 oz) LMP 12/21/2024(Exact Date) SpO2 97% BMI 38.35 kg/m Physical Exam Vitals and nursing note reviewed. Constitutional: Appearance: Normal appearance. She is not ill-appearing. Skin: Findings: Rash present. Comments: Papuloerythematous blancheable rash in 3 locations on right arm 1 cm in diameter and 0.5 cm round rash left 2nd finger All lesions are similar in nature Neurological: Mental Status: She is alert. {ASSESSMENT/PLAN: 1. Rash - ICD9: 782.1, ICD10: R21 Suspect insect bites - METHYLPREDNISOLONE 4 MG TABLETS IN A DOSE PACK - HYDROCORTISONE 2.5 % TOPICAL CREAM Return here as needed Saul Low MD Differential Diagnoses - insect bites is more likely for the following reason(s): suggested by H&P - cellulitis is less likely for the following reason(s): no warmth multiple sites short duration, H&P not suggestive Disposition The patient was discharged. [facility] Instructions* Patient Instructions* Saul Low MD - 12/29/2024 3:38 PM EDT [facility] [address] [place], [place] [address] Emergency Department Diagnosis: Assessment NONSPECIFIC RASH: Our exam shows you have a rash which has no clear cause. Rashes can result from infections, allergies, or irritation of the skin by chemicals or other environmental factors. Rashes can also result from scratching or rubbing the skin too much to relieve itching. Further medical examination may be needed to identify the specific cause and proper treatment of your skin rash. You should treat your rash as recommended by your doctor. If you have itching, you should avoid scratching as much as possible, as this further damages the skin. Ask your doctor or pharmacist if you have any questions about what topical medicines may help relieve your symptoms. Call your doctor right away if your rash is not better in 2-3 days, if it worsens, or if there are signs of infection (increased pain, redness, drainage or pus). documented in this [facility] History of Present illness Narrative* Maria Luz Rodriguez, OFFICE MACHINE PUNCH OPERATOR.SENIOR DRAFTER - 12/11/2024 2:00 PM EDT Images from the original note were not included. [facility] NEW PATIENT HISTORY AND PHYSICAL EXAMINATION PATIENT: Abbey Hanna (24 year old) PCP: Sid Whitehead CNP, SENIOR DRAFTER Assessment & Plan Feeling of incomplete bladder emptying Ua- negative Pvr- 13 cc. - Experiencing urinary frequency, urgency, and a sensation of incomplete bladder emptying for the past year. No history of kidney stones or family history of kidney or bladder cancer. No previous surgeries involving the kidneys, bladder, or urethra. Recent gynecological examination revealed no abnormalities around the urethra. Abdominal imaging showed no significant findings. Discussed potential bladder irritants such as coffee and soda. Initiated oxybutynin at a low dose to manage symptoms; advised on potential side effects, including dry mouth, and recommended increasing fluid intake. Follow-up in 6 weeks to assess response to treatment. Orders: BLADDER SCAN oxybutynin ER (DITROPAN XL) 10 mg 24 hr tablet; Take 1 tablet by mouth once daily. Frequency of micturition Orders: oxybutynin ER (DITROPAN XL) 10 mg 24 hr tablet; Take 1 tablet by mouth once daily. Overactive bladder Orders: oxybutynin ER (DITROPAN XL) 10 mg 24 hr tablet; Take 1 tablet by mouth once daily. Urinary urgency Orders: oxybutynin ER (DITROPAN XL) 10 mg 24 hr tablet; Take 1 tablet by mouth once daily. FOLLOW UP: Return in about 6 weeks (around 01/22/2025). CHIEF COMPLAINT: Patient presents with: Urinary Retention HISTORY OF PRESENT ILLNESS: I personally reviewed the patient's past medical records. Ms. Hanna is a 24 year old female referred by self for urinary frequency, and feeling of JOSH. Previous Urologist: denies Hx of kidney stones: denies Family hx of kidney stones/treatment: denies Personal/family hx of kidney cancer, bladder cancer, or prostate cancer: denies Previous surgery on kidneys, bladder, urethra, or prostate: denies Hx of smoking: denies Environmental/occupational exposures: denies DTF:q1-2 hours NTF: 1-2 times nightly URGENCY: yes UUI: yes intermittent DIPIKA:yes intermittent STRAINING: yes FEELING OF INCOMPLETE EMPTYING: yes PADS PER DAY: denies Urinary Frequency and Urgency: - Increased urinary frequency and urgency x1 year. - Voids more than every hour during the day. - Nocturia 1-2 times per night. - Experiences urgency and occasional urinary leakage, both with urgency and physical activities like coughing. - Feels incomplete bladder emptying with a tingly sensation post-void. - Occasionally strains to urinate. - Denies wearing pads for leakage. - Recent gynecological exam showed no abnormalities around the urethra. - Drinks one small coffee daily and soda 2-3 times per week. - Denies history of kidney stones, family history of kidney or bladder cancer, or previous surgeries involving the kidneys, bladder, or urethra. REVIEW OF SYSTEMS GENERAL:denies unintentional weight loss, malaise or fevers. NEUROLOGIC: pt is alert and oriented GASTROINTESTINAL: No nausea, vomiting, or diarrhea GENITOURINARY: See HPI MUSCULOSKELETAL: Negative for joint pain or swelling, back pain or muscle pain SKIN: Negative for lesions, rash, and itching. ALLERGIES: ALLERGIES No Known Allergies MEDICATIONS: omeprazole (PRILOSEC) 10 mg capsule Take 10 mg by mouth once daily. Levonorgestrel-Ethinyl Estrad (AVIANE) 0.1mg - 20mcg per tablet Take 1 tablet by mouth once daily. oxybutynin ER (DITROPAN XL) 10 mg 24 hr tablet Take 1 tablet by mouth once daily. verapamil HCl (VERAPAMIL ORAL) Take by mouth once daily. (Patient not taking: Reported on 12/11/2024) PAST HISTORY: PAST MEDICAL HISTORY Diagnosis Date Depression Encounter for supervision of high risk in second trimester, antepartum (HCC) 03/28/2023 Urinary retention PAST SURGICAL HISTORY Procedure Laterality Date SNGL 09/11/2023 FAMILY HISTORY Problem Relation Age of Onset Hypertension Mother No Known Problems Father No Known Problems Brother Hypertension Brother Heart Maternal Grandfather No Ocular Disease No Family History Social History Tobacco Use Smoking status: Former Current packs/day: 0.00 Types: Cigarettes Quit date: 2020 Years since quittin.4 Passive exposure: Never Smokeless tobacco: Never Tobacco comments: Occasional Vape Vaping Use Vaping status: Former Substance Use Topics Alcohol use: Yes Comment: occa-vodka Drug use: Yes Types: Marijuana PHYSICAL EXAMINATION: BP 117/74 Pulse 86 LMP 11/20/2024 (Exact Date) SpO2 95% Constitutional: In no acute distress. Well appearing. Respiratory: Normal respiratory effort without use of accessory muscles. Musculoskeletal: No LE edema or tenderness; Normal gait and station Cardiovascular: Regular rate Gastrointestinal: soft, non-tender, non-distended, denies CVA tenderness Clinic: GLUCOSE UA (POCT) (mg/dL) Date Value 12/11/2024 Negative BILIRUBIN UA (POCT) (no units) Date Value 12/11/2024 Negative KETONE UA (POCT) (mg/dL) Date Value 12/11/2024 Negative SPECIFIC GRAVITY UA (POCT) (no units) Date Value 12/11/2024 1.015 HEMOGLOBIN/BLOOD UA (POCT) (no units) Date Value 12/11/2024 Negative PH UA (POCT) (no units) Date Value 12/11/2024 7.0 PROTEIN UA (POCT) (mg/dL) Date Value 12/11/2024 Negative UROBILINOGEN UA (POCT) (E.U./dL) Date Value 12/11/2024 0.2 NITRITE UA (POCT) (no units) Date Value 12/11/2024 Negative LEUKOCYTES UA (POCT) (no units) Date Value 12/11/2024 Negative COLOR UA (POCT) (no units) Date Value 12/11/2024 Yellow CLARITY UA (POCT) (no units) Date Value 12/11/2024 Slightly Cloudy I have reviewed the problem list, family history, and social history documented by my ancillary staff. Maria Luz Rodriguez APRN.ILDEFONSO documented in this encounter[facility]25 NoteHNO ID: [id number] Author: MARIA LUZ RODRIGUEZ APRN.CNP Service: ? Author Type: Nurse Practitioner Type: Progress Notes Filed: 12/11/2024 15:23 Note Text: [facility] NEW PATIENT HISTORY AND PHYSICAL EXAMINATION PATIENT: Abbey Hanna (24 year old) PCP: Sid Whitehead CNP, CNP Assessment AND Plan Feeling of incomplete bladder emptying Ua- negative Pvr- 13 cc. - Experiencing urinary frequency, urgency, and a sensation of incomplete bladder emptying for the past year. No history of kidney stones or family history of kidney or bladder cancer. No previous surgeries involving the kidneys, bladder, or urethra. Recent gynecological examination revealed no abnormalities around the urethra. Abdominal imaging showed no significant findings. Discussed potential bladder irritants such as coffee and soda. Initiated oxybutynin at a low dose to manage symptoms; advised on potential side effects, including dry mouth, and recommended increasing fluid intake. Follow-up in 6 weeks to assess response to treatment. Orders: BLADDER SCAN oxybutynin ER (DITROPAN XL) 10 mg 24 hr tablet; Take 1 tablet by mouth once daily. Frequency of micturition Orders: oxybutynin ER (DITROPAN XL) 10 mg 24 hr tablet; Take 1 tablet by mouth once daily. Overactive bladder Orders: oxybutynin ER (DITROPAN XL) 10 mg 24 hr tablet; Take 1 tablet by mouth once daily. Urinary urgency Orders: oxybutynin ER (DITROPAN XL) 10 mg 24 hr tablet; Take 1 tablet by mouth once daily. FOLLOW UP: Return in about 6 weeks (around 01/22/2025). CHIEF COMPLAINT: Patient presents with: Urinary Retention HISTORY OF PRESENT ILLNESS: I personally reviewed the patient's past medical records. Ms. Hanna is a 24 year old female referred by self for urinary frequency, and feeling of JOSH. Previous Urologist: denies Hx of kidney stones: denies Family hx of kidney stones/treatment: denies Personal/family hx of kidney cancer, bladder cancer, or prostate cancer: denies Previous surgery on kidneys, bladder, urethra, or prostate: denies Hx of smoking: denies Environmental/occupational exposures: denies DTF:q1-2 hours NTF: 1-2 times nightly URGENCY: yes UUI: yes intermittent DIPIKA:yes intermittent STRAINING: yes FEELING OF INCOMPLETE EMPTYING: yes PADS PER DAY: denies Urinary Frequency and Urgency: - Increased urinary frequency and urgency x1 year. - Voids more than every hour during the day. - Nocturia 1-2 times per night. - Experiences urgency and occasional urinary leakage, both with urgency and physical activities like coughing. - Feels incomplete bladder emptying with a tingly sensation post-void. - Occasionally strains to urinate. - Denies wearing pads for leakage. - Recent gynecological exam showed no abnormalities around the urethra. - Drinks one small coffee daily and soda 2-3 times per week. - Denies history of kidney stones, family history of kidney or bladder cancer, or previous surgeries involving the kidneys, bladder, or urethra. REVIEW OF SYSTEMS GENERAL:denies unintentional weight loss, malaise or fevers. NEUROLOGIC: pt is alert and oriented GASTROINTESTINAL: No nausea, vomiting, or diarrhea GENITOURINARY: See HPI MUSCULOSKELETAL: Negative for joint pain or swelling, back pain or muscle pain SKIN: Negative for lesions, rash, and itching. ALLERGIES: ALLERGIES No Known Allergies MEDICATIONS: omeprazole (PRILOSEC) 10 mg capsule Take 10 mg by mouth once daily. Levonorgestrel-Ethinyl Estrad (AVIANE) 0.1mg - 20mcg per tablet Take 1 tablet by mouth once daily. oxybutynin ER (DITROPAN XL) 10 mg 24 hr tablet Take 1 tablet by mouth once daily. verapamil HCl (VERAPAMIL ORAL) Take by mouth once daily. (Patient not taking: Reported on 12/11/2024) PAST HISTORY: PAST MEDICAL HISTORY Diagnosis Date Depression Encounter for supervision of high risk in second trimester, antepartum (HCC) 03/28/2023 Urinary retention PAST SURGICAL HISTORY Procedure Laterality Date SNGL 09/11/2023 FAMILY HISTORY Problem Relation Age of Onset Hypertension Mother No Known Problems Father No Known Problems Brother Hypertension Brother Heart Maternal Grandfather No Ocular Disease No Family History Social History Tobacco Use Smoking status: Former Current packs/day: 0.00 Types: Cigarettes Quit date: 2020 Years since quittin.4 Passive exposure: Never Smokeless tobacco: Never Tobacco comments: Occasional Vape Vaping Use Vaping status: Former Substance Use Topics Alcohol use: Yes Comment: occa-vodka Drug use: Yes Types: Marijuana PHYSICAL EXAMINA (more content not included)...[facility] NoteHNO ID: [id number] Author: KELLY CEVALLOS APRN.SENIOR DRAFTER Service: ? Author Type: Nurse Practitioner Type: Progress Notes Filed: 11/20/2024 15:33 Note Text: Abbey is a 24 year old who presents for an annual gynecologic exam with complaints, urinary discomfort. See urology next month LMP: 11/20/2024 Menses: cycles every 28 days and 5 days of flow Contraception: Pill HPV vaccine: Yes had at least 1 hpv vaccine Last pap smear: 10/24/2023 HPV: NA History of abnormal pap: No Last mammogram: never Sexually active: yes Patient concerns for STD exposure: No. OB History Gravida1 Para1 Term1 Preterm0 AB0 Living1 SAB0 IAB0 Ectopic0 Multiple0 Live Births1 Secondary Education Professor History LMP: 11/20/2024 (Exact Date), IUD Age at Menarche: Age at First : Age at Menopause: Secondary Education Professor History Comments: Sexual Activity: Not Asked; Male; not asked Contraception: No contraception data on record PAST MEDICAL HISTORY Diagnosis Date Depression Encounter for supervision of high risk in second trimester, antepartum (HCC) 03/28/2023 PAST SURGICAL HISTORY Procedure Laterality Date SNGL 09/11/2023 FAMILY HISTORY Problem Relation Age of Onset Hypertension Mother No Known Problems Father No Known Problems Brother Hypertension Brother Heart Maternal Grandfather No Ocular Disease No Family History SOCIAL HISTORY Social History Tobacco Use Smoking status: Former Types: Cigarettes Passive exposure: Never Smokeless tobacco: Never Tobacco comments: Occasional Vape Vaping Use Vaping status: Former Substance Use Topics Alcohol use: Never Drug use: Never REVIEW OF SYSTEMS Abdomen: No abdominal pain, nausea, vomiting, diarrhea, or constipation. No bloating, early satiety, indigestion, or increased flatulence. Bladder: . Breast: No breast lumps, nipple d/c, overlying skin changes, redness or skin retraction. Allergies and current medication updated:Yes SENSITIVE EXAM: The sensitive examination was discussed with the Patient or Patient's Authorized Cinder Man. As applicable, any other physician, advance practice provider, medical student, or other health professional student that will be observing or involved in the sensitive examination for educational or training purposes was discussed with the Patient or Authorized Cinder Man. The Patient or Authorized Cinder Man has agreed to proceed with the sensitive examination. (Sensitive examination includes inspection and/or palpation of the breasts, pelvis, prostate and anorectal regions). EXAM: BP 114/72 Ht 5' 3 (1.60m) Wt 214 lb (97.1kg) LMP 11/20/2024 BMI 37.92 kg/(m2). GENERAL: pleasant, female in no apparent distress HEENT: Normocephalic, atraumatic, mucus membranes moist, and no lesions DERMATOLOGY: Normal, without lesions, non-icteric, and non-hirsute BREAST: soft, non-tender, symmetric, no dominant mass, normal nipple-areolar complex, no lymphadenopathy, and no nipple discharge CHEST: Normal inspiratory effort ABDOMEN: soft, non-tender, and no masses PELVIC: external genitalia normal, normal Bartholin's glands, urethra, Sikeston's glands, no vulvar lesions, no cervical lesions, good vaginal support, physiologic discharge present, normal appearing perineal body and perianal region BIMANUAL: uterus normal size, shape and consistency, no adnexal masses, and non-tender RECTOVAGINAL: deferred. NEURO: alert and oriented x3,exam grossly non-focal EXTREMITIES: normal ASSESSMENT/PLAN: 1) Health maintenance: Pap/HPV up to date. Mammogram starting age 40. Nutrition, exercise and routine health maintenance exams reviewed. Calcium/Vitamin D supplementation information provided. Colon cancer screening: start at age 45 2) Contraception: combined hormonal contraceptives. Contraceptive options reviewed and information provided. 3) STD screening: Declined STD check. 4) Follow up one year or sooner as needed 5) BV/yeast ordered- Will notify patient of test results. Kelly Cevallos APRN.[facility] History of Present illness Narrative* Kelly Cevallos APRN.SENIOR DRAFTER - 11/20/2024 2:45 PM EDT Abbey is a 24 year old who presents for an annual gynecologic exam with complaints, urinary discomfort. See urology next month LMP: 11/20/2024 Menses: cycles every 28 days and 5 days of flow Contraception: Pill HPV vaccine: Yes had at least 1 hpv vaccine Last pap smear: 10/24/2023 HPV: NA History of abnormal pap: No Last mammogram: never Sexually active: yes Patient concerns for STD exposure: No. OB History Gravida1 Para1 Term1 Preterm0 AB0 Living1 SAB0 IAB0 Ectopic0 Multiple0 Live Births1 Secondary Education Professor History LMP: 11/20/2024 (Exact Date), IUD Age at Menarche: Age at First : Age at Menopause: Secondary Education Professor History Comments: Sexual Activity: Not Asked; Male; not asked Contraception: No contraception data on record PAST MEDICAL HISTORY Diagnosis Date Depression Encounter for supervision of high risk in second trimester, antepartum (HCC) 03/28/2023 PAST SURGICAL HISTORY Procedure Laterality Date SNGL 09/11/2023 FAMILY HISTORY Problem Relation Age of Onset Hypertension Mother No Known Problems Father No Known Problems Brother Hypertension Brother Heart Maternal Grandfather No Ocular Disease No Family History SOCIAL HISTORY Social History Tobacco Use Smoking status: Former Types: Cigarettes Passive exposure: Never Smokeless tobacco: Never Tobacco comments: Occasional Vape Vaping Use Vaping status: Former Substance Use Topics Alcohol use: Never Drug use: Never REVIEW OF SYSTEMS Abdomen: No abdominal pain, nausea, vomiting, diarrhea, or constipation. No bloating, early satiety, indigestion, or increased flatulence. Bladder: . Breast: No breast lumps, nipple d/c, overlying skin changes, redness or skin retraction. Allergies and current medication updated:Yes SENSITIVE EXAM: The sensitive examination was discussed with the Patient or Patient's Authorized Cinder Man. As applicable, any other physician, advance practice provider, medical student, or other health professional student that will be observing or involved in the sensitive examination for educational or training purposes was discussed with the Patient or Authorized Cinder Man. The Patient or Authorized Cinder Man has agreed to proceed with the sensitive examination. (Sensitive examination includes inspection and/or palpation of the breasts, pelvis, prostate and anorectal regions). EXAM: BP 114/72 Ht 5' 3 (1.60m) Wt 214 lb (97.1kg) LMP 11/20/2024 BMI 37.92 kg/(m^2). GENERAL: pleasant, female in no apparent distress HEENT: Normocephalic, atraumatic, mucus membranes moist, and no lesions DERMATOLOGY: Normal, without lesions, non-icteric, and non-hirsute BREAST: soft, non-tender, symmetric, no dominant mass, normal nipple-areolar complex, no lymphadenopathy, and no nipple discharge CHEST: Normal inspiratory effort ABDOMEN: soft, non-tender, and no masses PELVIC: external genitalia normal, normal Bartholin's glands, urethra, Sikeston's glands, no vulvar lesions, no cervical lesions, good vaginal support, physiologic discharge present, normal appearing perineal body and perianal region BIMANUAL: uterus normal size, shape and consistency, no adnexal masses, and non-tender RECTOVAGINAL: deferred. NEURO: alert and oriented x3,exam grossly non-focal EXTREMITIES: normal ASSESSMENT/PLAN: 1) Health maintenance: Pap/HPV up to date. Mammogram starting age 40. Nutrition, exercise and routine health maintenance exams reviewed. Calcium/Vitamin D supplementation information provided. Colon cancer screening: start at age 45 2) Contraception: combined hormonal contraceptives. Contraceptive options reviewed and information provided. 3) STD screening: Declined STD check. 4) Follow up one year or sooner as needed 5) BV/yeast ordered- Will notify patient of test results. Kelly Cevallos APRN.SENIOR DRAFTER documented in this encounterPrem[facility] NoteDischarge Instructions Discharge Summary [address] [address] [id number] 09/23/2024 Patient: ABBEY HANNA Sex: Female : 2000 Age: 24y Thank you for visiting [facility]. You have been evaluated today by Adithya Rivera D.O. for the following condition(s): Principal Diagnosis Chest pain. INSTRUCTIONS Follow-up: Follow up with a chemical project engineer as scheduled. Follow up with your healthcare provider in three days. Call for an appointment. You have been given the following additional information: Uncertain Causes of Chest Pain Patient [facility] Facility Cinder Man Date/Time 1 of 4 Discharge Instructions General Instructions with ExitWriter [address] [address] [id number] 09/23/2024 Patient: ABBEY HANNA Sex: Female : 2000 Age: 24y Thank you for visiting [facility]. You have been evaluated today by Adithya Rivera D.O. for the following condition(s): Principal Diagnosis Chest pain. INSTRUCTIONS Follow-up: Follow up with a chemical project engineer as scheduled. Follow up with your healthcare provider in three days. Call for an appointment. ADDITIONAL INFORMATION 2 of 4 Discharge Instructions Uncertain Causes of Chest Pain Chest pain can happen for a number of reasons. Sometimes the cause can't be determined. If your condition does not seem serious, and your pain does not appear to be coming from your heart, your healthcare provider may recommend watching it closely. Sometimes the signs of a serious problem take more time to appear. Many problems not related to your heart can cause chest pain. These include: Musculoskeletal. Costochondritis is an inflammation of the tissues around the ribs that can occur from trauma or overuse injuries, or a strain of the muscles of the chest wall Respiratory. Pneumonia, collapsed lung (pneumothorax), or inflammation of the lining of the chest and lungs (pleurisy) Gastrointestinal. Esophageal reflux, heartburn, ulcers, or gallbladder disease Anxiety and panic disorders Nerve compression and inflammation Rare miscellaneous problems such as aortic aneurysm (a swelling of the large artery coming out of the heart) or pulmonary embolism (a blood clot in the lungs) Home care After your visit, follow these recommendations: Rest today and avoid strenuous activity. Take any prescribed medicine as directed. 3 of 4 Discharge Instructions Be aware of any recurrent chest pain and notice any changes Follow-up care Follow up with your healthcare provider if you do not start to feel better within 24 hours, or as advised. Call 911 Call 911 if any of these occur: A change in the type of pain: if it feels different, becomes more severe, lasts longer, or begins to spread into your shoulder, arm, neck, jaw or back Shortness of breath or increased pain with breathing Weakness, dizziness, or fainting Rapid heart beat Crushing sensation in your chest When to seek medical advice Call your healthcare provider right away if any of the following occur: Cough with dark colored sputum (phlegm) or blood Fever of 100.4F (38C) or higher, or as directed by your healthcare provider Swelling, pain or redness in one leg [address] [place], [place] [id number] NoteHNO ID: [id number] Author: ISAAC WALTER OD Service: ? Author Type: BRASS ROLLER Type: Progress Notes Filed: 08/27/2024 10:19 Note Text: 1. Blurred vision, bilateral (Primary) 2. Regular astigmatism of both eyes No ocular health pathology both eyes Finalized spec rx Patient being assessed currently for polymorphic ventricular tachycardia and wearing a heart monitor- educated pt that some intermittent blurred vision could be related to dizziness/symptoms of current heart issues- recommended continued follow-up with PCP (who also wants patient to see Cardiology) Follow-up with me in 1 year for complete Isaac Walter OD August 27, 2024 10:14 [facility]03-06-2025 History of Present illness Narrative* Isaac Walter, OD - 08/27/2024 10:14 AM EST 1. Blurred vision, bilateral (Primary) 2. Regular astigmatism of both eyes No ocular health pathology both eyes Finalized spec rx Patient being assessed currently for polymorphic ventricular tachycardia and wearing a heart monitor- educated pt that some intermittent blurred vision could be related to dizziness/symptoms of current heart issues- recommended continued follow-up with PCP (who also wants patient to see Cardiology) Follow-up with me in 1 year for complete Isaac Walter OD August 27, 2024 10:14 AM documented in this encounterPrem[facility]12-16-2024 NoteDischarge Instructions Discharge Summary [address] [address] [id number] 06/07/2024 Patient: ABBEY HANNA Sex: Female : 2000 Age: 24y Thank you for visiting [facility]. You have been evaluated today by Robi Boyd M.D. for the following condition(s): Principal Diagnosis Chest pain characterized as discomfort. Urinary tract infection. INSTRUCTIONS Follow-up: Follow up with your doctor in three. Summary of care provided to via paper. You have been given the following additional information: Uncertain Causes of Chest Pain Patient [facility] Cinder Man Date/Time 1 of 4 Discharge Instructions General Instructions with ExitWriter [address] [address] [id number] 06/07/2024 Patient: ABBEY HANNA Sex: Female : 2000 Age: 24y Thank you for visiting [facility]. You have been evaluated today by Robi Boyd M.D. for the following condition(s): Principal Diagnosis Chest pain characterized as discomfort. Urinary tract infection. INSTRUCTIONS Follow-up: Follow up with your doctor in three. Summary of care provided to via paper. ADDITIONAL INFORMATION 2 of 4 Discharge Instructions Uncertain Causes of Chest Pain Chest pain can happen for a number of reasons. Sometimes the cause can't be determined. If your condition does not seem serious, and your pain does not appear to be coming from your heart, your healthcare provider may recommend watching it closely. Sometimes the signs of a serious problem take more time to appear. Many problems not related to your heart can cause chest pain. These include: Musculoskeletal. Costochondritis is an inflammation of the tissues around the ribs that can occur from trauma or overuse injuries, or a strain of the muscles of the chest wall Respiratory. Pneumonia, collapsed lung (pneumothorax), or inflammation of the lining of the chest and lungs (pleurisy) Gastrointestinal. Esophageal reflux, heartburn, ulcers, or gallbladder disease Anxiety and panic disorders Nerve compression and inflammation Rare miscellaneous problems such as aortic aneurysm (a swelling of the large artery coming out of the heart) or pulmonary embolism (a blood clot in the lungs) Home care After your visit, follow these recommendations: Rest today and avoid strenuous activity. Take any prescribed medicine as directed. 3 of 4 Discharge Instructions Be aware of any recurrent chest pain and notice any changes Follow-up care Follow up with your healthcare provider if you do not start to feel better within 24 hours, or as advised. Call 911 Call 911 if any of these occur: A change in the type of pain: if it feels different, becomes more severe, lasts longer, or begins to spread into your shoulder, arm, neck, jaw or back Shortness of breath or increased pain with breathing Weakness, dizziness, or fainting Rapid heart beat Crushing sensation in your chest When to seek medical advice Call your healthcare provider right away if any of the following occur: Cough with dark colored sputum (phlegm) or blood Fever of 100.4F (38C) or higher, or as directed by your healthcare provider Swelling, pain or redness in one leg [address] [place], [place] [id number] NoteHNO ID: [id number] Author: KAYLA RODRIGUEZ APRN.CNM Service: ? Author Type: Him Analyst Type: Progress Notes Filed: 01/20/2024 18:07 Note Text: Abbey Hanna is a 23 year old female who presents for problem visit for HPI: Presents today with pelvic pain and discomfort. She started her period yesterday and pain was into her mid to lower abdomen into her pelvis. Increased pain rating 7/10. Bleeding was her normal amount. Tested positive for trichomonas on 12/20/23. Both her and partner treated and no intercourse for 7 days after treatment. Nervous she has PID. Bottle feeding, 4 months old. 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 Comments: Sexual Activity: Not Currently; Male; not asked Contraception: No contraception data on record PAST MEDICAL HISTORY Diagnosis Date Depression Encounter for supervision of high risk in second trimester, antepartum 03/28/2023 PAST SURGICAL HISTORY Procedure Laterality Date SNGL 09/11/2023 FAMILY HISTORY Problem Relation Age of Onset Hypertension Mother No Known Problems Father No Known Problems Brother Hypertension Brother Heart Maternal Grandfather No Ocular Disease No Family History Social History Tobacco Use Smoking status: Former Types: Cigarettes Passive exposure: Never Smokeless tobacco: Never Tobacco comments: Occasional Vape Vaping Use Vaping Use: Former Substance Use Topics Alcohol use: Never Drug use: Never Current Outpatient Medications Medication Sig ondansetron (ZOFRAN) 4 mg tablet Take 1 tablet by mouth every 8 hours as needed for nausea/vomiting. PARoxetine (PAXIL) 10 mg tablet Take 1 tablet by mouth every afternoon. VITAMIN 27 mg iron- 0.8 mg tablet Take 1 tablet by mouth every afternoon. No current facility-administered medications for this visit. Allergies As of Date: 01/14/2024 (No Known Allergies) Fully Assessed 01/14/2024 REVIEW OF SYSTEMS Abdomen: No bloating, early satiety, indigestion, or increased flatulence. No abdominal pain, nausea, vomiting, diarrhea, or constipation. Bladder: No dysuria, gross hematuria, urinary frequency, urinary urgency, or incontinence. Breast: No breast lumps, nipple d/c, overlying skin changes, redness or skin retraction. Expanded ROS: N/A Allergies and current medication updated:Yes EXAM: BP 118/70 Wt 213 lb (96.6kg) LMP 01/12/2024 GENERAL: pleasant, female in no apparent distress HEENT: Normocephalic, atraumatic, mucus membranes moist, and no lesions CHEST: Normal inspiratory effort ABDOMEN: soft, non-tender, and no masses PELVIC: external genitalia normal, normal Bartholin's glands, urethra, Sikeston's glands, no vulvar lesions, no cervical lesions, good vaginal support, physiologic discharge present, normal appearing perineal body and perianal region BIMANUAL: uterus normal size, shape and consistency, no adnexal masses, and non-tender NEURO: alert and oriented x3,exam grossly non-focal EXTREMITIES: normal ASSESSMENT AND PLAN: Encounter Diagnosis ICD-10-CM 1. Screening for STDs (sexually transmitted diseases) Z11.3 Will complete full STD panel today and notify patient with results. Kayla Rodriguez APRN.[facility]07-23-2024 History of Present illness Narrative* Kayla Rodriguez APRN.[facility] - 01/14/2024 8:05 AM EDT Abbey Hanna is a 23 year old female who presents for problem visit for HPI: Presents today with pelvic pain and discomfort. She started her period yesterday and pain was into her mid to lower abdomen into her pelvis. Increased pain rating 7/10. Bleeding was her normal amount. Tested positive for trichomonas on 12/20/23. Both her and partner treated and no intercourse for 7 days after treatment. Nervous she has PID. Bottle feeding, 4 months old. 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 Comments: Sexual Activity: Not Currently; Male; not asked Contraception: No contraception data on record PAST MEDICAL HISTORY Diagnosis Date Depression Encounter for supervision of high risk in second trimester, antepartum 03/28/2023 PAST SURGICAL HISTORY Procedure Laterality Date SNGL 09/11/2023 FAMILY HISTORY Problem Relation Age of Onset Hypertension Mother No Known Problems Father No Known Problems Brother Hypertension Brother Heart Maternal Grandfather No Ocular Disease No Family History Social History Tobacco Use Smoking status: Former Types: Cigarettes Passive exposure: Never Smokeless tobacco: Never Tobacco comments: Occasional Vape Vaping Use Vaping Use: Former Substance Use Topics Alcohol use: Never Drug use: Never Current Outpatient Medications Medication Sig ondansetron (ZOFRAN) 4 mg tablet Take 1 tablet by mouth every 8 hours as needed for nausea/vomiting. PARoxetine (PAXIL) 10 mg tablet Take 1 tablet by mouth every afternoon. VITAMIN 27 mg iron- 0.8 mg tablet Take 1 tablet by mouth every afternoon. No current facility-administered medications for this visit. Allergies As of Date: 01/14/2024 (No Known Allergies) Fully Assessed 01/14/2024 REVIEW OF SYSTEMS Abdomen: No bloating, early satiety, indigestion, or increased flatulence. No abdominal pain, nausea, vomiting, diarrhea, or constipation. Bladder: No dysuria, gross hematuria, urinary frequency, urinary urgency, or incontinence. Breast: No breast lumps, nipple d/c, overlying skin changes, redness or skin retraction. Expanded ROS: N/A Allergies and current medication updated:Yes EXAM: BP 118/70 Wt 213 lb (96.6kg) LMP 01/12/2024 GENERAL: pleasant, female in no apparent distress HEENT: Normocephalic, atraumatic, mucus membranes moist, and no lesions CHEST: Normal inspiratory effort ABDOMEN: soft, non-tender, and no masses PELVIC: external genitalia normal, normal Bartholin's glands, urethra, Sikeston's glands, no vulvar lesions, no cervical lesions, good vaginal support, physiologic discharge present, normal appearing perineal body and perianal region BIMANUAL: uterus normal size, shape and consistency, no adnexal masses, and non-tender NEURO: alert and oriented x3,exam grossly non-focal EXTREMITIES: normal ASSESSMENT AND PLAN: Encounter Diagnosis ICD-10-CM 1. Screening for STDs (sexually transmitted diseases) Z11.3 Will complete full STD panel today and notify patient with results. Kayla Rodriguez, OFFICE MACHINE PUNCH OPERATOR.CNM documented in this encounterPrem[facility]07-22-2024 Telephone encounter Note * Telephone Encounter - Vero Graham RN - 01/13/2024 9:26 AM EDT Patient notified. Unable to come into office today. Requested tomorrow - appt scheduled. Vero Graham RN [facility]07-22-2024 Miscellaneous Notes* Telephone Encounter - Vero Graham RN - 01/13/2024 9:26 AM EDT Patient notified. Unable to come into office today. Requested tomorrow - appt scheduled. Vero Graham RN * Telephone Encounter - Kayla Rodriguez APRN.CNM - 01/13/2024 8:57 AM EDT I can do repeat testing, please schedule appointment. Thank you, Kayla Rodriguez APRN.CNM * Telephone Encounter - Shruti Walker RN - 01/13/2024 8:20 AM EDT Patient and partner were treated for Trichomonas on 12/20/23. Patient states that she started her menses on Saturday. Last night her cramping pain was severe and had heavy bleeding. Pain rate of 8. States she could hardly walk. She put on an overnight pad. Little blood on the pad. Her cramping todayis a 4. Patient is concerned for PID after searching online. Denies fever or chills. Mcdonough a little feverish last night, but did not take her temperature. This is her third menses since delivery in August. States both her and her partner completed treatment and refrained from intercourse for a week after. Advised that she can take NSAIDs and apply heat for pain relief. Shruti Walker RN documented in this encounterPrem[facility]07-22-2024 Telephone encounter Note * Telephone Encounter - Kayla Rodriguez APRN.CNM - 01/13/2024 8:57 AM EDT I can do repeat testing, please schedule appointment. Thank you, Kayla Rodriguez APRN.CNM [facility]07-22-2024 Telephone encounter Note* Telephone Encounter - Shruti Walker RN - 01/13/2024 8:20 AM EDT Patient and partner were treated for Trichomonas on 12/20/23. Patient states that she started her menses on Saturday. Last night her cramping pain was severe and had heavy bleeding. Pain rate of 8. States she could hardly walk. She put on an overnight pad. Little blood on the pad. Her cramping todayis a 4. Patient is concerned for PID after searching online. Denies fever or chills. Mcdonough a little feverish last night, but did not take her temperature. This is her third menses since delivery in August. States both her and her partner completed treatment and refrained from intercourse for a week after. Advised that she can take NSAIDs and apply heat for pain relief. Shruti Walker RN [facility]07-02-2024 Telephone encounter Note* Telephone Encounter - Shruti Walker RN - 12/24/2023 12:05 PM EDT Patient desires Expedited Partner Treatment for +Trichomonas. RX pending. Patient aware RX will be sent in her name. Shruti Walker RN [facility]07-02-2024 Miscellaneous Notes* Telephone Encounter - Shruti Walker RN - 12/24/2023 12:05 PM EDT Patient desires Expedited Partner Treatment for +Trichomonas. RX pending. Patient aware RX will be sent in her name. Shruti Walker RN documented in this encounterPrem[facility]07-02-2024 History of Present illness Narrative* Karla Acosta MD - 12/24/2023 11:36 AM EDT VIRTUAL VISIT PROGRESS NOTE This is a virtual visit using [employer] Zoom Video Visit. It required patient- provider interaction for the medical decision making as documented below. I have communicated my name and active licensure. The patient's identity and physical location wereverified at the time of this visit. Either the patient or their legal access service representative has been informed of the risks and benefits of -- and alternatives to -- treatment through a remote evaluation andconsents to proceed with the evaluation remotely. Abbey Hanna is a 23 year old female seen for contraceoption discussion. Bottle feeding . Was on progestin only OCPs at PP visit. Took them for about a month then stopped. Didn't remember to take them regularly so OCPs not the best option. Has used nexplanon in the past didn't like irreg bleeding and felt more valladares on it. Plans next in 3-4 years. Menses not on contraception- unknown has been on contraception roasterman for cramping and bleeding. Also notes has had GI bug w/ intermittent n/v. Some diarrhea. HISTORY REVIEWED (electronic chart updated): PAST MEDICAL HISTORY Diagnosis Date Depression Encounter for supervision of high risk in second trimester, antepartum 03/28/2023 PAST SURGICAL HISTORY Procedure Laterality Date SNGL 09/11/2023 FAMILY HISTORY Problem Relation Age of Onset Hypertension Mother No Known Problems Father No Known Problems Brother Hypertension Brother Heart Maternal Grandfather No Ocular Disease No Family History Social History Tobacco Use Smoking status: Former Types: Cigarettes Passive exposure: Never Smokeless tobacco: Never Tobacco comments: Occasional Vape Vaping Use Vaping Use: Former Substance Use Topics Alcohol use: Never Drug use: Never Current Outpatient Medications Medication Sig metroNIDAZOLE (FLAGYL) 500 mg tablet Take 1 tablet by mouth two times a day for 7 days. PARoxetine (PAXIL) 10 mg tablet Take 1 tablet by mouth every afternoon. VITAMIN 27 mg iron- 0.8 mg tablet Take 1 tablet by mouth every afternoon. No current facility-administered medications for this visit. ALLERGIES No Known Allergies REVIEW OF SYSTEMS: GENERAL: feeling well without fatigue, no recent change in weight PHYSICAL EXAMINATION: VIDEO EXAM: (if completed, performed via video enabled technology) GENERAL: alert and appropriate, in no distress, well-hydrated, well nourished, and happy, smiling, interactive ASSESSMENT: contraception discussion PLAN: r/b/a to various options reviewed. Most intereseted in patch/nuvaring or IUD. Will consider. Would want trich treated before insertion Gastroenteritis.- d/w her symptomatic measures trich- partner needs treated. There are no Patient Instructions on file for this visit. I spent a total of 23 minutes on the date of the service which included preparing to see the patient, [id number] patient care, completing clinical documentation, counseling and educating the patient/family/caregiver, and ordering medications, tests, or procedures Karla Acosta MD documented in this encounterPrem[facility]07-[facility] Telephone encounter Note * Telephone Encounter - Radha Montiel RN - 12/24/2023 9:27 AM EDT Pt mychart message sent from RAKESH. Seen by patient on 12/23/23. Radha Montiel RN [facility]07-02-2024 Miscellaneous Notes* Telephone Encounter - Radha Montiel RN - 12/24/2023 9:27 AM EDT Pt mychart message sent from RAKESH. Seen by patient on 12/23/23. Radha Montiel RN * Telephone Encounter - Vero Graham RN - 12/23/2023 1:09 PM EDT Patient called in because she saw positive bacterial vaginosis and trich result on mychart. States her symptoms have worsened since her appointment. She has been cramping more, n/v and had a fever over the weekend (no vomiting or fever today so far). Asking if symptoms could be related to PID too? Stated she doesn't feel trich was ever completely treated since the flagyl she took in August this year. Please advise. [facility]. Vero Graham RN documented in this encounterPrem[facility]07-01-2024 Telephone encounter Note * Telephone Encounter - Vero Graham RN - 12/23/2023 1:09 PM EDT Patient called in because she saw positive bacterial vaginosis and trich result on mychart. States her symptoms have worsened since her appointment. She has been cramping more, n/v and had a fever over the weekend (no vomiting or fever today so far). Asking if symptoms could be related to PID too? Stated she doesn't feel trich was ever completely treated since the flagyl she took in August this year. Please advise. [facility] pharmacy. Vero Graham RN [facility]06-28-2024 History of Present illness Narrative* Kayla Rodriguez APRN.ALEKSANDAR - 12/20/2023 4:10 PM EDT Abbey Hanna is a 23 year old female who presents for problem visit for STD testing. HPI: Presents today for testing. Slight vaginal discharge, no odor. Having some burning with urination at times and wanted to make sure. Partner stated he had burning with urination and this had her concerned. Denies any other concerns. 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 LMP: 12/25/2022 (Exact Date), Age at Menarche: Age at First : Age at Menopause: Secondary Education Professor History Comments: Sexual Activity: Not Currently; Male; not asked Contraception: No contraception data on record PAST MEDICAL HISTORY Diagnosis Date Depression Encounter for supervision of high risk in second trimester, antepartum 03/28/2023 PAST SURGICAL HISTORY Procedure Laterality Date SNGL 09/11/2023 FAMILY HISTORY Problem Relation Age of Onset Hypertension Mother No Known Problems Father No Known Problems Brother Hypertension Brother Heart Maternal Grandfather No Ocular Disease No Family History Social History Tobacco Use Smoking status: Former Types: Cigarettes Passive exposure: Never Smokeless tobacco: Never Tobacco comments: Occasional Vape Vaping Use Vaping Use: Former Substance Use Topics Alcohol use: Never Drug use: Never Current Outpatient Medications Medication Sig Norethindrone, Contraceptive, 0.35 mg tablet Take 1 tablet by mouth once daily. PARoxetine (PAXIL) 10 mg tablet Take 1 tablet by mouth every afternoon. acyclovir (ZOVIRAX) 400 mg tablet Take 1 tablet by mouth three times a day. (Patient not taking: Reported on 10/24/2023) Magnesium Oxide 420 mg tab Take 1 tablet by mouth once daily. (Patient not taking: Reported on 10/24/2023) VITAMIN 27 mg iron- 0.8 mg tablet Take 1 tablet by mouth every afternoon. folic acid 1 mg tablet Take 1 tablet by mouth every afternoon. (Patient not taking: Reported on 10/24/2023) No current facility-administered medications for this visit. Allergies As of Date: 12/20/2023 (No Known Allergies) Fully Assessed 10/03/2023 REVIEW OF SYSTEMS Abdomen: No bloating, early satiety, indigestion, or increased flatulence. No abdominal pain, nausea, vomiting, diarrhea, or constipation. Bladder: No dysuria, gross hematuria, urinary frequency, urinary urgency, or incontinence. Breast: No breast lumps, nipple d/c, overlying skin changes, redness or skin retraction. Expanded ROS: N/A Allergies and current medication updated:Yes EXAM: LMP 12/25/2022 BP 104/62 Wt 97.1 kg (214 lb) LMP 12/14/2023 (Exact Date) No BMI 39.14 kg/m GENERAL: pleasant, female in no apparent distress HEENT: Normocephalic and atraumatic NECK: Supple and full range of motion DERMATOLOGY: Normal and without lesions CHEST: Normal inspiratory effort ABDOMEN: soft, non-tender, and no masses PELVIC: external genitalia normal, normal Bartholin's glands, urethra, Sikeston's glands, no vulvar lesions, no cervical lesions, good vaginal support, physiologic discharge present, normal appearing perineal body and perianal region BIMANUAL: uterus normal size, shape and consistency, no adnexal masses, and non-tender NEURO: alert and oriented x3,exam grossly non-focal EXTREMITIES: normal ASSESSMENT AND PLAN: 1. Screening for STD (sexually transmitted disease) - ICD9: V74.5, ICD10: Z11.3 (primary diagnosis) - WAQAR/TRICHOMONAS NAAT - BACTERIAL VAGINOSIS NAAT - GONORRHEA/CHLAMYDIA NAAT - SYPHILIS TOTAL W/REFLEX - HIV 1/2 COMBO WITH REFLEX TO DIFFERENTIATION - HEPATITIS C ANTIBODY IA WITH CONFIRMATION - HEPATITIS B SURFACE ANTIGEN 2. Dysuria - ICD9: 788.1, ICD10: R30.0 - URINE CULTURE Kayla Rodriguez APRN.CNM documented in this encounterPrem[facility]05-02-2024 History of Present illness Narrative* Karla Acosta MD - 10/24/2023 11:35 AM EDT VISIT Abbey Hanna is a 23 year old year old here for visit. Delivery Summary: c-s ROS/ Recovery: Feeding: Breast and bottle feeding problems: formula at night Menses since delivery: none Menstrual pattern prior to : Regular periods off of b/c [place] since delivery: Not resumed Depression: admits to symptoms of depression. But medication is helping OB Depression and Anxiety Screening- This Encounter (since 10/23/2023) Over the past 2 weeks have you felt down, depressed, or hopeless? Negative Over the past two weeks, have you felt little interest or pleasure in doing things? Negative Feeling nervous, anxious or on edge 1-Several days Not being able to stop or control worrying 0-Not al all Anxiety Pre-Screening Total (If >/= 3 additional questions will be reviewed) 1 Emotional support: Yes Bowel symptoms: Constipation, Positive for heart burn , and Negative for abdominal discomfort, blood in stools or black stools Abdomen: was a open spot on the left side but thinks its ok now Bladder symptoms: No dysuria, gross hematuria, urinary frequency, urinary urgency, or incontinence Other issues: None Last Pap: none HPV: N/A PAST MEDICAL HISTORY Diagnosis Date Depression Encounter for supervision of high risk in second trimester, antepartum 03/28/2023 PAST SURGICAL HISTORY Procedure Laterality Date SNGL 09/11/2023 FAMILY HISTORY Problem Relation Age of Onset Hypertension Mother No Known Problems Father No Known Problems Brother Hypertension Brother Heart Maternal Grandfather No Ocular Disease No Family History Social History Tobacco Use Smoking status: Former Types: Cigarettes Passive exposure: Never Smokeless tobacco: Never Tobacco comments: Occasional Vape Vaping Use Vaping Use: Former Substance Use Topics Alcohol use: Never Drug use: Never Reviewed above and agree. Takes tylenol prn pain. PHYSICAL EXAMINATION: BP 110/64 Ht 5' 2 (1.58m) Wt 200 lb (90.7kg) LMP 12/25/2022 BMI 36.57 kg/(m^2). GENERAL: pleasant, female in no apparent distress HEENT: Normocephalic, atraumatic, mucus membranes moist, and no lesions NECK: Supple, full range of motion, no adenopathy, and thyroid normal DERMATOLOGY: Normal, without lesions, non-icteric, and non-hirsute BREAST: soft, non-tender, symmetric, no dominant mass, normal nipple-areolar complex, no lymphadenopathy, and no nipple discharge CHEST: Normal inspiratory effort ABDOMEN: soft, non-tender, and no masses. INCISION: No incisional redness, swelling, or drainage PELVIC: external genitalia normal, normal Bartholin's glands, urethra, Sikeston's glands, no vulvar lesions, no cervical lesions, good vaginal support, physiologic discharge present, normal appearing perineal body and perianal region BIMANUAL: uterus normal size, shape and consistency, no adnexal masses, and non-tender NEURO: alert and oriented x3,exam grossly non-focal EXTREMITIES: normal ASSESSMENT AND PLAN: 23 year old status post CS with normal course. Contraception plan: Oral contraceptives Follow up: RTC for insertion for annual or prn f/u in 2-3 month discuss conctraception again encouarged lar Karla Acosta MD documented in this encounterPremier Health [facility]04-25-2024 Telephone encounter Note * Telephone Encounter - Vero Graham RN - 10/17/2023 4:35 PM EDT Patient delivered 09/11/23 and Paxil was originally prescribed 09/14/23 on discharge. Last PP visit 10/03/23. Vero Graham RN [facility]04-25-2024 Miscellaneous Notes* Telephone Encounter - Vero Graham RN - 10/17/2023 4:35 PM EDT Patient delivered 09/11/23 and Paxil was originally prescribed 09/14/23 on discharge. Last PP visit 10/03/23. Vero Graham RN * Telephone Encounter - Elza Cortez - 10/17/2023 4:09 PM EDT Patient has been identified by name and date of : Yes Last office visit in this department: 10/03/2023 RX INSTRUCTIONS: Patient aware RX will be sent to pharmacy. No need to notify patient. Patient phones requesting refills as follows: Requested Prescriptions Pending Prescriptions Disp Refills PARoxetine (PAXIL) 10 mg tablet Sig: Take 1 tablet by mouth every afternoon. Please review and advise. Elza Ruth documented in this encounterPrem[facility]04-25-2024 Telephone encounter Note * Telephone Encounter - Elza Cortez - 10/17/2023 4:09 PM EDT Patient has been identified by name and date of : Yes Last office visit in this department: 10/03/2023 RX INSTRUCTIONS: Patient aware RX will be sent to pharmacy. No need to notify patient. Patient phones requesting refills as follows: Requested Prescriptions Pending Prescriptions Disp Refills PARoxetine (PAXIL) 10 mg tablet Sig: Take 1 tablet by mouth every afternoon. Please review and advise. Elza Ruth [facility]04-11-2024 History of Present illness Narrative* Shruti Hunter MD - 10/03/2023 10:42 AM EDT EARLY VISIT Abbey Hanna is a 23 year old here for 4 week visit. Feeling a bit overwhelmed. Taking Paxil. Not sure if its helping but want to continuing trying. No longer taking Procardia. Not sleeping much. Baby is breast feeding. SGA and still under 6 lbs. Feeding q 2-3 hours. Abbey does get much sleep. Feels she things are starting to get better. Doesn't want to change anything just yet. Mom and grandma are good support. Delivery Summary: C/S 09/11/23 [place] ROS: General: Denies any fever or chills Hypertension Screening: Headache? Yes. Was it successfully treated with Tylenol? sometimes Visual Changes? No Epigastric Pain? No Increased Swelling? No Taking any BP medications at home? No If applicable, monitoring BP at home? (If Yes, include results) Yes / 110/83 Mood: normal and sad Depression: admits to symptoms of depression. OB Depression and Anxiety Screening- This Encounter (since 10/02/2023) Over the past 2 weeks have you felt down, depressed, or hopeless? Positive - Further Testing Indicated I have been able to laugh and see the funny side of things. Not quite so much now I have looked forward with enjoyment to things. Rather less than I used to I have blamed myself unnecessarily when things went wrong. Yes, some of the time I have been anxious or worried for no good reason. No, not at all I have felt scared or panicky for no good reason. No, not at all Things have been getting on top of me. No, most of the time I have coped quite well I have been so unhappy that I have had difficulty sleeping. Yes, sometimes I have felt sad or miserable. Yes, quite often I have been so unhappy that I have been crying. Only occasionally The thought of harming myself has occurred to me. Never [place] Depression Scale Total 10 Feeling nervous, anxious or on edge 1-Several days Not being able to stop or control worrying 0-Not al all Anxiety Pre-Screening Total (If >/= 3 additional questions will be reviewed) 1 Feeding: Breast feeding problems: None Bladder: No dysuria, gross hematuria, urinary frequency, urinary urgency, or incontinence Bowel symptoms: Constipation Abdomen: N/A Bleeding: spotting, light flow Bottom and Perineum: No issues Sleep: no sleep concerns, feels rested [place] since delivery: Not resumed Emotional support: Yes Exercise: N/A Other issues: None PHYSICAL EXAMINATION: LMP 12/25/2022 (Exact Date) General: pleasant,female in no apparent distress, A&O x 3. Skin warm and intact. Breast: Deferred Abdomen: soft, non-tender, and no masses /Incision: No incisional redness, swelling, or drainage Pelvic: Deferred Bimanual: Deferred ASSESSMENT AND PLAN: 23 year old status post CS with normal course. Contraception plan: unsure, not with FOB anymore . Reinforced 6-week pelvic rest. Encouraged condomusage should patient deviate. Education: resources provided - see MA/RN note Baby blues vs PPD. Following up at 6 weeks. Will consider med changes if needed at that time Follow up: Return to Clinic for 6 week visit and as needed Shruti Hunter MD documented in this encounterPrem[facility]04-08-2024 Miscellaneous Notes* Telephone Encounter - Jese Durant RN - 09/30/2023 2:53 PM EDT Appointment scheduled . Jese Durant RN * Telephone Encounter - Karla Acosta MD - 09/30/2023 1:33 PM EDT Needs appointment this week. Can try to skip procardia next few days and if SBP> 160 or DP > 100 then take a dose of the labetalol prn. Karla Acosta MD * Telephone Encounter - Kim Mckeon MD - 09/23/2023 3:06 PM EDT Cont Procardia and send BP log again next week * Telephone Encounter - Vero Graham RN - 09/23/2023 12:50 PM EDT Patient delivered 09/11/23. Vero Graham RN documented in this encounterPremier [facility]04-08-2024 Miscellaneous Notes* Telephone Encounter - Vero Graham RN - 09/30/2023 12:05 PM EDT See 09/23/23 mychart message encounter. Patient previously sent BP readings and it was already forwarded to technical sales consultant provider. Vero Graham RN * Telephone Encounter - Vero Graham RN - 09/27/2023 1:09 PM EDT Patient notified. Will leave open for 09/29 update. Vero Graham RN * Telephone Encounter - Shruti Hunter MD - 09/27/2023 12:30 PM EDT The diastolics are still on the higher side. Continue the procardia for now. Let us know on Saturday how her BP was over the weekend * Telephone Encounter - Shruti Walker RN - 09/27/2023 11:22 AM EDT C/S on 09/10. See 09/22 [place] [employer] message. Patient is only taking Procardia now. The following are her latest BP readings: 09/24 AM 125/87 PM 118/83 4/ AM 116/80 PM 106/77 4/ AM 114/79 - did not take Procardia yet. Asking if she should still continue taking the Procardia. Concerned her BP will get too low. DeniesHA or dizziness. Please advise. Shruti Walker RN documented in this encounterPremier Health [facility]03-27-2024 Discharge summary Author Shruti Hunter [facility] September 18, 2023 8:29am Note Date/Time September 18, 2023 8:2 9am [facility] Medical Records Department [address] [place] [address] Discharge Summary 09/18/23 0827 MR#: [id number] Acct: [id number] Name: ABBEY HANNA Rep #:[id number] : 2000 23 From: Shruti Hunter MD PCP: RIO Wills Status:ADM IN Location: NI045-0 Providers Date of Admission: 09/15/23 Date of Discharge: 09/18/23 Primary Care Physician: RIO Wills Reason For Visit: POST PRE E Diagnosis Discharge Diagnosis (1) Preeclampsia: Status: Acute Code(s): O14.90 - Unspecified pre-eclampsia, unspecified trimester Qualifiers: Trimester: unspecified trimester Qualified Code(s): O14.90 - Unspecified pre-eclampsia, unspecified trimester Plan: Home with Procardia and labetalol. BP Check Saturday if ablel Medications at Discharge Home Medications vit no.95-ferrous fumarate 28 mg-folic acid 800 mcg tablet ( Multivitamins) 1 tab PO DAILY 07/24/23 docusate sodium 100 mg capsule (Colace) 100 mg PO BID PRN PRN constipation #30 caps 09/14/23 ibuprofen 600 mg tablet 600 mg PO Q6H PRN pain #30 tabs 09/14/23 paroxetine HCl 10 mg tablet (Paxil) 10 mg PO DAILY #30 tabs 09/14/23 labetalol 200 mg tablet 200 mg PO BID #60 tabs 09/18/23 nifedipine 30 mg tablet,extended release 24 hr 30 mg PO DAILY #30 tabs 09/18/23 Hospital Course Operations None Procedures None Summary of Care Provided Minutes Spent on Discharge: Hospital Course: Readmit post for pre eclampsia. Treated with labetalol and then Procardia. Had 24 hours of magnesium. Physical Exam Const alert General Appearance: cooperative GI GI Narrative: soft, moderate distention, fundus firm, appropriately tender. Abdominal bandageclean dry and intact Weight / BMI Weight Weight: 95.073 kg Body Mass Index (BMI) 38.3 ABG / Lab / Microbiology Data 09/15/23 14:10 09/15/23 14:10 Meaningful Use Info Meaningful Use Diagnoses (Choose all that apply): None applicable Discharge Plan Admission Admit Date/Time: 09/15/23 14:24 Primary Reason for Your Visit: readmit with pre eclampsia Attending Provider: Kayla Rodriguez Primary Care Provider: Sid Whitehead NP Instructions Patient Instructions: Understanding Preeclampsia Additional Instructions / Restrictions: needs follow up appointment in 3 days Discharge Orders/Prescriptions Prescriptions: New labetalol 200 mg Tablet 200 mg PO BID Qty: 60 0RF nifedipine 30 mg Tablet Extended Release 24hr 30 mg PO DAILY Qty: 30 0RF Continued PNV cmb#95-ferrous fumarate-FA [ Multivitamins] 28 mg iron- 800 mcg tablet 1 tab PO DAILY paroxetine HCl [Paxil] 10 mg tablet 10 mg PO DAILY Qty: 30 0RF ibuprofen 600 mg tablet 600 mg PO Q6H PRN (Reason: pain) Qty: 30 0RF docusate sodium [Colace] 100 mg capsule 100 mg PO BID PRN PRN (Reason: constipation) Qty: 30 0RF Discontinued oxycodone-acetaminophen [Percocet] 5-325 mg tablet 1 tab PO Q6H PRN (Reason: pain) 7 Days Qty: 10 0RF Referrals / Follow Up: Sid Whitehead NP, [employer] [Primary Care Provider] - Disposition Disposition (needs filled in before D/C Order can be placed): Home, Self Care 09/18/23828 <Electronically signed by Shruti Hunter MD> Cosigner Signature (if applicable): CC: FATOU-C Sid Whitehead; Dr. Shruti Hunter MD~ Signed [facility] Work Phone: 1(511) 339-400303-27-2024 Progress note Author Shruti Hunter [facility] September 18, 2023 8:22am Note Date/Time September 18, 2023 8:2 2am [facility] Medical Records Department [address] [place] [address] Progress Note - OBGYN 09/18/23817 MR#: [id number] Acct: [id number] Name: ABBEY HANNA Rep #:[id number] : 2000 23 From: Shruti Hunter MD PCP: RIO Wills Status:ADM IN Location: DL981-5 Subjective Subjective No GREER or vision changes. Feels good. Breast feeding well. Reviewed BPs. Has a BPcuff at home. Discussed F/u in office for BP check. Objective Data Objective Data Vital Signs: Vital Signs Temp Pulse Resp BP Pulse Ox O2 Del Method 98.5 F 62 16 136/81 H 98 Room Air 09/18/23 04:15 09/18/23 04:15 09/18/23 04:15 09/18/23 04:30 09/18/23 04:15 09/18/23 04:15 Oxygen Delivery Method Room Air Weight: 95.073 kg Body Mass Index (BMI) 38.3 Intake & Output: Intake and Output for Last 24 Hours 09/16/23 09/17/23 09/18/23 23:59 23:59 23:59 Intake Total 3269.16 / 3269.16 Output Total 2150 / 2150 Balance 1119.16 / 1119.16 Lab / Micro Data 09/15/23 14:10 09/15/23 14:10 ROS Constitutional Constitutional: Denies fatigue or weakness Eyes Eyes: Denies blind spots, blurry vision or floaters ENT HEENT: Denies headache(s) Cardiovascular Cardiovascular: Reports systems reviewed and no addt'l complaints, except as documented Respiratory/Chest Respiratory/Chest: Reports systems reviewed and no addt'l complaints, except as documented Genitourinary Genitourinary: Reports systems reviewed and no addt'l complaints, except as documented Neurologic Neurologic: Denies headache(s) or loss of vision Psychiatric Psychiatric: Reports systems reviewed and no addt'l complaints, except as documented Physical Exam Const alert, oriented x3 and no apparent distress General Appearance: cooperative and comfortable HEENT normocephalic and head/scalp atraumatic Eyes PERRL and EOMs intact bilaterally Neck full ROM Resp normal respiratory effort GI Palpation: soft Extremity normal to inspection and full ROM General Extremity: normal exam except as noted Skin no rashes or lesions noted Neuro oriented x3 and CN's II-XII intact bilaterally Psych mental status grossly normal, thought process normal and cooperative Assessment & Plan (1) Preeclampsia: PLAN: Home with Procardia and labetalol. BP Check Saturday if ablel 09/18/23821 <Electronically signed by Shruti Hunter MD> Cosigner Signature (if applicable): CC: ~ Signed [facility] Work Phone: 1(707) 691-742403-26-2024 Progress note Author Karla Acosta [facility] September 17, 2023 8:40am Note Date/Time September 17, 2023 8:4 0am [facility] Medical Records Department [address] [place] [address] Progress Note - OBGYN 09/17/23 0835 MR#: [id number] Acct: [id number] Name: ABBEY HANNA Rep #:[id number] : 2000 23 From: Karla Acosta MD PCP: Sid Whitehead [employer] Status:ADM IN Location: DL413-7 Subjective Subjective Pain well controlled. Still mild GREER, same as yesterday. Average lochia. No N/V. C/o some burning w urination w/ last night Objective Data Objective Data Vital Signs: Vital Signs Temp Pulse Resp BP Pulse Ox O2 Del Method 98.7 F 87 16 146/75 H 97 Room Air 09/17/23 04:30 09/17/23 04:52 09/17/23 04:30 09/17/23 04:52 09/17/23 04:49 09/17/23 00:28 Oxygen Delivery Method Room Air Weight: 95.073 kg Body Mass Index (BMI) 38.3 Intake & Output: Intake and Output for Last 24 Hours 09/15/23 09/16/23 09/17/23 23:59 23:59 23:59 Intake Total 1020 / 1020 3269.16 / 3269.16 Output Total 1525 / 1525 2150 / 2150 Balance -505 / -505 1119.16 / 1119.16 Lab / Micro Data 09/15/23 14:10 09/15/23 14:10 Physical Exam Narrative Awake, alert NAD abd- soft, appropriate tenderness, nondistended ext-2+ edema, 2+ dtrs, no clonus Assessment & Plan (1) Preeclampsia: PLAN: Hospital day #2 status post readmission, status post primary on 09/11/2023. preeclampsia. Status post 24 hours of magnesium that wasdiscontinued last night. Received a breakthrough dose of extra 200 mg of labetalol p.o. last night, also started on Procardia. Received 2 doses of shortacting Procardia last night and then started on Procardia 30 mg XL daily. Will monitor this morning. May need to spend another night since blood pressure spiked last night. Discussed with patient importance of control of blood pressures before DC home. is in room with patient and doing well. 09/17/23 0840 <Electronically signed by Karla Acosta MD> Cosigner Signature (if applicable): CC: ~ Signed [facility] Work Phone: 1(500) 597-238503-25-2024 History and physical note Author Karla Acosta [facility] September 16, 2023 8:51am Note Date/Time September 16, 2023 8:2 8am [facility] Medical Records Department [address] [place] [address] History & Physical Exam 09/16/23825 MR#: [id number] Acct: [id number] Name: ABBEY HANNA Rep #:[id number] : 2000 23 From: Karla Acosta MD PCP: PANCHO WillsC Status:ADM IN Location: YS600-9 History and Physical Date of Admission: 09/15/23 23-year-old female status post primary section on 09/11/2023 presents onpostpartum day #4 with complaint of headache and elevated blood pressures at home. Moderate persistent headache. Still mild this a.m. Medications did help. Intermittent visual changes. No nausea vomiting diarrhea. No fevers or chills. Pain is well-controlled. Has not had a bowel movement since delivery. See H&P from admission 09/10/2023. She underwent induction for intrauterine growth restriction at 37 weeks. She had some elevated blood pressures intermittently during labor and after delivery. However, she did not meet the criteria for severe preeclampsia and did not receive magnesium intrapartum or . Physical exam: See vital General: Patient was sleeping comfortably, awakens easily to alert in no acute distress Abdomen: Moderate pannus, soft, appropriate tenderness, nondistended Bandage removed off the incision and the incision is clean dry and intact Extremities have 2+ edema, symmetrical no erythema, 1 beat of clonus and 3+ DTRs Assessment & Plan Assessment/Plan (1) Preeclampsia: PLAN: Labs reviewed. Vitals reviewed. On magnesium for 24 hours. Will monitorblood pressures on oral medications after magnesium is discontinued. Likely home tomorrow with close follow-up and surveillance. Currently on labetalol 200mg p.o. twice daily. Has not had a bowel movement yet, will give Senokot to help initiate this. Encourage ambulation after magnesium is off. Okay for Reglan for headaches. (2) Obesity, Class II, BMI 35-39.9: (3) delivery delivered: 09/16/23 0851 <Electronically signed by Karla Acosta MD> Cosigner Signature (if applicable): CC: GIRLS TENNIS COACH-C Sid Whitehead; Dr. Karla Acosta MD~ Signed [facility] Work Phone: 1(415) 993-274803-25-2024 Miscellaneous Notes* Telephone Encounter - Jeni Rivera RN - 09/16/2023 9:15 AM EDT Patient called back and appointment scheduled. Jeni Rivera RN * Telephone Encounter - Shruti Walker RN - 09/16/2023 8:48 AM EDT Left message for patient to call office. Shruti Walker RN * Telephone Encounter - Kim Mckeon MD - 09/14/2023 9:56 AM EDT Pt discharge home on 09/14/23. She was started on Paxil. Occasional mild range BP's on L&D but majority of BP's normal. Pt is anxious. Needs follow up early this week for BP, incision and mood check. Thanks documented in this encounterPrem[facility]03-23-[facility]24 Discharge summary Author Kim Mckeon [facility] September 14, 2023 9:56am Note Date/Time September 14, 2023 9:5 6am [facility] Medical Records Department [address] [place] [address] Instructions for Home/Discharge Instructions 09/14/23 0955 MR#: [id number] Acct: [id number] Name: ABBEY HANNA Rep #:[id number] : 2000 23 From: Kim Mckeon DO PCP: RIO Wills Status:ADM IN Discharge Instructions Diet Discharge Diet: No restrictions Activity Discharge Activity: May Drive (once you feel strong enough to slam on a brake orturn a steering wheel sharply) and May Shower May resume sexual activity in: 6 weeks Ice area for (Minutes): 15 Weight Bearing Status: Weight bearing as tolerated Lifting Restrictions: nothing heavier than baby Dressing / Incision Call your doctor if your incision/area has: Continuous Slow Oozing, Sudden Increased Bleeding, Increased Pain/ Swelling, Increased Redness, Foul Smelling Discharge and Swelling at the incision site Call your doctor if you observe: Fever of 101 or Higher, Coldness, Increased Pain, Numbness or Tingling, Change in Color, Inability to urinate, Inability to have a bowel movement, Using more than 1 pad per hour, Shortness of breath, Dizziness, Fainting spells, Swelling in the ankles, Chest pain, Prolonged hiccupping, Increased palpitations (irregular heartbeat), Calf discomfort and Uncontrolled pain Suture Line Care: Avoid Pulling/Pushing and Avoid Pinching/Bending Remove Dressing in: leave in place till F/U Cleanse incision/area with: Soap & Water Follow Up Care When: Early this week for a blood pressure check 6 week Test Results: Test results from this visit will be discussed in further detail at your follow- up appointment, if applicable. Discharge Plan Admission Admit Date/Time: 09/10/23 18:55 Primary Reason for Your Visit: delivery Attending Provider: Shruti Hunter Primary Care Provider: Sid Whitehead NP Instructions Patient Instructions: After a Discharge Orders/Prescriptions Prescriptions: New paroxetine HCl [Paxil] 10 mg tablet 10 mg PO DAILY Qty: 30 0RF oxycodone-acetaminophen [Percocet] 5-325 mg tablet 1 tab PO Q6H PRN (Reason: pain) 7 Days Qty: 10 0RF ibuprofen 600 mg tablet 600 mg PO Q6H PRN (Reason: pain) Qty: 30 0RF docusate sodium [Colace] 100 mg capsule 100 mg PO BID PRN PRN (Reason: constipation) Qty: 30 0RF Continued PNV cmb#95-ferrous fumarate-FA [ Multivitamins] 28 mg iron- 800 mcg tablet 1 tab PO DAILY ferrous sulfate [Iron (ferrous sulfate)] 325 mg (65 mg iron) tablet 325 mg PO DAILY Discontinued pantoprazole [Protonix] 40 mg tablet,delayed release (DR/EC) 40 mg PO DAILY Qty: 30 0RF Rx Instructions: take with sip of water 30 mins prior to eating in the AM. folic acid 1 mg tablet 1 mg PO DAILY acyclovir 400 mg tablet 400 mg PO TID Referrals / Follow Up: Sid Whitehead NP, GIRLS TENNIS COACH-C [Primary Care Provider] - Disposition Disposition (needs filled in before D/C Order can be placed): Home, Self Care 09/14/23 1955<Electronically signed by Kim Mckeon DO>Kim Mckeon DO CC: GIRLS TENNIS COACH-C Sid Whitehead ~ Signed [facility] Work Phone: 1(264) 566-616803-23-2024 Progress note Author Kim Mike [facility] September 14, 2023 9:40am Note Date/Time September 14, 2023 9:4 0am [facility] Medical Records Department [address] [place] [address] Progress Note - OBGYN 09/14/23 0932 MR#: [id number] Acct: [id number] Name: ABBEY HANNA Rep #:[id number] : 2000 23 From: Kim Mckeon DO PCP: RIO Wills Status:ADM IN [facility] Subject[facility] Subjective Patient is doing well. She reports she is feeling some depression and she is anxious. She has a history of depression and is established with a counselor. She has been on Zoloft before in the past and she did not like the way it made her feel. She does not wish to start medication. She denies headache or visionchanges. Pain has been well-controlled. She is eating without nausea or vomiting. She is ambulating and voiding without difficulty. Lochia is normal. She is breast-feeding without complaints. Objective Data Objective Data Vital Signs: Vital Signs Temp Pulse Resp BP Pulse Ox O2 Del Method 97.8 F 71 16 132/90 H 97 Room Air 09/14/23 08:00 09/14/23 08:00 09/14/23 08:00 09/14/23 08:00 09/14/23 08:00 09/14/23 08:00 Oxygen Delivery Method Room Air Weight: 212 lb 11.937 oz Body Mass Index (BMI) 38.9 Intake & Output: Intake and Output for Last 24 Hours 09/12/23 09/13/23 09/14/23 23:59 23:59 23:59 Intake Total 1000 / 1000 Output Total 1100 / 1100 Balance -100 / -100 Lab / Micro Data 09/12/23 08:30 09/11/23 11:00 Physical Exam Const alert and no apparent distress General Appearance: comfortable HEENT normocephalic Resp normal respiratory effort GI soft to palpation and non-distended GI Narrative: ATTP, dressing c/d/i Extremity no calf tenderness Assessment & Plan (1) Anxiety disorder: PLAN: She reports some anxiety and depression this morning. She has tried Zoloft in the past and did not do well with it - she states she felt like a zombie. Discussed risks, benefits, alternatives to starting Paxil and she desires to start medication. She has a counselor that she is established with andblanke will call her counselor on Saturday. She will see us in the office this week for follow-up. No suicidal homicidal ideations. (2) delivery delivered: PLAN: Patient is postoperative day 3 from a section. She is doing welland desires to go home. Meeting milestones for discharge. She has had an occasional mild range blood pressure but most blood pressures have been normal. She does report she is anxious here. Discussed need for a blood pressure check in the office early in the week. She has no pre e symptoms. 09/14/23 0940 <Electronically signed by Kim Mckeon DO> Cosigner Signature (if applicable): CC: ~ Signed [facility] Work Phone: 1(450) 213-240603-22-2024 Progress note Author Kayla Rodriguez [facility] September 13, 2023 6:33pm Note Date/Time September 11, 2023 10: 48am [facility] Medical Records Department [address] [place] [id number] Progress Note - OBGYN 09/11/23 1047 MR#: [id number] Acct: [id number] Name: ABBEY HANNA Rep #:[id number] : 2000 23 From: Kayla OSEI PCP: RIO Wills Status:ADM IN Location: OD230-0 Subjective Subjective Resting in bed. Objective Data Objective Data Vital Signs: Vital Signs Temp Pulse Resp BP 99.2 F H 60 18 148/95 H 09/11/23 07:52 09/11/23 10:37 09/11/23 07:52 09/11/23 10:37 Weight: 212 lb 11.937 oz Body Mass Index (BMI) 38.9 Intake & Output: Intake and Output for Last 24 Hours 09/09/23 09/10/23 09/11/23 23:59 23:59 23:59 Intake Total 203.33 / 203.33 0 / 0 Output Total 100 / 100 Balance 103.33 / 103.33 0 / 0 Lab / Micro Data 09/12/23 08:30 09/11/23 11:00 Labs: Laboratory Results - last 24 hr 09/10/23 19:40: WBC 9.9, RBC 3.88 L, Hgb 12.3, Hct 35.8 L, MCV 92.3, MCH 31.7, MCHC 34.4, RDW Std Deviation 46.9 H, RDW Coeff of Edwin 14.1, Plt Count 254, MPV 11.0, Immature Gran % (Auto) 0.500, Neut % (Auto) 73.5 H, Lymph % (Auto) 17.5 L,[place] % (Auto) 7.7, Eos % (Auto) 0.5, Baso % (Auto) 0.3, Absolute Neuts (auto) 7.3, Absolute Lymphs (auto) 1.74, Nucleated RBC % 0, Syphilis Total Ab Non-reactive, Blood Type O POSITIVE, Antibody Screen NEGATIVE Physical Exam Manual OB Exam: presentation cephalic and other collazo catheter with stylusinserted through cervix and 30ml NS instilled. Patient tolerated well. NST FHR Rate Baby A Baseline: 145 Variability:: Moderate Accelerations:: 15 x 15 Decelerations:: None FHR Category:: Category I Uterine Activity:: Irregular Assessment & Plan (1) Intrauterine growth restriction (IUGR) affecting care of mother, third trimester, single gestation: (2) 37 weeks gestation of : PLAN: Plan 1) Collazo inserted. 2) Start pitocin once out and next dose of cytotec due 3) collaborative physican and notified of patient status, above assessment and plan. 09/13/23 1833 <Electronically signed by Kayla Rodriguez CNM> Cosigner Signature (if applicable): CC: ~ Signed [facility] Work Phone: 1(216) 150-280903-22-2024 Progress note Author Karla Acosta [facility] September 13, 2023 8:54am Note Date/Time September 13, 2023 8:5 4am [facility] Medical Records Department [address] [place] [address] Progress Note - OBGYN 09/13/23 0851 MR#: [id number] Acct: [id number] Name: ABBEY HANNA Rep #:[id number] : 2000 From: Karla Acosta MD PCP: Sid Whitehead GIRLS TENNIS COACH-C Status:ADM IN [facility] Subjective Subjective pain well controlled, average lochia. Denies N/V. Ambulating, tolerating regular diet without difficulty. Objective Data Objective Data Vital Signs: Vital Signs Temp Pulse Resp BP Pulse Ox O2 Del Method 98.7 F 86 16 131/81 H 98 Room Air 09/13/23 01:55 09/13/23 01:55 09/13/23 01:55 09/13/23 01:55 09/13/23 01:55 09/13/23 01:55 Oxygen Delivery Method Room Air Weight: 96.5 kg Body Mass Index (BMI) 38.9 Intake & Output: Intake and Output for Last 24 Hours 09/11/23 09/12/23 09/13/23 23:59 23:59 23:59 Intake Total 3365 / 3365 1000 / 1000 Output Total 1350 / 1350 1100 / 1100 Balance 2014 -100 / -100 Lab / Micro Data 09/12/23 08:30 09/11/23 11:00 Labs: Laboratory Results - last 24 hr 09/11/23 18:50: Hep B Core Total Ab Negative 09/12/23 08:30: WBC 12.0 H, RBC 3.20 L, Hgb 10.0 L, Hct 30.3 L, MCV 94.7, MCH 31.3, MCHC 33.0, RDW Std Deviation 49.5 H, RDW Coeff of Edwin 14.4, Plt Count 191,MPV 10.0 Physical Exam Narrative awake, alert, NAD abd- softly, mildly distended, appropriate tenderness incision - bandage is clean, dry and intact ext- 2+ DTRs, no clonus 1+ edema Assessment & Plan (1) delivery delivered: PLAN: POD#2 s/p primary c/s, IUGR, working on patient stable D/w her pain management expectations likely d/c home tomorrow 09/13/23 0854 <Electronically signed by Karla Acosta MD> Cosigner Signature (if applicable): CC: ~ Signed [facility] Work Phone: 1(469) 294-406603-21-2024 Progress note Author Ita Raheemanjum [facility] September 12, 2023 8:52am Note Date/Time September 12, 2023 8:5 2am [facility] Medical Records Department [address] [place] [address] Progress Note - OBGYN 09/12/23 0849 MR#: [id number] Acct: [id number] Name: ABBEY HANNA Rep #:[id number] : 2000 23 From: Ita Boston CNM PCP: RIO Wills Status:ADM IN [facility] Subjective Subjective Patient seen at bedside. Falling asleep during assessment and while talking. Objective Data Objective Data Vital Signs: Vital Signs Temp Pulse Resp BP Pulse Ox O2 Del Method 98.1 F 82 18 125/83 H 95 Room Air 09/12/23 03:15 09/12/23 03:15 09/12/23 03:15 09/12/23 03:15 09/12/23 03:15 09/12/23 03:15 Oxygen Delivery Method Room Air Weight: 212 lb 11.937 oz Body Mass Index (BMI) 38.9 Intake & Output: Intake and Output for Last 24 Hours 09/10/23 09/11/23 09/12/23 23:59 23:59 23:59 Intake Total 203.33 / 203.33 3365 / 3365 1000 / 1000 Output Total 100 / 100 1350 / 1350 500 / 500 Balance 103.33 / 103.33 2014 500 / 500 Lab / Micro Data 09/11/23 11:00 09/11/23 11:00 Labs: Laboratory Results - last 24 hr 09/11/23 11:00: WBC 16.6 H, RBC 4.19 L, Hgb 13.0, Hct 38.6, MCV 92.1, MCH 31.0, MCHC 33.7, RDW Std Deviation 47.0 H, RDW Coeff of Edwin 14.1, Plt Count 269, MPV 10.1, Creatinine 0.63, Estim Creat Clear Calc 153.11, Est GFR (MDRD) Af Amer 153, Est GFR (MDRD) Non-Af 127, Uric Acid 5.6, AST 21, ALT 20, Lactate Dehydrogenase 212 09/11/23 12:48: U Random Total Protein 80.0 H, Urine Creatinine 180.00, Protein/Creatinin Ratio 444 H 09/11/23 18:50: Hep Bs Antigen Non-Reactive, Hep Bs Antibody Non-Reactive, Hepatitis C Antibody Non-Reactive, HIV 1&2 Antibody Non-Reactive 09/12/23 06:35: WBC Cancelled, Corrected WBC Cancelled, RBC Cancelled, Hgb Cancelled, Hct Cancelled, MCV Cancelled, MCH Cancelled, MCHC Cancelled, RDW Std Deviation Cancelled, RDW Coeff of Edwin Cancelled, Plt Count Cancelled, MPV Cancelled, Differential Comment Cancelled, Diff Path Review Cancelled ROS Eyes Eyes: Denies blurry vision, change in vision or spots in vision ENT HEENT: Denies dizziness or headache(s) Cardiovascular Cardiovascular: Denies abdominal pain, chest pain or dyspnea Respiratory/Chest Respiratory/Chest: Denies cough, dyspnea, shortness of breath at rest or shortness of breath with exertion Gastrointestinal Gastrointestinal: Denies abdominal pain, diarrhea or vomiting Genitourinary Genitourinary: Denies change in urinary stream, difficulty urinating or dysuria Musculoskeletal Musculoskeletal: Reports none Integumentary Integumentary: Denies rash Neurologic Neurologic: Denies dizziness, headache(s), memory loss or weakness Physical Exam Narrative Dressing is dry and intact Const alert and no apparent distress General Appearance: cooperative and comfortable Exam Limitations: no limitations HEENT normocephalic Eyes General Eye: normal appearance of both eyes Neck full ROM General: normal visual inspection Chest Chest: symmetrical chest wall rise Resp normal respiratory effort and normal air movement Effort and Inspection: symmetric chest movement Auscultation: clear to auscultation bilaterally Cardio regular rate and regular rhythm GI normal to inspection, nondistended, normoactive bowel sounds Back/Spine normal ROM Extremity full ROM and no calf tenderness General Extremity: normal exam except as noted Skin no rashes or lesions noted Neuro CN's II-XII intact bilaterally Psych mental status grossly normal Assessment & Plan (1) delivery delivered: (2) Intrauterine growth restriction (IUGR) affecting care of mother, third trimester, single gestation: (3) Non-reassuring electronic monitoring tracing: PLAN: Plan POD 1 Primary C/S Pain control Increase ambulation today Feeding support 09/12/23 0852 <Electronically signed by Ita Boston CNM> Cosigner Signature (if applicable): CC: ~ Signed [facility] Work Phone: 1(121) 847-860203-21-2024 History of Present illness Narrative* Shruti Walker RN - 09/12/2023 8:23 AM EDT Patient delivered via C/S at [facility] on 09/11/23 per Karla Acosta MD. See OB Outcome note. Shruti Walker RN documented in this encounterPrem[facility]03-20-2024 Procedure [facility]03-19-2024 History and physical note Author Shruti Hunter [facility] September 10, 2023 8:35pm Note Date/Time September 10, 2023 8:3 5pm [facility] Medical Records Department [address] [place] [address] H&P Exam - SANDING MACHINE TENDER 09/10/232031 MR#: [id number] Acct: [id number] Name: ABBEY HANNA Rep #:[id number] : 2000 23 From: Shruti Hunter MD PCP: RIO Wills Status:ADM IN [facility] HPI - General General Date of Admission: 09/10/23 Date of Service: 09/10/23 Chief Complaint: IOL for IUGR 3%. HPI Narrative ABBEYMIGUEL HANNA, is a 23 F who presents induction of labor for IUGR in the 3% Maternal Data Information Final JASMINE: 10/01/23 Gestational age: 37 PFSH [facility] Medical History Chlamydia infection affecting Genital herpes affecting Headache Home Medications pantoprazole 40 mg tablet,delayed release (Protonix) 40 mg PO DAILY heartburn #30 tabs 12/27/21 [Rx Last Taken 09/10/23 08:00 40 mg] ferrous sulfate 325 mg (65 mg iron) tablet (Iron (ferrous sulfate)) 325 mg PO DAILY 07/24/23 [History Last Taken 09/10/23 08:00 325 mg] vit no.95-ferrous fumarate 28 mg-folic acid 800 mcg tablet ( Multivitamins) 1 tab PO DAILY 07/24/23 [History Last Taken 09/10/23 08:00 1 TAB] acyclovir 400 mg tablet 400 mg PO TID HSV 09/10/23 [History Last Taken 09/10/23 13:00 400 mg] folic acid 1 mg tablet 1 mg PO DAILY as directed 09/10/23 [History Last Taken 09/10/23 08:00 1 mg] Allergy/AdvReac Type Severity Reaction Status Date / Time No Known Allergies Allergy Verified 09/10/23 19:51 Surgical History History of surgery Social History Smoking Status: Never smoker History 1 Elective abortions Hx Para 0 Spontaneous abortions Hx # Term Pregnancies Ectopic pregnancies Hx # Pregnancies Multiple births # of living children NST FHR Rate Baby A Baseline: 120 Variability:: Moderate Accelerations:: 15 x 15 Decelerations:: None NST Reactive:: Yes FHR Category:: Category I Uterine Activity:: none ROS Constitutional Constitutional: Denies fatigue, fever(s) or malaise Eyes Eyes: Denies change in vision ENT HEENT: Denies dizziness or headache(s) Cardiovascular Cardiovascular: Denies chest pain, dyspnea or lightheadedness Respiratory/Chest Respiratory/Chest: Denies cough or dyspnea Gastrointestinal Gastrointestinal: Denies change in bowel habits Genitourinary Genitourinary: Denies burning urination or genital lesions Integumentary Integumentary: Denies rash Neurologic Neurologic: Denies confusion, dizziness, headache(s), numbness or weakness Vital Signs Vital Signs Vital Signs: 09/10/23 19:29 09/10/23 19:29 Pulse Rate 87 Blood Pressure 135/87 H BP Systolic 135 BP Diastolic 87 Weight Weight: 96.5 kg Body Mass Index (BMI) 38.9 Physical Exam Const alert and no apparent distress General Appearance: cooperative HEENT normocephalic Resp normal respiratory effort Cardio regular rate GI soft to palpation GI Narrative: gravid, nontender, appropriate for gestational age Extremity no calf tenderness General Extremity: edema Skin no wounds Rashes: No rashes noted Psych activity/motor behavior normal Labs Labs Labs: Blood Type Pending Antibody Screen Pending Hct 35.8 % (37-47) L Hgb 12.3 g/dL (12.0-15.0) Syphilis Total Ab Non-reactive Hep Bs Antigen Non-Reactive (Nonreactive) Hepatitis C Antibody Non-Reactive (Nonreactive) Chlamydia DNA (SASCHA) Negative (Negative) N.gonorrhoeae DNA (SASCHA) Negative (Negative) HIV 1&2 Antibody Non-Reactive (Nonreactive) Miscellaneous Test Assessment & Plan (1) Intrauterine growth restriction (IUGR) affecting care of mother, third trimester, single gestation: PLAN: Collaoz bulb induction of labor (2) 37 weeks gestation of : (3) History of herpes genitalis: 09/10/232034 <Electronically signed by Shruti Hunter MD> Cosigner Signature (if applicable): CC: GIRLS TENNIS COACHGabriel Whitehead; Dr. Shruti Hunter MD~ Signed [facility] Work Phone: 1(957) 671-338903-18-2024 Miscellaneous Notes* Quick Notes - Kayla Rodriguez APRN.CNM - 09/09/2023 12:15 PM EDT RAKESH-S: Abbey Hanna is a 23 year old female who presents at 36w6d with JASMINE:10/01/2023, by Last Menstrual Period for a routine visit. Denies headache, visual changes, chest pain, shortness of breath, vaginal bleeding, leakage of fluid, or dysuria. Mcdonough a lump on vulva and slight discomfort, uncertain if from shaving. Started yesterday and does not feel today. No prodromal symptoms or othercomplaints. Can't remember the last time she had an outbreak and doesn't feel like that but wanted to check O: See flow sheet Gen: No apparent distress Abd: Gravid, nontender VE: No vulvar lesion, erythema A: ASSESSMENT/PLAN: 1. Vulvar irritation P: 1) Reviewed no active lesions and signs of outbreak. Will reevaluate at hospital tomorrow prior to induction. Kayla Rodriguez, OFFICE MACHINE PUNCH OPERATOR.CNM documented in this encounterPrem[facility]03-14-2024 History of Present illness Narrative* Kim Mckeon MD - 09/05/2023 12:43 PM EDT NST SUMMARY PROVIDER ASSESSMENT AND INTERPRETATION Abbey Hanna is a 23 year old female, , who is at 36w2d with an JASMINE of 10/01/2023, by Last Menstrual Period dating method. Indications for NST: IUGR Baseline: 125 Variability: Moderate Accelerations: Present 15 X 15 Decelerations: None Contractions: TOCO: None Interpretation: Reactive SIGNATURE: Kim Mckeon DO documented in this encounterPremier Health [facility]03-14-2024 Miscellaneous Notes* Quick Notes - Kim Mckeon MD - 09/05/2023 11:48 AM EDT SW- NST only. Pt doing well and offers no complaints. Scheduled for IOL next week for IUGR. documented in this encounterPremier Health [facility]03-14-2024 Instructions* Patient Instructions* Ramonita Avilez MA - 09/05/2023 10:57 AM EDT SEQUENTIAL SCREENINGS The [facility] offers sequential screenings for women who are interested in screenings for chromosomal abnormalities and certain defects during a . The sequential screen combinesultrasound and blood tests to determine the risk [...] this testing. It will require an appointment withour special effects technician. This is not an ultrasound performed [...] the above symptoms, contact our office at [phone] and ask to speak with anurse. After hours, you can call doctors registry at [phone] OR call [facility] at [phone] ask to have the doctor technical sales consultant paged. If you consider this an emergency, dial [phone] or go to your nearest emergency department. NEED HELP? Are you dealing with a violent or abusive relationship? Are you a victim of rape or sexual assult? Call [facility] ([place]) 24 hour Crisis Hotline: 525.502.4424 or 349-478-8645. MANUAL Your Guide to a Healthy manual is now on-line. Visit [email or web address] to download your free copy documented in this encounterPremier Health [facility] Center03-11-2024 Miscellaneous Notes* Quick Notes - Shruti Hunter MD - 09/02/2023 3:18 PM EDT S: Abbey Hanna is a 23 year old female who presents at 10/01/2023, by Last Menstrual Period for a routine visit. Denies headache, visual changes, chest pain, shortness of breath, vaginal bleeding, leakage of fluid, or dysuria. Feeling well, no complaints. IUGR 3% today. Reviewed MFM recommendations with patient and mom. NST on , BPP Saturday and IOL on Saturday. Reviewed risks and benefits of IOL O: See flow sheet Gen: No apparent distress Abd: Gravid, nontender ASSESSMENT/PLAN: 1. 35 weeks gestation of - ICD9: V22.2, ICD10: Z3A.35 (primary diagnosis) - URINE OB DIP B/O - BIOPHYSICAL PROFILE US WHI - ROUTINE, GROUP B STREP PCR 2. Encounter for supervision of normal first in third trimester - ICD9: V22.0, ICD10: Z34.03 - URINE OB DIP B/O - BIOPHYSICAL PROFILE US WHI - ROUTINE, GROUP B STREP PCR 3. Gestational hypertension without significant proteinuria in third trimester - ICD9: 642.33, ICD10: O13.3 BP normal in office. Does have a few mild at home. Negative labs - URINE OB DIP B/O - BIOPHYSICAL PROFILE US WHI - ROUTINE, GROUP B STREP PCR 4. Poor growth affecting management of mother in third trimester, single or unspecified fetus- ICD9: 656.53, ICD10: O36.5930 IUGR on us today. Recommended weekly BPP and NST with Delivery at 37 weeks. - URINE OB DIP B/O - BIOPHYSICAL PROFILE US WHI - ROUTINE, GROUP B STREP PCR - BIOPHYSICAL PROFILE US WHI - NON-STRESS TEST Shruti Hunter MD P: NST with BPP on Saturday. IOL scheduled for next Saturday09/10/23 documented in this encounterPremier Health [facility] Center03-11-2024 Instructions* Patient Instructions* Ramonita Avilez MA - 09/02/2023 2:03 PM EDT SEQUENTIAL SCREENINGS The [facility] offers sequential screenings for women who are interested in screenings for chromosomal abnormalities and certain defects during a . The sequential screen combinesultrasound and blood tests to determine the risk [...] this testing. It will require an appointment withour special effects technician. This is not an ultrasound performed [...] the above symptoms, contact our office at [phone] and ask to speak with anurse. After hours, you can call doctors registry at [phone] OR call [facility] at [phone] ask to have the doctor technical sales consultant paged. If you consider this an emergency, dial 9--1 or go to your nearest emergency department. NEED HELP? Are you dealing with a violent or abusive relationship? Are you a victim of rape or sexual assult? Call [facility] ([place]) 24 hour Crisis Hotline: 664.257.8869 or 273-937-4846. MANUAL Your Guide to a Healthy manual is now on-line. Visit [email or web address] to download your free copy documented in this encounterPremier Health At[facility] Medical Center03-07-2024 Miscellaneous Notes* Telephone Encounter - Shruti Walker RN - 08/29/2023 1:43 PM EST Patient notified. No new clothing or furniture. She will try the recommended treatments and call the office if her symptoms worsen or don't improve. Shruti Walker RN * Telephone Encounter - Shruti Hunter MD - 08/29/2023 1:35 PM EST Given the distribution it sounds like a contact irritant. Any new furniture or clothing? Benadryl is a good choice but also add something like Pepcid. She can also use hydrocortisone lotion instead of cream. Its thinner and will cover a larger surface area. * Telephone Encounter - Shruti Walker RN - 08/29/2023 1:13 PM EST 35w2d Patient developed a rash on her feet two days ago. Red, raised, itchy bumps. It has since spread tothe back of her legs, buttocks, and lower back. Hydrocortisone cream is not helping. Advised that she could try taking Benadryl. No new soaps, lotions, detergents, or foods. She started taking Acyclovir last week, but has taken this in the past without a reaction. Please advise. Shruti Walker, RN documented in this encounterPremier Health [facility] Center03-05-2024 History of Past illness Narrative* Problem Noted Date Diagnosed Date Resolved Date Gestational hypertension wit hout significant proteinuria in third trimester 08/27/2023 documented as of this encounter (statuses as of 08/27/2023) [facility]03[facility] History of Past illness Narrative* Problem Noted Date Diagnosed Date Resolved Date Gestational hypertension wit hout significant proteinuria in third trimester 08/27/2023 4 documented as of this encounter (statuses as of 08/29/2023) [facility] History of Past illness Narrative* Problem Noted Date Diagnosed Date Resolved Date Gestational hypertension wit hout significant proteinuria in third trimester 08/27/2023 4 documented as of this encounter (statuses as of 09/02/2023) [address]05-2024 History of Past illness Narrative* Problem Noted Date Diagnosed Date Resolved Date Gestational hypertension wit hout significant proteinuria in third trimester 08/27/2023 4 documented as of this encounter (statuses as of 09/02/2023) [address]05-2024 History of Past illness Narrative* Problem Noted Date Diagnosed Date Resolved Date Gestational hypertension wit hout significant proteinuria in third trimester 08/27/2023 documented as of this encounter (statuses as of 09/05/2023) [address]05-2024 History of Past illness Narrative* Problem Noted Date Diagnosed Date Resolved Date Gestational hypertension wit hout significant proteinuria in third trimester 08/27/2023 4 documented as of this encounter (statuses as of 09/09/2023) [address]05-2024 History of Past illness Narrative* Problem Noted Date Diagnosed Date Resolved Date Gestational hypertension wit hout significant proteinuria in third trimester 08/27/2023 documented as of this encounter (statuses as of 09/09/2023) [facility] History of Past illness Narrative* Problem Noted Date Diagnosed Date Resolved Date Gestational hypertension wit hout significant proteinuria in third trimester 08/27/2023 4 documented as of this encounter (statuses as of 09/12/2023) [facility] History of Past illness Narrative* Problem Noted Date Diagnosed Date Resolved Date Gestational hypertension wit hout significant proteinuria in third trimester 08/27/2023 documented as of this encounter (statuses as of 09/16/2023) [facility] History of Past illness Narrative* Problem Noted Date Diagnosed Date Resolved Date Gestational hypertension wit hout significant proteinuria in third trimester 08/27/2023 4 documented as of this encounter (statuses as of 09/30/2023) [facility] History of Past illness Narrative* Problem Noted Date Diagnosed Date Resolved Date Gestational hypertension wit hout significant proteinuria in third trimester 08/27/2023 4 documented as of this encounter (statuses as of 09/30/2023) [facility] History of Past illness Narrative* Problem Noted Date Diagnosed Date Resolved Date Gestational hypertension wit hout significant proteinuria in third trimester 08/27/2023 Encounter for supervision of high risk in second trimester, antepartum 03/28/2023 10/03/2023 documented as of this encounter (statuses as of 10/03/2023) [facility]03-[facility] History of Present illness Narrative* Isaac Walter, OD - 08/27/2023 9:57 AM EST 1. Blurred vision, bilateral No ocular health pathology or optic nerve swelling 2. Regular astigmatism of both eyes Recommended time study technician wear since astigmatism can be source of headaches Did not dilate today due to patient 35 weeks but got good view of optic disc (no edema) Follow-up in 1 year or sooner for complete dilated exam Isaac Walter, OD August 27, 2023 9:57 AM documented in this encounterPremier Health [facility] Center03-01-2024 Miscellaneous Notes* Telephone Encounter - Karla Acosta MD - 08/23/2023 8:42 AM EST Patient's request for medication is as follows Requested Prescriptions Signed Prescriptions Disp Refills metroNIDAZOLE (FLAGYL) 500 mg tablet 4 tablet 0 Sig: Take 4 tablets by mouth one time only for 1 dose. Authorizing Provider: KARLA ACOSTA Order entered - please phone pharmacy and notify patient. Karla Acosta MD * Telephone Encounter - Shruti Walker RN - 08/22/2023 11:51 AM EST Patient notified. Does not need treatment for partner. No intercourse or contact with them for 2 months. Pharmacy updated. Shruti Walker RN * Telephone Encounter - Jese Durant RN - 08/22/2023 11:46 AM EST Left message for patient to call office. JESE DURANT RN * Telephone Encounter - Jese Durant RN - 08/22/2023 11:45 AM EST ----- Message from Karla Acosta MD sent at 08/22/2023 10:28 AM EST ----- Needs treated for trich. It is an STI and she needs to abstain until both she and partner are treated for at least a week. Confirm pharmacy and send me phone note and I will rx in. If partner needs treated I can send that as well Karla Acosta MD documented in this encounterPremier Health [facility] Center02-28-2024 History of Present illness Narrative* Karla Acosta MD - 08/21/2023 11:26 AM EST NST SUMMARY PROVIDER ASSESSMENT AND INTERPRETATION Abbey Hanna is a 23 year old female, , who is at 34w1d with an JASMINE of 10/01/2023, by Last Menstrual Period dating method. Indications for NST: Gestational HTN Baseline: 135 Variability: Moderate Accelerations: Present 15 X 15 Decelerations: None Contractions: TOCO: None Interpretation: Category I and Reactive SIGNATURE: Karla Acosta MD documented in this encounterPremier Health [facility] Center02-28-2024 Miscellaneous Notes* Quick Notes - Karla Acosta MD - 08/21/2023 11:00 AM EST RR- VB No. LOF No. CTXS No. Movement: present. Other c/o: elevated BP at home 130s-142/80s-90s. Mild GREER no meds for this. . Denies visual changes. Medication list reviewed. Physical Exam See Flow She1, 2+ DTRs, no clonus A/P 34w1d Estimated Date of Delivery: 10/01/23 gest HTN, check preeclamposia labs, NST today growth scan ordered call or return for symptoms, signs of severe preeclampsia GBS today Karla Acosta M.D. documented in this [facility]02-28-2024 Instructions* Patient Instructions* Henna Sims Ma - 08/21/2023 10:41 AM EST SEQUENTIAL SCREENINGS The [facility] offers sequential screenings for women who are interested in screenings for chromosomal abnormalities and certain defects during a . The sequential screen combinesultrasound and blood tests to determine the risk [...] this testing. It will require an appointment withour special effects technician. This is not an ultrasound performed [...] the above symptoms, contact our office at [phone] and ask to speak with anurse. After hours, you can call doctors registry at [phone] OR call [facility] at [phone] ask to have the doctor technical sales consultant paged. If you consider this an emergency, dial 9-1 or go to your nearest emergency department. NEED HELP? Are you dealing with a violent or abusive relationship? Are you a victim of rape or sexual assult? Call [facility] ([place]) 24 hour Crisis Hotline: 920.692.9274 or 757-826-0764. MANUAL Your Guide to a Healthy manual is now on-line. Visit [email or web address] to download your free copy documented in this encounterPremier Health [facility] Center02-20-2024 Miscellaneous Notes* Quick Notes - Quyen Caceres - 08/13/2023 11:27 AM EST S: Abbey Hanna is a 23 year old female who presents at 33 wk JASMINE 10/01/2023, by Last Menstrual Period for a routine visit. Denies visual changes, chest pain, shortness of breath, vaginal bleeding, leakage of fluid, or dysuria. Feeling well, no complaints. Has mild headaches while viewing TV in the evening, goes away with rest. Is scheduled for eye exam O: See flow sheet Gen: No apparent distress Abd: Gravid, nontender TWG 37 lb S=D ASSESSMENT 1. Encounter for supervision of normal first in third trimester 2. 33 weeks gestation of 3. History of herpes genitalis Plan: 1) PTL precautions reviewed and when to call 2) RTO 2 weeks 3) Begin Acyclovir for HSV Suppression at 36 wk, prescription sent Acyclovir 400mg PO TID. 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 I have re-performed the HPI, Physical Examination, Assessment and Plan. Kayla Rodriguez APRN.CNM documented in this encounterPremier Health [facility] Center02-20-2024 Instructions* Patient Instructions* Chery Liz Ma - 08/13/2023 11:05 AM EST SEQUENTIAL SCREENINGS The [facility] offers sequential screenings for women who are interested in screenings for chromosomal abnormalities and certain defects during a . The sequential screen combinesultrasound and blood tests to determine the risk [...] this testing. It will require an appointment withour special effects technician. This is not an ultrasound performed [...] the above symptoms, contact our office at [phone] and ask to speak with anurse. After hours, you can call [facility] at [phone] OR call [facility] at [phone] ask to have the doctor technical sales consultant paged. If you consider this an emergency, dial 9-1-5 or go to your nearest emergency department. NEED HELP? Are you dealing with a violent or abusive relationship? Are you a victim of rape or sexual assult? Call [facility] ([place]) 24 hour Crisis Hotline: 463.554.8798 or 246-669-5674. MANUAL Your Guide to a Healthy manual is now on-line. Visit [email or web address] to download your free copy documented in this encounterPremier Health [facility] Center02-15-2024 Miscellaneous Notes* Telephone Encounter - Vero Graham RN - 08/08/2023 8:57 AM EST Signed and faxed. Vero Graham RN * Telephone Encounter - Jeni Rivera RN - 08/07/2023 2:53 PM EST Breast pump request received from Vlad Vang. Order to provider to sign, will fax once completed. Jeni Rivera RN documented in this encounterPremier Health [facility] Center02-14-2024 History of Present illness Narrative* Amanda Rios MD - 08/07/2023 4:54 PM EST NST SUMMARY PROVIDER ASSESSMENT AND INTERPRETATION Abbey Hanna is a 23 year old female, , who is at 32w1d with an JASMINE of 10/01/2023, by Last Menstrual Period dating method. Indications for NST: Decreased Movement Baseline: 150 Variability: Moderate Accelerations: Present 15 X 15 Decelerations: None Contractions: TOCO: None Interpretation: Category I and Reactive SIGNATURE: Amanda Lara MD documented in this encounterPremier Health [facility] Center02-14-2024 Miscellaneous Notes* Quick Notes - Amanda Rios MD - 08/07/2023 2:33 PM EST NST only documented in this encounterPremier Health [facility] Center02-14-2024 Instructions* Patient Instructions* Shalonda EppersonChery - 08/07/2023 2:09 PM EST SEQUENTIAL SCREENINGS The [facility] offers sequential screenings for women who are interested in screenings for chromosomal abnormalities and certain defects during a . The sequential screen combinesultrasound and blood tests to determine the risk [...] this testing. It will require an appointment withour special effects technician. This is not an ultrasound performed [...] the above symptoms, contact our office at [phone] and ask to speak with anurse. After hours, you can call doctors registry at [phone] OR call [facility] at [phone] ask to have the doctor technical sales consultant paged. If you consider this an emergency, dial 9--1 or go to your nearest emergency department. NEED HELP? Are you dealing with a violent or abusive relationship? Are you a victim of rape or sexual assult? Call [facility] ([place]) 24 hour Crisis Hotline: 696.518.2862 or 825-309-3348. MANUAL Your Guide to a Healthy manual is now on-line. Visit [email or web address] to download your free copy documented in this encounterPremier Health [facility] Center02-14-2024 Miscellaneous Notes* Telephone Encounter - Amanda Rios MD - 08/07/2023 1:04 PM EST Come to office now for nst * Telephone Encounter - Jeni Rivera RN - 08/07/2023 1:01 PM EST Patient called and appointment given for today. Jeni Rivera RN * Telephone Encounter - Shruti Walker RN - 08/07/2023 11:08 AM EST 32w1d Patient did kick counts today and in one hour she got 2-3 movements. Patient tearful on the phone. States that she usually has a low number of movements when she does kick counts. Understands that movements includes any/all movement. CP has a 2:30 PM opening or would you like patient added tobeginning of your afternoon for NST? Shruti Walker RN documented in this encounterPremier Health [facility] Center02-06-2024 Miscellaneous Notes* Quick Notes - Cheryl Clark MD - 07/30/2023 11:09 AM EST KJ - VB No. LOF No. CTXS No. Movement: present. Other c/o: she reports intermittent headaches. It seems to happen while watching TV. Medication list reviewed. Physical Exam See Flow Sheet Gen: no accute distress, well appearing Abd: soft, nontender, gravid A/P 31w0d Estimated Date of Delivery: 10/01/23 H/o HSV - needs prophylaxis at 36 weeks Headaches - Recommend optometry appointment. Advised on magnesium & tylenol. Reviewed headache precautions. PTL precautions reviewed, Kick counts reviewed. Cheryl Clark MD documented in this encounterPremier Health [facility] Center02-06-2024 Instructions* Patient Instructions* Bethany ZhouHenna - 07/30/2023 10:44 AM EST SEQUENTIAL SCREENINGS The [facility] offers sequential screenings for women who are interested in screenings for chromosomal abnormalities and certain defects during a . The sequential screen combinesultrasound and blood tests to determine the risk [...] this testing. It will require an appointment withour special effects technician. This is not an ultrasound performed [...] the above symptoms, contact our office at [phone] and ask to speak with anurse. After hours, you can call doctors registry at [phone] OR call [facility] at [phone] ask to have the doctor technical sales consultant paged. If you consider this an emergency, dial 8--2 or go to your nearest emergency department. NEED HELP? Are you dealing with a violent or abusive relationship? Are you a victim of rape or sexual assult? Call [facility] ([place]) 24 hour Crisis Hotline: 386.897.9442 or 275-686-8918. MANUAL Your Guide to a Healthy manual is now on-line. Visit [email or web address] to download your free copy documented in this encounterPremier Health [facility] Center02-05-2024 Miscellaneous Notes* Telephone Encounter - Vero Graham RN - 07/29/2023 2:21 PM EST Patient notified. Vero Graham RN * Telephone Encounter - Kayla Rodriguez APRN.CNM - 07/29/2023 2:12 PM EST Urine culture negative, please keep appointment tomorrow. Thanks, Kayla Rodriguez APRN.CNM * Telephone Encounter - Shruti Walker RN - 07/29/2023 11:36 AM EST 30w6d Patient seen in L&D on 07/24/23 with bleeding. Inquiring about her urine culture results from [facility]. Urine Culture Final 07/26/23-950 Organism 1 Mixed Gram Positive Organisms Dawn Count 1000-10,000 CFU/mL MIX CULTURE Mixed contaminants. Submit a new specimen if indicated. Patient has continued to have spotting when she wipes. No bleeding in her underwear. Yesterday and today there has been no spotting. Having urinary frequency. She is on her way to [place] to do some shopping. Has a OB visit with [facility] tomorrow. Does she need seen today? Shruti Walker RN documented in this encounterPremier Health At[facility] Center12-11-2023 Miscellaneous Notes* Quick Notes - Karla Acosta MD - 06/03/2023 11:55 AM EST RR- VB No. LOF No. CTXS No. [...] US. Karla Acosta M.D. documented in this encounterPremier Health Atrium [facility] Center12-11-2023 Instructions* Patient Instructions* Ramonita Avilez MA - 06/03/2023 11:41 AM EST SEQUENTIAL SCREENINGS The [facility] offers sequential screenings for women who are interested in screenings for chromosomal abnormalities and certain defects during a . The sequential screen combinesultrasound and blood tests to determine the risk [...] this testing. It will require an appointment withour special effects technician. This is not an ultrasound performed [...] the above symptoms, contact our office at [phone] and ask to speak with anurse. After hours, you can call doctors registry at [phone] OR call [facility] at [phone] ask to have the doctor technical sales consultant paged. If you consider this an emergency, dial 9--1 or go to your nearest emergency department. NEED HELP? Are you dealing with a violent or abusive relationship? Are you a victim of rape or sexual assult? Call [facility] ([place]) 24 hour Crisis Hotline: 140.170.9143 or 362-100-6078. MANUAL Your Guide to a Healthy manual is now on-line. Visit [email or web address] to download your free copy documented in this encounterPremier Health Atrium Medical Center11-13-2023 Miscellaneous Notes* Quick Notes - Kim Mckeon MD - 05/06/2023 9:05 AM EST SW- Having thick vaginal discharge, vaginal itching [...] today and final report pending. Blood work todayto complete sequential screen. Bleeding and pain precautions reviewed. RTO 4 wks. Kim Mckeon DO documented in this encounterPremier Health Atrium [facility] Center11-13-2023 Instructions* Patient Instructions* Ramonita Avilez MA - 05/06/2023 8:54 AM EST SEQUENTIAL SCREENINGS The [facility] offers sequential screenings for women who are interested in screenings for chromosomal abnormalities and certain defects during a . The sequential screen combinesultrasound and blood tests to determine the risk [...] this testing. It will require an appointment withour special effects technician. This is not an ultrasound performed [...] the above symptoms, contact our office at [phone] and ask to speak with anurse. After hours, you can call doctors registry at [phone] OR call [facility] at [phone] ask to have the doctor technical sales consultant paged. If you consider this an emergency, dial 9-8-2 or go to your nearest emergency department. NEED HELP? Are you dealing with a violent or abusive relationship? Are you a victim of rape or sexual assult? Call [facility] ([place]) 24 hour Crisis Hotline: 834.165.7607 or 314-884-6952. MANUAL Your Guide to a Healthy manual is now on-line. Visit [email or web address] to download your free copy documented in this encounterPremier Health Atrium Medical Center11-11-2023 Note. MICRO - Microbiology PROCEDURE: Culture Wound Aerobic with Gram Stain [*1] SOURCE: Wound (surface) BODY SITE: Vagina COLLECTED DATE/TIME: 04/30/2023 21:19 EST RECEIVED DATE/TIME: 05/01/2023 16:41 EST START DATE/TIME: 05/01/2023 16:42 EST FREE TEXT SOURCE: FINAL REPORTS Final Report [] Verified Date/Time/Personnel: 05/04/2023 08:54 EST Normal Vaginal Max: Present Neisseria gonorrhoeae: Negative PRELIMINARY REPORTS Preliminary Report [] Verified Date/Time/Personnel: 05/02/2023 13:02 EST Normal Vaginal Max: Present Neisseria gonorrhoeae: Pending STAINS GS [] Verified Date/Time/Personnel: 05/01/2023 17:35 EST 1+ Gram Positive Rods Rare Gram Negative Rods Performing Locations *1: This test was performed at: [facility], [address] [place] [address], [id number] , [facility] ([place])05-01-2023 Miscellaneous Notes* Telephone Encounter - Jese Durant RN - 05/01/2023 11:25 AM EST Patient is on antibiotics. Notified other recommendations. Jese Durant RN * Telephone Encounter - Ita Boston APRN.CNM - 05/01/2023 10:53 AM EST Agree with plan of care. I assume she is taking antibiotics for the UTI? Keep well hydrated, and wiping front to back, keeping dry and wearing cotton underwear. Ita Boston APRN.CNM * Telephone Encounter - Jese Durant RN - 05/01/2023 9:29 AM EST 18w1d Appointment 05/06 with [facility]. Called patient to further triage and patient reported going to [facility] ED last night and they are treating her for UTI. Denies any further blood and unable to differentiate if from urineor vaginal. Patient didn't have further concerns regarding symptoms, but asking recommendations to prevent UTIs. This RN did advise wiping front to back and urinating after intercourse but patient states she already does that and wondering if we have any further recommendations for her. Jese Durant RN documented in this encounterPrem[facility] Center10-23-2023 Miscellaneous Notes* Quick Notes - Amanda Rios MD - 04/15/2023 8:26 AM EDT DM- Pt doing well today. Denies Vaginal Bleeding, Leaking fluid, or contractions. Pt reports good movement. Will start ASA. Repeat urine culture today. Flu vaccine today. RTO 4 wks. Amanda Lara MD documented in this encounterPremier Health Atrium Medical Center10-23-2023 Instructions* Patient Instructions* Ramonita Avilez MA - 04/15/2023 8:20 AM EDT SEQUENTIAL SCREENINGS The [facility] offers sequential screenings for women who are interested in screenings for chromosomal abnormalities and certain defects during a . The sequential screen combinesultrasound and blood tests to determine the risk [...] this testing. It will require an appointment withour special effects technician. This is not an ultrasound performed [...] the above symptoms, contact our office at [phone] and ask to speak with anurse. After hours, you can call doctors registry at [phone] OR call [facility] at [phone] ask to have the doctor technical sales consultant paged. If you consider this an emergency, dial 9-1-7 or go to your nearest emergency department. NEED HELP? Are you dealing with a violent or abusive relationship? Are you a victim of rape or sexual assult? Call [facility] ([place]) 24 hour Crisis Hotline: 120.446.6101 or 382-733-4656. MANUAL Your Guide to a Healthy manual is now on-line. Visit [email or web address] to download your free copy documented in this encounterPremier Health Atrium Medical Center10-05-2023 Miscellaneous Notes* Quick Notes - Cheryl Clark MD - 03/28/2023 10:07 AM EDT KJ - No VB/LOF/ctxs. She still has some lower abdominal pain but flank pain has resolved. Patient is taking the keflex. A&P: NT next week Routine care Cheryl Clark MD documented in this encounterPremier Health Atrium Medical Center10-05-2023 Instructions* Patient Instructions* Masters Kay Epperson - 03/28/2023 9:53 AM EDT SEQUENTIAL SCREENINGS The [facility] offers sequential screenings for women who are interested in screenings for chromosomal abnormalities and certain defects during a . The sequential screen combinesultrasound and blood tests to determine the risk [...] this testing. It will require an appointment withour special effects technician. This is not an ultrasound performed [...] the above symptoms, contact our office at [phone] and ask to speak with anurse. After hours, you can call doctors registry at [phone] OR call [facility] at [phone] ask to have the doctor technical sales consultant paged. If you consider this an emergency, dial 9--1 or go to your nearest emergency department. NEED HELP? Are you dealing with a violent or abusive relationship? Are you a victim of rape or sexual assult? Call [facility] ([place]) 24 hour Crisis Hotline: 948.629.5547 or 901-563-7793. MANUAL Your Guide to a Healthy manual is now on-line. Visit [email or web address] to download your free copy documented in this encounterPremier Health Atrium Medical Center10-02-2023 Miscellaneous Notes* Quick Notes - Kim Mckeon MD - 03/25/2023 2:37 PM EDT SW- Add on visit for left flank [...] symptoms of pyelo and reasons to call Kim Mckeon DO documented in this encounterPremier Health At[facility] Medical Center10-02-2023 Instructions* Patient Instructions* Ramonita Avilez MA - 03/25/2023 2:21 PM EDT SEQUENTIAL SCREENINGS The [facility] offers sequential screenings for women who are interested in screenings for chromosomal abnormalities and certain defects during a . The sequential screen combinesultrasound and blood tests to determine the risk [...] this testing. It will require an appointment withour special effects technician. This is not an ultrasound performed [...] the above symptoms, contact our office at [phone] and ask to speak with anurse. After hours, you can call doctors registry at [phone] OR call [facility] at [phone] ask to have the doctor technical sales consultant paged. If you consider this an emergency, dial 9-1- or go to your nearest emergency department. NEED HELP? Are you dealing with a violent or abusive relationship? Are you a victim of rape or sexual assult? Call [facility] ([place]) 24 hour Crisis Hotline: 518.184.1796 or 475-520-9998. MANUAL Your Guide to a Healthy manual is now on-line. Visit [email or web address] to download your free copy documented in this encounterPremier Health At[facility] Medical Center10-02-2023 Miscellaneous Notes* Telephone Encounter - Leighann Melendrez LPN - 03/25/2023 1:18 PM EDT Spoke with pt and she will come in around 2pm. Leighann Melendrez LPN * Telephone Encounter - Kim Mckeon MD - 03/25/2023 12:31 PM EDT Just have her come in whenever she can and I will see her thanks * Telephone Encounter - Kim Mckeon MD - 03/25/2023 10:38 AM EDT Can she come in at 11.50? * Telephone Encounter - Shruti Walker RN - 03/25/2023 9:14 AM EDT 12w6d Patient calling with c/o possible UTI. Uncomfortable to urinate, but no dysuria. Pain is also on her left side, possible flank pain. Mild cramping, but she's had this her entire . Offered towork her in this afternoon at 2:10 PM. Patient concerned she won't make it to her dentist appointment @ 3PM on time. Lives in [place]. Where can we add patient to be seen sooner this afternoon? Thank you. Shruti Walker RN documented in this encounterPremier Health Atrium Medical Center09-11-2023 Instructions* Patient Instructions* Leighann Melendrez LPN - 03/04/2023 8:14 AM EDT Please select the following link to access the [facility] Your Guide to a Healthy . [email or web address] documented in this encounterPremier Health Atrium Medical Center09-11-2023 History of Present illness Narrative* Kelly Cevallos APRN.SENIOR DRAFTER - 03/04/2023 7:52 AM EDT Images from the original note were not included. OB point of care ultrasound was performed. See imaging tab for details. Leighann Melendrez LPN INITIAL OB ASSESSMENT OB Provider: Leighann Melendrez LPN HPI: Abbey is a 22 year old White here [...] use: No Multivitamin with Folic acid: Yes Pentecostal or heritage: No Would refuse blood transfusion [...] disintegrating tablet 1 TABLET EVERY 8 HOURS ASNEEDED FOR NAUSEA AND VOMITING promethazine (PHENERGAN) 12.5 [...] DAILY, WITH SIP OF WATER 30 MINS PRIORTO EATING IN THE AM (Patient not taking: [...] Screening: Completed, no positive findings documented. SBIRT Abbey Hanna was given the 4P's screening tool. Abbey answered as follows: OB Opioid Screening - [...] Plan to rescreen early third trimester. Kelly Cevallos APRN.CNP ASSESSMENT: 22 year old at 9w6d wks gestational age PLAN: 1) Patient oriented to practice. Patient given new OB orientation folder. Discussed nutrition, folic acid supplementation, dietary guidelines, exercise, smoking, alcohol, caffeine, and drug use. Discussed gestational weight gain guidelines. Discussed routine OB labs including STD/HIV. Discussed how to access Your guide to a health and the [employer]. Discussed aneuploidy and carrier screening. Regarding aneuploidy [...] or sooner prn. NT appt needed Kelly Thurmont, OFFICE MACHINE PUNCH OPERATOR.SENIOR DRAFTER documented in this encounterPremier Health Atrium Medical Center06-17-2023 Note. MICRO - Microbiology PROCEDURE: Culture Wound Aerobic with Gram Stain [*1] SOURCE: Wound (surface) BODY SITE: Vagina COLLECTED DATE/TIME: 12/05/2022 10:00 EDT RECEIVED DATE/TIME: 12/05/2022 18:24 EDT START DATE/TIME: 12/05/2022 18:25 EDT FREE TEXT SOURCE: Genital Tract Culture FINAL REPORTS Final Report [] Verified Date/Time/Personnel: 12/08/2022 07:49 EDT Normal Vaginal Max: Present Sensitivity testing not indicated. Neisseria gonorrhoeae: Negative PRELIMINARY REPORTS Preliminary Report [] Verified Date/Time/Personnel: 12/07/2022 10:56 EDT Normal Vaginal Max: Present Sensitivity testing not indicated. Neisseria gonorrhoeae: Pending Preliminary Report [] Verified Date/Time/Personnel: 12/06/2022 09:43 EDT Culture results pending. STAINS GS [] Verified Date/Time/Personnel: 12/05/2022 19:16 EDT Rare Epithelial cells 3+ Gram Positive Rods Rare Gram Negative Rods Performing Locations *1: This test was performed at: [address], [facility] , [facility] ([place])09-17-2022 History of Present illness Narrative* Pepito Johansen APRN.SENIOR DRAFTER - 09/17/2022 1:12 PM EDT Images from the original note were not [...] DAILY, WITH SIP OF WATER 30 MINS PRIORTO EATING IN THE AM (Patient not taking: [...] to emergency room for any new, worsening, orsymptoms lasting longer than anticipated. The patient's clinical presentation is otherwise unremarkable at this time. Based on exam and clinical finding, the patient is stable for discharge. Plan of care was discussed with patient. Patient verbalizes understanding and agrees to plan of care. This note was generated using [employer] software. It may contain errors in wording, punctuation, or spelling. Pepito Johansen APRN.ILDEFONSO documented in this encounterPremier Health Atrium Medical Center07-23-2022 Miscellaneous Notes* Telephone Encounter - Kayla Alvarez APRN.CNP - 01/13/2022 12:43 PM EDT Results have returned. Syphillis negative HIV negative Hep C negative Hep B negative Herpes simplex has returned +, Reached out to patient. Results discussed. She remains asymptomatic. No lesions At this time no action needed Follow up with PCP documented in this encounterPremier Health Atrium Medical Center07-23-2022 Miscellaneous Notes* Telephone Encounter - Zaria Flores LPN - 01/13/2022 12:35 PM EDT Patient notified. Verbalized understanding. * Telephone Encounter - Kayla Alvarez APRN.CNP - 01/13/2022 10:58 AM EDT Please call and inform patient that her gonorrhea and chlamydia are negative. documented in this encounterPremier Health Atrium Medical Center07-22-2022 History of Present illness Narrative* Kaylyn Viveros APRN.CNP - 01/12/2022 4:20 PM EDT Subjective HPI Abbey Hanna is a 21 year old female who presents with concern for STD. She wants tohave full STD panel testing. States she may [...] 83.2 kg (183 lb 6.4 oz) LMP 12/22/2021(LMP Unknown) SpO2 99% No past medical history on file. No past surgical history on file. ALLERGIES Patient has no known allergies. MEDICATIONS etonogestrel (NEXPLANON) subdermal implant 68 mg 68 mg by SUBDERMAL route. citalopram (CELEXA) 20 mg tablet Take by mouth once daily. pantoprazole DR (PROTONIX) 40 mg tablet TAKE 1 TABLET ORALLY DAILY, WITH SIP OF WATER 30 MINS PRIORTO EATING IN THE AM No family history on file. Social History Tobacco Use Smoking status: Current Some Day Smoker Smokeless tobacco: Never Used Tobacco comment: Occasional Vape Substance Use Topics Alcohol use: Not on file Drug use: Not on file Objective Physical Exam Vitals and nursing note reviewed. Exam conducted with a child nutrition director present. Constitutional: Appearance: She is obese. Cardiovascular: [...] herpes. Kaylyn Viveros APRN.CNP documented in this encounterPremier Health At[facility] Medical Center07-22-2022 Instructions* Patient Instructions* Kaylyn Viveros APRN.CNP - 01/12/2022 4:18 PM [...] no evidence of genital herpes. Kaylyn Viveros APRN.SENIOR DRAFTER SAFER SEX: Your doctor wants you to have this information about the infections that can be transmitted from sexual contact and how to prevent them. The idea behind safer sex is that you can be sexually active and at the same time reduce the risk of giving or getting a sexually transmitted disease (STD). STD sare transmitted by sharing body fluids which harbor viruses or bacteria. Semen, urine, blood and vaginal mucous can all transmit infections during sex. Examples of sexually transmitted infections include chlamydia, gonorrhea, herpes, hepatitis, genital warts and AIDS. Sexual diseases often cause few or no symptoms until they are advanced, so a person can be infectedand spread the infection without knowing it. You never become immune to sexual diseases. Some STD srespond to treatment very well, others, like AIDS [...] Dry kissing and oral sex on a manwearing a latex condom or on a woman [...] female condom, using saliva to lubricate a condom,or any other sexual contact in which body [...] positive HIV blood test. [facility] Diagnosis Screening for STD (sexually transmitted disease)- Primary Screening examination for venereal disease Exposure to genital herpes Contact with or exposure to other viral diseases documented in this encounter [facility] note* Diagnosis Contact dermatitis, unspecified contact dermatitis type, unspecified trigger- Primary documented in this encounter [facility] note* Diagnosis with uncertain dates in first trimester- Primary Encounter for care in first trimester of first documented in this encounter [facility] note* Diagnosis with uncertain dates in first trimester- Primary of unknown anatomic location state, incidental documented in this encounter [facility] note* Diagnosis care, subsequent in first trimester- Primary 13 weeks gestation of state, incidental Encounter for supervision of normal first in first trimester Supervision of normal first documented in this encounter [facility] note* Diagnosis 12 weeks gestation of - Primary state, incidental with uncertain dates in first trimester Dysuria documented in this encounter [facility] note* Diagnosis Encounter for (NT) nuchal translucency scan- Primary Other specified screening Encounter for care in first trimester of first 13 weeks gestation of state, incidental documented in this encounter [facility] note* Diagnosis 15 weeks gestation of - Primary state, incidental Encounter for supervision of normal first in second trimester Supervision of normal first Need for influenza vaccination Need for prophylactic vaccination and inoculation against influenza documented in this encounter [facility]* Diagnosis 18 weeks gestation of - Primary state, incidental Encounter for supervision of normal first in second trimester Supervision of normal first Vaginal discharge Leukorrhea, not specified as infective documented in this encounter [facility]* Diagnosis Encounter for anatomic survey- Primary Encounter for supervision of normal first in second trimester Supervision of normal first 18 weeks gestation of state, incidental [facility] this encounter [facility] Diagnosis 22 weeks gestation of - Primary state, incidental Encounter for supervision of normal first in second trimester Supervision of normal first documented in this encounter [facility]* Diagnosis 31 weeks gestation of - Primary state, incidental Visit for eye and vision exam Examination of eyes and vision History of herpes genitalis Personal history of other infectious and parasitic disease documented in this encounter [facility]* Diagnosis Decreased movements in second trimester, single or unspecified fetus- Primary Encounter for supervision of normal first in third trimester Supervision of normal first 32 weeks gestation of state, incidental [facility] Diagnosis Encounter for supervision of normal first in third trimester- Primary Supervision of normal first 33 weeks gestation of state, incidental History of herpes genitalis Personal history of other infectious and parasitic disease Encounter for supervision of high risk in second trimester, antepartum Encounter for supervision of high risk in third trimester, antepartum [facility]* Diagnosis 34 weeks gestation of - Primary state, incidental Encounter for supervision of normal first in third trimester Supervision of normal first Gestational hypertension without significant proteinuria in third trimester Transient hypertension of , antepartum [facility]* Diagnosis Blurred vision, bilateral- Primary Other specified visual disturbances Regular astigmatism of both eyes Regular astigmatism documented in this encounter [facility]* Diagnosis Poor growth affecting management of mother in third trimester, single or unspecified fetus- Primary 35 weeks gestation of state, incidental Encounter for supervision of normal first in third trimester Supervision of normal first Gestational hypertension without significant proteinuria in third trimester Transient hypertension of , antepartum [facility]* Diagnosis 35 weeks gestation of - Primary state, incidental Encounter for supervision of normal first in third trimester Supervision of normal first Gestational hypertension without significant proteinuria in third trimester Transient hypertension of , antepartum Poor growth affecting management of mother in third trimester, single or unspecified fetus documented in this encounter [facility] note* Diagnosis 36 weeks gestation of - Primary state, incidental Encounter for supervision of normal first in third trimester Supervision of normal first Gestational hypertension without significant proteinuria in third trimester Transient hypertension of , antepartum Poor growth affecting management of mother in third trimester, single or unspecified fetus documented in this encounter [facility] note* Diagnosis Vulvar irritation- Primary Other specified noninflammatory disorder of vulva and perineum documented in this encounter [facility] note* Diagnosis Poor growth affecting management of mother in third trimester, single or unspecified fetus- Primary 35 weeks gestation of state, incidental Encounter for supervision of normal first in third trimester Supervision of normal first Gestational hypertension without significant proteinuria in third trimester Transient hypertension of , antepartum documented in this encounter [facility] note* Diagnosis Onset Date Resolution Status 30 weeks gestation of acute History of herpes genitalis acute Vaginal bleeding during , antepartum acute 37 weeks gestation of acute Anxiety disorder acute delivery delivered acute High-risk in third trimester acute History of herpes genitalis acute [id number] acute Maternal obesity syndrome in third trimester acute Non-reassuring electronic monitoring tracing acute Obesity, Class II, BMI 35-39.9 acute Outcome of delivery, single liveborn acute [facility] Work Phone: Evaluation note* Diagnosis Onset Date Resolution Status 30 weeks gestation of acute History of herpes genitalis acute Vaginal bleeding during , antepartum acute 37 weeks gestation of acute Anxiety disorder acute delivery delivered acute High-risk in third trimester acute History of herpes genitalis acute [id number] acute Maternal obesity syndrome in third trimester acute Non-reassuring electronic monitoring tracing acute Obesity, Class II, BMI 35-39.9 acute Outcome of delivery, single liveborn acute delivery delivered acute Obesity, Class II, BMI 35-39.9 acute Preeclampsia acute [facility] Work Phone: Evaluation note* Diagnosis care and examination of lactating mother- Primary [facility] Diagnosis care and examination- Primary Routine follow-up Screening for malignant neoplasm of cervix Screening for malignant neoplasm of the cervix documented in this encounter [facility]* Diagnosis Screening for STD (sexually transmitted disease)- Primary Screening examination for venereal disease Dysuria [facility]* Diagnosis Encounter for IUD insertion- Primary Encounter for insertion of intrauterine contraceptive device Gastroenteritis Other and unspecified noninfectious gastroenteritis and colitis Trichomoniasis Trichomoniasis, unspecified documented in this encounter [facility] note* Diagnosis Trichomoniasis- Primary Trichomoniasis, unspecified [facility]* Diagnosis Screening for STDs (sexually transmitted diseases)- Primary Screening examination for venereal disease [facility]* Diagnosis SOB (shortness of breath) Shortness of breath documented in this encounter [facility]* Diagnosis Blurred vision, bilateral- Primary Other specified visual disturbances Regular astigmatism of both eyes Regular astigmatism [facility]* Diagnosis Encounter for gynecological examination (general) (routine) without abnormal findings- Primary Irritation of vulva Other specified noninflammatory disorder of vulva and perineum Encounter for surveillance of contraceptive pills Surveillance of previously prescribed contraceptive pill [facility]* Diagnosis Feeling of incomplete bladder emptying- Primary Incomplete bladder emptying Frequency of micturition Urinary frequency Overactive bladder Hypertonicity of bladder Urinary urgency Urgency of urination [facility]* Diagnosis Rash- Primary Rash and other nonspecific skin eruption [facility]* Diagnosis Onset Date Resolution Status Admit Date GERD (gastroesophageal reflu x disease) acute January 13, 2025 11:09am Loose stools acute January 13, 025 11:09am [facility] Work Phone: Evaluation note* Diagnosis Feeling of incomplete bladder emptying Incomplete bladder emptying Frequency of micturition Urinary frequency Left flank pain Abdominal pain, unspecified site [facility] Additional Instructions needs follow up appointment in 3 days Date of Discharge: [facility]/23[facility] Work Phone: Reason for referral (narrative)* Diagnostic Procedure Only (Routine) - Authorized Specialty Diagnoses / Procedures Referred By Silver wheeler Referred To Contact [facility] Diagnoses with uncertain dates in first trimester Encounter for care in first trimester of first Procedures NUCHAL TRANSLUCENCY WHI US NUCHAL TRANSLUCENCY 1ST GESTATION Kelly Cevallos APRN.CNP [address] [place] [address] [address] Referral ID Status Reason Start Date Expiration Date Visits Requested Visits Authorized [id number] Authorized Auto-Generat ed Referral 03/04/2023 03/03/2024 1 1 [facility] for referral (narrative)* Outpatient Procedure (Routine) - Pending Review Specialty Diagnoses / Procedures Referred By Contac t Referred To Contact [facility] Diagnoses 34 weeks gestation of Encounter for supervision of normal first in third trimester Gestational hypertension without significant proteinuria in third trimester Procedures NON-STRESS TEST NON-STRESS TEST Karla Acosta MD [address] [place] [address] [address] Referral ID Status Reason Start Date Expiration Date Visits Requested Visits Authorized [id number] Pending Review Auto-Generat ed Referral 08/21/2023 08/20/2024 4 1 * Diagnostic Procedure Only (Routine) - Authorized Specialty Diagnoses / Procedures Referred By Contac t Referred To Contact [facility] Diagnoses 34 weeks gestation of Encounter for supervision of normal first in third trimester Gestational hypertension without significant proteinuria in third trimester Procedures OBSTETRIC ULTRASOUND WHI US PREG UTERUS AFTER 1ST TRIMEST GESTATION Karla Acosta MD [address] [place] [address] [address] Referral ID Status Reason Start Date Expiration Date Visits Requested Visits Authorized [id number] Authorized Auto-Generat ed Referral 08/21/2023 08/20/2024 1 1 [facility] for referral (narrative)* Outpatient Procedure (Routine) - Pending Review Specialty Diagnoses / Procedures Referred By Contac t Referred To Contact [facility] Diagnoses Poor growth affecting management of mother in third trimester, single or unspecified fetus Procedures NON-STRESS TEST NON-STRESS TEST Shruti Hunter MD [address] [place] [address] [address] Referral ID Status Reason Start Date Expiration Date Visits Requested Visits Authorized [id number] Pending Review Auto-Generat ed Referral 09/02/2023 09/01/2024 1 1 * Diagnostic Procedure Only (Routine) - Pending Review Specialty Diagnoses / Procedures Referred By Contac t Referred To Contact [facility] Diagnoses Poor growth affecting management of mother in third trimester, single or unspecified fetus Procedures BIOPHYSICAL PROFILE [facility] BIOPHYSICAL PROFILE NON-STRESS TESTING Shruti Hunter MD [address] [place] [address] [facility] [address] [place] [address] Referral ID Status Reason Start Date Expiration Date Visits Requested Visits Authorized [id number] Pending Review Auto-Generat ed Referral 09/02/2023 09/01/2024 10 1 * Diagnostic Procedure Only (Routine) - Authorized Specialty Diagnoses / Procedures Referred By Contac t Referred To Contact [facility] Diagnoses 35 weeks gestation of Encounter for supervision of normal first in third trimester Gestational hypertension without significant proteinuria in third trimester Poor growth affecting management of mother in third trimester, single or unspecified fetus Procedures BIOPHYSICAL PROFILE [facility] BIOPHYSICAL PROFILE NON-STRESS TESTING Shruti Hunter MD [address] [address] [facility] [address] [place] [address] Referral ID Status Reason Start Date Expiration Date Visits Requested Visits Authorized [id number] Authorized Auto-Generat ed Referral 09/02/2023 09/01/2024 10 1 [facility] for referral (narrative)* Outpatient Procedure (Routine) - Pending Review Specialty Diagnoses / Procedures Referred By Silver wheeler Referred To Contact [facility] Diagnoses Encounter for IUD insertion Procedures INSERT INTRAUTERINE DEVICE LEVONORGESTREL IU 52MG 5 YR INSERT INTRAUTERINE DEVICE Karla Acosta MD [address] [place] [address] [facility] [address] [place] [address] Referral ID Status Reason Start Date Expiration Date Visits Requested Visits Authorized [id number] Pending Review Auto-Generat ed Referral 12/24/2023 12/23/2024 1 1 [facility] for referral (narrative)No reason for referral information availableNash[place] [employer] Services Work Phone: Reason for visit Narrative* Diagnostic Procedure Only (Routine) - Closed Specialty Diagnoses / Procedures Referred By Silver wheeler Referred To Contact [facility] Diagnoses Feeling of incomplete bladder emptying Frequency of micturition Left flank pain Procedures XR ABDOMEN 1V SUPINE RADIOLOGIC EXAM ABDOMEN 1 VIEW Maria Luz Rodriguez, OFFICE MACHINE PUNCH OPERATOR.SENIOR DRAFTER [address] [facility] [place] [address] Phone: tel: fax: [place] [phone] Referral ID Status Reason Start Date Expiration Date V isits Requested Visits Authorized [id number] Closed Auto-Generate d Referral 01/29/2025 02/28/2026 1 1 [facility] Summary Purpose Family History No Family History Records FoundNo Family History Records FoundNo Family History Records FoundNo Family History Records FoundNo Family History Records FoundNo Family History Records FoundNo Family History Records Found Advance Directives No Advanced Directives Records Found Advance Directive Response Recorded Date/ Time Living Will No September 10, 2023 8:10pm Power of Nursing Consultant No September 09 8:10pm Health Concerns Problem Noted Date Diagnosed Date [facility] - [place] 03/04/2023 [place] 03/04/2023 Problem Noted Date Diagnosed Date [facility] - [place] 03/04/2023 [place] 03/04/2023 Problem Noted Date Diagnosed Date [facility] - [place] 03/04/2023 [place] 03/04/2023 Problem Noted Date Diagnosed Date [facility] - [place] 03/04/2023 [place] 03/04/2023 Problem Noted Date Diagnosed Date [facility] - [place] 03/04/2023 [place] 03/04/2023 Problem Noted Date Diagnosed Date [facility] - [place] 03/04/2023 [place] 03/04/2023 Problem Noted Date Diagnosed Date [facility] - [place] 03/04/2023 [place] 03/04/2023 Problem Noted Date Diagnosed Date [facility] - [place] 03/04/2023 [place] 03/04/2023 Problem Noted Date Diagnosed Date [facility] - [place] 03/04/2023 [place] 03/04/2023 Problem Noted Date Diagnosed Date [facility] - [place] 03/04/2023 [place] 03/04/2023 Problem Noted Date Diagnosed Date [facility] - [place] 03/04/2023 [place] 03/04/2023 Problem Noted Date Diagnosed Date [facility] - [place] 03/04/2023 [place] 03/04/2023 Problem Noted Date Diagnosed Date [facility] - [place] 03/04/2023 [place] 03/04/2023 Problem Noted Date Diagnosed Date [facility] - [place] 03/04/2023 Education - [place] 03/04/2023 Active Problems Noted Date Diagnosed Date [facility] - [place] 03/04/2023 [place] 03/04/2023 Active Problems Noted Date Diagnosed Date [facility] - [place] 03/04/2023 [place] 03/04/2023 Active Problems Noted Date Diagnosed Date [facility] - [facility] 03/04/2023 [place] - [place] 03/04/2023 Active Problems Noted Date Diagnosed Date [facility] Education - [facility] 03/04/2023 [place] - [place] 03/04/2023 Active Problems Noted Date Diagnosed Date [facility] - [facility] 03/04/2023 [place] 03/04/2023 Active Problems Noted Date Diagnosed Date [facility] Education - [facility] 03/04/2023 [place] 03/04/2023 Reason for Referral Specialty Diagnoses / Procedures Referred By Silver wheeler Referred To Contact Optometry Diagnoses 31 weeks gestation of Visit for eye and vision exam Procedures CONSULT TO OPTOMETRY OFFICE/OUTPATIENT [facility] 60 MINUTES Cheryl Clark MD [address] [place] [address] Referral ID Status Reason Start Date Expiration Date Visits Requested Visits Authorized [id number] Authorized PCP Requested Referral 07/30/2023 07/29/2024 1 1 Chief Complaint and Reason for Visit Chief Complaint Admit Date GERD (pedi) January 13, 2025 11:0 9am INT ORDER FOR LABSPEC January 20, 2025 11 :02am Reason for Visit Admit Date GERD (gastroesophageal reflux disease) J tori 2024 11:09am Loose stools January 13, 2025 11:0 9am Chief Complaint BLEEDING PRIMARY Reason for Visit 30 weeks gestation o f History of herpes genitalis Vaginal bleeding during , antepartum 37 weeks gestation of Anxiety disorder delivery delivered High-risk in third trimester History of herpes genitalis [id number] Maternal obesity syndrome in third trimester Non-reassuring electronic monitoring tracing Obesity, Class II, BMI 35-39.9 Outcome of delivery, single liveborn Chief Complaint BLEEDING PRIMARY POST PRE E Reason for Visit 30 weeks gestation o f History of herpes genitalis Vaginal bleeding during , antepartum 37 weeks gestation of Anxiety disorder delivery delivered High-risk in third trimester History of herpes genitalis [id number] Maternal obesity syndrome in third trimester Non-reassuring electronic monitoring tracing Obesity, Class II, BMI 35-39.9 Outcome of delivery, single liveborn delivery delivered Obesity, Class II, BMI 35-39.9 Preeclampsia Chief Complaint Admit Date GERD (pedi) January 13, 2025 11:0 9am Additional Source Comments INFORMATION SOURCE (unrecogn ized section and content) DATE CREATED AUTHOR 12/17/2017 [facility] DATE CREATED AUTHOR AUTHOR'S ORGANIZ ATION 04/23/2021 [facility] DATE CREATED AUTHOR AUTHOR'S ORGANIZ ATION 05/05/2023 [facility] ([place]) DATE CREATED AUTHOR AUTHOR'S ORGANIZ ATION 01/02/2025 [facility] DATE CREATED AUTHOR AUTHOR'S ORGANIZ ATION 01/31/2025 [facility] DATE CREATED AUTHOR AUTHOR'S ORGANIZ ATION 02/18/2025 [facility] DATE CREATED AUTHOR AUTHOR'S ORGANIZ ATION 02/24/2025 [facility] Source Comments (unrecognize d section and content) In the event this informatio n is protected by the Federal Confidentiality of Alcohol and Drug Abuse Patient Records regulations: The Federal rules restrict any use of the information to criminally investigate or prosecute any alcohol or drug abuse patient.[facility] Center[facility] the event this information is protected by the Federal Confidentiality of Alcohol and Drug Abuse Patient Records regulations: The Federal rules restrict any use of the information to criminally investigate or prosecute any alcohol or drug abuse patient.[facility] Center[facility] the event this information is protected by the Federal Confidentiality of Alcohol and Drug Abuse Patient Records regulations: The Federal rules restrict any use of the information to criminally investigate or prosecute any alcohol or drug abuse patient.[facility] CenterIn the event this information is protected by the Federal Confidentiality of Alcohol and Drug Abuse Patient Records regulations: The Federal rules restrict any use of the information to criminally investigate or prosecute any alcohol or drug abuse patient.[facility] CenterIn the event this information is protected by the Federal Confidentiality of Alcohol and Drug Abuse Patient Records regulations: The Federal rules restrict any use of the information to criminally investigate or prosecute any alcohol or drug abuse patient.[facility] CenterIn the event this information is protected by the Federal Confidentiality of Alcohol and Drug Abuse Patient Records regulations: The Federal rules restrict any use of the information to criminally investigate or prosecute any alcohol or drug abuse patient.[facility] CenterIn the event this information is protected by the Federal Confidentiality of Alcohol and Drug Abuse Patient Records regulations: The Federal rules restrict any use of the information to criminally investigate or prosecute any alcohol or drug abuse patient.[facility] CenterIn the event this information is protected by the Federal Confidentiality of Alcohol and Drug Abuse Patient Records regulations: The Federal rules restrict any use of the information to criminally investigate or prosecute any alcohol or drug abuse patient.[facility] CenterIn the event this information is protected by the Federal Confidentiality of Alcohol and Drug Abuse Patient Records regulations: The Federal rules restrict any use of the information to criminally investigate or prosecute any alcohol or drug abuse patient.[facility] CenterIn the event this information is protected by the Federal Confidentiality of Alcohol and Drug Abuse Patient Records regulations: The Federal rules restrict any use of the information to criminally investigate or prosecute any alcohol or drug abuse patient.[facility] CenterIn the event this information is protected by the Federal Confidentiality of Alcohol and Drug Abuse Patient Records regulations: The Federal rules restrict any use of the information to criminally investigate or prosecute any alcohol or drug abuse patient.[facility] CenterIn the event this information is protected by the Federal Confidentiality of Alcohol and Drug Abuse Patient Records regulations: The Federal rules restrict any use of the information to criminally investigate or prosecute any alcohol or drug abuse patient.[facility] CenterIn the event this information is protected by the Federal Confidentiality of Alcohol and Drug Abuse Patient Records regulations: The Federal rules restrict any use of the information to criminally investigate or prosecute any alcohol or drug abuse patient.[facility] CenterIn the event this information is protected by the Federal Confidentiality of Alcohol and Drug Abuse Patient Records regulations: The Federal rules restrict any use of the information to criminally investigate or prosecute any alcohol or drug abuse patient.[facility] CenterIn the event this information is protected by the Federal Confidentiality of Alcohol and Drug Abuse Patient Records regulations: The Federal rules restrict any use of the information to criminally investigate or prosecute any alcohol or drug abuse patient.[facility] CenterIn the event this information is protected by the Federal Confidentiality of Alcohol and Drug Abuse Patient Records regulations: The Federal rules restrict any use of the information to criminally investigate or prosecute any alcohol or drug abuse patient.[facility] CenterIn the event this information is protected by the Federal Confidentiality of Alcohol and Drug Abuse Patient Records regulations: The Federal rules restrict any use of the information to criminally investigate or prosecute any alcohol or drug abuse patient.[facility] CenterIn the event this information is protected by the Federal Confidentiality of Alcohol and Drug Abuse Patient Records regulations: The Federal rules restrict any use of the information to criminally investigate or prosecute any alcohol or drug abuse patient.[facility] CenterIn the event this information is protected by the Federal Confidentiality of Alcohol and Drug Abuse Patient Records regulations: The Federal rules restrict any use of the information to criminally investigate or prosecute any alcohol or drug abuse patient.[facility] CenterIn the event this information is protected by the Federal Confidentiality of Alcohol and Drug Abuse Patient Records regulations: The Federal rules restrict any use of the information to criminally investigate or prosecute any alcohol or drug abuse patient.[facility] CenterIn the event this information is protected by the Federal Confidentiality of Alcohol and Drug Abuse Patient Records regulations: The Federal rules restrict any use of the information to criminally investigate or prosecute any alcohol or drug abuse patient.[facility] CenterIn the event this information is protected by the Federal Confidentiality of Alcohol and Drug Abuse Patient Records regulations: The Federal rules restrict any use of the information to criminally investigate or prosecute any alcohol or drug abuse patient.[facility] CenterIn the event this information is protected by the Federal Confidentiality of Alcohol and Drug Abuse Patient Records regulations: The Federal rules restrict any use of the information to criminally investigate or prosecute any alcohol or drug abuse patient.[facility] CenterIn the event this information is protected by the Federal Confidentiality of Alcohol and Drug Abuse Patient Records regulations: The Federal rules restrict any use of the information to criminally investigate or prosecute any alcohol or drug abuse patient.[facility] CenterIn the event this information is protected by the Federal Confidentiality of Alcohol and Drug Abuse Patient Records regulations: The Federal rules restrict any use of the information to criminally investigate or prosecute any alcohol or drug abuse patient.[facility] CenterIn the event this information is protected by the Federal Confidentiality of Alcohol and Drug Abuse Patient Records regulations: The Federal rules restrict any use of the information to criminally investigate or prosecute any alcohol or drug abuse patient.[facility] CenterIn the event this information is protected by the Federal Confidentiality of Alcohol and Drug Abuse Patient Records regulations: The Federal rules restrict any use of the information to criminally investigate or prosecute any alcohol or drug abuse patient.[facility] CenterIn the event this information is protected by the Federal Confidentiality of Alcohol and Drug Abuse Patient Records regulations: The Federal rules restrict any use of the information to criminally investigate or prosecute any alcohol or drug abuse patient.[facility] CenterIn the event this information is protected by the Federal Confidentiality of Alcohol and Drug Abuse Patient Records regulations: The Federal rules restrict any use of the information to criminally investigate or prosecute any alcohol or drug abuse patient.[facility] CenterIn the event this information is protected by the Federal Confidentiality of Alcohol and Drug Abuse Patient Records regulations: The Federal rules restrict any use of the information to criminally investigate or prosecute any alcohol or drug abuse patient.[facility] CenterIn the event this information is protected by the Federal Confidentiality of Alcohol and Drug Abuse Patient Records regulations: The Federal rules restrict any use of the information to criminally investigate or prosecute any alcohol or drug abuse patient.[facility] CenterIn the event this information is protected by the Federal Confidentiality of Alcohol and Drug Abuse Patient Records regulations: The Federal rules restrict any use of the information to criminally investigate or prosecute any alcohol or drug abuse patient.[facility] CenterIn the event this information is protected by the Federal Confidentiality of Alcohol and Drug Abuse Patient Records regulations: The Federal rules restrict any use of the information to criminally investigate or prosecute any alcohol or drug abuse patient.[facility] CenterIn the event this information is protected by the Federal Confidentiality of Alcohol and Drug Abuse Patient Records regulations: The Federal rules restrict any use of the information to criminally investigate or prosecute any alcohol or drug abuse patient.[facility] CenterIn the event this information is protected by the Federal Confidentiality of Alcohol and Drug Abuse Patient Records regulations: The Federal rules restrict any use of the information to criminally investigate or prosecute any alcohol or drug abuse patient.[facility] CenterIn the event this information is protected by the Federal Confidentiality of Alcohol and Drug Abuse Patient Records regulations: The Federal rules restrict any use of the information to criminally investigate or prosecute any alcohol or drug abuse patient.[facility] CenterIn the event this information is protected by the Federal Confidentiality of Alcohol and Drug Abuse Patient Records regulations: The Federal rules restrict any use of the information to criminally investigate or prosecute any alcohol or drug abuse patient.[facility] CenterIn the event this information is protected by the Federal Confidentiality of Alcohol and Drug Abuse Patient Records regulations: The Federal rules restrict any use of the information to criminally investigate or prosecute any alcohol or drug abuse patient.[facility] CenterIn the event this information is protected by the Federal Confidentiality of Alcohol and Drug Abuse Patient Records regulations: The Federal rules restrict any use of the information to criminally investigate or prosecute any alcohol or drug abuse patient.[facility] CenterIn the event this information is protected by the Federal Confidentiality of Alcohol and Drug Abuse Patient Records regulations: The Federal rules restrict any use of the information to criminally investigate or prosecute any alcohol or drug abuse patient.[facility] CenterIn the event this information is protected by the Federal Confidentiality of Alcohol and Drug Abuse Patient Records regulations: The Federal rules restrict any use of the information to criminally investigate or prosecute any alcohol or drug abuse patient.[facility] CenterIn the event this information is protected by the Federal Confidentiality of Alcohol and Drug Abuse Patient Records regulations: The Federal rules restrict any use of the information to criminally investigate or prosecute any alcohol or drug abuse patient.[facility] CenterIn the event this information is protected by the Federal Confidentiality of Alcohol and Drug Abuse Patient Records regulations: The Federal rules restrict any use of the information to criminally investigate or prosecute any alcohol or drug abuse patient.[facility] CenterIn the event this information is protected by the Federal Confidentiality of Alcohol and Drug Abuse Patient Records regulations: The Federal rules restrict any use of the information to criminally investigate or prosecute any alcohol or drug abuse patient.[facility] CenterIn the event this information is protected by the Federal Confidentiality of Alcohol and Drug Abuse Patient Records regulations: The Federal rules restrict any use of the information to criminally investigate or prosecute any alcohol or drug abuse patient.[facility] CenterIn the event this information is protected by the Federal Confidentiality of Alcohol and Drug Abuse Patient Records regulations: The Federal rules restrict any use of the information to criminally investigate or prosecute any alcohol or drug abuse patient.[facility] CenterIn the event this information is protected by the Federal Confidentiality of Alcohol and Drug Abuse Patient Records regulations: The Federal rules restrict any use of the information to criminally investigate or prosecute any alcohol or drug abuse patient.[facility] CenterIn the event this information is protected by the Federal Confidentiality of Alcohol and Drug Abuse Patient Records regulations: The Federal rules restrict any use of the information to criminally investigate or prosecute any alcohol or drug abuse patient.[facility] CenterIn the event this information is protected by the Federal Confidentiality of Alcohol and Drug Abuse Patient Records regulations: The Federal rules restrict any use of the information to criminally investigate or prosecute any alcohol or drug abuse patient.[facility] CenterIn the event this information is protected by the Federal Confidentiality of Alcohol and Drug Abuse Patient Records regulations: The Federal rules restrict any use of the information to criminally investigate or prosecute any alcohol or drug abuse patient.[facility] CenterIn the event this information is protected by the Federal Confidentiality of Alcohol and Drug Abuse Patient Records regulations: The Federal rules restrict any use of the information to criminally investigate or prosecute any alcohol or drug abuse patient.[facility] CenterIn the event this information is protected by the Federal Confidentiality of Alcohol and Drug Abuse Patient Records regulations: The Federal rules restrict any use of the information to criminally investigate or prosecute any alcohol or drug abuse patient.[facility] Reason for Visit (unrecogniz ed section and content) Reason Comments US Specialty Diagnoses / Procedures Referred By Silver t Referred To Contact [facility] Diagnoses with uncertain dates in first trimester Encounter for care in first trimester of first Procedures NUCHAL TRANSLUCENCY WHI US NUCHAL TRANSLUCENCY 1ST GESTATION Kelly Cevallos APRN.SENIOR DRAFTER [address] [place] [address] [address] Referral ID Status Reason Start Date Expiration Date V isits Requested Visits Authorized [id number] Closed Auto-Generate d Referral 03/04/2023 03/03/2024 1 [...] 05/06/2023 Specialty Diagnoses / Procedures Referred By Contac t Referred To Contact [facility] Diagnoses Encounter for supervision of normal first in second trimester Procedures OBSTETRIC ULTRASOUND WHI US PREG UTERUS AFTER 1ST TRIMEST GESTATION Ita Boston APRN.CNM [address] [place] [address] [address] Referral ID Status Reason Start Date Expiration Date V isits Requested Visits Authorized [id number] Closed Auto-Generate d Referral 05/06/2023 06/23/2023 1 1 Reason Onset Date Comments Care 06/03/2023 Reason Comments OB Urinary Symptoms Reason Onset Date Comments Care 07/30/2023 Reason Comments Decreased FM Reason Onset Date Comments Care 08/07/2023 Reason Comments Breast Pump Reason Onset Date Comments Care 08/13/2023 Reason Onset Date Comments Care 08/21/2023 Reason Comments Comprehensive Eye Exam Specialty Diagnoses / Procedures Referred By Contac t Referred To Contact Optometry Diagnoses 31 weeks gestation of Visit for eye and vision exam Procedures CONSULT TO OPTOMETRY OFFICE/OUTPATIENT NEW HIGH MDM 60 MINUTES Cheryl Clark MD [address] [place] [address] Referral ID Status Reason Start Date Expiration Date V isits Requested Visits Authorized [id number] Closed PCP Requested Referral 07/30/2023 07/29/2024 1 1 Reason Comments OB Rash Specialty Diagnoses / Procedures Referred By Contac t Referred To Contact [facility] Diagnoses 34 weeks gestation of Encounter for supervision of normal first in third trimester Gestational hypertension without significant proteinuria in third trimester Procedures OBSTETRIC ULTRASOUND WHI US PREG UTERUS AFTER 1ST TRIMEST GESTATION Karla Acosta MD [address] [place] [address] [facility] [address] [place] [address] Referral ID Status Reason Start Date Expiration Date V isits Requested Visits Authorized [id number] Closed Auto-Generate d Referral 08/21/2023 08/20/2024 1 1 Reason Onset Date Comments Care 09/02/2023 Reason Onset Date Comments Care 09/05/2023 Specialty Diagnoses / Procedures Referred By Contac t Referred To Contact [facility] Diagnoses 35 weeks gestation of Encounter for supervision of normal first in third trimester Gestational hypertension without significant proteinuria in third trimester Poor growth affecting management of mother in third trimester, single or unspecified fetus Procedures BIOPHYSICAL PROFILE US WH BIOPHYSICAL PROFILE NON-STRESS TESTING Shruti Hunter MD [address] [place] [address] [facility] [address] [place] [address] Referral ID Status Reason Start Date Expiration Date V isits Requested Visits Authorized [id number] Closed Auto-Generate d Referral 09/02/2023 09/01/2024 10 1 Reason Comments Ob Delivery Note Reason Comments Appointment Reason Comments PP Blood Pressure Reason Comments Care Reason Onset Date Comments Refill Request 10/17/2023 Reason Comments Routine Reason Comments STD Reason Comments Contraception Reason Comments Partner Treatment Reason Comments Pelvic Pain Heavy Menses Reason Comments STD testing Reason Comments Yearly Exam Reason Comments Well Woman Reason Comments Urinary Retention Reason Comments Rash left hand, right elb ow, itching, warm to touch x last night Care Teams (unrecognized sec tion and content) Park Guard Relationship Specialty Start Date End Date Sid Whitehead [address] [place] [address] PCP - General Family Medicine 11/29/22 Park Guard Relationship Specialty Start Date End Date Sid Whitehead [address] [place] [address] PCP - General Family Medicine 11/29/22 Park Guard Relationship Specialty Start Date End Date Sid Whitehead [address] [place] [address] PCP - General Family Medicine 11/29/22 Park Guard Relationship Specialty Start Date End Date Sid Whitehead [address] [place] [id number] PCP - General Family Medicine 11/29/22 Park Guard Relationship Specialty Start Date End Date Sid Whitehead [address] [place] [address] PCP - General Family Medicine 11/29/22 Park Guard Relationship Specialty Start Date End Date Sid Whitehead [address] [place] [address] PCP - General Family Medicine 11/29/22 Park Guard Relationship Specialty Start Date End Date Sid Whitehead CNP [address] [place] [address] PCP - General Family Medicine 11/29/22 Park Guard Relationship Specialty Start Date End Date Sid Whitehead CNP [address] [place] [address] PCP - General Family Medicine 11/29/22 Park Guard Relationship Specialty Start Date End Date Sid Whitehead CNP [address] [facility] [facility] [address] PCP - General Family Medicine 11/29/22 Park Guard Relationship Specialty Start Date End Date Sid Whitehead CNP [address] [place] [address] PCP - General Family Medicine 11/29/22 Park Guard Relationship Specialty Start Date End Date Sid Whitehead CNP [address] [facility] [address] PCP - General Family Medicine 11/29/22 Park Guard Relationship Specialty Start Date End Date Sid Whitehead CNP [address] [facility] [address] PCP - General Family Medicine 11/29/22 Park Guard Relationship Specialty Start Date End Date Sid Whitehead CNP [address] [facility] [address] PCP - General Family Medicine 11/29/22 Park Guard Relationship Specialty Start Date End Date Sid Whitehead CNP [address] [place] [address] PCP - General Family Medicine 11/29/22 Park Guard Relationship Specialty Start Date End Date Sid Whitehead CNP [address] [place] [address] PCP - General Family Medicine 11/29/22 Park Guard Relationship Specialty Start Date End Date Sid Whitehead CNP [address] [place] [facility] [place] [place] [address] PCP - General Family Medicine 11/29/22 Park Guard Relationship Specialty Start Date End Date Sid Whitehead CNP [address] [facility] [place] [address] PCP - General Family Medicine 11/29/22 Park Guard Relationship Specialty Start Date End Date Sid Whitehead CNP [address] [place] [facility] [place] [address] PCP - General Family Medicine 11/29/22 Park Guard Relationship Specialty Start Date End Date Sid Whitehead CNP [address] [place] [facility] [place] [place] [address] PCP - General Family Medicine 11/29/22 Park Guard Relationship Specialty Start Date End Date Sid Whitehead CNP [address] [place] [facility] [place] [address] PCP - General Family Medicine 11/29/22 Team Status: Active Member Role Status Dates Sid Whitehead GIRLS TENNIS COACH, GIRLS TENNIS COACH-C Primary Care Provider Active Team Status: Inactive Member Role Status Dates Ita Boston CNM Attending Provider, Referring Pr ovider Active Team Status: Inactive Member Role Status Dates Sid Whitehead GIRLS TENNIS COACH, GIRLS TENNIS COACH-C Primary Care Provider Active Dr. Shruti Hunter MD Admit Provider, Attending Pro vider Active Park Guard Relationship Specialty Start Date End Date Sid Whitehead CNP [address] [place] [facility] [place] [address] PCP - General Family Medicine 11/29/22 Team Status: Inactive Member Role Status Dates Sid Whitehead GIRLS TENNIS COACH, GIRLS TENNIS COACH-C Primary Care Provider Active Kayla Rodriguez CNM Admit Provider, Attending Provider Active Park Guard Relationship Specialty Start Date End Date Sid Whitehead CNP [address] [place] [address] PCP - General Family Medicine 11/29/22 Park Guard Relationship Specialty Start Date End Date Sid Whitehead CNP [address] [place] [address] PCP - General Family Medicine 11/29/22 Park Guard Relationship Specialty Start Date End Date Sid Whitehead CNP [address] [place] [address] PCP - General Family Medicine 11/29/22 Park Guard Relationship Specialty Start Date End Date Sid Whitehead CNP [address] [place] [address] PCP - General Family Medicine 11/29/22 Park Guard Relationship Specialty Start Date End Date Sid Whitehead CNP [address] [place] [address] PCP - General Family Medicine 11/29/22 Park Guard Relationship Specialty Start Date End Date Sid Whitehead CNP [address] [place] [address] PCP - General Family Medicine 11/29/22 Team Status: Active Member Role/Relationship Status Dates RIO Pavon Primary Care Provider Acti ve Team Status: Inactive Member Role/Relationship Status Dates Sid Whitehead NP, NP-C Referring Provider Active S tart: January 13, 2025 End: January 13, 2025 CAROL Miramontes Attending Provider Active Start: January 13, 2025 End: January 13, 2025 Meena Reed NP-Tom Primary Care Provider Acti ve Start: January 13, 2025 End: January 13, 2025 Park Guard Relationship Specialty Start Date End Date Sid Whitehead CNP [address] [place] [address] PCP - General Family Medicine 11/29/22 Team Status: Inactive Member Role/Relationship Status Dates Meena Marleeashley Reed , GIRLS TENNIS COACH-C Primary Care Provider Acti ve Start: January 20, 2025 End: January 20, 2025 CAROL Miramontes Attending Provider Active Start: January 20, 2025 End: January 20, 2025 CAROL Miramontes Referring Provider Active Start: January 20, 2025 End: January 20, 2025 Park Guard Relationship Specialty Start Date End Date Sid Whitehead CNP [address] [place] [address] PCP - General Family Medicine 11/29/22 Goals (unrecognized section and content) Goals may be documented in a n alternate sectionGoals may be documented in an alternate section FOR RECORDS PERTAINING TO PATIENTS WHO ARE [...] BE BASED ON THE PRIMARY CLINICAL RECORDS. [employer] provides no warranty or guarantee of the accuracy or completeness of information in this document.
--- NOTE | 2025-02-25 07:44 | HP.PCM_ITS ---
[facility] - General General Date of Admission: 02/25/25 Date of Service: 02/25/25 Chief Complaint: heartburn and diarrhea HPI Narrative ABBEY HANNA, is a 24 F who presents regarding Chief Complaint: heartburn and diarrhea Pt has had issues with heartburn, n/v, bloating and alternating bowel habits for about 5 years now. She has heartburn on a daily basis and has been on PPIs on and off for 5 years. She is currently on omeprazole 20 mg and Pepcid with moderate relief in her symptoms. She notices worsening after eating especially spicy foods. She has nausea most mornings and evenings. She does not vomit daily. She has flares of diarrhea for about one week at a time and then complete resolution. She has a bm daily but with straining. She has never had an EGD or colonoscopy. She smokes marijuana daily and has for years. [facility] Medical History Marijuana use Alcohol use Anemia Gastric reflux Former smoker Cardiology follow-up encounter History of echocardiogram History of stress test Constipation Cannabis dependence Depression Anxiety Heart palpitations Nausea delivery delivered Intrauterine growth restriction (IUGR) affecting care of mother, third trimester, single gestation Genital herpes affecting Chlamydia infection affecting Headache Home Medications ?Medication ?Instructions ?Recorded ?Last Taken ?Type famotidine 20 mg tablet 20 mg PO QDAY 12/29/24 Unkno wn History levonorgestrel-ethinyl estradiol 1 tab PO QDAY 5 Unknown History 0.1 mg-20 mcg tablet (Aviane) omeprazole 20 mg capsule,delayed 20 mg PO QDAY 5 Unknown History release oxybutynin chloride 10 mg 10 mg PO DAILY 02/18/25 Unkn own History tablet,extended release 24 hr Allergy/AdvReac Type Severity Reaction Status Date / Time No Known Allergies Allergy Verified 09/15/23 15:24 Surgical History Previous section History of surgery Social History Smoking Status: Never smoker alcohol intake: current alcohol intake frequency: a few times a week substance use type: marijuana Physical Exam Const alert, oriented x3, no apparent distress and healthy appearing General Appearance: cooperative GI normal to inspection, nondistended, normoactive bowel sounds, soft to palpation, non-tender and non-distended Percussion: normal to percussion Rectal Exam: deferred Assessment & Plan Assessment/Plan (1) Loose stools: (2) GERD (gastroesophageal reflux disease): (3) Abdominal pain: PLAN: Assessment and Plan Assessment and Plan (1) GERD (gastroesophageal reflux disease): Status: Acute Plan: Abbey is a 24 yo female pt here today for evaluation of abdominal symptoms over the past 5 years. Pt has heartburn daily. Omeprazole and Pepcid have provided moderate relief. Due to her symptoms being refractory to PPI she will undergo EGD. I have ordered stool testing as she has intermittent loose stools. Will rule out infection or inflammation. Will consider colonoscopy pending results. She will continue PPI and Pepcid. I advised she discontinue marijuana a s this can cause vomiting syndrome. -EGD -Stool testing -Continue PPI and Pepcid -Discontinue marijuana -f/u after EGD (2) Loose stools: Status: Acute Orders: Orders ENTERIC PATHOGEN PANEL STOOL Today K21.9 - Gastro-esophageal reflux disease without esophagitis, K58.9 - Irritable bowel syndrome, unspecified, R19.5 - Other fecal abnormalities Giardia Lamblia, Stool EIA Today K21.9 - Gastro-esophageal reflux disease without esophagitis, R19.5 - Other fecal abnormalities Ova and Parasites [id number] Today K21.9 - Gastro-esophageal reflux disease without esophagitis, K58.9 - Irritable bowel syndrome, unspecified, R19.5 - Other fecal abnormalities Calprotectin, Stool Today K21.9 - Gastro-esophageal reflux disease without esophagitis, R19.5 - Other fecal abnormalities CDIFF (PCR) Today K21.9 - Gastro-esophageal reflux disease without esophagitis, R19.5 - Other fecal abnormalities
[2025-02-25 07:57] LABS: Internal QC Validated? YES +Cl - CLEAR BKGD; Pregnancy, Urine Negative Negative; Record Kit Lot#,Urine Preg 0000947241
--- NOTE | 2025-02-25 08:27 | PCM.PRE.AN2 ---
ASA Classification* ASA Classification ASA Classification: 3 Assessment & Plan Anesthesia* Anesthesia Assessment Anesthesia Assessment: Discussed sedation and/or anesthesia options, risks, benefits, and alternatives with patient/parents/legal guardian/POA. Questions invited. The patient/parents/legal guardian/POA seems to understand and agrees to proceed with anesthesia plan. Reviewed the physical assessment, medical history, allergy history and patient home medications list prior to surgery/procedure/anesthetic and documented any changes. Performed airway and anesthesia risk assessments. Anesthesia Type Anesthesia Type: MAC History Source History Obtained from:: Patient and Chart Anesthesia Focused Assessment* Temperature: 97.7 F Pulse Rate: 67 Blood Pressure: 125/81 Respiratory Rate: 18 Pulse Ox: 98 Airway Assessment Mouth opens: >3 cm Mallampati Score: I Teeth Condition: Intact Neck Range of motion (ROM): Full ROM Labs Anesthesia Preop lab: CBC WBC 9.7 K/mm3 (4.4-11.0) 09/15/23 14:10 09/15/23 RBC 3.34 M/mm3 (4.2-5.4) L 09/15/23 14:10 09/15/23 Hgb 10.5 g/dL (12.0-15.0) L 09/15/23 14:10 09/15/23 Hct 31.2 % (37-47) L 09/15/23 14:10 09/15/23 Plt Count 313 K/mm3 (150-450) 09/15/23 14:10 09/15/23 CHEMISTRY Potassium 3.9 mmol/L (3.5-5.1) 09/15/23 14:10 09/15/23 Sodium 142 mmol/L (136-145) 09/15/23 14:10 09/15/23 BUN 11 mg/dL (7-18) 09/15/23 14:10 09/15/23 Creatinine 0.72 mg/dL (0.55-1.02) 09/15/23 14:10 09/15/23 Glucose 92 mg/dL (74-106) 09/15/23 14:10 09/15/23 TSH 1.72 uIU/mL (0.358-3.74) 04/04/18 14:01 04/04/18 COAG Urine Test Negative Negative 02/25/25 07:43 02/25/25 Tst Clinic Negative 12/27/21 15:29 12/27/21 Pre-Assessment Diagnosis/Proposed Procedure Planned Operative Procedure(s): Colonoscopy,EGD Anesthesia History 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 When Was Last Pacemaker Check QUESTION #4 FULL TEXT: You/Your Family Experience fever (hyperthermia) with Anesthesia Last Oral Intake Last Oral intake: Last Oral Intake NPO since 22:00 02/25/25 07:50 Meds taken in AM with sips of water? Meds patient instructed to take am of surgery PONV PONV - radiotelephone operator: PONV - radiotelephone operator Female Yes 02/18/25 15:14 HX of Motion Sickness Yes 02/18/25 15:14 HX of N/V After Surgery No 02/18/25 15:14 Non-Smoker Yes 02/18/25 15:14 Duration of Surgery greater No 02/18/25 15:14 than 60 minutes Number of Risk Factors 3 02/18/25 15:14 PONV Score Moderate Risk 02/18/25 15:14 Height & Weight Height & Weight: Anesthesia: Height & Weight Height 5 ft 2 in 02/25/25 07:50 Weight: 97.976 kg 02/25/25 07:50 Body Mass Index (BMI) 39.4 02/25/25 07:50 Respiratory Assessment Respiratory Assessment - radiotelephone operator: Respiratory Tract Infection Hx - radiotelephone operator Hx Respiratory Tract Infection No 02/18/25 15:14 STOP Sleep Apnea STOP Sleep Apnea - radiotelephone operator: STOP Sleep Apnea - radiotelephone operator Hx Hypertension No 02/18/25 15:14 Hx Sleep Apnea No 02/18/25 15:14 CPAP BIPAP Do you snore loudly (louder No 02/18/25 15:14 than talking or can be heard Do you often feel tired/ No 02/18/25 15:14 fatigued/ sleepy during daytime? Has anyone observed you stop No 02/18/25 15:14 breathing during sleep? STOP Results Negative 02/18/25 15:14 QUESTION #5 FULL TEXT : Do you snore loudly (louder than talking or can be heard through closed doors)? Tobacco Use History Tobacco Use History - radiotelephone operator: Tobacco Use History - radiotelephone operator Tobacco Use Smoking Status Never smoker 02/18/25 15:14 Hx Tobacco Use No 02/18/25 15:14 Years Smoking Packs Smoked per Day Smoking Cessation Date was within the last 15 years Hx Smoking Cessation Date Hx Smoking Cessation Counseling Hematologic Medial History Hematologic Hx - radiotelephone operator: Hematologic Medical Hx - documentation consultant Hx of Blood Transfusion No 02/18/25 15:14 Hx of Transfusion in last 3 No 02/18/25 15:14 Months Date of Last Transfusion (if within last 3 months) Ever experience any problems No 02/18/25 15:14 with transfusion(s)? Specify any problems Hx of Preganancy in last 3 No 02/18/25 15:14 Months Nurse Filling Out Transfusion JZOLLINGE 02/18/25 15:14 & Questions: Date: 02/18/25 02/18/25 15:14 Time: 15:15 02/18/25 15:14 Patient unable to answer at this time (ie. confused, unrespo /Reproduction History /Reproductive History - radiotelephone operator: /Reproductive Hx- radiotelephone operator Hx Now No 02/18/25 15:14 Gestational Age (in weeks): EDC: Hx Hx Para Hx Section SAB No 02/18/25 15:14 Active Medications Active Medications: Current Medications Generic Name Dose Route Start Last Admin Trade Name Freq PRN Reason Stop Dose Admin Lactated Ringer's 1,000 mls @ 15 mls/hr 02/25/25 07:30 IV .Q48H KRAIG PFSH Medical History Marijuana use Alcohol use Anemia Gastric reflux Former smoker Cardiology follow-up encounter History of echocardiogram History of stress test Constipation Cannabis dependence Depression Anxiety Heart palpitations Nausea delivery delivered Intrauterine growth restriction (IUGR) affecting care of mother, third trimester, single gestation Genital herpes affecting Chlamydia infection affecting Headache Home Medications ?Medication ?Instructions ?Recorded ?Last Taken ?Type famotidine 20 mg tablet 20 mg PO QDAY 12/29/24 02/24/25 History levonorgestrel-ethinyl estradiol 1 tab PO QDAY 12/29/24 02/24/25 History 0.1 mg-20 mcg tablet (Aviane) omeprazole 20 mg capsule,delayed 20 mg PO QDAY 01/13/25 02/24/25 History release oxybutynin chloride 10 mg 10 mg PO DAILY 02/18/25 02/24/25 History tablet,extended release 24 hr Allergy/AdvReac Type Severity Reaction Status Date / Time No Known Allergies Allergy Verified 02/25/25 07:49 Surgical History Previous section History of surgery Social History Smoking Status: Never smoker alcohol intake: current alcohol intake frequency: a few times a week substance use type: marijuana Prior Cardiac Testing/Procedures Prior Cardiac Testing/Procedures: Echocardiogram ([facility], at [facility]) Review of Systems (Anesthesia) ROS Narrative System reviewed and no additional complaints, except as documented. Physical Exam Const alert and oriented x3 Nutritional Appearance: morbidly obese HEENT dentition normal Neck full ROM
--- NOTE | 2025-02-25 08:30 | COLBX_PTH ---
PATIENT: NIDIA HANNA LOC: EN U#:[id number] AGE/SX: 24/F ROOM: RE02/25/[address]: Dr. Neymar Greenfield DO : 2000 BED: DIS: 02/25/2025 SPEC #: [id number] RECD: 02/25/25 10:30 STATUS: IQRA REJeff #: [id number] HERBER: 02/25/25 08:[address]: Neymar Greenfield DEPT: SURGICAL PATHOLOGY RECD BY: Roe Collins ENTERED: 02/25/25 14:25 SP TYPE: COLON BX OTHR DR: Meena Reed, BLINTZE ROLLER-C Tissues: A - Duodenum, NOS B - Ileum, NOS C - COLON BIOPSY Procedures: Surgery Specimen Level IV HEADER OPERATION: Colonoscopy with biopsy, EGD with biopsy PRE-OP DIAGNOSIS: Loose stools, GERD, abdominal pain TISSUE SUBMITTED: A- Duodenum biopsy, B- Terminal ileum biopsy, C- Random colon biopsy MICROSCOPIC DIAGNOSIS A. Duodenum, biopsy: - Fragments of small intestinal and gastric-type mucosa - see note. 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 Recommend correlation with clinical and endoscopic findings. B. Terminal ileum, biopsy: - Prominent mucosal lymphoid tissue, favor reactive. C. Colon, random biopsy: - No specific pathologic change. - The histologic features of microscopic colitis are not demonstrated. MICROSCOPIC DESCRIPTION Slides are reviewed. GROSS DESCRIPTION A . Received in fixative is one container labeled with the patient's name and designated Duodenum biopsy. The specimen consists of multiple irregular fragments of light hurtado soft tissue that in aggregate measure 1.3 x 0.5 x 0.2 cm. The specimen is totally submitted in one cassette. B. Received in fixative is one container labeled with the patient's name and designated Terminal ileum biopsy. The specimen consists of two irregular fragments of light hurtado soft tissue, each measuring 0.6 cm. The specimen is totally submitted in one cassette. C. Received in fixative is one container labeled with the patient's name and designated Random colon biopsy. The specimen consists of multiple irregular fragments of light hurtado soft tissue that in aggregate measure 1.3 x 0.6 x 0.2 cm. The specimen is totally submitted in one cassette. GA 02/25/2025 CPT:[id number]
--- NOTE | 2025-02-25 09:19 | OP.PROVAT_ITS ---
02/25/2025 Savanah Otto Re : Upper GI endoscopy procedure for Abbey Reed This procedure was performed on February. My impressions and recommendations are as follows: Impressions : - Normal esophagus. - Erythematous mucosa in the gastric body. Biopsied. - Erythematous duodenopathy. Biopsied. Recommendations : - Discharge patient to home. - Resume previous diet. - Continue present medications. - Await pathology results. My findings are described in the full procedure note, which is enclosed. If I can be of further assistance, please feel free to contact me at . Sincerely, Neymar Greenfield, 02/25/2025 9:18:54 AM This report has been signed electronically.
--- NOTE | 2025-02-25 09:19 | OP.EGD_ITS ---
Patient Name: Abbey Gunn Procedure Date: 02/25/2025 8:47 AM Date of : 2000 Age: 24 Procedure: Upper GI endoscopy Indications: Epigastric abdominal pain Providers: Neymar Greenfield DO Referring MD: Savanah Otto Medicines: Monitored Anesthesia Care Patient Profile: This is a 24 year old female. Refer to note in patient chart for documentation of history and physical. Patient has symptoms of chronic epigastric abdominal pain, acute dyspepsia, chronic nausea and chronic vomiting. Complications: No immediate complications. Procedure: Pre-Anesthesia Assessment: - Prior to the procedure, a History and Physical was performed, and patient medications and allergies were reviewed. The patient is competent. The risks and benefits of the procedure and the sedation options and risks were discussed with the patient. All questions were answered and informed consent was obtained. Patient identification and proposed procedure were verified by the physician in the pre-procedure area. Mental Status Examination: alert and oriented. Airway Examination: normal oropharyngeal airway and neck mobility. Respiratory Examination: clear to auscultation. CV Examination: normal. Prophylactic Antibiotics: The patient does not require prophylactic antibiotics. Prior Anticoagulants: The patient has taken no anticoagulant or antiplatelet agents except for NSAID medication. ASA Grade Assessment: II - A patient with mild systemic disease. After reviewing the risks and benefits, the patient was deemed in satisfactory condition to undergo the procedure. The anesthesia plan was to use monitored anesthesia care (MAC). Immediately prior to administration of medications, the patient was re-assessed for adequacy to receive sedatives. The heart rate, respiratory rate, oxygen saturations, blood pressure, adequacy of pulmonary ventilation, and response to care were monitored throughout the procedure. The physical status of the patient was re-assessed after the procedure. After obtaining informed consent, the endoscope was passed under direct vision. Throughout the procedure, the patient's blood pressure, pulse, and oxygen saturations were monitored continuously. The Colonoscope was introduced through the mouth, and advanced to the fourth part of the duodenum. Small bowel enteroscopy was deemed necessary. The upper GI endoscopy was accomplished without difficulty. The patient tolerated the procedure well. Scope In: 8:54:34 AM Scope Out: 8:59:07 AM Total Procedure Duration Time 0 hours 4 minutes 33 seconds Findings: The examined esophagus was normal. Patchy mildly erythematous mucosa without bleeding was found in the gastric body. Biopsies were taken with a cold forceps for histology. Biopsies were taken with a cold forceps for Helicobacter pylori testing. Verification of patient identification for the specimen was done. Estimated blood loss was minimal. Patchy mildly erythematous mucosa without active bleeding and with no stigmata of bleeding was found in the entire duodenum. Biopsies were taken with a cold forceps for histology. Verification of patient identification for the specimen was done. Estimated blood loss was minimal. Impression: - Normal esophagus. - Erythematous mucosa in the gastric body. Biopsied. - Erythematous duodenopathy. Biopsied. Recommendation: - Discharge patient to home. - Resume previous diet. - Continue present medications. - Await pathology results. Procedure Code(s): --- Professional --- 08743, Small intestinal endoscopy, enteroscopy beyond second portion of duodenum, not including ileum; with biopsy, single or multiple CPT copyright 2021 [employer]. All rights reserved. The codes documented in this report are preliminary and upon scale and skip car operator review may be revised to meet current compliance requirements. Neymar Greenfield DO 02/25/2025 9:18:54 AM This report has been signed electronically. Number of Addenda: 0 Note Initiated On: 02/25/2025 8:47 AM
--- NOTE | 2025-02-25 09:23 | OP.PROVAT_ITS ---
02/25/2025 Savanah Otto Re : Colonoscopy procedure for Abbey Reed This procedure was performed on February. My impressions and recommendations are as follows: Impressions : - Congested mucosa in the recto-sigmoid colon, in the sigmoid colon, at the hepatic flexure and in the ascending colon. Biopsied. - Congested mucosa in the terminal ileum. - Several biopsies were obtained in the terminal ileum. Recommendations : - Discharge patient to home. - Patient has a contact number available for emergencies. The signs and symptoms of potential delayed complications were discussed with the patient. Return to normal activities tomorrow. Written discharge instructions were provided to the patient. - Resume regular diet. - Continue present medications. - Repeat colonoscopy for surveillance based on pathology results. My findings are described in the full procedure note, which is enclosed. If I can be of further assistance, please feel free to contact me at . Sincerely, Neymar Greenfield DO 02/25/2025 9:23:03 AM This report has been signed electronically.
--- NOTE | 2025-02-25 09:23 | OP.COLON_ITS ---
Patient Name: Abbey Gunn Procedure Date: 02/25/2025 8:59 AM Date of : 2000 Age: 24 Procedure: Colonoscopy Indications: Generalized abdominal pain, Chronic diarrhea Providers: Neymar Greenfield DO Referring MD: Savanah Otto Medicines: Monitored Anesthesia Care Patient Profile: This is a 24 year old female. Refer to note in patient chart for documentation of history and physical. Patient has symptoms of chronic epigastric abdominal pain, acute dyspepsia, chronic nausea and chronic vomiting. Last Colonoscopy: none. The patient's first colonoscopy is today. Complications: No immediate complications. Procedure: Pre-Anesthesia Assessment: - Prior to the procedure, a History and Physical was performed, and patient medications and allergies were reviewed. The patient is competent. The risks and benefits of the procedure and the sedation options and risks were discussed with the patient. All questions were answered and informed consent was obtained. Patient identification and proposed procedure were verified by the physician in the pre-procedure area. Mental Status Examination: alert and oriented. Airway Examination: normal oropharyngeal airway and neck mobility. Respiratory Examination: clear to auscultation. CV Examination: normal. Prophylactic Antibiotics: The patient does not require prophylactic antibiotics. Prior Anticoagulants: The patient has taken no anticoagulant or antiplatelet agents except for NSAID medication. ASA Grade Assessment: II - A patient with mild systemic disease. After reviewing the risks and benefits, the patient was deemed in satisfactory condition to undergo the procedure. The anesthesia plan was to use monitored anesthesia care (MAC). Immediately prior to administration of medications, the patient was re-assessed for adequacy to receive sedatives. The heart rate, respiratory rate, oxygen saturations, blood pressure, adequacy of pulmonary ventilation, and response to care were monitored throughout the procedure. The physical status of the patient was re-assessed after the procedure. After I obtained informed consent, the scope was passed under direct vision. Throughout the procedure, the patient's blood pressure, pulse, and oxygen saturations were monitored continuously. The Colonoscope was introduced through the anus and advanced to the terminal ileum. The colonoscopy was performed without difficulty. The patient tolerated the procedure well. The quality of the bowel preparation was adequate. The terminal ileum, ileocecal valve, appendiceal orifice, and rectum were photographed. Scope In: 9:01:29 AM Scope Withdrawal Time 0 hours 7 minutes 50 seconds Scope Out: 9:11:03 AM Total Procedure Duration Time 0 hours 9 minutes 34 seconds Findings: The perianal and digital rectal examinations were normal. An area of mildly congested mucosa was found in the recto-sigmoid colon, in the sigmoid colon, at the hepatic flexure and in the ascending colon. Biopsies were taken with a cold forceps for histology. Verification of patient identification for the specimen was done. Estimated blood loss was minimal. A patchy area of the terminal ileum was congested. Several biopsies were obtained with cold forceps for histology in the terminal ileum. Impression: - Congested mucosa in the recto-sigmoid colon, in the sigmoid colon, at the hepatic flexure and in the ascending colon. Biopsied. - Congested mucosa in the terminal ileum. - Several biopsies were obtained in the terminal ileum. Recommendation: - Discharge patient to home. - Patient has a contact number available for emergencies. The signs and symptoms of potential delayed complications were discussed with the patient. Return to normal activities tomorrow. Written discharge instructions were provided to the patient. - Resume regular diet. - Continue present medications. - Repeat colonoscopy for surveillance based on pathology results. Procedure Code(s): --- Professional --- 39247, Colonoscopy, flexible; with biopsy, single or multiple CPT copyright 2021 [employer] [employer]. All rights reserved. The codes documented in this report are preliminary and upon assistant merchandise manager review may be revised to meet current compliance requirements. Neymar Greenfield DO 02/25/2025 9:23:03 AM This report has been signed electronically. Number of Addenda: 0 Note Initiated On: 02/25/2025 8:59 AM
--- NOTE | 2025-02-25 09:24 | PCM.POST.ANE ---
Anesthesia: Postop Eval I Current Vital Signs Temperature: 97.5 F Pulse Rate: 85 Blood Pressure: 122/66 Respiratory Rate: 16 Pulse Ox: 98 Oxygen Delivery Method: Room Air Assessment Airway patent: Yes Spontaneous unlabored respirations: Yes Mental status: Awake and Calm nausea: No Vomiting: No Anesthesia Complication: No Fluid Hydration Crystalloid volume administer (ml): 600 Total IV fluid infused: 600 Progress Note Anesthesia document: Postop Eval 1 completed: Yes
--- NOTE | 2025-02-25 15:18 | PCM.POSTANE2 ---
Anesthesia Postop Eval I Sum Postop Eval Completion status Anesthesia document: Postop Eval 1 completed: Yes Anesthesia Postop Eval I Summary Anesthesia Postop Eval I Summary: Anesthesia Postop Eval I: Assessment Summary Airway patent Yes 02/25/25 09:25 [email or web address] Spontaneous unlabored Yes 02/25/25 09:25 [email or web address] respirations Mental status Awake,Calm 02/25/25 09:25 [email or web address] nausea No 02/25/25 09:25 [email or web address] Vomiting No 02/25/25 09:25 [email or web address] Anesthesia Postop Eval I: Fluid Summary Crystalloid volume administer 600 02/25/25 09:25 [email or web address] (ml) Colloids volume administered ( ml) Blood Product volume administered (ml) Total IV fluid infused 600 02/25/25 09:25 [email or web address] Anesthesia Postop Eval I: Summary Notes Anesthesia Complication No 02/25/25 09:25 [email or web address] Anesthesia Complication Comment: Post-operative progress note Anesthesia: Postop Eval II Evaluation Mental status: Awake and Calm Pain Level: 0 nausea: No Vomiting: No Complications Anesthesia Complication: No
== END 2025-02-25 10:09 | disposition home or self-care (01) ==
LOC: EN 07:20 → AC 07:21
PROVIDERS: Anesthesiology; PCP Nurse Practitioner Family; Referring Provider Nurse Practitioner Family; Visit Provider Internal Medicine Gastroenterology
PROC: 0DJD8ZZ Inspection of Lower Intestinal Tract, Via Natural or Artificial Opening Endoscopic (ICD-10-PCS; CPT 45378; principal; 2025-02-25 08:25)
DX: K63.89 Other specified diseases of intestine (principal); K52.9 Noninfective gastroenteritis and colitis, unspecified; K21.9 Gastro-esophageal reflux disease without esophagitis; R19.5 Other fecal abnormalities; R10.9 Unspecified abdominal pain; Z79.899 Other long term (current) drug therapy; Z87.891 Personal history of nicotine dependence
CPT/HCPCS: 45380; 43239; 81025; 88305; J2405

== ENCOUNTER → 2025-03-23 | Outpatient (CLI) | payer MEDICAID, SELFPAY ==
--- OUTSIDE RECORDS SUMMARY | 2025-03-18 10:13 | XMS RPT_ITS ---
Author Name Auto Generated Organization OHIP Support Name Relationship Address Phone ODILIA WEBBER Next of Kin [address] [place] [address] + NOT GIVEN Next of Kin Unknown Unavailable NOT GIVEN Next of Kin Unknown Unavailable ODILIA WEBBER Next of Kin [address] [place] [address] + NOT GIVEN Next of Kin Unknown Unavailable ODILIA WEBBER Next of Kin [address] [place] [address] + NOT GIVEN Next of Kin Unknown Unavailable ODILIA WEBBER Next of Kin [address] [place] [address] + NOT GIVEN Next of Kin Unknown Unavailable ODILIA WEBBER Next of Kin [address] [place] [address] + NOT GIVEN Next of Kin Unknown Unavailable ODILIA WEBBER Next of Kin [address] [place] [address] + NOT GIVEN Next of Kin Unknown Unavailable ODILIA WEBBER Next of Kin [address] [place] [address] + NOT GIVEN Next of Kin Unknown Unavailable ODILIA WEBBER Next of Kin [address] [place] [address] + NOT GIVEN Next of Kin Unknown Unavailable ODILIA WEBBER Next of Kin [address] [place] [address] + NOT GIVEN Next of Kin Unknown Unavailable ODILIA WEBBER Next of Kin [address] [place] [address] + NOT GIVEN Next of Kin Unknown Unavailable Care Team Providers Care Java Enterprise Architect Name Role Phone MARIA LUZ RODRIGUEZ Attending Unavailable SID COOPER Primary Care Unavailable MARIA LUZ RODRIGUEZ Attending Unavailable ALLISON, SID K Primary Care Unavailable MICHAEL, MARIA LUZ Referring Unavailable ALLISON, SID K Primary Care Unavailable JARED JACOBS Attending Unavailable ALLISON, SID K Primary Care Unavailable ALLISON, SID K Primary Care Unavailable SAUL CENTENO Attending Unavailable KELLY IRELAND Attending Unavailable ALLISON, SID K Primary Care Unavailable ISAAC MIRANDA Attending Unavailable ALLISON, SID K Primary Care Unavailable GONZALES, RINKU SIGNALMAN Admitting Unavailable GONZALES, RINKU SIGNALMAN Attending Unavailable GONZALES, RINKU SIGNALMAN Primary Care Unavailable GONZALES, RINKU SIGNALMAN Consulting Unavailable PROVIDER, UNKNOWN Consulting Unavailable GONZALES, RINKU SIGNALMAN Referring Unavailable GONZALES, RINKU SIGNALMAN Consulting Unavailable ADITHYA RIVERA Primary Care Unavailable ADITHYA RIVERA Attending Unavailable ADITHYA RIVERA Admitting Unavailable PROVIDER, UNKNOWN Consulting Unavailable JANET, RINKU SIGNALMAN Referring Unavailable GONZALES, RINKU SIGNALMAN Consulting Unavailable ROBI BOYD MD Primary Care Unavailable ROBI BOYD MD Attending Unavailable ROBI BOYD MD Admitting Unavailable PROVIDER, UNKNOWN Consulting Unavailable JOSE MIGUEL GONZALESAH SIGNALMAN Attending Unavailable JANET, RINKU SIGNALMAN Primary Care Unavailable GONZALES, RINKU SIGNALMAN Consulting Unavailable GONZALES, RINKU SIGNALMAN Admitting Unavailable PROVIDER, UNKNOWN Consulting Unavailable GONZALES, RINKU SIGNALMAN Consulting Unavailable GAVIOTA MARKS MD Primary Care Unavailabl GAVIOTA Wan MD Attending Unavailabl e GAVIOTA MARKS MD Admitting Unavailabl e PROVIDER, UNKNOWN Consulting Unavailable GONZALES, RINKU SIGNALMAN Primary Care Unavailable GONZALES, RINKU SIGNALMAN Consulting Unavailable JANET, RINKU SIGNALMAN Attending Unavailable GONZALES, RINKU SIGNALMAN Admitting Unavailable PROVIDER, UNKNOWN Consulting Unavailable JANET, RINKU SIGNALMAN Attending Unavailable GONZALES, RINKU SIGNALMAN Admitting Unavailable GONZALES, RINKU SIGNALMAN Primary Care Unavailable GONZALES, RINKU SIGNALMAN Consulting Unavailable PROVIDER, UNKNOWN Consulting Unavailable GONZALES, RINKU SIGNALMAN Admitting Unavailable GONZALES, RINKU SIGNALMAN Attending Unavailable JANET, RINKU SIGNALMAN Primary Care Unavailable JAENT, RINKU SIGNALMAN Attending Unavailable GONZALES, RINKU SIGNALMAN Primary Care Unavailable GONZALES, RINKU SIGNALMAN Admitting Unavailable GONZALES, RINKU SIGNALMAN Consulting Unavailable GAVIOTA MARKS MD Primary Care Unavailabl GAVIOTA Wan MD Attending Unavailabl e GAVIOTA MARKS MD Admitting Unavailabl e PROVIDER, UNKNOWN Consulting Unavailable GONZALES, RINKU SIGNALMAN Consulting Unavailable ALLISON, SID Primary Care Unavailable SID COOPER Attending Unavailable SID COOPER Admitting Unavailable PROVIDER, UNKNOWN Consulting Unavailable PROBLEMS DATE TYPE CONDITION / CODE ATTENDING STATUS [facility] 03/18/2025 Active Vaginal Problem / UNK(Unknown) JARED JACOBS [facility] 01/29/2025 Active Overactive bladd er / N32.81(ICD-10) [facility] 01/29/2025 Active Urinary urgency / R39.15(ICD-10) [facility] 01/29/2025 Active Left flank pain / R10.9(ICD-10) [facility] 12/29/2024 Active Rash / R21(ICD-10) SAUL CENTENO [facility] 12/18/2024 Principle Diagnosis Nausea / R110(ICD-10) SID COOPER [facility] 12/11/2024 Active Feeling of incomplete bladder emptying / R39.14(ICD-10) [facility] 12/11/2024 Active Frequency of micturition / R35.0(ICD-10) [facility] 11/20/2024 Active Encounter for gynecological examination (general) (routine) without abnormal findings / Z01.419(ICD-10) KELLY IRELAND Active [facility] 11/20/2024 Active Irritation of vu lva / N90.89(ICD-10) KELLY IRELAND Active [facility] 11/20/2024 Active Encounter for surveillance of contraceptive pills / Z30.41(ICD-10) KELLY IRELAND Active [facility] 09/14/2024 Principle Diagnosis Retention of urine, unspecified / R339(ICD-10) RINKU GONZALES APRN Active [facility] 08/28/2024 Admitting Diagnosis Dysuria / R300(ICD-10) RINKU GONZALES APRN Active [facility] 08/28/2024 Principle Diagnosis Dysuria / R300(ICD-10) RINKU GONZALES APRN Active [facility] 08/21/2024 Admitting Diagnosis Palpitations / R002(ICD-10) RINKU GONZALES APRN [facility] 08/21/2024 Principle Diagnosis Palpitations / R002(ICD-10) RINKU GONZALES SIGNALMAN [facility] 08/21/2024 Secondary Diagnosis Dizziness and giddiness / R42(ICD-10) RINKU GONZALES SMITH [facility] 06/07/2024 Admitting Diagnosis Other chest pain / R0789(ICD-10) ROBI BOYD MD [facility] 06/07/2024 Principle Diagnosis Other chest pain / R0789(ICD-10) ROBI BOYD MD [facility] 06/07/2024 Secondary Diagnosis Urinary tract infection, site not specified / N390(ICD-10) ROBI BOYD MD [facility] 06/07/2024 Secondary Diagnosis Depression, unspecified / F32A(ICD-10) ROBI BOYD MD [facility] 06/07/2024 Secondary Diagnosis Other meterman (current) drug therapy / A51887(ICD-10) ROBI BOYD MD [facility] PROCEDURES No Procedure Records Found RESULTS CNOV Observed: 03/18/2025 10:30 AM Status: COMPLETED Source: [facility] Office Visit (OBGYWM) ABBEY HANNA ([id number]) 4 F Date Time Provider Department 03/18/25 10:30 AM JARED JACOBS OBPRABHJOTWMorena During your visit today, we recorded the following information about you: Blood pressure Weight Last Period 120/80 99.4 kg 03/12/25 Jared Jacobs MD 03/18/2025 10:46 AM Signed Manager Test offered: Patient declines. Obstetrics and Gynecology Everett COOK MESS Visit Subjective Recording using isocket software for draft documentation of the visit was discussed with the patient/authorized sales representative supervisor; all questions welcomed and answered. Patient/authorized sales representative supervisor agreed to proceed CHIEF COMPLAINT: The patient is a 24-year-old female presenting for evaluation of a new pigmented lesion on the left upper vulva. HPI: The patient is a 24-year-old female presenting for evaluation of a new mole on her vulva. Vulvar Lesion - Noticed a new mole on the left upper vulva near the clitoris about a week ago. - Denies any noticeable change in size since its appearance. - No other concerns reported. 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 oxybutynin ER (DITROPAN XL) 15 mg 24 hr Extended Rel Tab Take 1 tablet by mouth once daily. omeprazole (PRILOSEC) 10 mg capsule Take 10 mg by mouth once daily. Levonorgestrel-Ethinyl Estrad (AVIANE) 0.1mg - 20mcg per tablet Take 1 tablet by mouth once daily. verapamil HCl (VERAPAMIL ORAL) Take by mouth once daily. (Patient not taking: Reported on 12/11/2024) No current facility-administered medications for this visit. ALLERGIES No Known Allergies REVIEW OF SYSTEMS: Genitourinary: (+) vulvar lesion Objective SENSITIVE EXAM: The sensitive examination was discussed with the Patient or Patient's Authorized Tableau Developer. As applicable, any other physician, advance practice provider, medical student, or other health professional student that will be observing or involved in the sensitive examination for educational or training purposes was discussed with the Patient or Authorized Tableau Developer. The Patient or Authorized Tableau Developer has agreed to proceed with the sensitive examination. (Sensitive examination includes inspection and/or palpation of the breasts, pelvis, prostate and anorectal regions). PHYSICAL EXAM: BP 120/80 Wt 219 lb 3.2 oz (99.4kg) LMP 03/12/2025 GENERAL: Pleasant; in no apparent distress : - PELVIC: external genitalia shows a hyperpigmented macule on the left upper vulva near the clitoris, approximately 1 times2 mm, smooth borders, flat, normal Bartholin's glands, urethra, Dolliver's glands, no other vulvar lesions, no cervical lesions, good vaginal support, physiologic discharge present, normal appearing perineal body and perianal region Assessment AND Plan ASSESSMENT AND PLAN: 1. Vulvar lesion (N90.89) - Small, flat, hyperpigmented lesion on the left upper vulva near the clitoris, measuring approximately 1 mm x 2 mm, with smooth borders and no concerning features on exam. - Educated patient on benign appearance of the lesion and advised to monitor for any changes in size or appearance; instructed to return for re-evaluation if the lesion enlarges or changes. Medical Decision Making: Problems: Low: Acute, uncomplicated illness or injury Risk: Low: Low risk from testing/treatment Medical Decision Making Level: 3 - Low Jared Jacobs MD [1] Social History Tobacco Use Smoking status: Former Current packs/day: 0.00 Types: Cigarettes Quit date: 2020 Years since quittin.7 Passive exposure: Never Smokeless tobacco: Never Tobacco comments: Occasional Vape Vaping Use Vaping status: Former Substance Use Topics Alcohol use: Yes Comment: occa-vodka Drug use: Yes Types: Marijuana Jared Jacobs MD 03/18/2025 10:44 AM Signed - You have a very small (1???2 mm), flat, dark spot on the left upper vulva that appears benign; no treatment is needed at this time. - Monitor the spot for any changes in size, shape, or color. - If the spot becomes larger or changes in appearance, please schedule an appointment to have it re-examined. - At each annual exam (or anytime you see a different provider), remind us about this spot so we can compare its size and appearance over time. Allergies As of Date: 03/18/2025 (No Known Allergies) Date Reviewed: 03/18/2025 Reviewed by: Jared Jacobs MD - Fully Assessed Reason for Visit: Vaginal Problem [117] Cmt: Spot that needs checked Primary Visit Diagnosis:Vulvar lesion [N90.89] Prescriptions as of 03/18/2025 - famotidine (PEPCID AC) 20 mg tablet Take 20 mg by mouth two times a day. - oxybutynin ER (DITROPAN XL) 15 mg 24 hr Extended Rel Tab Take 1 tablet by mouth once daily. - verapamil HCl (VERAPAMIL ORAL) Take by mouth once daily. - omeprazole (PRILOSEC) 10 mg capsule Take 10 mg by mouth once daily. - Levonorgestrel-Ethinyl Estrad (AVIANE) 0.1mg - 20mcg per tablet Take 1 tablet by mouth once daily. Problem List As Of Date 03/18/2025 Noted Resolved Encounter for supervision of high risk pregnanc*03/28/2023 10/03/2023 History of herpes genitalis [Z86.19] 07/30/2023 Trichomoniasis [A59.9] 08/22/2023 Gestational hypertension without significant pr*08/27/2023 08/27/2023 Other instructions from your clinician: - You have a very small (1???2 mm), flat, dark spot on the left upper vulva that appears benign; no treatment is needed at this time. - Monitor the spot for any changes in size, shape, or color. - If the spot becomes larger or changes in appearance, please schedule an appointment to have it re-examined. - At each annual exam (or anytime you see a different provider), remind us about this spot so we can compare its size and appearance over time. Encounter Status:Closed by JARED JACOBS on 03/18/25 PROGRESS Observed: 03/18/2025 10:20 AM Status: COMPLETED Source: [facility] ID: [id number] Author: JARED JACOBS MD Service: ? Author Type: Physician Type: Progress Notes Filed: 03/18/2025 10:46 Note Text: Manager Test offered: Patient declines. Obstetrics and Gynecology Everett COOK MESS Visit Subjective Recording using isocket software for draft documentation of the visit was discussed with the patient/authorized sales representative supervisor; all questions welcomed and answered. Patient/authorized sales representative supervisor agreed to proceed CHIEF COMPLAINT: The patient is a 24-year-old female presenting for evaluation of a new pigmented lesion on the left upper vulva. HPI: The patient is a 24-year-old female presenting for evaluation of a new mole on her vulva. Vulvar Lesion - Noticed a new mole on the left upper vulva near the clitoris about a week ago. - Denies any noticeable change in size since its appearance. - No other concerns reported. 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 oxybutynin ER (DITROPAN XL) 15 mg 24 hr Extended Rel Tab Take 1 tablet by mouth once daily. omeprazole (PRILOSEC) 10 mg capsule Take 10 mg by mouth once daily. Levonorgestrel-Ethinyl Estrad (AVIANE) 0.1mg - 20mcg per tablet Take 1 tablet by mouth once daily. verapamil HCl (VERAPAMIL ORAL) Take by mouth once daily. (Patient not taking: Reported on 12/11/2024) No current facility-administered medications for this visit. ALLERGIES No Known Allergies REVIEW OF SYSTEMS: Genitourinary: (+) vulvar lesion Objective SENSITIVE EXAM: The sensitive examination was discussed with the Patient or Patient's Authorized Tableau Developer. As applicable, any other physician, advance practice provider, medical student, or other health professional student that will be observing or involved in the sensitive examination for educational or training purposes was discussed with the Patient or Authorized Tableau Developer. The Patient or Authorized Tableau Developer has agreed to proceed with the sensitive examination. (Sensitive examination includes inspection and/or palpation of the breasts, pelvis, prostate and anorectal regions). PHYSICAL EXAM: BP 120/80 Wt 219 lb 3.2 oz (99.4kg) LMP 03/12/2025 GENERAL: Pleasant; in no apparent distress : - PELVIC: external genitalia shows a hyperpigmented macule on the left upper vulva near the clitoris, approximately 1 times2 mm, smooth borders, flat, normal Bartholin's glands, urethra, Dolliver's glands, no other vulvar lesions, no cervical lesions, good vaginal support, physiologic discharge present, normal appearing perineal body and perianal region Assessment AND Plan ASSESSMENT AND PLAN: 1. Vulvar lesion (N90.89) - Small, flat, hyperpigmented lesion on the left upper vulva near the clitoris, measuring approximately 1 mm x 2 mm, with smooth borders and no concerning features on exam. - Educated patient on benign appearance of the lesion and advised to monitor for any changes in size or appearance; instructed to return for re-evaluation if the lesion enlarges or changes. Medical Decision Making: Problems: Low: Acute, uncomplicated illness or injury Risk: Low: Low risk from testing/treatment Medical Decision Making Level: 3 - Low Jared Jacobs MD [1] Social History Tobacco Use Smoking status: Former Current packs/day: 0.00 Types: Cigarettes Quit date: 2020 Years since quittin.7 Passive exposure: Never Smokeless tobacco: Never Tobacco comments: Occasional Vape Vaping Use Vaping status: Former Substance Use Topics Alcohol use: Yes Comment: occa-vodka Drug use: Yes Types: Marijuana CMP WITH EGFR Collected: 5 11:42 AM Status: F Source: [facility] TYPE CODE TESTS RESULT OUT OF RANGE REFERENCE UNITS LAB CMP with eGFR(LOINC) CMP with eGFR Result Comment: COMPREHENSIV E METABOLIC PANEL LAB SODIUM(LOINC) SODIUM 139 136 - 145 mmol/l LAB POTASSIUM(LOIN C) POTASSIUM 3.9 3.5 - 5.1 mmol/L LAB CHLORIDE(LOINC ) CHLORIDE 104 98 - 107 mmol/L LAB CO2(LOINC) CO2 26.2 21.0 - 32.0 mmol/L LAB GLUCOSE(LOINC) GLUCOSE 125 High 74 - 106 mg/dl LAB BUN(LOINC) BUN 11 7 - 18 mg/dl LAB CREATININE(DILSHAD NC) CREATININE 0.77 0.55 - 1.02 mg/dl LAB AST/SGOT(LOINC ) AST/SGOT 12 Low 13 - 39 U/L LAB ALK PHOS(LOINC) ALK PHOS 87 46 - 116 U/L LAB CALCIUM(LOINC) CALCIUM 8.9 8.5 - 10.1 mg/dl LAB TOTAL PROTEIN(LOINC) TOTAL PROTEIN 7.0 6.4 - 8.2 g/dl LAB ALBUMIN(LOINC) ALBUMIN 3.3 Low 3.4 - 5.0 g/dL LAB GLOBULIN(LOINC ) GLOBULIN 3.7 1.5 - 3.8 G/DL LAB A/G RATIO(INC) A/G RATIO 0.9 0.9 - 1.6 LAB TOTAL BILI([facility]) TOTAL BILI 0.3 0.2 - 1.0 mg/dl LAB B/C RATIO(INC) B/C RATIO 14 0 - 30 ratio LAB ALT/SGPT(LOINC ) ALT/SGPT 24 16 - 63 U/L LAB ANION GAP(LOINC) ANION GAP 13 10 - 20 mmol/L LAB AGE(LOINC) AGE 24 years LAB eGFR(LOINC) eGFR >60 60 - 999 ML/MINUT E LAB eGFR(AA)(LOINC ) eGFR(AA) >60 60 - 999 ML/MINUT E Result Comment: ACCORDING TO THE NATIONAL KIDNEY DISEASE EDUCATION PROGRAM(NKDE), A NORMAL eGFR IS A VALUE GREATER THAN OR EQUAL TO 60 ML/MIN/1.73 SQ METERS. CHRONIC KIDNEY DISEASE: <60mL/MIN/1.73 SQ METERS KIDNEY FAILURE: <15mL/MIN/1.73 SQ METERS THIS TEST SHOULD ONLY BE USED FOR PATIENTS 18 YEARS OF AGE AND OLDER. Performed By: #### [id number] ## ## [facility],[address] [place] [address] CBC + DIFF Collected: 5 11:42 AM Status: F Source: [facility] TYPE CODE TESTS RESULT OUT OF RANGE REFERENCE UNITS LAB CBC + DIFF(LOINC) CBC + DIFF Result Comment: CBC-COMPLETE BLOOD COUNT LAB WBC(LOINC) WBC 8.6 4.5 - 10.8 x 10EE3/UL LAB RBC(LOINC) RBC 4.68 4.10 - 5.30 x 10EE6/UL LAB HEMOGLOBIN(DILSHAD NC) HEMOGLOBIN 13.4 12.0 - 16.0 g/dl LAB HEMATOCRIT(DILSHAD NC) HEMATOCRIT 39.5 34.0 - 46.0 % LAB MCV(LOINC) MCV 85 80 - 99 fl LAB MCH(LOINC) MCH 29 27 - 33 pg LAB MCHC(LOINC) MCHC 34 32 - 36 X10 3 LAB RDW/CV(LOINC) RDW/CV 13.7 12.0 - 15.6 % LAB PLATELET(LOINC ) PLATELET 381 150 - 450 x10EE3/UL LAB MPV(LOINC) MPV 8.0 6.6 - 10.5 fl Result Comment: AUTOMATED DI FFERENTIAL LAB NEUT %(LOINC) NEUT % 70.2 46.0 - 76.0 % LAB LYMPH %(LOINC) LYMPH % 22.0 20.0 - 45.0 % LAB MONOS %(LOINC) MONOS % 6.3 0.0 - 10.0 % LAB EO %(LOINC) EO % 1.2 0.0 - 7.0 % LAB BASO %(LOINC) BASO % 0.3 0.0 - 2.0 % LAB Lymph #(LOINC) Lymph # 1.89 0.80 - 2.80 x10EE 3/UL LAB Neut #(LOINC) Neut # 6.04 1.50 - 7.10 x10EE3 /UL LAB Ward #(LOINC) Ward # 0.54 0.20 - 1.00 x10EE3 /UL LAB EO #(LOINC) EO # 0.11 0.00 - 0.50 x10EE3/U L LAB Baso #(LOINC) Baso # 0.03 0.00 - 0.10 x10EE3 /UL LAB MANUAL DIFF(LOINC) MANUAL DIFF N/A LAB MORPHOLOGY(DILSHAD NC) MORPHOLOGY N/A Performed By: #### [id number] ## ## [facility],[address] [place], [place] [id number] LIPID PROFILE Collected: 03/06/2025 11:42 AM Status: F Source: [facility] TYPE CODE TESTS RESULT OUT OF RANGE REFERENCE UNITS LAB LIPID PROFILE(LOINC) LIPID PROFILE Result Comment: LIPID PROFIL E LAB TRIGLYCERIDE(DILSHAD NC) TRIGLYCERIDE 97 0 - 150 mg/dl LAB CHOLESTEROL(LOIN C) CHOLESTEROL 158 0 - 240 mg/dl LAB HDL(LOINC) HDL 44 40 - 60 mg/dl LAB CHOL/HDL(LOINC) CHOL/HDL 3.6 0.0 - 5.0 LAB LDL(LOINC) LDL 95 0 - 129 mg/dl Performed By: #### [id number] ## ## [facility],[address] [place] [address] XR ABDOMEN 1V SUPINE Observed: 11:47 AM Status: F Source: [facility] * * *Final Report* * * DATE [...] lungs are clear. IMPRESSION: No acute findings Beveller Operator: ANNE Transcribe Date/Time: Jan 31 2025 6:20A Dictated by : IFTIKHAR GUNN MD This examination was interpreted and the report reviewed and electronically signed by: IFTIKHAR GUNN MD on Jan 31 2025 6:21AM EST [id number] PROGRESS Observed: 01/29/2025 11:45 AM Status: COMPLETED Source: [facility] HNO ID: [id number] Author: DAMIAN ESCAMILLA RT(Lizzie) Service: Radiology Author Type: Technologist Type: Progress [...] PATIENT PRESENTS WITH AN IMPLANTABLE OR ATTACHED BAND NAILER: No RADIOLOGY DEPARTMENT: General X-ray: Exam(s) Completed: Abdomen X-Ray: Abdomen PERIPHERAL IV DATA: Not applicable SIGNED BY: RT Lan(R) January 29, 2025 11:49 AM PROGRESS Observed: 01/29/2025 11:20 AM Status: COMPLETED Source: [facility] HNO ID: [id number] Author: MARIA LUZ RODRIGUEZ APRN.CNP Service: ? Author Type: Nurse Practitioner Type: Progress Notes Filed: 01/29/2025 12:06 Note Text: [facility] ESTABLISHED PATIENT FOLLOW-UP NOTE PATIENT: Abbey Hanna (24 year old) PCP: Sid Cooper CNP, ILDEFONSO Assessment AND Plan Feeling of [...] 01/29/2025 Negative COLOR UA (POCT) (no units) Date Value 01/29/2025 Yellow CLARITY UA (POCT) (no units) Date Value 01/29/2025 Clear Previous Urine Cultures: Culture Results - Past 1 Year Culture 07/03/2024 10,000 -<50,000 CFU/ml Normal urogenital max 08/28/2024 10,000 -<50,000 CFU/ml Normal urogenital max 09/14/2024 10,000 -<50,000 CFU/ml Normal urogenital max I have reviewed the problem list, family history, and social history documented by my ancillary staff. Maria Luz Rodriguez APRN.CNP CNOV Observed: 01/29/2025 11:20 AM Status: COMPLETED Source: [facility] Office Visit ([id number]) ABBEY HANNA ([id number]) 4 F Date Time Provider Department 01/29/25 11:20 AM MARIA LUZ RODRIGUEZ [id number] During your visit today, we recorded the following information about you: Pulse Blood pressure 76/minute 101/76 Maria Luz Rodriguez APRN.CNP 01/29/2025 12:06 PM Signed [facility] ESTABLISHED PATIENT FOLLOW-UP NOTE PATIENT: Abbey Hanna (24 year old) PCP: Sid Cooper CNP, ELECTRICAL CONTACTS ADJUSTER Assessment AND Plan Feeling of incomplete bladder [...] 01/29/2025 Negative COLOR UA (POCT) (no units) Date Value 01/29/2025 Yellow CLARITY UA (POCT) (no units) Date Value 01/29/2025 Clear Previous Urine Cultures: Culture Results - Past 1 Year Culture 07/03/2024 10,000 -<50,000 CFU/ml Normal urogenital max 08/28/2024 10,000 -<50,000 CFU/ml Normal urogenital max 09/14/2024 10,000 -<50,000 CFU/ml Normal urogenital max I have reviewed the problem list, family history, and social history documented by my ancillary staff. Maria Luz Rodriguez APRN.ELECTRICAL CONTACTS ADJUSTER Allergies As of Date: 01/29/2025 (No Known Allergies) Date Reviewed: 01/29/2025 Reviewed by: Stephanie Crawley OCCA - Fully Assessed Reason for Visit: Follow Up [171] Primary Visit Diagnosis:Feeling of incomplete bladder emptying [R39.14] Other Visit Diagnoses:Frequency of micturition [R35.0] Overactive bladder [N32.81] Urinary urgency [R39.15] Left flank pain [R10.9] Order(s):BLADDER SCAN [[id number]] Order #: [id number] UA DIP, URINE (POC) [[id number]] Order #: [id number]. #:[id number] [id number] ABDOMEN 1V SUPINE [[id number]] Order #: [id number] FUTURE oxybutynin ER (DITROPAN XL) 15 mg 24 hr Extended Rel TabTake 1 tablet by mouth once daily.Disp: 30 tabletRfl: 1 Prescriptions as of 01/29/2025 - oxybutynin ER (DITROPAN XL) 15 mg 24 hr Extended Rel Tab Take 1 tablet by mouth once daily. - verapamil HCl (VERAPAMIL ORAL) Take by mouth once daily. - omeprazole (PRILOSEC) 10 mg capsule Take 10 mg by mouth once daily. - Levonorgestrel-Ethinyl Estrad (AVIANE) 0.1mg - 20mcg per tablet Take 1 tablet by mouth once daily. Problem List As Of Date 01/29/2025 Noted Resolved Encounter for supervision of high risk pregnanc*03/28/2023 10/03/2023 History of herpes genitalis [Z86.19] 07/30/2023 Trichomoniasis [A59.9] 08/22/2023 Gestational hypertension without significant pr*08/27/2023 08/27/2023 Prescriptions ordered this encounter Disp Refills Start End OXYBUTYNIN CHLORIDE ER 15 MG TABLET,* 30 t* 1 01/29/2025 03/30/2025 Route: PO Sig: Take 1 tablet by mouth once daily. Medications Discontinued During This Encounter Prescriptions - oxybutynin ER (DITROPAN XL) 10 mg 24 hr tablet (Discontinued) Take 1 tablet by mouth once daily. Level of Service: OFFICE/OUTPATIENT ESTABLISHED MOD MDM 30 MIN [40470] Additional E/M codes: VISIT CPLX INHERENT EANDM ASSOC WITH MED * Disposition: Return for Will call with results. Follow-up and Disposition History for Encounter Date Provider Department Center 01/29/2025 [id number] [id number] Daniela Thibodeaux [facility] Encounter Status:Closed by MARIA LUZ RODRIGUEZ on 01/29/25 PROGRESS Observed: 12/29/2024 3:38 PM Status: COMPLETED Source: [facility] ID: [id number] Author: SAUL CENTENO MD Service: ? Author Type: Physician Type: [...] TOPICAL CREAM Return here as needed Saul Centeno MD Differential Diagnoses - insect bites is more likely for the following reason(s): suggested by HANDP - cellulitis is less likely for the following reason(s): no warmth multiple sites short duration, HANDP not suggestive Disposition The patient was discharged. Procedures CNOV Observed: 12/29/2024 3:30 PM Status: COMPLETED Source: [facility] Office Visit (WOUCA) ABBEY HANNA ([id number]) 4 F Date Time Provider Department 12/29/24 3:30 PM SAUL CENTENO During your visit today, we recorded the following information about you: Temperature Pulse Respiration Blood pressure 98.3 degrees 88/minute 16/minute 122/76 Weight Last Period 98.2 kg 12/21/24 Saul Centeno MD 12/29/2024 3:38 PM Signed [facility] [address] [place], [place] [address] Emergency Department Diagnosis: Assessment NONSPECIFIC RASH: Our [...] (increased pain, redness, drainage or pus). Saul Centeno MD 12/29/2024 3:46 PM S[facility]anna is a 24 year [...] TOPICAL CREAM Return here as needed Saul Centeno MD Differential Diagnoses - insect bites is [...] x last night Primary Visit Diagnosis:Rash [R21] Order(s):methylPREDNISolone (MEDROL, ALANNA,) 4 mg Dose-PackTake as instructed [...] 10 mg by mouth once daily. - Levonorgestrel-Ethinyl Estrad (AVIANE) 0.1mg - 20mcg per tablet Take 1 tablet by mouth once daily. Problem List As Of Date 12/29/2024 Noted Resolved Encounter for supervision of high risk pregnanc*03/28/2023 10/03/2023 History of herpes genitalis [Z86.19] 07/30/2023 Trichomoniasis [A59.9] 08/22/2023 Gestational hypertension without significant pr*08/27/2023 08/27/2023 Other instructions from your clinician: [facility] [address] [place], [place] [address] Emergency Department Diagnosis: Assessment NONSPECIFIC RASH: Our [...] infection (increased pain, redness, drainage or pus). Prescriptions ordered this encounter Disp Refills Start End METHYLPREDNISOLONE 4 MG TABLETS IN A* 21 t* 0 12/29/2024 01/04/2025 Sig: Take as instructed per package. HYDROCORTISONE 2.5 % TOPICAL CREAM 28 g 0 12/29/2024 01/05/2025 Route: TOP Sig: Apply 1 application to affected area two times a day for 7 days. Level of Service: OFFICE/OUTPATIENT ESTABLISHED MOD [facility] 30 MIN [90302] Encounter Status:Closed by SAUL CENTENO on 12/29/24 ALGN FOOD ADULT/CHILD Collected: 12/18/2024 11:18 AM Status: F Source: [facility] Order Comment: Specimen Type : BLOOD SPECIMEN Ordering Facility: [facility] Address: [address] [place] [address] TYPE CODE TESTS RESULT OUT OF RANGE REFERENCE UNITS LAB 7258-7(LOINC) Cow Milk IgE Qn <0.35 <0.35 kU /l LAB 02865-1(LOINC) Deprecated Cow Milk IgE RAST Ql Class 0 Class 0 LAB 6276-0(LOINC) Wheat IgE Qn <0.35 <0.35 kU/l LAB 19942-1(LOINC) Deprecated Wheat IgE RAST Ql Class 0 Class 0 LAB 6206-7(LOINC) Peanut IgE Qn <0.10 <0.10 kU/l LAB 60387-5(LOINC) Deprecated Peanut IgE RAST Ql Class 0 Class 0 LAB 6248-9(LOINC) Soybean IgE Qn <0.35 <0.35 kU/ l LAB 93608-1(LOINC) Deprecated Soybean IgE RAST Ql Class 0 Class 0 LAB 6082-2(LOINC) Codfish IgE Qn <0.35 <0.35 kU/ l LAB 18387-6(LOINC) Deprecated Codfish IgE RAST Ql Class 0 Class 0 LAB 6076-4(LOINC) Clam IgE Qn <0.35 <0.35 kU/l LAB 27357-9(LOINC) Deprecated Clam IgE RAST Ql Class 0 Class 0 LAB 6087-1(LOINC) [place] IgE Qn <0.35 <0.35 kU/l LAB 08653-5(LOINC) Deprecated [place] IgE RAST Ql Class 0 Class 0 LAB 7691-9(LOINC) Scallop IgE Qn <0.35 <0.35 kU/ l LAB 94506-6(LOINC) Deprecated Scallop IgE RAST Ql Class 0 Class 0 LAB 6246-3(LOINC) Shrimp IgE Qn <0.35 <0.35 kU/l LAB 73448-0(LOINC) Deprecated Shrimp IgE RAST Ql Class 0 Class 0 LAB 6273-7(LOINC) [place] IgE Qn <0.35 <0.35 kU/l LAB 50700-2(LOINC) Deprecated [place] IgE RAST Ql Class 0 Class 0 LAB 6106-9(LOINC) Egg White IgE Qn <0.35 <0.35 kU/l LAB 40346-1(LOINC) Deprecated Egg White IgE RAST Ql Class 0 Class 0 Performed By: #### FOODAD ## ## [facility] CLIA [id number] [address] [place] [address] [place] UREA BREATH TEST-ACNC Collected: 2024 11:18 AM Status: F Source: [facility] Comment: Specimen Type : BREATH Ordering Facility: [facility] Address: [address] , [place] [id number] TYPE CODE TESTS RESULT OUT OF RANGE REFERENCE UNITS LAB 42666-8(LOINC) Urea Breath Test-aCnc Negative Negative Result Comment: Urea Breath Test is used as an aid in diagnosis of current infection with Helicobacter pylori. False positive results may occur in infection with Helicobacter heilmannii or contamination with other urease-producing bacteria. False negative results may be seen in patients with hypochlorhydria. Clinical correlation is required. Performed By: #### [id number] # ### [facility] CLIA [id number] [address] [place] [id number] [place] ALLERGEN FOOD ADULT/CHILD [CCL] Collect ed: 12/18/2024 11:18 AM Status: F Source: [facility] TYPE CODE TESTS RESULT OUT OF RANGE REFERENCE UNITS LAB MLK(LOINC) Milk, Cow IgE <0.35 <0.35 kU/l LAB MLKCL(LOINC) Milk, Cow Class Class 0 Class 0 LAB WEAT(LOINC) Wheat IgE <0.35 <0.35 kU/l LAB WEACL(LOINC) Wheat Class Class 0 Class 0 LAB PNUT(LOINC) Peanut IgE <0.10 <0.10 kU/l LAB PNUCL(LOINC) Peanut Class Class 0 Class 0 LAB SOY(LOINC) Soybean IgE <0.35 <0.35 kU/l LAB SOYCL(LOINC) Soybean Class Class 0 Class 0 LAB CODF(LOINC) Codfish <0.35 <0.35 kU/l LAB CODCL(LOINC) Codfish-Clas s Class 0 Class 0 LAB CLM(LOINC) Clam <0.35 <0.35 kU/l LAB CLMCL(LOINC) Clam-Class Class 0 Class 0 LAB CRN(LOINC) [place] IgE <0.35 <0.35 kU/l LAB CRNCL(LOINC) [place] Class Class 0 Class 0 LAB SCALLP(LOINC) Scallop <0.35 <0.35 kU/l LAB SCACL(LOINC) [place]-Clas s Class 0 Class 0 LAB SRMP(LOINC) Shrimp IgE <0.35 <0.35 kU/l LAB SRMCL(LOINC) Shrimp Class Class 0 Class 0 LAB WALIGE(LOINC) [place], IgE <0.35 <0.35 kU/l LAB WALCL(LOINC) [place]-Class Class 0 Class 0 LAB EGGW(LOINC) Egg White IgE <0.35 <0.35 kU/l LAB EGGCL(LOINC) Egg White Class Class 0 Class 0 Result Comment: [facility] [address] [place] [address] Manjeet Retana III, M.D. [id number] Performed By: #### [id number] ## ## [facility],[address] [place], [place] [id number] H PYLORI BREATH TEST PEDS (< 17) [OLD] Collected: 12/18/2024 11:18 AM Status: F Source: [facility] TYPE CODE TESTS RESULT OUT OF RANGE REFERENCE UNITS LAB H PYLORI BREATH TEST PEDS (<17) [OLD](LOINC) H PYLORI BREATH TEST PEDS (<17) [OLD] Result Comment: _H PYLORI BR EATH TEST PEDS [CCL]_ SEE SCANNED REPORT Performed By: #### [id number] ## ## [facility],[address] [place], [place] [id number] PROGRESS Observed: 12/11/2024 2:00 PM Status: COMPLETED Source: [facility] HNO ID: [id number] Author: MARIA LUZ RODRIGUEZ APRN.CNP Service: ? Author Type: Nurse Practitioner Type: Progress Notes Filed: 12/11/2024 15:23 Note Text: [facility] NEW PATIENT HISTORY AND PHYSICAL EXAMINATION PATIENT: Abbey Hanna (24 year old) PCP: Sid Cooper CNP, ILDEFONSO Assessment AND Plan Feeling of [...] by my ancillary staff. Maria Luz Rodriguez APRN.ELECTRICAL CONTACTS ADJUSTER CNOV Observed: 12/11/2024 2:00 PM Status: COMPLETED Source: [facility] Office Visit ([id number]) ABBEY HANNA ([id number]) 4 F Date Time Provider Department 12/11/24 2:00 PM AMRIA LUZ RODRIGUEZ [id number] During your visit today, we recorded the following information about you: Pulse Blood pressure 86/minute 117/74 Maria Luz Rodriguez, SIGNALMANMASON 12/11/2024 3:23 PM Signed [facility] NEW PATIENT HISTORY AND PHYSICAL EXAMINATION PATIENT: Abbey Hanna (24 year old) PCP: Sid Cooper CNP, CNP Assessment AND Plan Feeling of [...] by my ancillary staff. Maria Luz Rodriguez APRN.ELECTRICAL CONTACTS ADJUSTER Allergies As of Date: 12/11/2024 (No Known Allergies) Date Reviewed: 12/11/2024 Reviewed by: Brooklynn Newell MA - Fully Assessed Reason for Visit: Urinary Retention [228] Primary Visit Diagnosis:Feeling of incomplete bladder emptying [R39.14] Other Visit Diagnoses:Frequency of micturition [R35.0] Overactive bladder [N32.81] Urinary urgency [R39.15] Order(s):BLADDER SCAN [[id number]] Order #: [id number] UA DIP, URINE (POC) [[id number]] Order #: [id number]. #:[id number] oxybutynin ER (DITROPAN XL) 10 mg 24 hr tabletTake 1 tablet by mouth once daily.Disp: 30 tabletRfl: 1 Prescriptions as of 12/11/2024 - oxybutynin ER (DITROPAN XL) 10 mg 24 hr tablet Take 1 tablet by mouth once daily. - verapamil HCl (VERAPAMIL ORAL) Take by mouth once daily. - omeprazole (PRILOSEC) 10 mg capsule Take 10 mg by mouth once daily. - Levonorgestrel-Ethinyl Estrad (AVIANE) 0.1mg - 20mcg per tablet Take 1 tablet by mouth once daily. Problem List As Of Date 12/11/2024 Noted Resolved Encounter for supervision of high risk pregnanc*03/28/2023 10/03/2023 History of herpes genitalis [Z86.19] 07/30/2023 Trichomoniasis [A59.9] 08/22/2023 Gestational hypertension without significant pr*08/27/2023 08/27/2023 Prescriptions ordered this encounter Disp Refills Start End OXYBUTYNIN CHLORIDE ER 10 MG TABLET,* 30 t* 1 12/11/2024 02/09/2025 Route: PO Sig: Take 1 tablet by mouth once daily. Level of Service: OFFICE/OUTPATIENT NEW MODERATE MDM 45 MINUTES [12394] Additional E/M codes: VISIT CPLX INHERENT EANDM ASSOC WITH MED * Disposition: Return in about 6 weeks (around 01/22/2025). LOS History for Encounter Level of Service: OFFICE/OUTPATIENT ESTABLISHED MOD MDM 30 MIN[50790] Date AND Time: 12-11-2024 3:23 PM Recorded by User: MARIA LUZ RODRIGUEZ Follow-up and Disposition History for Encounter Date Provider Department Center 12/11/2024 [id number], TIFFANY [id number] Daniela Thibodeaux [facility] Encounter Status:Closed by MARIA LUZ RODRIGUEZ on 12/11/24 WAQAR/TRICHOMONAS NAAT Collected: 4:09 PM Status: F Source: [facility] Order Comment: Specimen Type : SWAB Ordering Facility: [facility] Address: [address] [place] [address] TYPE CODE TESTS RESULT OUT OF RANGE REFERENCE UNITS LAB 90914-8(LOINC ) Waqar DNA Vag Ql SASCHA+probe Not detected Not detected Result Comment: The Waqar species group target includes C. albicans, C. tropicalis, C. parapsilosis, and C. dubliniensis. LAB 04099-3(LOINC ) C glabrata RNA Vag Ql SASCHA+probe Not detected Not detected LAB 41757-3(LOINC ) T vaginalis DNA Spec Ql SASCHA+probe Not detected Not detected Performed By: #### BVAMP, CV TV #### [facility] CLIA [id number] [address] [place] [address] BACTERIAL VAGINOSIS NAAT Collected: 4:09 PM Status: F Source: [facility] Order Comment: Specimen Type : SWAB Ordering Facility: [facility] Address: [address] [place] [address] TYPE CODE TESTS RESULT OUT OF RANGE REFERENCE UNITS LAB 68677-4(LOINC) BV bacteria rRNA Vag Ql SASCHA+probe Not detected Not detected Performed By: #### BVAMP, CV TV #### [facility] CLIA [id number] [address] [place] [address] CNOV Observed: 11/20/2024 3:00 PM Status: COMPLETED Source: [facility] Office Visit (OBGYWM) JACQUESABBEY LUTH ([id number]) 4 F Date Time Provider Department 11/20/24 3:00 PM KELLY IRELAND OBGYWM During your visit today, we recorded the following information about you: Blood pressure Weight Height Last Period 114/72 97.1 kg 1.6 m 11/20/24 Kelly Ireland APRN.ELECTRICAL CONTACTS ADJUSTER 11/20/2024 3:33 PM Signed Abeby is a 24 year old who presents [...] Living1 SAB0 IAB0 Ectopic0 Multiple0 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 As applicable, any other physician, advance practice provider, medical student, or other health professional student that will be observing or involved in the sensitive examination for educational or training purposes was discussed with the Patient or Authorized Tableau Developer. The Patient or Authorized Tableau Developer has agreed to proceed with the sensitive [...] external genitalia normal, normal Bartholin's glands, urethra, Dolliver's glands, no vulvar lesions, no cervical lesions, [...] Will notify patient of test results. Kelly Ireland APRN.ELECTRICAL CONTACTS ADJUSTER Allergies As of Date: 11/20/2024 (No Known Allergies) Date Reviewed: 11/20/2024 Reviewed by: Kelly Ireland APRN.ELECTRICAL CONTACTS ADJUSTER - Fully Assessed Reason for Visit: Well Woman [1463] Primary Visit Diagnosis:Encounter for gynecological examination (general) (routine) without abnormal findings [Z01.419] Other Visit Diagnoses:Irritation of vulva [N90.89] Encounter for surveillance of contraceptive pills [Z30.41] Order(s):UA DIP, URINE (POC) [[id number]] Order #: [id number]. #:[id number] Levonorgestrel-Ethinyl Estrad (AVIANE) 0.1mg - 20mcg per tabletTake 1 tablet by mouth once daily.Disp: 84 tabletRfl: 3 WAQAR/TRICHOMONAS NAAT [SQCVTV] Order #: [id number] BACTERIAL VAGINOSIS NAAT [SQBVAMP] Order #: [id number] Prescriptions as of 11/20/2024 - verapamil HCl (VERAPAMIL ORAL) Take by mouth once daily. - omeprazole (PRILOSEC) 10 mg capsule Take 10 mg by mouth once daily. - Levonorgestrel-Ethinyl Estrad (AVIANE) 0.1mg - 20mcg per tablet Take 1 tablet by mouth once daily. Problem List As Of Date 11/20/2024 Noted Resolved Encounter for supervision of high risk pregnanc*03/28/2023 10/03/2023 History of herpes genitalis [Z86.19] 07/30/2023 Trichomoniasis [A59.9] 08/22/2023 Gestational hypertension without significant pr*08/27/2023 08/27/2023 Prescriptions ordered this encounter Disp Refills Start End LEVONORGESTREL-ETHINYL ESTRADIOL 0.1* 84 t* 3 11/20/2024 10/22/2025 Route: PO Sig: Take 1 tablet by mouth once daily. Medications Discontinued During This Encounter Prescriptions - ondansetron (ZOFRAN) 4 mg tablet (Discontinued) Reported on 11/20/2024 - PARoxetine (PAXIL) 10 mg tablet (Discontinued) Reported on 11/20/2024 - VITAMIN 27 mg iron- 0.8 mg tablet (Discontinued) Reported on 08/27/2024 - levonorgestrel/ethin.estradiol (AVIANE ORAL) (Discontinued) Take by mouth. Disposition: Return in 1 year (on 11/20/2025) for Annual Exam. Follow-up and Disposition History for Encounter Date Provider Department Center 11/20/2024 [id number] IRELAND Encounter Status:Closed by KELLY IRELAND on 11/20/24 PROGRESS Observed: 11/20/2024 2:45 PM Status: COMPLETED Source: [facility] ID: [id number] Author: KELLY IRELAND APRN.ELECTRICAL CONTACTS ADJUSTER Service: ? 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 As applicable, any other physician, advance practice provider, medical student, or other health professional student that will be observing or involved in the sensitive examination for educational or training purposes was discussed with the Patient or Authorized Tableau Developer. The Patient or Authorized Tableau Developer has agreed to proceed with the sensitive [...] external genitalia normal, normal Bartholin's glands, urethra, Dolliver's glands, no vulvar lesions, no cervical lesions, [...] Will notify patient of test results. Kelly Ireland APRN.ELECTRICAL CONTACTS ADJUSTER CV ECHO COMPLETE WITHOUT CONTRAST Observed: 10/20/2024 8:53 AM Status: C Source: [place] [address] Patient: ABBEY HANNA Phone#: : 2000 Age: 24 Gender: F Pt. Type: Out Account: [id number] Location: [facility] Ordering: GAVIOTA MARKS Exam Date: 10/19/2024/7:20 Family Phys: RINKU GONZALES Charge Code: 445582 Physician: [place] Order #: [id number] Dose#: CORRECTION Corrected on: 10/20/2024; PROCEDURE: ECHOCARDIOGRAM WITH DOPPLER AND COLOR FLOW HISTORY: Patient is a 24-year-old female with PVCs INDICATIONS: PVCs COMPARISON: None. TECHNIQUE: A 2-D ultrasound, color spectral Doppler and M-mode evaluation of the heart and great vessels. PATIENT MEASUREMENTS: Height (in.): 62 BSA: 1.95 Weight (lbs.): 210 BP: 145/79 Java Software Developer: AMRITA M MODE 2D MEASUREMENTS AND CALCULATIONS: [...] 24 Gender: F Pt. Type: Out Account: [id number] Location: [facility] Ordering: GAVIOTA MARKS Exam Date: 10/19/2024/7:20 Family Phys: RINKU GONZALES Charge Code: [id number] Physician: [place] Order #: [id number] Dose#: MV V2 max: 1.53 m/s MV [...] 24 Gender: F Pt. Type: Out Account: [id number] Location: [facility] Ordering: GAVIOTA MARKS Exam Date: 10/19/2024/7:20 Family Phys: RINKU GONZALES Charge Code: 957439 Physician: [place] Order #: [id number] Dose#: 6 - Basal anterolateral: Normal. 12-Mid [...] on 10/20/2024 at 8:53 Dictated by: GAVIOTA MARKS MD on 10/20/2024 at 12:50 Approved by: GAVIOTA MARKS MD on 10/20/2024 at 12:50 STRESS TEST (DGEST) NO IMAGING Observed: 10/19/2024 10:38 AM Status: F Source: [place] [address] Patient: ABBEY HANNA Phone#: : 2000 Age: 24 Gender: F Pt. Type: Out Account: [id number] Location: [facility] Ordering: GAVIOTA MARKS Exam Date: 10/19/2024/6:59 Family Phys: RINKU GONZALES Charge Code: [id number] Physician: [place] Order #: [id number] Dose#: PROCEDURE: DGEST HISTORY: Patient is a [...] were no arrhythmia or ectopic beats seen. [place] [address] Patient: ABBEY HANNA Phone#: : 2000 Age: 24 Gender: F Pt. Type: Out Account: [id number] Location: 052 Ordering: GAVIOTA MARKS Exam Date: 10/19/2024/6:59 Family Phys: RINKU GONZALES Charge Code: 552166 Physician: [place] Order #: [id number] Dose#: Dictated by: GAVIOTA MARKS MD on 10/19/2024 at 10:24 Approved by: GAVIOTA MARKS MD on 10/19/2024 at 10:37 TSH W/ REFLEX TO FREE T4 Collected: 10:02 AM Status: F Source: [facility] TYPE CODE TESTS RESULT OUT OF RANGE REFERENCE UNITS LAB TSH(LOINC) TSH 1.27 0.34 - 5.60 uIU/ml Performed By: #### [id number] ## ## [facility],[address] [place] [address] CT CHEST (PE PROTOCOL) Observed: 025 5:39 PM Status: F Source: [place] [address] Patient: ABBEY HANNA Phone#: : 2000 Age: 24 Gender: F Pt. Type: ER Account: [id number] Location: 052 Ordering: ADITHYA RIVERA Exam Date: 09/23/2024/17:00 Family Phys: RINKU GONZALES Charge Code: 296171 Physician: [place] Order #: [id number] Dose#: 7.70 PROCEDURE: CT CHEST WITH CONTRAST [...] 24 Gender: F Pt. Type: ER Account: [id number] Location: [facility] Ordering: ADITHYA RIVERA Exam Date: 09/23/2024/17:00 Family Phys: RINKU GONZALES Charge Code: 996127 Physician: [place] Order #: [id number] Dose#: 7.70 Approved by: Catie Meehan MD on 09/23/2024 at 17:39 TROPONIN Collected: 5 2:40 PM Status: F Source: [facility] TYPE CODE TESTS RESULT OUT OF RANGE REFERENCE UNITS LAB HS TROPONIN(LOINC) HS TROPONIN 26.7 0.0 - 51.4 pg/mL Performed By: #### [id number] ## ## [facility],[address] [place], [place] [id number] CHEST 1 VIEW Observed: 09/23/2024 2:04 PM Status: F Source: [facility] [address] [place], [place] [address] Patient: ABBEY HANNA Phone#: : 2000 Age: 24 Gender: F Pt. Type: ER Account: [id number] Location: [facility] Ordering: ADITHYA RIVERA Exam Date: 09/23/2024/13:33 Family Phys: RINKU GONZALES Charge Code: 087750 Physician: [place] Order #: [id number] Dose#: PROCEDURE: X-RAY CHEST 1 VIEW COMPARISON: [facility], XR, CHEST 1 VIEW, 06/07/2024, 19:53. INDICATIONS: [...] Catie Meehan MD on 09/23/2024 at 14:04 CBC + DIFF Collected: 1:56 PM Status: F Source: [facility] TYPE CODE TESTS RESULT OUT OF RANGE REFERENCE UNITS LAB CBC + DIFF(LOINC) CBC + DIFF Result Comment: CBC-COMPLETE BLOOD COUNT LAB WBC(LOINC) WBC 8.0 4.5 - 10.8 x 10EE3/UL LAB RBC(LOINC) RBC 4.91 4.10 - 5.30 x 10EE6/UL LAB HEMOGLOBIN(DILSHAD NC) HEMOGLOBIN 14.4 12.0 - 16.0 g/dl LAB HEMATOCRIT(DILSHAD NC) HEMATOCRIT 42.7 34.0 - 46.0 % LAB MCV(LOINC) MCV 87 80 - 99 fl LAB MCH(LOINC) MCH 29 27 - 33 pg LAB MCHC(LOINC) MCHC 34 32 - 36 X10 3 LAB RDW/CV(LOINC) RDW/CV 13.4 12.0 - 15.6 % LAB PLATELET(LOINC ) PLATELET 331 150 - 450 x10EE3/UL LAB MPV(LOINC) MPV 7.7 6.6 - 10.5 fl Result Comment: AUTOMATED DI FFERENTIAL LAB NEUT %(LOINC) NEUT % 63.7 46.0 - 76.0 % LAB LYMPH %(LOINC) LYMPH % 29.1 20.0 - 45.0 % LAB MONOS %(LOINC) MONOS % 5.5 0.0 - 10.0 % LAB EO %(LOINC) EO % 1.5 0.0 - 7.0 % LAB BASO %(LOINC) BASO % 0.2 0.0 - 2.0 % LAB Lymph #(LOINC) Lymph # 2.33 0.80 - 2.80 x10EE 3/UL LAB Neut #(LOINC) Neut # 5.10 1.50 - 7.10 x10EE3 /UL LAB Ward #(LOINC) Ward # 0.44 0.20 - 1.00 x10EE3 /UL LAB EO #(LOINC) EO # 0.12 0.00 - 0.50 x10EE3/U L LAB Baso #(LOINC) Baso # 0.02 0.00 - 0.10 x10EE3 /UL LAB MANUAL DIFF(LOINC) MANUAL DIFF N/A LAB MORPHOLOGY(DILSHAD NC) MORPHOLOGY N/A Performed By: #### [id number] ## ## [place] [address] D-DIMER, QUANTITATIVE Collected: 09/23/2024 1:56 PM Status: F Source: [facility] TYPE CODE TESTS RESULT OUT OF RANGE REFERENCE UNITS LAB D-DIMER, QUANTITATIVE(LO INC) D-DIMER, QUANTITATIVE Result Comment: QUANT D-DIME R LAB D-DIMER QUANT(LOINC) D-DIMER QUANT 427 High 0 - 230 ng/ml Performed By: #### [id number] ## ## [place] [id number] CMP WITH EGFR Collected: 04/02/202 5 1:56 PM Status: F Source: [facility] TYPE CODE TESTS RESULT OUT OF RANGE REFERENCE UNITS LAB CMP with eGFR(LOINC) CMP with eGFR Result Comment: COMPREHENSIV E METABOLIC PANEL LAB SODIUM(LOINC) SODIUM 136 136 - 145 mmol/l LAB POTASSIUM(LOIN C) POTASSIUM 5.0 3.5 - 5.1 mmol/L LAB CHLORIDE(LOINC ) CHLORIDE 103 98 - 107 mmol/L LAB CO2(LOINC) CO2 23.8 21.0 - 32.0 mmol/L LAB GLUCOSE(LOINC) GLUCOSE 78 74 - 106 mg/dl LAB BUN(LOINC) BUN 12 7 - 18 mg/dl LAB CREATININE(DILSHAD NC) CREATININE 0.62 0.55 - 1.02 mg/dl LAB AST/SGOT(LOINC ) AST/SGOT 41 High 13 - 39 U/L LAB ALK PHOS(LOINC) ALK PHOS 91 46 - 116 U/L LAB CALCIUM(LOINC) CALCIUM 9.1 8.5 - 10.1 mg/dl LAB TOTAL PROTEIN(LOINC) TOTAL PROTEIN 8.1 6.4 - 8.2 g/dl LAB ALBUMIN(LOINC) ALBUMIN 3.8 3.4 - 5.0 g/dL LAB GLOBULIN(LOINC ) GLOBULIN 4.3 High 1.5 - 3.8 G/DL LAB A/G RATIO(LOINC) A/G RATIO 0.9 0.9 - 1.6 LAB TOTAL BILI(LOINC) TOTAL BILI 0.5 0.2 - 1.0 mg/dl LAB B/C RATIO(LOINC) B/C RATIO 19 0 - 30 ratio LAB ALT/SGPT(LOINC ) ALT/SGPT 25 16 - 63 U/L LAB ANION GAP(LOINC) ANION GAP 14 10 - 20 mmol/L LAB AGE(LOINC) AGE 24 years LAB eGFR(LOINC) eGFR >60 60 - 999 ML/MINUT E LAB eGFR(AA)(LOINC ) eGFR(AA) >60 60 - 999 ML/MINUT E Result Comment: ACCORDING TO THE NATIONAL KIDNEY DISEASE EDUCATION PROGRAM(NKDE), A NORMAL eGFR IS A VALUE GREATER THAN OR EQUAL TO 60 ML/MIN/1.73 SQ METERS. CHRONIC KIDNEY DISEASE: <60mL/MIN/1.73 SQ METERS KIDNEY FAILURE: <15mL/MIN/1.73 SQ METERS THIS TEST SHOULD ONLY BE USED FOR PATIENTS 18 YEARS OF AGE AND OLDER. Performed By: #### [id number] ## ## [address] [address] TROPONIN Collected: 1:56 PM Status: F Source: [facility] TYPE CODE TESTS RESULT OUT OF RANGE REFERENCE UNITS LAB HS TROPONIN(LOINC) HS TROPONIN 29.0 0.0 - 51.4 pg/mL Performed By: #### [id number] ## ## [address] [address] ED PHYSICIAN DISCHARGE REPORT Observed: 09/23/2024 1:30 PM Status: F Source: [facility] Discharge Instructions Discharge Summary [address] [address] [id number] 09/23/2024 Patient: ABBEY HANNA Sex: Female : 2000 Age: 24y Thank you for visiting [facility]. You have been evaluated today by Adithya Rivera D.O. for the following condition(s): Principal Diagnosis Chest pain. INSTRUCTIONS Follow-up: Follow up with a high speed warper tender as scheduled. Follow up with your healthcare provider in three days. Call for an appointment. You have been given the following additional information: Uncertain Causes of Chest Pain Patient Signature Facility Tableau Developer Date/Time 1 of 4 Discharge Instructions General Instructions with ExitWriter [address] [address] [phone] 09/23/2024 Patient: ABBEY HANNA Sex: Female : 2000 Age: 24y Thank you for visiting [facility]. You have been evaluated today by Adithya Rivera D.O. for the following condition(s): Principal Diagnosis Chest pain. INSTRUCTIONS Follow-up: Follow up with a high speed warper tender as scheduled. Follow up with your healthcare [...] or redness in one leg 4 of 4 ED NURSES CLINICAL NOTE Observed: 2024 1:30 PM Status: F Source: [facility] Nurse Narrative Nurse Clinical Narrative [address] [place] [address] [phone] 09/23/2024 Patient: ABBEY HANNA Sex: Female : [...] 62.0 in, BMI: 38.41 -- 13:35 09/23/24 EDT Rashmi Arcos R.N. Medications: escitalopram 10 mg tablet -- 13:34 09/23/24 EDT Rashmi Arcos R.N. Aviane 0.1 mg-20 mcg tablet -- 13:34 09/23/24 EDT Rashmi Arcos R.N. famotidine 10 mg tablet: 10 mg once a day as needed for gastroesophageal reflux disease. -- 13:35 09/23/24 EDT Rashmi Arcos R.N. 1 of 4 Nurse Narrative 13:32 09/23/24. [facility]acy: ([facility] -- 13:40 09/23/24 EDT Rashmi Arcos R.N. Allergies: no known drug allergies -- 13:34 09/23/24 EDT Rashmi Arcos R.N. Problems: Tachycardia -- 13:40 09/23/24 EDT Rashmi Arcos R.N. ADDITIONAL SURGERIES: wisodm teeth -- 13:35 09/23/24 EDT Rashmi Arcos R.N. Tonsillectomy -- 13:35 09/23/24 EDT Rashmi Arcos R.N. Adenoidectomy -- 13:35 09/23/24 EDT Rashmi Arcos R.N. : Performed 2023 -- 13:35 09/23/24 EDT Rashmi Arcos R.N. History 13:32 09/23/24. SOCIAL HX: Never smoker. The patient has [...] assessment: no impairments noted. -- 13:40 09/23/24 EDT Rashmi Arcos R.N. 2 of 4 Nurse Narrative 13:40 09/23/24. FALL RISK ASSESSMENT: Fall risk assessment completed. No risk factors identified. -- 13:41 09/23/24 EDT Rashmi Arcos R.N. Interventions 13:32 09/23/24. Advanced care [...] EDT Bonnie Pedro R.N. NURSING PROGRESS NOTES 13:09/23/24. 12-LEAD EKG: EKG time: (:09/23/2024). 12-Lead EKG was performed by me and [...] Temperature: Deferred . Pain level now 0/10. -- 18:20 09/23/24 EDT Ector Ocampo R.N. 3 of 4 Nurse Narrative Departure time: 18:17 09/23/2024. Condition at departure: improved and stable. No learning barriers present. Discharge instructions provided and reviewed with the patient. Reviewed warnings. Treatments reviewed. Reviewed referrals. Patient verbalized understanding. Written instructions provided in Brazilian. The patient was discharged by the physician. The patient was discharged home. The patient left ambulatory and via private vehicle. Patient driving. -- 18:21 09/23/24 SPENCERT Ector Ocampo R.N. 18:17 09/23/24. Site #1 removed upon discharge. Catheter intact. Bandage applied. -- 18:20 09/23/24 SPENCERT Ector Eastep, R.N. (Electronically signed by Ector Ocampo R.N. 09/24/24 07:45:20 EDT) Generated by [facility] 4 of 4 ED VITALS FLOW SHEET Observed: 1:30 PM Status: F Source: [facility] Vitals Vital Sign Flow Sheet [facility] [address] [place] [address] [phone] 09/23/2024 Patient: ABBEY HANNA Sex: Female : [...] 97% 98.3 F 7 3 of 3 ED SUPER BILL Observed: 09/23/2024 1:30 PM Status: F Source: [address] [place] [address] [phone] 09/23/2024 Patient: JACQUES, ABBEY Sex: Female : 2000 Age: 24y Item Professional Category Description Facility Code Code Quantity Fee Total Nurse/E/M EMERGENCY 090265 1 $0.00 $0.00 DEPARTMENT VISIT HIGH/URGENT SEVERITY (23810-69) Grand Total $0.00 Providers Adithya Rivera D.O. Chief Complaint CHEST PAIN. Principal Diagnosis Chest pain. ICD-10 Codes 1 of 2 Superbill R07.9: Chest pain, unspecified 2 of 2 ED ORDER SHEET (CPOE ONLY) Observed: 07/2024 1:30 PM Status: F Source: [facility] Order Sheet Order Sheet [address] [place] [address] [id number] 09/23/2024 Patient: ABBEY HANNA Sex: Female : 2000 Age: 24y MEASUREMENTS: Wt: 95.3 kg, Ht/Frederick: 62.0 in, BMI: 38.41 ALLERGIES: No known drug allergies MEDICATION/IV/DRIP/FLUID ORDERS Order Description Priority Entered Acknowledged Completed [...] X2); Stat 2 of 2 Urszula Rivera R.N., R.N. D-Dimer Stat Stat 13:32 09/23/2024 13:42 09/23/2024 [...] 09/23/2024 15:32 Adithya Rivera, 09/23/2024 Urszula Pedro RCleve Reason for Study: Chest Pain STAFF ORDERS Order Description Priority Entered Acknowledged Collected Completed Oxygen titrate to 92% 13:32 09/23/2024 13:42 09/23/2024 15:31 09/23/2024 Carla Moore Lemasters, D.O. R.N. Tobacco Buyer 13:32 09/23/2024 13:42 09/23/2024 15:31 09/23/2024 Carla Moore, 2 of 3 Order Sheet Urszula Rivera R.N. Vital signs every 15 13:32 09/23/2024 13:42 09/23/2024 15:31 09/23/2024 minutes Carla Moore Lemasters, D.O. R.N. IV Saline Lock 13:32 09/23/2024 13:42 09/23/2024 15:31 09/23/2024 Carla Moore Lemasters, D.O. R.N. [Electronically signed by Adithya Rivera D.O. (09/23/2024 17:55 EDT)] 3 of 3 ED PHYSICIAN CLINICAL REPORT Observed: 0 09/23/2024 1:30 PM Status: F Source: [facility] Narrative Physician Clinical Narrative [facility] [address] [place] [address] [phone] 09/23/2024 Patient: ABBEY HANNA Sex: Female : [...] 1.50 - 7.10 Final EDT 09/23/2024 14:12 Ward # 0.44 x10/UL 0.20 - 1.00 Final EDT 09/23/2024 14:12 EO # 0.12 x10/UL 0.00 - 0.50 Final EDT 09/23/2024 14:12 Baso # 0.02 x10/UL 0.00 - 0.10 Final EDT Narrative Lab Test Result Reference Status Received [...] 0.55 - 1.02 Final 14:46 EDT 5 Narrative Lab Test Result Reference Status Received Comments 41 U/L 09/23/2024 AST/SGOT Above high 13 - 39 Final 14:46 EDT normal 09/23/2024 ALK PHOS 91 U/L 46 - 116 Final 14:46 EDT 09/23/2024 CALCIUM 9.1 mg/dl 8.5 - 10.1 Final 14:46 EDT TOTAL 09/23/2024 8.1 g/dl 6.4 - 8.2 Final PROTEIN 14:46 EDT 09/23/2024 ALBUMIN 3.8 g/dL 3.4 - 5.0 Final 14:46 EDT 4.3 G/DL 09/23/2024 GLOBULIN Above high 1.5 - 3.8 Final 14:46 EDT normal 09/23/2024 A/G RATIO 0.9 0.9 - 1.6 Final 14:46 EDT 09/23/2024 TOTAL BILI 0.5 mg/dl 0.2 - 1.0 Final 14:46 EDT 09/23/2024 B/C RATIO 19 ratio 0 - 30 Final 14:46 EDT 09/23/2024 ALT/SGPT 25 U/L 16 - 63 Final 14:46 EDT 09/23/2024 ANION GAP 14 mmol/L 10 - 20 Final 14:46 EDT 09/23/2024 AGE 24 years Final 14:46 EDT 6 of 11 Narrative Lab Test Result Reference Status Received Comments 09/23/2024 eGFR >60 ML/MINUTE 60 - 999 Final 14:46 EDT ACCORDING TO THE NATIONAL KIDNEY DISEASE EDUCATION PROGRAM(NKDE), A NORMAL eGFR IS A VALUE GREATER THAN OR EQUAL TO 60 ML/MIN/1.73 SQ METERS. 09/23/2024 CHRONIC KIDNEY eGFR(AA) >60 ML/MINUTE 60 - 999 Final 14:46 EDT DISEASE: <60mL/MIN/1.73 SQ METERS KIDNEY FAILURE: <15mL/MIN/1.73 SQ METERS THIS TEST SHOULD ONLY BE USED FOR PATIENTS 18 YEARS OF AGE AND OLDER. D-DIMER, QUANTITATIVE Final HERBER: 09/23/2024 13:56:00 EDT MsgRcvd: 09/23/2024 15:20 EDT Lab Test Result Reference Status Received Comments 7 of 11 Narrative Lab Test Result Reference Status Received Comments D-DIMER, 09/23/2024 15:20 QUANT Final QUANTITATIVE EDT D-DIMER D-DIMER 427 ng/ml 09/23/2024 15:20 0 - 230 Final QUANT Above high normal EDT TROPONIN Final HERBER: 09/23/2024 13:56:00 EDT MsgRcvd: 09/23/2024 14:46 EDT Lab Test Result Reference Status Received Comments 09/23/2024 14:46 HS TROPONIN 29.0 pg/mL 0.0 - 51.4 Final EDT TROPONIN Final HERBER: 09/23/2024 14:40:00 EDT MsgRcvd: 09/23/2024 15:32 EDT Lab Test Result Reference Status Received Comments 09/23/2024 15:32 HS TROPONIN 26.7 pg/mL 0.0 - 51.4 Final EDT Diagnostic Study Tests: CHEST 1 VIEW Final EXAM Date: 09/23/2024 14:04:00 EDT MsgRcvd: 09/23/2024 14:08 EDT [place] [address] Patient: ABBEY HANNA Phone#: : 2000 Age: 24 Gender: F Pt. Type: ER Account: [id number] Location: [facility] Narrative Ordering: ADITHYA RIVERA Exam Date: 09/23/2024/13:33 Family Phys: RINKU GONZALES Charge Code: 798522 Physician: [place] Order #: [id number] Dose#: PROCEDURE: X-RAY CHEST 1 VIEW COMPARISON: [facility], XR, CHEST 1 VIEW, 06/07/2024, 19:53. INDICATIONS: [...] Catie Meehan MD on 09/23/2024 at 14:04 CT CHEST (PE PROTOCOL) Final EXAM Date: 09/23/2024 17:39:00 EDT MsgRcvd: 09/23/2024 17:[address] [address] Patient: ABBEY HANNA Phone#: : 2000 Age: 24 Gender: F Pt. Type: ER Account: [id number] Location: 052 Ordering: ADITHYA RIVERA Exam Date: 09/23/2024/17:00 Family Phys: RINKU GONZALES Charge Code: 737155 Physician: [place] Order #: [id number] Dose#: [id number] PROCEDURE: CT CHEST WITH CONTRAST FOR PE COMPARISON: None. INDICATIONS: Chest pain. TECHNIQUE: After obtaining the patient's consent, CT images were obtained with non-ionic intravenous contrast material. Multi-planar images were created to optimize 9 of 11 Narrative visualization of vascular anatomy with MPR/MIPS and [...] 24 Gender: F Pt. Type: ER Account: [id number] Location: 052 Ordering: ADITHYA RIVERA Exam Date: 09/23/2024/17:00 Family Phys: RINKU GONZALES Charge Code: 256288 Physician: [place] Order #: [id number] Dose#: [id number] Approved by: Catie Meehan MD on 09/23/2024 at 17:39 PROGRESS AND PROCEDURES Differential Diagnosis: Other possible considerations: ACS, pneumonia, pneumothorax, pulmonary embolism, musculoskeletal pain, arrhythmia. Narrative MEDICAL DECISION MAKING: (Patient appears well nontoxic. EKG nonischemic. Chest x-ray clear. Elevated D-dimer prompting CTA which was negative. High sensitivity troponin negative x2. Heart score of 1. Patient advised on keeping appointment with high speed warper tender and asked to return for new or worsening symptoms. Stable time of discharge.). Disposition: Condition: good. Disposition Decision Time: 17:53 09/23/2024. Patient discharged. Discharged in good condition. CLINICAL IMPRESSION Chest pain. DISCHARGE INSTRUCTIONS Follow-up: Follow up with a high speed warper tender as scheduled. Follow up with your healthcare provider in three days. Call for an appointment. (Electronically signed by Adithya Rivera D.O. 09/23/24 17:55:31 EDT) Generated by [facility] ED VISIT SUMMARY Observed: 09/23/2024 1:30 PM Status: F Source: [facility] Visit Overview Visit Overview [address] [address] [id number] 09/23/2024 Patient: ABBEY HANNA Sex: Female : [...] day as needed for gastroesophageal reflux disease. 1 of 3 Visit Overview PAST MEDICAL HISTORY / [...] CLINICAL IMPRESSION CHEST PAIN 3 of 3 ED MED ADMINISTRATION DETAIL Observed: 0 09/23/2024 1:30 PM Status: F Source: [facility] Electrical Software Engineer Medication Administration Record [address] [place] [address] [id number] 09/23/2024 Patient: ABBEY HANNA Sex: Female : 2000 Age: 24y MEASUREMENTS: Wt: 95.3 kg, Ht/Frederick: 62.0 in, BMI: 38.41 ALLERGIES: No known drug allergies Medication Ordered Medication Administration Date/Time 1 of 1 PELVIC (NON OB) LIMITED Observed: 1:04 PM Status: F Source: [place] [address] Patient: ABBEY HANNA Phone#: : 2000 Age: 24 Gender: F Pt. Type: Out Account: [id number] Location: [facility] Ordering: RINKU GONZALES Exam Date: 09/21/2024/11:04 Family Phys: Charge Code: 457034 Physician: [place] Order #: [id number] Dose#: PROCEDURE: PELVIC (NON OB) LIMITED ULTRASOUND [...] Elenita Issa MD on 09/21/2024 at 13:04 C TRACH+GC DNA SPEC QL SASCHA+PROBE Collected: 09/14/2024 12:53 PM Status: F Source: [facility] Order Comment: Specimen Type : MICROBIAL ISOLATE Ordering Facility: [facility] Address: [address] [place] [address] TYPE CODE TESTS RESULT OUT OF RANGE REFERENCE UNITS LAB 19470-7(LOINC) N gonorrhoea rRNA Spec Ql SASCHA+probe Not detected Not detected LAB 83483-2(LOINC) C trach rRNA Spec Ql SASCHA+probe Not detected Not detected Performed By: #### 70848-2, JOE, 630-4 #### [facility] CLIA [id number] [address] [place] [address] [place] TRICHOMONAS VAGINALIS NAAT Collected: 0 09/14/2024 12:53 PM Status: F Source: [facility] Order Comment: Specimen Type : MICROBIAL ISOLATE Ordering Facility: [facility] Address: [address] [place] [address] TYPE CODE TESTS RESULT OUT OF RANGE REFERENCE UNITS LAB 78280-1([facility]) T vaginalis DNA Spec Ql SASCHA+probe Not detected Not detected Performed By: #### 03629-9, JOE, 630-4 #### [facility] CLIA [id number] [address] [place] [address] [place] BACTERIA UR CULT Observed: 09/14/2024 12:53 PM Status: F Source: [facility] ORGANISM ID: 1 10,000 -<50,000 CFU/ml Normal urogenital max Performed By: #### 48062-0, JOE, 630-4 #### [facility] CLIA [id number] [address] [place] [address] [place] URINE CULTURE [CCL] Observed: 09/14/2024 12:53 PM Status: F Source: [facility] URCUL See Results Below See Below CULTURE, URINE NORMAL UROGENITAL MAX 10,000 -<50,000 CFU/ml Normal urogenital max SOURCE: Urine (Nonspecific) [facility] [address] [place] [address] Manjeet Retana III, M.D. [id number] SEND TO NO Performed By: #### [id number] ## ## [facility],[address] [place], [place] [id number] GC/CHLAM AMPLIFICATION [CCL] Collected: 09/14/2024 12:53 PM Status: F Source: [facility] TYPE CODE TESTS RESULT OUT OF RANGE REFERENCE UNITS LAB GCAMP(LOINC) Neisseria gonorrhoeae RNA Not detected Not detected LAB CLAMP(LOINC) Chlamydia trachomatis RNA Not detected Not detected Result Comment: This FDA-rima roved assay has been modified to accept rectal swabs self-collected in a healthcare setting. For self-collected rectal swabs, the test was developed and its performance characteristics determined by the [facility] [place] ([facility]). It has not been cleared or approved by the FDA. [facility] is regulated under CLIA as qualified to perform high-complexity testing. This test is used for clinical purposes. It should not be regarded as investigational or for research. SOURCE: [place] [address] Manjeet Retana III, M.D. [id number] Performed By: #### [id number] ## ## [place] [id number] TRICHOMONAS VAGINALIS AMPLIFICATION[CCL] Collected: 09/14/2024 12:53 PM Status: F Source: [facility] TYPE CODE TESTS RESULT OUT OF RANGE REFERENCE UNITS LAB TVAMPL(LOINC) Trichomonas vaginalis RNA Not detected Not detected Result Comment: SOURCE: [place] [address] Manjeet Retana III, M.D. [id number] Performed By: #### [id number] ## ## [place] [id number] BACTERIA UR CULT Observed: 08/28/2024 1:30 PM Status: F Source: [facility] ORGANISM ID: 1 10,000 -<50,000 CFU/ml Normal urogenital max Performed By: #### 630-4 ### # [facility] CLIA [id number] [address] [place] [address] [place] URINE CULTURE [CCL] Observed: 08/28/2024 1:30 PM Status: F Source: [facility] URCUL See Results Below See Below CULTURE, URINE NORMAL UROGENITAL MAX 10,000 -<50,000 CFU/ml Normal urogenital max SOURCE: Urine (Nonspecific) [place] [address] Manjeet Retana III, M.D. [id number] SEND TO IC YES Performed By: #### [id number] ## ## [facility],[address] [place] [address] PROGRESS Observed: 08/27/2024 10:14 AM Status: COMPLETED Source: [facility] HNO ID: [id number] Author: ISAAC MIRANDA OD Service: ? Author Type: STORE RECEIVING SPECIALIST Type: Progress Notes Filed: 08/27/2024 10:19 Note [...] me in 1 year for complete Isaac Miranda, MARNI August 27, 2024 10:14 AM BACTERIA UR CULT Observed: 07/03/2024 2:06 PM Status: F Source: [facility] ORGANISM ID: 1 10,000 -<50,000 CFU/ml Normal urogenital max Performed By: #### 630-4 ### # [facility] CLIA [id number] [address] [place] [address] [place] URINE CULTURE [CCL] Observed: 07/03/2024 2:06 PM Status: F Source: [facility] URCUL See Results Below See Below CULTURE, URINE NORMAL UROGENITAL MAX 10,000 -<50,000 CFU/ml Normal urogenital max SOURCE: Urine (Nonspecific) [place] [address] Manjeet Retana III, M.D. [id number] SEND TO IC NO Performed By: #### [id number] ## ## [facility],[address] [place] [address] URINE Collected: 06/07/2024 8:15 PM Status : F Source: [facility] TYPE CODE TESTS RESULT OUT OF RANGE REFERENCE UNITS LAB UR(LOINC) UR NEGATIVE NEGATIVE LAB INTERNAL QC(LOINC) INTERNAL QC PASS LAB EXTERNAL QC DONE?(LOINC) EXTERNAL QC DONE? YES Performed By: #### [id number] ## ## [facility],[address] [place] [address] URINALYSIS Collected: 8:15 PM Status: F Source: [facility] TYPE CODE TESTS RESULT OUT OF RANGE REFERENCE UNITS LAB URINALYSIS(DILSHAD NC) URINALYSIS Result Comment: URINALYSIS LAB Specimen Type(LOINC) Specimen Type R LAB Color(LOINC) Color ORANGE NORMAL: YELLOW LAB Clarity(LOINC) Clarity clear LESLIE L: CLEAR LAB ph(LOINC) ph 7 NORMAL: 5.0-8.0 LAB Protein(LOINC) Protein 15 Abnormal LESLIE L: NEGATIVE LAB Glucose(LOINC) Glucose NORM LESLIE L: NORMAL LAB Ketone(LOINC) Ketone NEG NORMAL : NEGATIVE LAB Bilirubin(LOIN C) Bilirubin 6 Abnormal NORMAL: NEGATIVE LAB Blood(LOINC) Blood 50 Abnormal NORMAL: NEGATIVE LAB Urobilinog(DILSHAD NC) Urobilinog 8 Abnormal NORMAL: NORMAL LAB [place](LOINC) [place] 1.015 NORMAL: 1.010-1.030 LAB Nitrite(LOINC) Nitrite POS LESLIE L: NEGATIVE LAB Leukocytes(DILSHAD NC) Leukocytes 25 Abnormal NORMAL: NEGATIVE LAB Microscopic(LO INC) Microscopic SEE BELOW Result Comment: MICROSCOPIC LAB Wbc(LOINC) Wbc 1-5 0-5/hpf LAB Rbc(LOINC) Rbc 0-5 0-3/hpf LAB Casts(LOINC) Casts NONE LAB Crystals(LOINC ) Crystals NONE LAB Amorphous(LOIN C) Amorphous NONE LAB Bacteria(LOINC ) Bacteria 1+ LAB Epi Cells(LOINC) Epi Cells FEW LAB Mucous(LOINC) Mucous NONE LAB Yeast(LOINC) Yeast NONE Performed By: #### [id number] ## ## [place] [id number] CBC + DIFF Collected: 4 8:11 PM Status: F Source: [facility] TYPE CODE TESTS RESULT OUT OF RANGE REFERENCE UNITS LAB CBC + DIFF(LOINC) CBC + DIFF Result Comment: CBC-COMPLETE BLOOD COUNT LAB WBC(LOINC) WBC 7.6 4.5 - 10.8 x 10EE3/UL LAB RBC(LOINC) RBC 4.64 4.10 - 5.30 x 10EE6/UL LAB HEMOGLOBIN(DILSHAD NC) HEMOGLOBIN 13.7 12.0 - 16.0 g/dl LAB HEMATOCRIT(DILSHAD NC) HEMATOCRIT 40.7 34.0 - 46.0 % LAB MCV(LOINC) MCV 88 80 - 99 fl LAB MCH(LOINC) MCH 30 27 - 33 pg LAB MCHC(LOINC) MCHC 34 32 - 36 X10 3 LAB RDW/CV(LOINC) RDW/CV 13.5 12.0 - 15.6 % LAB PLATELET(LOINC ) PLATELET 364 150 - 450 x10EE3/UL LAB MPV(LOINC) MPV 7.1 6.6 - 10.5 fl Result Comment: AUTOMATED DI FFERENTIAL LAB NEUT %(LOINC) NEUT % 55.8 46.0 - 76.0 % LAB LYMPH %(LOINC) LYMPH % 34.9 20.0 - 45.0 % LAB MONOS %(LOINC) MONOS % 6.0 0.0 - 10.0 % LAB EO %(LOINC) EO % 3.1 0.0 - 7.0 % LAB BASO %(LOINC) BASO % 0.2 0.0 - 2.0 % LAB Lymph #(LOINC) Lymph # 2.64 0.80 - 2.80 x10EE 3/UL LAB Neut #(LOINC) Neut # 4.22 1.50 - 7.10 x10EE3 /UL LAB Ward #(LOINC) Ward # 0.46 0.20 - 1.00 x10EE3 /UL LAB EO #(LOINC) EO # 0.23 0.00 - 0.50 x10EE3/U L LAB Baso #(LOINC) Baso # 0.02 0.00 - 0.10 x10EE3 /UL LAB MANUAL DIFF(LOINC) MANUAL DIFF N/A LAB MORPHOLOGY(DILSHAD NC) MORPHOLOGY N/A Performed By: #### [id number] ## ## [facility],[address] [place], [place] [id number] D-DIMER, QUANTITATIVE Collected: 06/07/2024 8:11 PM Status: F Source: [facility] TYPE CODE TESTS RESULT OUT OF RANGE REFERENCE UNITS LAB D-DIMER, QUANTITATIVE(LO INC) D-DIMER, QUANTITATIVE Result Comment: QUANT D-DIME R LAB D-DIMER QUANT(INC) D-DIMER QUANT <200 0 - 230 ng/ml Performed By: #### [id number] ## ## [place] [id number] CMP WITH EGFR Collected: 8:11 PM Status: F Source: [facility] TYPE CODE TESTS RESULT OUT OF RANGE REFERENCE UNITS LAB CMP with eGFR(LOINC) CMP with eGFR Result Comment: COMPREHENSIV E METABOLIC PANEL LAB SODIUM(LOINC) SODIUM 143 136 - 145 mmol/l LAB POTASSIUM(LOIN C) POTASSIUM 3.6 3.5 - 5.1 mmol/L LAB CHLORIDE(LOINC ) CHLORIDE 104 98 - 107 mmol/L LAB CO2(LOINC) CO2 28.2 21.0 - 32.0 mmol/L LAB GLUCOSE(LOINC) GLUCOSE 85 74 - 106 mg/dl LAB BUN(LOINC) BUN 16 7 - 18 mg/dl LAB CREATININE(DILSHAD NC) CREATININE 0.89 0.55 - 1.02 mg/dl LAB AST/SGOT(LOINC ) AST/SGOT 16 13 - 39 U/L LAB ALK PHOS(LOINC) ALK PHOS 112 46 - 116 U/L LAB CALCIUM(LOINC) CALCIUM 9.6 8.5 - 10.1 mg/dl LAB TOTAL PROTEIN(LOINC) TOTAL PROTEIN 7.7 6.4 - 8.2 g/dl LAB ALBUMIN(LOINC) ALBUMIN 3.9 3.4 - 5.0 g/dL LAB GLOBULIN(LOINC ) GLOBULIN 3.8 1.5 - 3.8 G/DL LAB A/G RATIO(LOINC) A/G RATIO 1.0 0.9 - 1.6 LAB TOTAL BILI(LOINC) TOTAL BILI 0.2 0.2 - 1.0 mg/dl LAB B/C RATIO(LOINC) B/C RATIO 18 0 - 30 ratio LAB ALT/SGPT(LOINC ) ALT/SGPT 22 16 - 63 U/L LAB ANION GAP(LOINC) ANION GAP 14 10 - 20 mmol/L LAB AGE(LOINC) AGE 24 years LAB eGFR(LOINC) eGFR >60 60 - 999 ML/MINUT E LAB eGFR(AA)(LOINC ) eGFR(AA) >60 60 - 999 ML/MINUT E Result Comment: ACCORDING TO THE NATIONAL KIDNEY DISEASE EDUCATION PROGRAM(NKDE), A NORMAL eGFR IS A VALUE GREATER THAN OR EQUAL TO 60 ML/MIN/1.73 SQ METERS. CHRONIC KIDNEY DISEASE: <60mL/MIN/1.73 SQ METERS KIDNEY FAILURE: <15mL/MIN/1.73 SQ METERS THIS TEST SHOULD ONLY BE USED FOR PATIENTS 18 YEARS OF AGE AND OLDER. Performed By: #### [id number] ## ## [place] [id number] TROPONIN Collected: 8:11 PM Status: F Source: [facility] TYPE CODE TESTS RESULT OUT OF RANGE REFERENCE UNITS LAB HS TROPONIN([facility]) HS TROPONIN 25.2 0.0 - 51.4 pg/mL Performed By: #### [id number] ## ## [place] [id number] CHEST 1 VIEW Observed: 06/07/2024 8:07 PM Status: F Source: [place] [id number] Patient: ABBEY HANNA Phone#: : 2000 Age: 24 Gender: F Pt. Type: ER Account: [id number] Location: 052 Ordering: DR. ROBI BOYD Exam Date: 06/07/2024/19:53 Family Phys: SID COOPER Charge Code: 548366 Physician: [place] Order #: [id number] Dose#: PROCEDURE: X-RAY CHEST 1 VIEW COMPARISON: [...] Catie Meehan MD on 06/07/2024 at 21:13 ED VISIT SUMMARY Observed: 06/07/2024 7:17 PM Status: F Source: [facility] Visit Overview Visit Overview [place] [address] [place] [address] [id number] 06/07/2024 Patient: ABBEY HANNA Sex: Female : [...] DISCOMFORT URINARY TRACT INFECTION 3 of 3 ED PHYSICIAN DISCHARGE REPORT Observed: 06/07/2024 7:17 PM Status: F Source: [facility] Discharge Instructions Discharge Summary [facility] - [place] [address] [place] [address]. [place] [address] [phone] 06/07/2024 Patient: ABBEY HANNA Sex: Female : 2000 Age: 24y Thank you for visiting [facility]. You have been evaluated today by Robi Boyd M.D. for the following condition(s): Principal Diagnosis Chest pain characterized as discomfort. Urinary tract infection. INSTRUCTIONS Follow-up: Follow up with your doctor in three. Summary of care provided to via paper. You have been given the following additional information: Uncertain Causes of Chest Pain Patient Signature Facility Tableau Developer Date/Time 1 of 4 Discharge Instructions General Instructions with ExitWriter [facility] [address] [place] [address] [phone] 06/07/2024 Patient: JACQUES ABBEY Sex: Female : 2000 Age: 24y Thank you for visiting [facility]. You have been evaluated today by Robi [...] or redness in one leg 4 of 4 ED VITALS FLOW SHEET Observed: 7:17 PM Status: F Source: [facility] Vitals Vital Sign Flow Sheet [address] [address] [phone] 06/07/2024 Patient: ABBEY HANNA Sex: Female : [...] 16 98.5 F 0 2 of 2 ED PHYSICIAN CLINICAL REPORT Observed: 1 08/08/2023 7:17 PM Status: F Source: [facility] Narrative Physician Clinical Narrative [address] [address] [phone] 06/07/2024 Patient: ABBEY HANNA Sex: Female : [...] 1.50 - 7.10 Final EST 06/07/2024 20:29 Ward # 0.46 x10/UL 0.20 - 1.00 Final [...] 20:50 EST 5 of 12 Narrative 06/07/2024 CALCIUM 9.6 mg/dl 8.5 - 10.1 Final 20:50 EST TOTAL 06/07/2024 7.7 g/dl 6.4 - 8.2 Final PROTEIN 20:50 EST 06/07/2024 ALBUMIN 3.9 g/dL 3.4 - 5.0 Final 20:50 EST 06/07/2024 GLOBULIN 3.8 G/DL 1.5 - 3.8 Final 20:50 EST 06/07/2024 A/G RATIO 1.0 0.9 - 1.6 Final 20:50 EST 06/07/2024 TOTAL BILI 0.2 mg/dl 0.2 - 1.0 Final 20:50 EST 06/07/2024 B/C RATIO 18 ratio 0 - 30 Final 20:50 EST 06/07/2024 ALT/SGPT 22 U/L 16 - 63 Final 20:50 EST 06/07/2024 ANION GAP 14 mmol/L 10 - 20 Final 20:50 EST 06/07/2024 AGE 24 years Final 20:50 EST 06/07/2024 eGFR >60 ML/MINUTE 60 - 999 Final 20:50 EST 6 of 12 Narrative ACCORDING TO THE NATIONAL KIDNEY DISEASE EDUCATION PROGRAM(NKDE), A NORMAL eGFR IS A VALUE GREATER THAN OR EQUAL TO 60 ML/MIN/1.73 SQ METERS. 06/07/2024 CHRONIC KIDNEY eGFR(AA) >60 ML/MINUTE 60 - 999 Final 20:50 EST DISEASE: <60mL/MIN/1.73 SQ METERS KIDNEY FAILURE: <15mL/MIN/1.73 SQ METERS THIS TEST SHOULD ONLY BE USED FOR PATIENTS 18 YEARS OF AGE AND OLDER. D-DIMER, QUANTITATIVE Final HERBER: 06/07/2024 20:11:00 EST MsgRcvd: 06/07/2024 20:50 EST Lab Test Result Reference Status Received Comments D-DIMER, 06/07/2024 20:50 QUANT Final QUANTITATIVE EST D-DIMER D-DIMER 06/07/2024 20:50 <200 ng/ml 0 - 230 Final QUANT EST Narrative URINE Final HERBER: 06/07/2024 20:15:00 EST MsgRcvd: 06/07/2024 21:41 EST Lab Test Result Reference Status Received Comments 06/07/2024 21:41 NEGATIVE NEGATIVE Final UR EST 06/07/2024 21:41 INTERNAL QC PASS Final EST EXTERNAL QC 06/07/2024 21:41 YES Final DONE? EST TROPONIN Final HERBER: 06/07/2024 20:11:00 EST MsgRcvd: 06/07/2024 20:50 EST Lab Test Result Reference Status Received Comments 06/07/2024 20:50 HS TROPONIN 25.2 pg/mL 0.0 - 51.4 Final EST URINALYSIS Final HERBER: 06/07/2024 20:15:00 EST MsgRcvd: 06/07/2024 21:41 EST Lab Test Result Reference Status Received Comments 06/07/2024 21:41 URINALYSIS Final URINALYSIS EST 06/07/2024 21:41 Specimen Type R New Order EST NORMAL: 06/07/2024 21:41 Color ORANGE Final YELLOW EST NORMAL: 06/07/2024 21:41 Clarity clear Final CLEAR EST 8 of 12 Narrative NORMAL: 06/07/2024 21:41 ph 7 Final 5.0-8.0 EST 15 NORMAL: 06/07/2024 21:41 Protein Final Abnormal NEGATIVE EST NORMAL: 06/07/2024 21:41 Glucose NORM Final NORMAL EST NORMAL: 06/07/2024 21:41 Ketone NEG Final NEGATIVE EST 6 NORMAL: 06/07/2024 21:41 Bilirubin Final Abnormal NEGATIVE EST 50 NORMAL: 06/07/2024 21:41 Blood Final Abnormal NEGATIVE EST 8 NORMAL: 06/07/2024 21:41 Urobilinog Final Abnormal NORMAL EST NORMAL: 06/07/2024 21:41 [place] 1.015 Final 1.010-1.030 EST NORMAL: 06/07/2024 21:41 Nitrite POS Final NEGATIVE EST 25 NORMAL: 06/07/2024 21:41 Leukocytes Final Abnormal NEGATIVE EST 06/07/2024 21:41 Microscopic SEE BELOW Final MICROSCOPIC EST 06/07/2024 21:41 Wbc 1-5 0-5/hpf Final EST 06/07/2024 21:41 Rbc 0-5 0-3/hpf Final EST 06/07/2024 21:41 Casts NONE Final EST 9 of 12 Narrative 06/07/2024 21:41 Crystals NONE Final EST 06/07/2024 21:41 Amorphous NONE Final EST 06/07/2024 21:41 Bacteria 1+ Final EST 06/07/2024 21:41 Epi Cells FEW Final EST 06/07/2024 21:41 Mucous NONE Final EST 06/07/2024 21:41 Yeast NONE Final EST Diagnostic Study Tests: CHEST 1 VIEW Final EXAM Date: 06/07/2024 20:07:00 EST MsgRcvd: 06/07/2024 21:17 EST [place] [address] Patient: ABBEY HANNA Phone#: : 2000 Age: 24 Gender: F Pt. Type: ER Account: [id number] Location: [facility] Ordering: DR. ROBI BOYD Exam Date: 06/07/2024/19:53 Family Phys: SID COOPER Charge Code: 232977 Physician: [place] Order #: [id number] Dose#: PROCEDURE: X-RAY CHEST 1 VIEW COMPARISON: None. INDICATIONS: Chest pain. FINDINGS: 10 of 12 Narrative LUNGS: Normal. No significant pulmonary parenchymal abnormalities. [...] Catie Meehan MD on 06/07/2024 at 21:13 PROGRESS AND PROCEDURES MEDICAL DECISION MAKING: (On exam patient is awake, alert and oriented x4, she is not in any acute distress at this time. Bilateral breath sounds, no was no stridor on exam. Negative Homans sign. Differential diagnosis considered includes but not limited to anxiety, ACS less likely, PE considered as well, electrolyte derangement, pneumonia less likely Indicated labs obtained including CBC and CMP which were grossly unremarkable. Dimer was negative test was negative as well Troponin is within normal range Urinalysis did show some blood, positive nitrates, leukocytosis, patient did admit that she has been having some mild dysuria On re-evaluation, Currently asymptomatic. results as this was extensively with the patient, she verbalized understanding, patient will follow-up with the PCP in the next couple of days. She will be given Keflex for urinary tract infection. Overall, I do believe the patient is chest discomfort is likely anxiety related. She is to return back to the emergency department if symptoms worsening. Patient verbalized understanding. Disposition: Discharge patient Impression: 1. Chest discomfort, 2. Urinary tract infection). Disposition: Condition: good and stable. Discharged in good condition. CLINICAL IMPRESSION Chest pain characterized as discomfort. Urinary tract infection. 11 of 12 Narrative DISCHARGE INSTRUCTIONS Follow-up: Follow up with your doctor in three. Summary of care provided to via paper. (Electronically signed by Robi Boyd M.D. 06/08/24 00:42:36 EST) Generated by [facility] 12 of 12 ED SUPER BILL Observed: 06/07/2024 7:17 PM Status: F Source: [facility] Superbill Superbill [address] [address] [phone] 06/07/2024 Patient: ABBEY HANNA Sex: Female : 2000 Age: 24y Item Professional Category Description Facility Code Code Quantity Fee Total Nurse/E/M EMERGENCY 638125 1 $0.00 $0.00 DEPARTMENT VISIT HIGH/URGENT SEVERITY (08771-78) Grand Total $0.00 Providers Robi Boyd M.D. Chief Complaint CHEST PAIN. Principal Diagnosis Chest pain characterized as discomfort. Urinary tract infection. 1 of 2 [facility] ICD-10 Codes R07.89: Other chest pain N39.0: Urinary tract infection, site not specified 2 of 2 ED NURSES CLINICAL NOTE Observed: 2023 7:17 PM Status: F Source: [facility] Nurse Narrative Nurse Clinical Narrative [address] [address] [id number] 06/07/2024 Patient: ABBEY HANNA Sex: Female : 2000 Age: 24y Disposition: Discharge to Home Disposition Decision Time: 22:11 06/07/2024 Departure Time: 22:14 06/07/2024 TRIAGE Arrived by private vehicle. Historian: patient. Unaccompanied. [facility] Triage time: 19:12 06/07/2024. Acuity: LEVEL 3. [...] 12-Lead EKG was ordered, performed by a armorer technician and shown to the ED physician. [...] upon discharge. Good blood return present. -- 22:09 06/07/24 RENETTA Arango R.N. DISPOSITION / DISCHARGE Departure time: 22:14 06/07/2024. Condition at departure: improved. No learning barriers present. Discharge instructions provided and reviewed with the patient. Reviewed medication(s) precautions and dosing information. 3 of 4 Nurse Narrative Reviewed referral to family practice. Patient verbalized understanding. Written instructions provided in Brazilian. The patient was discharged by the physician. The patient was discharged home and accompanied by spouse. The patient left ambulatory and via private vehicle. Patient driving. -- 22:14 06/07/24 RENETTA Arango R.N. (Electronically signed by Pippa Arango R.N. 06/07/24 22:15:13 EST) Generated by [facility] 4 of 4 ED ORDER SHEET (CPOE ONLY) Observed: 7:17 PM Status: F Source: [facility] Order Sheet Order Sheet [address] [place] [address] [phone] 06/07/2024 Patient: ABBEY HANNA Sex: Female : 2000 Age: 24y MEASUREMENTS: Wt: 95.3 kg, Ht/Frederick: 62.0 in, BMI: 38.41 ALLERGIES: No known drug allergies MEDICATION/IV/DRIP/FLUID ORDERS Order Description Priority Entered Acknowledged Completed LAB ORDERS Order Description Priority Entered Acknowledged Collected Completed CBC w Diff Stat Stat 19:38 06/07/2024 20:01 06/07/2024 21:15 06/07/2024 Pippa Nina R.N. Anne Rutt, R.N. M.D. CMP Stat Stat 19:38 06/07/2024 20:01 06/07/2024 21:15 06/07/2024 Pippa Nina R.N. Anne Rutt, R.N. M.D. Troponin-I Stat Stat 19:38 06/07/2024 20:01 06/07/2024 21:15 06/07/2024 Pippa Nina R.N. Anne Rutt, R.N. M.D. D-Dimer Stat Stat 19:38 06/07/2024 20:01 06/07/2024 21:15 06/07/2024 Pippa Nina R.N. Anne Rutt, RShahidNShahid 1 of 2 Order Sheet Indira EKG [...] Robi Boyd M.D. 06/07/2024 06/07/2024 Carla Broussard RCleve Order Comments: 19:38 06/07/2024: Status: Unknown. Robi Boyd M.D. Reason for Study: Chest Pain STAFF ORDERS Order Description Priority Entered Acknowledged Collected Completed [Electronically signed by Robi Boyd M.D. (06/08/2024 00:42 EST)] 2 of 2 ED MED ADMINISTRATION DETAIL Observed: 1 08/08/2023 7:17 PM Status: F Source: [facility] Electrical Software Engineer Medication Administration Record [facility] [address] [place] [address] [id number] 06/07/2024 Patient: ABBEY AHNNA Sex: Female : 2000 Age: 24y MEASUREMENTS: Wt: 95.3 kg, Ht/Frederick: 62.0 in, BMI: 38.41 ALLERGIES: No known drug allergies Medication Ordered Medication Administration Date/Time 1 of 1 ALLERGIES DATE TYPE / CODE NAME / CODE REACTION SEVERITY SOURCE Drug Class/610699147(SNOMED CT) NO KNOWN ALLERGIES [facility] Miscellaneous Allergy/616503737(SNOM ED CT) No Known Allergies Moderate (Severity Modifier) (Qualifier Value) [facility] ENCOUNTERS ADMIT/DISCHARGE ACCOUNT NUMBER ADMITTING ENCOUNTER CLASS LOCATION SOURCE 03/18/2025/03/18/20 [id number] Ambulatory [facility] ing[facility] 03/06/2025/03/06/20 25 [id number] RINKU GONZALES APRN Ambulatory Building:Unkn own [facility] 01/29/2025 [id number] Ambulatory [id number] lding:[facility] 01/29/2025/01/30/20 [id number] Ambulatory [id number] lding:[address] 12/29/2024/12/30/19 [id number] Ambulatory [facility] HospitalBuild ing:[facility] 12/18/2024/12/19/19 25 [id number] SID COOPER Ambulatory Building:Unkn own [facility] 12/11/2024/12/12/19 [id number] Ambulatory [id number] lding:[address] 11/20/2024/11/21/19 [id number] Ambulatory [facility] HospitalBuild ing:[facility] 10/19/2024/10/20/19 25 [id number] GAVIOTA MARKS MD Ambulatory Building:Unkn own [facility] 10/09/2024/10/10/19 25 [id number] GAVIOTA MARKS MD Ambulatory Building:Unkn own [facility] 09/23/2024/09/24/19 25 [id number] ADITHYA RIVERA Emergency BuildinR oom: ERBed: 7 [facility] 09/21/2024/09/22/19 25 [id number] RINKU GONZALES APRN Ambulatory Building:Unkn own [facility] 09/14/2024/09/15/19 25 [id number] RINKU GONZALES APRN Ambulatory Building:Unkn own [facility] 08/28/2024/08/29/19 25 [id number] RINKU GONZALES APRN Ambulatory Building:Unkn own [facility] 08/27/2024/08/28/19 25 [id number] [facility] 08/21/2024/08/21/19 25 [id number] RINKU GONZALES APRN Ambulatory Building:Unkn own [facility] 07/03/2024/07/03/19 25 [id number] RINKU GONZALES APRN Ambulatory Building:Unkn own [facility] 06/07/2024/06/07/20 24 [id number] ROBI BOYD MD Emergency BuildinR oom: ERBed: 5 [facility] PAYERS ENCOUNTER GUARANTOR PAYER SUBSCRIBER SOURCE 03/18/2025 Primary Insurance:[employer] MEDICAIDPolicy Number: [id number] Date:9932-98-10Ezbn Name:Claudia BYERS [facility]: [id number] [address] [address] [facility] 03/06/2025 ABBEY Alfred [facility] [id number] [address] [address]Rcu: () Primary Insurance:[employer]ICAID OUTPATIENTPolicy Number: [id number] Date:Plan Name:XLex ABBEY E [facility]: [id number] [address] [address] [facility] 01/29/2025 Primary Insuranc e:MMO MHSPolicy Number: [id number] Date:7086-09-92Xxvf Name:Marcella SALAZAROB: [id number] [place] [address] 01/29/2025 Secondary Insurance:[employer] MEDICAIDPolicy Number: [id number] Date:1177-95-13Vblo Name:Claudia DIEZSDOB: [id number] [place] [id number] [place] [address] 01/29/2025 Primary Insuranc e:MMO MHSPolicy Number: [id number] Date:0407-54-27Brqz Name:Marcella SALAZAROB: [id number] [address] [place] [address] 01/29/2025 Secondary Insurance:[employer] MEDICAIDPolicy Number: [id number] Date:4366-78-59Mvod Name:Claudia BYERS HINDSDOB: [id number] [address] [place] [address] [place] [address] 12/29/2024 Primary Insuranc e:MMO MHSPolicy Number: [id number] Date:9101-99-73Svat Name:Marcella SALAZAROB: [id number] [place] [address] 12/29/2024 Secondary Insurance:[employer] MEDICAIDPolicy Number: [id number] Date:4711-78-83Ggpq Name:Claudia DIEZSDOB: [id number] [address] [place] [address] [facility] 12/18/2024 ABBEY Simon HINDSDOB: [id number] [address] [address]Qrd: (YU) Primary Insurance:[facility] OUTPATIENTPolicy Number: [id number] Date:Plan Name:Samra DIEZSDOB: [id number] [address] [address] [facility] 12/18/2024 Secondary Insurance:[facility] OUTPATIENTPolicy Number: [id number] Date:Plan Name:Chema Simon HINDSDOB: [id number] [address] [address] [facility] 12/11/2024 Primary Insuranc e:MMO MHSPolicy Number: [id number] Date:2498-47-85Veui Name:Marcella DIEZSDOB: [id number] [place] [address] 12/11/2024 Secondary Insurance:[facility] MEDICAIDPolicy Number: [id number] Date:1291-44-00Ouyg Name:Claudia BYERS HINDSDOB: [id number] [address] [address] [facility] 11/20/2024 Primary Insuranc e:MMO MHSPolicy Number: [id number] Date:7892-89-42Azid Name:Marcella DIEZSDOB: [id number] [address] [place] [address] 11/20/2024 Secondary Insurance:[facility] MEDICAIDPolicy Number: [id number] Date:4011-33-86Ifqu Name:Claudia DIEZSDOB: [id number] [address] [address] [facility] 10/19/2024 ABBEY E HINDSDOB: [id number] [address] [address]Ixg: (hp) Primary Insurance:[facility] OUTPATIENTPolicy Number: [id number] Date:Plan Name:Samra DIEZSDOB: [id number] [address] [address] [facility] 10/19/2024 Secondary Insurance:[facility] OUTPATIENTPolicy Number: [id number] Date:Plan Name:X3 ABBEY E HINDSDOB: [id number] [address] [address] [facility] 10/09/2024 ABBEY E HINDSDOB: [address] [address]Uvo: (HP) Primary Insurance:[facility] OUTPATIENTPolicy Number: [id number] Date:Plan Name:Samra DIEZSDOB: [id number] [address] [place] [address] 10/09/2024 Secondary Insurance:[facility] OUTPATIENTPolicy Number: [id number] Date:Plan Name:X3 ABBEY E HINDSDOB: [id number] [id number] [place] [address] 09/23/2024 ABBEY E HINDSDOB: [address] [address]Qxb: (HP) Primary Insurance:[facility] OUTPATIENTPolicy Number: [id number] Date:Plan Name:Samra SALAZAROB: [id number] [id number] [place] [address] 09/23/2024 Secondary Insurance:[facility] OUTPATIENTPolicy Number: [id number] Date:Plan Name:X3 ABBEY E HINDSDOB: [id number] [address] [address] [facility] 09/21/2024 ABBEY E HINDSDOB: [address] [address]Rak: (HP) Primary Insurance:[facility] OUTPATIENTPolicy Number: [id number] Date:Plan Name:Samra SALAZAROB: [id number] [id number] [place] [address] 09/21/2024 Secondary Insurance:[employer] OUTPATIENTPolicy Number: [id number] Date: ABBEY E HINDSDOB: [id number] [address] [address] [facility] 09/14/2024 ABBEY E HINDSDOB: [address] [address]Xws: () Primary Insurance:[facility] SERVICES OUTPATIENTPolicy Number: [id number] Date:Plan Name:Samra DIEZSDOB: [id number] [id number] [place] [address] 09/14/2024 Secondary Insurance:[employer] OUTPATIENTPolicy Number: [id number] Date:Plan Name:XLex DIEZSDOB: [id number] [id number] [place] [address] 08/28/2024 ABBEY E HINDSDOB: [id number] [address] [address]Caz: () Primary Insurance:[facility] OUTPATIENTPolicy Number: [id number] Date:Plan Name:Samra DIEZSDOB: [id number] [id number] [place] [address] 08/28/2024 Secondary Insurance:[employer] OUTPATIENTPolicy Number: [id number] Date: ABBEY E HINDSDOB: [id number] [address] [address] [facility] 08/27/2024 Primary Insuranc e:MMO SPolicy Number: [id number] Date:6823-71-30Cuvi Name:Marcella DIEZBRUNOOB: [id number] [place] [address] [facility] 08/27/2024 Secondary Insurance:[employer] MED[employer]ID [facility] CHIL[facility]Policy Number: [id number] Date:6868-43-71Imnw Name:Claudia DIEZSDOB: [id number] [address] [address] [facility] 08/27/2024 Tertiary Insurance:[facility] MEDICAIDPolicy Number: [id number] Date:0137-33-85Tspt Name:Claudia BYERS HINDSDOB: [id number] [address] [address] [facility] 08/21/2024 ABBEY E HINDSDOB: [address] [address]Pit: (HP) Primary Insurance:[facility] OUTPATIENTPolicy Number: [id number] Date:Plan Name:Samra DIEZSDOB: [id number] [id number] [place] [address] 08/21/2024 Secondary Insurance:[facility] OUTPATIENTPolicy Number: [id number] Date: ABBEY E HINDSDOB: [id number] [id number] [place] [address] 07/03/2024 ABBEY E HINDSDOB: [address] [address]Dnz: (HP) Primary Insurance:[facility] OUTPATIENTPolicy Number: [id number] Date:Plan Name:Samra DIEZSDOB: [id number] [phone] [place] [address] 07/03/2024 Secondary Insurance:[employer] [place] OUTPATIENTPolicy Number: [id number] Date: ABBEY E HINDSDOB: [id number] [id number] [place] [address] 06/07/2024 ABBEY E HINDSDOB: [address] [address]Mgv: (HP) Primary Insurance:[facility] OUTPATIENTPolicy Number: [id number] Date:Plan Name:Samra DIEZSDOB: [id number] [address] [address] [facility] 06/07/2024 Secondary Insurance:[employer] [place] OUTPATIENTPolicy Number: [id number] Date: ABBEY CANELA: [id number] [address], [place] [address] [facility]
--- OUTSIDE RECORDS SUMMARY | 2025-03-18 10:13 | XMS RPT_ITS ---
Author Name Auto Generated Organization OHIP Support Name Relationship Address Phone ODILIA WEBBER Next of Kin [address] [place] [address] + NOT GIVEN Next of Kin Unknown Unavailable NOT GIVEN Next of Kin Unknown Unavailable ODILIA WEBBER Next of Kin [address] [place] [address] + NOT GIVEN Next of Kin Unknown Unavailable ODILIA WEBBER Next of Kin [address] [place] [address] + NOT GIVEN Next of Kin Unknown Unavailable ODILIA WEBBER Next of Kin [address] [place] [address] + NOT GIVEN Next of Kin Unknown Unavailable ODILIA WEBBER Next of Kin [address] [place] [address] + NOT GIVEN Next of Kin Unknown Unavailable ODILIA WEBBER Next of Kin [address] [place] [address] + NOT GIVEN Next of Kin Unknown Unavailable ODILIA WEBBER Next of Kin [address] [place] [address] + NOT GIVEN Next of Kin Unknown Unavailable ODILIA WEBBER Next of Kin [address] [place] [address] + NOT GIVEN Next of Kin Unknown Unavailable ODILIA WEBBER Next of Kin [address] [place] [address] + NOT GIVEN Next of Kin Unknown Unavailable ODILIA WEBBER Next of Kin [address] [place] [address] + NOT GIVEN Next of Kin Unknown Unavailable Care Team Providers Care Drawing Supervisor Name Role Phone MARIA LUZ RODRIGUEZ Attending [...] SID K Primary Care Unavailable GONZALES, RINKU HALF BACKER Admitting Unavailable GONZALES, RINKU HALF BACKER Attending Unavailable GONZALES, RINKU HALF BACKER Primary Care Unavailable GONZALES, RINKU HALF BACKER Consulting Unavailable PROVIDER, UNKNOWN Consulting Unavailable GONZALES, RINKU HALF BACKER Referring Unavailable GONZALES, RINKU HALF BACKER Consulting Unavailable ADITHYA RIVERA Primary Care Unavailable ADITHYA RIVERA Attending Unavailable ADITHYA RIVERA Admitting Unavailable PROVIDER, UNKNOWN Consulting Unavailable JANET, RINKU HALF BACKER Referring Unavailable GONZALES, RINKU HALF BACKER Consulting Unavailable ROBI BOYD MD Primary Care Unavailable ROBI BOYD MD Attending Unavailable ROBI BOYD MD Admitting Unavailable PROVIDER, UNKNOWN Consulting Unavailable JOSE MIGUEL GONZALESAH HALF BACKER Attending Unavailable JANET, RINKU HALF BACKER Primary Care Unavailable GONZALES, RINKU HALF BACKER Consulting Unavailable GONZALES, RINKU HALF BACKER Admitting Unavailable PROVIDER, UNKNOWN Consulting Unavailable GONZALES, RINKU HALF BACKER Consulting Unavailable GAVIOTA MARKS MD Primary Care Unavailabl GAVIOTA Wan MD Attending Unavailabl e GAVIOTA MARKS MD Admitting Unavailabl e PROVIDER, UNKNOWN Consulting Unavailable GONZALES, RINKU HALF BACKER Primary Care Unavailable GONZALES, RINKU HALF BACKER Consulting Unavailable JANET, RINKU HALF BACKER Attending Unavailable GONZALES, RINKU HALF BACKER Admitting Unavailable PROVIDER, UNKNOWN Consulting Unavailable JANET, RINKU HALF BACKER Attending Unavailable GONZALES, RINKU HALF BACKER Admitting Unavailable GONZALES, RINKU HALF BACKER Primary Care Unavailable GONZALES, RINKU HALF BACKER Consulting Unavailable PROVIDER, UNKNOWN Consulting Unavailable GONZALES, RINKU HALF BACKER Admitting Unavailable GONZALES, RINKU HALF BACKER Attending Unavailable JANTE, RINKU HALF BACKER Primary Care Unavailable JANET, RINKU HALF BACKER Attending Unavailable GONZALES, RINKU HALF BACKER Primary Care Unavailable GONZALES, RINKU HALF BACKER Admitting Unavailable GONZALES, RINKU HALF BACKER Consulting Unavailable GAVIOTA MARKS MD Primary Care Unavailabl GAVIOTA Wan MD Attending Unavailabl e GAVIOTA MARKS MD Admitting Unavailabl e PROVIDER, UNKNOWN Consulting Unavailable GONZALES, RINKU HALF BACKER Consulting Unavailable ALLISON, SID Primary Care Unavailable SID COOPER Attending Unavailable SID COOPER Admitting Unavailable PROVIDER, UNKNOWN Consulting Unavailable PROBLEMS DATE TYPE CONDITION / CODE ATTENDING STATUS [facility] 03/18/2025 Active Vaginal Problem / UNK(Unknown) JARED JACOBS [facility] 01/29/2025 Active Overactive bladd er / N32.81(ICD-10) [facility] 01/29/2025 Active Urinary urgency / R39.15(ICD-10) [facility] 01/29/2025 Active Left flank pain / R10.9(ICD-10) [facility] 12/29/2024 Active Rash / R21(ICD-10) SAUL CENTENO [facility] 12/18/2024 Principle Diagnosis Nausea / R110(ICD-10) SID COOPER [facility] 12/11/2024 Active Feeling of incomplete bladder emptying / R39.14(ICD-10) [facility] 12/11/2024 Active Frequency of micturition / R35.0(ICD-10) [facility] 11/20/2024 Active Encounter for gynecological examination (general) (routine) without abnormal findings / Z01.419(ICD-10) KELLY IRELAND Active [facility] 11/20/2024 Active Irritation of vu lva / N90.89(ICD-10) KELLY IRELAND Active [facility] 11/20/2024 Active Encounter for surveillance of contraceptive pills / Z30.41(ICD-10) KELLY IRELAND Active [facility] 09/14/2024 Principle Diagnosis Retention of urine, unspecified / R339(ICD-10) RINKU GONZALES APRN Active [facility] 08/28/2024 Admitting Diagnosis Dysuria / R300(ICD-10) RINKU GONZALES APRN Active [facility] 08/28/2024 Principle Diagnosis Dysuria / R300(ICD-10) RINKU GONZALES APRN Active [facility] 08/21/2024 Admitting Diagnosis Palpitations / R002(ICD-10) RINKU GONZALES APRN [facility] 08/21/2024 Principle Diagnosis Palpitations / R002(ICD-10) RINKU GONZALES HALF BACKER [facility] 08/21/2024 Secondary Diagnosis Dizziness and giddiness / R42(ICD-10) RINKU GONZALES SMITH [facility] 06/07/2024 Admitting Diagnosis Other chest pain / R0789(ICD-10) ROBI BOYD MD [facility] 06/07/2024 Principle Diagnosis Other chest pain / R0789(ICD-10) ROBI BOYD MD [facility] 06/07/2024 Secondary Diagnosis Urinary tract infection, site not specified / N390(ICD-10) ROBI BOYD MD [facility] 06/07/2024 Secondary Diagnosis Depression, unspecified / F32A(ICD-10) ROBI BOYD MD [facility] 06/07/2024 Secondary Diagnosis Other termite exterminator (current) drug therapy / K31201(ICD-10) ROBI BOYD MD [facility] PROCEDURES No Procedure Records Found RESULTS CNOV Observed: 03/18/2025 10:30 AM Status: COMPLETED Source: [facility] Office Visit (OBGYWM) ABBEY HANNA ([id number]) 4 F Date Time Provider Department 03/18/25 10:30 AM JARED JACOBS OBPRABHJOTWMorena During your visit today, we recorded the following information about you: Blood pressure Weight Last Period 120/80 99.4 kg 03/12/25 Jared Jacobs MD 03/18/2025 10:46 AM Signed Glass Etcher Helper offered: Patient declines. Obstetrics and Gynecology Alpha POWER TONG OPERATOR Visit Subjective Recording using Augmentix software for draft documentation of the visit was discussed with the patient/authorized employee's representative; all questions welcomed and answered. Patient/authorized employee's representative agreed to proceed CHIEF COMPLAINT: The patient [...] Living1 SAB0 IAB0 Ectopic0 Multiple0 Live Births1 Silver Plater History LMP: 03/12/2025 (Exact Date), Having periods Age at Menarche: Age at First : Age at Menopause: Silver Plater History Comments: Sexual Activity: Not Asked; Male; [...] discussed with the Patient or Patient's Authorized Education Administrator. As applicable, any other physician, advance practice provider, medical student, or other health professional student that will be observing or involved in the sensitive examination for educational or training purposes was discussed with the Patient or Authorized Education Administrator. The Patient or Authorized Education Administrator has agreed to proceed with the sensitive [...] smooth borders, flat, normal Bartholin's glands, urethra, Hoffman's glands, no other vulvar lesions, no cervical [...] Observed: 03/18/2025 10:20 AM Status: COMPLETED Source: [facility] ID: [id number] Author: JARED JACOBS MD Service: ? Author Type: Physician Type: Progress Notes Filed: 03/18/2025 10:46 Note Text: Glass Etcher Helper offered: Patient declines. Obstetrics and Gynecology Alpha POWER TONG OPERATOR Visit Subjective Recording using Augmentix software for draft documentation of the visit was discussed with the patient/authorized employee's representative; all questions welcomed and answered. Patient/authorized employee's representative agreed to proceed CHIEF COMPLAINT: The patient [...] Living1 SAB0 IAB0 Ectopic0 Multiple0 Live Births1 Silver Plater History LMP: 03/12/2025 (Exact Date), Having periods Age at Menarche: Age at First : Age at Menopause: Silver Plater History Comments: Sexual Activity: Not Asked; Male; [...] discussed with the Patient or Patient's Authorized Education Administrator. As applicable, any other physician, advance practice provider, medical student, or other health professional student that will be observing or involved in the sensitive examination for educational or training purposes was discussed with the Patient or Authorized Education Administrator. The Patient or Authorized Education Administrator has agreed to proceed with the sensitive [...] smooth borders, flat, normal Bartholin's glands, urethra, Hoffman's glands, no other vulvar lesions, no cervical [...] Collected: 5 11:42 AM Status: F Source: [facility] TYPE CODE TESTS RESULT OUT [...] RATIO 0.9 0.9 - 1.6 LAB TOTAL BILI([facility]) TOTAL BILI 0.3 0.2 - 1.0 [...] OF AGE AND OLDER. Performed By: #### [id number] ## ## [facility],[address] [place] [address] CBC + DIFF Collected: 5 11:42 AM Status: F Source: [facility] TYPE CODE TESTS RESULT OUT [...] 6.04 1.50 - 7.10 x10EE3 /UL LAB [place] #(LOINC) [place] # 0.54 0.20 - 1.00 x10EE3 /UL LAB EO #(LOINC) EO # 0.11 0.00 - 0.50 x10EE3/U L LAB Baso #(LOINC) Baso # 0.03 0.00 - 0.10 x10EE3 /UL LAB MANUAL DIFF(LOINC) MANUAL DIFF N/A LAB MORPHOLOGY([facility]) MORPHOLOGY N/A Performed By: #### [id number] ## ## [facility],[address] [place], [place] [id number] LIPID PROFILE Collected: 03/06/2025 11:42 AM Status: F Source: [facility] TYPE CODE TESTS RESULT OUT [...] 0 - 129 mg/dl Performed By: #### [id number] ## ## [facility],[address] [place] [address] XR ABDOMEN 1V SUPINE Observed: 11:47 AM Status: F Source: [facility] * * *Final Report* * * [...] lungs are clear. IMPRESSION: No acute findings Director Financial Services: ANNE Transcribe Date/Time: Jan 31 2025 6:20A Dictated by : IFTIKHAR GUNN MD This examination was interpreted and the report reviewed and electronically signed by: IFTIKHAR GUNN MD on Jan 31 2025 6:21AM EST [id number] PROGRESS Observed: 01/29/2025 11:45 AM Status: COMPLETED Source: [facility] HNO ID: [id number] Author: DAMIAN ESCAMILLA RT(Lizzie) Service: Radiology Author [...] PATIENT PRESENTS WITH AN IMPLANTABLE OR ATTACHED PORTER BAGGAGE: No RADIOLOGY DEPARTMENT: General X-ray: Exam(s) Completed: Abdomen X-Ray: Abdomen PERIPHERAL IV DATA: Not applicable SIGNED BY: RT Lan(R) January 29, 2025 11:49 AM PROGRESS Observed: 01/29/2025 11:20 AM Status: COMPLETED Source: [facility] HNO ID: [id number] Author: MARIA LUZ RODRIGUEZ APRN.CNP Service: ? Author Type: Nurse Practitioner Type: Progress Notes Filed: 01/29/2025 12:06 Note Text: [facility] ESTABLISHED PATIENT [...] Observed: 01/29/2025 11:20 AM Status: COMPLETED Source: [facility] Office Visit ([id number]) ABBEY HANNA ([id number]) 4 F Date Time Provider Department 01/29/25 11:20 AM MARIA LUZ RODRIGUEZ [id number] During your visit today, we recorded the following information about you: Pulse Blood pressure 76/minute 101/76 Maria Luz Rodriguez APRN.CNP 01/29/2025 12:06 PM Signed [facility] ESTABLISHED PATIENT FOLLOW-UP NOTE PATIENT: Abbey Hanna (24 year old) PCP: Sid Cooper CNP, FUNDRAISING CONSULTANT Assessment AND Plan Feeling of incomplete bladder [...] social history documented by my ancillary staff. Marai Luz Rodriguez APRN.FUNDRAISING CONSULTANT Allergies As of Date: 01/29/2025 (No Known Allergies) Date Reviewed: 01/29/2025 Reviewed by: Stephanie Crawley OCCA - Fully Assessed Reason for Visit: Follow Up [171] Primary Visit Diagnosis:Feeling of incomplete bladder emptying [R39.14] Other Visit Diagnoses:Frequency of micturition [R35.0] Overactive bladder [N32.81] Urinary urgency [R39.15] Left flank pain [R10.9] Order(s):BLADDER SCAN [[id number]] Order #: [id number] UA DIP, URINE (POC) [[id number]] Order #: [id number]. #:[id number] [id number] ABDOMEN 1V SUPINE [[id number]] Order #: [id number] FUTURE oxybutynin ER (DITROPAN XL) 15 mg [...] Service: OFFICE/OUTPATIENT ESTABLISHED MOD MDM 30 MIN [14712] Additional E/M codes: VISIT CPLX INHERENT EANDM ASSOC WITH MED * Disposition: Return for Will call with results. Follow-up and Disposition History for Encounter Date Provider Department Center 01/29/2025 [id number] LUZ RODRIGUEZCA522 Daniela Thibodeaux [facility] Encounter Status:Closed by MARIA LUZ RODRIGUEZ on 01/29/25 PROGRESS Observed: 12/29/2024 3:38 PM Status: COMPLETED Source: [facility] ID: [id number] Author: SAUL CENTENO MD Service: ? Author [...] Observed: 12/29/2024 3:30 PM Status: COMPLETED Source: [facility] Office Visit (WOUCA) ABBEY HANNA ([id number]) 4 F Date Time Provider Department 12/29/24 3:30 PM SAUL CENTENO During your visit today, we recorded the following information about you: Temperature Pulse Respiration Blood pressure 98.3 degrees 88/minute 16/minute 122/76 Weight Last Period 98.2 kg 12/21/24 Saul Centeno MD 12/29/2024 3:38 PM Signed [facility] [address] [place], [place] [address] Emergency Department Diagnosis: Assessment NONSPECIFIC RASH: Our [...] MD 12/29/2024 3:46 PM Signed [facility] Abbey Hanna is a 24 year old [...] 08/27/2023 Other instructions from your clinician: [facility] [address] [place], [place] [address] Emergency Department Diagnosis: Assessment NONSPECIFIC RASH: Our [...] days. Level of Service: OFFICE/OUTPATIENT ESTABLISHED MOD [facility] 30 MIN [79128] Encounter Status:Closed by SAUL CENTENO on 12/29/24 ALGN FOOD ADULT/CHILD Collected: 12/18/2024 11:18 AM Status: F Source: [facility] Order Comment: Specimen Type : BLOOD SPECIMEN Ordering Facility: [facility] Address: [address] [place] [address] TYPE CODE TESTS RESULT OUT OF RANGE REFERENCE UNITS LAB 7258-7(LOINC) Cow Milk IgE Qn <0.35 <0.35 kU /l LAB 59130-4(LOINC) Deprecated Cow Milk IgE RAST Ql Class 0 Class 0 LAB 6276-0(LOINC) Wheat IgE Qn <0.35 <0.35 kU/l LAB 78028-4(LOINC) Deprecated Wheat IgE RAST Ql Class 0 Class 0 LAB 6206-7(LOINC) Peanut IgE Qn <0.10 <0.10 kU/l LAB 07702-3(LOINC) Deprecated Peanut IgE RAST Ql Class 0 Class 0 LAB 6248-9(LOINC) Soybean IgE Qn <0.35 <0.35 kU/ l LAB 08709-9(LOINC) Deprecated Soybean IgE RAST Ql Class 0 Class 0 LAB 6082-2(LOINC) Codfish IgE Qn <0.35 <0.35 kU/ l LAB 72262-4(LOINC) Deprecated Codfish IgE RAST Ql Class 0 Class 0 LAB 6076-4(LOINC) Clam IgE Qn <0.35 <0.35 kU/l LAB 26424-2(LOINC) Deprecated Clam IgE RAST Ql Class 0 Class 0 LAB 6087-1(LOINC) [place] IgE Qn <0.35 <0.35 kU/l LAB 07109-2(LOINC) Deprecated [place] IgE RAST Ql Class 0 Class 0 LAB 7691-9(LOINC) Scallop IgE Qn <0.35 <0.35 kU/ l LAB 50144-3(LOINC) Deprecated Scallop IgE RAST Ql Class 0 Class 0 LAB 6246-3(LOINC) Shrimp IgE Qn <0.35 <0.35 kU/l LAB 29731-4(LOINC) Deprecated Shrimp IgE RAST Ql Class 0 Class 0 LAB 6273-7(LOINC) Bynum IgE Qn <0.35 <0.35 kU/l LAB 77915-1(LOINC) Deprecated Bynum IgE RAST Ql Class 0 Class 0 LAB 6106-9(LOINC) Egg White IgE Qn <0.35 <0.35 kU/l LAB 46447-7(LOINC) Deprecated Egg White IgE RAST Ql Class 0 Class 0 Performed By: #### FOODAD ## ## [facility] CLIA [id number] [address] [place] [address] [place] UREA BREATH TEST-ACNC Collected: 2024 11:18 AM Status: F Source: [facility] Comment: Specimen Type : BREATH Ordering Facility: [facility] Address: [address] , [place] [id number] TYPE CODE TESTS RESULT OUT OF RANGE REFERENCE UNITS LAB 54004-7(LOINC) Urea Breath Test-aCnc Negative Negative Result Comment: Urea Breath Test is used as an aid in diagnosis of current infection with Helicobacter pylori. False positive results may occur in infection with Helicobacter heilmannii or contamination with other urease-producing bacteria. False negative results may be seen in patients with hypochlorhydria. Clinical correlation is required. Performed By: #### 28558-3 # ### [facility] CLIA [id number] [address] [place] [id number] [place] ALLERGEN FOOD ADULT/CHILD [CCL] Collect ed: 12/18/2024 11:18 AM Status: F Source: [facility] TYPE CODE TESTS RESULT OUT [...] Clam-Class Class 0 Class 0 LAB CRN(LOINC) [place] IgE <0.35 <0.35 kU/l LAB CRNCL(LOINC) [place] Class Class 0 Class 0 LAB SCALLP(LOINC) [place]all[place] <0.35 <0.35 kU/l LAB SCACL(LOINC) [place]-Clas s Class 0 Class 0 LAB SRMP(LOINC) Shrimp IgE <0.35 <0.35 kU/l LAB SRMCL(LOINC) Shrimp Class Class 0 Class 0 LAB WALIGE(LOINC) Bynum, IgE <0.35 <0.35 kU/l LAB WALCL(LOINC) [place]-Class Class 0 Class 0 LAB EGGW(LOINC) Egg White IgE <0.35 <0.35 kU/l LAB EGGCL(LOINC) Egg White Class Class 0 Class 0 Result Comment: [facility] [address] [place] [address] Manjeet Retana III, M.D. [id number] Performed By: #### [id number] ## ## [facility],[address] [place], [place] [id number] H PYLORI BREATH TEST PEDS (< 17) [OLD] Collected: 12/18/2024 11:18 AM Status: F Source: [facility] TYPE CODE TESTS RESULT OUT OF RANGE REFERENCE UNITS LAB H PYLORI BREATH TEST PEDS (<17) [OLD](LOINC) H PYLORI BREATH TEST PEDS (<17) [OLD] Result Comment: _H PYLORI BR EATH TEST PEDS [CCL]_ SEE SCANNED REPORT Performed By: #### [id number] ## ## [facility],[address] [place], [place] [id number] PROGRESS Observed: 12/11/2024 2:00 PM Status: COMPLETED Source: [facility] HNO ID: [id number] Author: MARIA LUZ RODRIGUEZ APRN.CNP Service: ? Author Type: Nurse Practitioner Type: Progress Notes Filed: 12/11/2024 15:23 Note Text: [facility] NEW PATIENT [...] by my ancillary staff. Maria Luz Rodriguez APRN.FUNDRAISING CONSULTANT CNOV Observed: 12/11/2024 2:00 PM Status: COMPLETED Source: [facility] Office Visit ([id number]) ABBEY HANNA ([id number]) 4 F Date Time Provider Department 12/11/24 2:00 PM MARIA LUZ RODRIGUEZ [id number] During your visit today, we recorded the following information about you: Pulse Blood pressure 86/minute 117/74 Maria Luz Rodriguez, HALF BACKERMASON 12/11/2024 3:23 PM Signed [facility] NEW PATIENT [...] by my ancillary staff. Maria Luz Rodriguez APRN.FUNDRAISING CONSULTANT Allergies As of Date: 12/11/2024 (No Known Allergies) Date Reviewed: 12/11/2024 Reviewed by: Brooklynn Newell MA - Fully Assessed Reason for Visit: Urinary Retention [228] Primary Visit Diagnosis:Feeling of incomplete bladder emptying [R39.14] Other Visit Diagnoses:Frequency of micturition [R35.0] Overactive bladder [N32.81] Urinary urgency [R39.15] Order(s):BLADDER SCAN [[id number]] Order #: [id number] UA DIP, URINE (POC) [[id number]] Order #: [id number]. #:[id number] oxybutynin ER (DITROPAN XL) 10 mg 24 [...] Service: OFFICE/OUTPATIENT NEW MODERATE MDM 45 MINUTES [76295] Additional E/M codes: VISIT CPLX INHERENT EANDM ASSOC WITH MED * Disposition: Return in about 6 weeks (around 01/22/2025). LOS History for Encounter Level of Service: OFFICE/OUTPATIENT ESTABLISHED MOD MDM 30 MIN[24068] Date AND Time: 12-11-2024 3:23 PM Recorded by User: MARIA LUZ RODRIGUEZ Follow-up and Disposition History for Encounter Date Provider Department Center 12/11/2024 [id number], TIFFANY [id number] Daniela Thib[address] [facility] Encounter Status:Closed by MARIA LUZ RODRIGUEZ on 12/11/24 WAQAR/TRICHOMONAS NAAT Collected: 4:09 PM Status: F Source: [facility] Order Comment: Specimen Type : SWAB Ordering Facility: [facility] Address: [address] [place] [address] TYPE CODE TESTS RESULT OUT OF RANGE REFERENCE UNITS LAB 62274-3(LOINC ) Waqar DNA Vag Ql SASCHA+probe Not detected Not detected Result Comment: The Waqar species group target includes C. albicans, C. tropicalis, C. parapsilosis, and C. dubliniensis. LAB 91895-4(LOINC ) C glabrata RNA Vag Ql SASCHA+probe Not detected Not detected LAB 42673-5(LOINC ) T vaginalis DNA Spec Ql SACSHA+probe Not detected Not detected Performed By: #### BVAMP, CV TV #### [facility] CLIA [id number] [address] [place] [address] BACTERIAL VAGINOSIS NAAT Collected: 4:09 PM Status: F Source: [facility] Order Comment: Specimen Type : SWAB Ordering Facility: [facility] Address: [address] [place] [address] TYPE CODE TESTS RESULT OUT OF RANGE REFERENCE UNITS LAB 48597-3(LOINC) BV bacteria rRNA Vag Ql SASCHA+probe Not detected Not detected Performed By: #### BVAMP, CV TV #### [facility] CLIA [id number] [address] [place] [address] CNOV Observed: 11/20/2024 3:00 PM Status: COMPLETED Source: [facility] Office Visit (OBGYWM) JACQUESABBEY LUTH ([id number]) 4 F Date Time Provider Department 11/20/24 3:00 PM KELLY IRELAND OBGYWM During your visit today, we recorded the following information about you: Blood pressure Weight Height Last Period 114/72 97.1 kg 1.6 m 11/20/24 Kelly Ireland APRN.FUNDRAISING CONSULTANT 11/20/2024 3:33 PM Signed Abbey is a [...] Living1 SAB0 IAB0 Ectopic0 Multiple0 Live Births1 Silver Plater History LMP: 11/20/2024 (Exact Date), IUD Age at Menarche: Age at First : Age at Menopause: Silver Plater History Comments: Sexual Activity: Not Asked; Male; [...] discussed with the Patient or Patient's Authorized Education Administrator. As applicable, any other physician, advance practice provider, medical student, or other health professional student that will be observing or involved in the sensitive examination for educational or training purposes was discussed with the Patient or Authorized Education Administrator. The Patient or Authorized Education Administrator has agreed to proceed with the sensitive [...] external genitalia normal, normal Bartholin's glands, urethra, Hoffman's glands, no vulvar lesions, no cervical lesions, [...] ordered- Will notify patient of test results. eKlly Ireland APRN.FUNDRAISING CONSULTANT Allergies As of Date: 11/20/2024 (No Known Allergies) Date Reviewed: 11/20/2024 Reviewed by: Kelly Ireland APRN.FUNDRAISING CONSULTANT - Fully Assessed Reason for Visit: Well Woman [1463] Primary Visit Diagnosis:Encounter for gynecological examination (general) (routine) without abnormal findings [Z01.419] Other Visit Diagnoses:Irritation of vulva [N90.89] Encounter for surveillance of contraceptive pills [Z30.41] Order(s):UA DIP, URINE (POC) [[id number]] Order #: [id number]. #:[id number] Levonorgestrel-Ethinyl Estrad (AVIANE) 0.1mg - 20mcg per tabletTake 1 tablet by mouth once daily.Disp: 84 tabletRfl: 3 WAQAR/TRICHOMONAS NAAT [SQCVTV] Order #: [id number] BACTERIAL VAGINOSIS NAAT [SQBVAMP] Order #: [id number] Prescriptions as of 11/20/2024 - verapamil HCl [...] for Encounter Date Provider Department Center 11/20/2024 [id number] IRELAND Encounter Status:Closed by KELLY IRELAND on 11/20/24 PROGRESS Observed: 11/20/2024 2:45 PM Status: COMPLETED Source: [facility] ID: [id number] Author: KELLY IRELAND APRN.FUNDRAISING CONSULTANT Service: ? Author Type: Nurse Practitioner Type: [...] Living1 SAB0 IAB0 Ectopic0 Multiple0 Live Births1 Silver Plater History LMP: 11/20/2024 (Exact Date), IUD Age at Menarche: Age at First : Age at Menopause: Silver Plater History Comments: Sexual Activity: Not Asked; Male; [...] discussed with the Patient or Patient's Authorized Education Administrator. As applicable, any other physician, advance practice provider, medical student, or other health professional student that will be observing or involved in the sensitive examination for educational or training purposes was discussed with the Patient or Authorized Education Administrator. The Patient or Authorized Education Administrator has agreed to proceed with the sensitive [...] external genitalia normal, normal Bartholin's glands, urethra, Hoffman's glands, no vulvar lesions, no cervical lesions, [...] notify patient of test results. Kelly Ireland APRN.FUNDRAISING CONSULTANT CV ECHO COMPLETE WITHOUT CONTRAST Observed: 10/20/2024 8:53 AM Status: C Source: [place] [address] Patient: ABBEY HANNA Phone#: : 2000 Age: 24 Gender: F Pt. Type: Out Account: [id number] Location: [facility] Ordering: GAVIOTA MARKS Exam Date: 10/19/2024/7:20 Family Phys: RINKU GONZALES Charge Code: 619859 Physician: Tucker Order #: [id number] Dose#: CORRECTION Corrected on: 10/20/2024; PROCEDURE: ECHOCARDIOGRAM WITH DOPPLER AND COLOR FLOW HISTORY: Patient is a 24-year-old female with PVCs INDICATIONS: PVCs COMPARISON: None. TECHNIQUE: A 2-D ultrasound, color spectral Doppler and M-mode evaluation of the heart and great vessels. PATIENT MEASUREMENTS: Height (in.): 62 BSA: 1.95 Weight (lbs.): 210 BP: 145/79 Manager Site: [facility]ITA M MODE 2D MEASUREMENTS AND CALCULATIONS: [...] 24 Gender: F Pt. Type: Out Account: [id number] Location: [facility] Ordering: GAVIOTA MARKS Exam Date: 10/19/2024/7:20 Family Phys: RINKU GONZALES Charge Code: 308822 Physician: Tucker Order #: [id number] Dose#: MV V2 max: 1.53 m/s MV [...] 24 Gender: F Pt. Type: Out Account: [id number] Location: [facility] Ordering: GAVIOTA MARKS Exam Date: 10/19/2024/7:20 Family Phys: RINKU GONZALES Charge Code: 816300 Physician: Tucker Order #: [id number] Dose#: 6 - Basal anterolateral: Normal. 12-Mid [...] MD on 10/20/2024 at 8:53 Dictated by: GAVOITA MARKS MD on 10/20/2024 at 12:50 Approved by: GAVIOTA MARKS MD on 10/20/2024 at 12:50 STRESS TEST (DGEST) NO IMAGING Observed: 10/19/2024 10:38 AM Status: F Source: [place] [address] Patient: ABBEY HANNA Phone#: : 2000 Age: 24 Gender: F Pt. Type: Out Account: [id number] Location: [facility] Ordering: GAVIOTA MARKS Exam Date: 10/19/2024/6:59 Family Phys: RINKU GONZALES Charge Code: 937526 Physician: Tucker Order #: [id number] Dose#: PROCEDURE: DGEST HISTORY: Patient is a [...] were no arrhythmia or ectopic beats seen. [place] [address] Patient: ABBEY HANNA Phone#: : 2000 Age: 24 Gender: F Pt. Type: Out Account: [id number] Location: 052 Ordering: GAVIOTA MARKS Exam Date: 10/19/2024/6:59 Family Phys: RINKU GONZALES Charge Code: 949014 Physician: Tucker Order #: [id number] Dose#: Dictated by: GAVIOTA MARKS MD on 10/19/2024 at 10:24 Approved by: GAVIOTA MARKS MD on 10/19/2024 at 10:37 TSH W/ REFLEX TO FREE T4 Collected: 10:02 AM Status: F Source: [facility] TYPE CODE TESTS RESULT OUT OF RANGE REFERENCE UNITS LAB TSH(LOINC) TSH 1.27 0.34 - 5.60 uIU/ml Performed By: #### [id number] ## ## [facility],[address] [place] [address] CT CHEST (PE PROTOCOL) Observed: 025 5:39 PM Status: F Source: [place] [address] Patient: ABBEY HANNA Phone#: : 2000 Age: 24 Gender: F Pt. Type: ER Account: [id number] Location: 052 Ordering: ADITHYA RIVERA Exam Date: 09/23/2024/17:00 Family Phys: RINKU GONZALES Charge Code: 161077 Physician: Tucker Order #: [id number] Dose#: 7.70 PROCEDURE: CT CHEST WITH CONTRAST [...] 24 Gender: F Pt. Type: ER Account: [id number] Location: [facility] Ordering: ADITHYA RIVERA Exam Date: 09/23/2024/17:00 Family Phys: RINKU GONZALES Charge Code: 806185 Physician: Tucker Order #: [id number] Dose#: 7.70 Approved by: Catie Meehan MD on 09/23/2024 at 17:39 TROPONIN Collected: 5 2:40 PM Status: F Source: [facility] TYPE CODE TESTS RESULT OUT OF RANGE REFERENCE UNITS LAB HS TROPONIN(LOINC) HS TROPONIN 26.7 0.0 - 51.4 pg/mL Performed By: #### [id number] ## ## [facility],[address] [place], [place] [id number] CHEST 1 VIEW Observed: 09/23/2024 2:04 PM Status: F Source: [facility] [address] [place], [place] [address] Patient: ABBEY HANNA Phone#: : 2000 Age: 24 Gender: F Pt. Type: ER Account: [id number] Location: [facility] Ordering: ADITHYA RIVERA Exam Date: 09/23/2024/13:33 Family Phys: RINKU GONZALES Charge Code: 979759 Physician: Tucker Order #: [id number] Dose#: PROCEDURE: X-RAY CHEST 1 VIEW COMPARISON: [facility], XR, CHEST 1 VIEW, 06/07/2024, 19:53. INDICATIONS: [...] DIFF Collected: 1:56 PM Status: F Source: [facility] TYPE CODE TESTS RESULT OUT [...] 5.10 1.50 - 7.10 x10EE3 /UL LAB [place] #(LOINC) [place] # 0.44 0.20 - 1.00 x10EE3 /UL LAB EO #(LOINC) EO # 0.12 0.00 - 0.50 x10EE3/U L LAB Baso #(LOINC) Baso # 0.02 0.00 - 0.10 x10EE3 /UL LAB MANUAL DIFF(LOINC) MANUAL DIFF N/A LAB MORPHOLOGY(DILSHAD NC) MORPHOLOGY N/A Performed By: #### [id number] ## ## [place] [address] D-DIMER, QUANTITATIVE Collected: 09/23/2024 1:56 PM Status: F Source: [facility] TYPE CODE TESTS RESULT OUT OF RANGE REFERENCE UNITS LAB D-DIMER, QUANTITATIVE(LO INC) D-DIMER, QUANTITATIVE Result Comment: QUANT D-DIME R LAB D-DIMER QUANT(LOINC) D-DIMER QUANT 427 High 0 - 230 ng/ml Performed By: #### [id number] ## ## [place] [id number] CMP WITH EGFR Collected: 04/02/202 5 1:56 PM Status: F Source: [facility] TYPE CODE TESTS RESULT OUT [...] OF AGE AND OLDER. Performed By: #### [id number] ## ## [address] [address] TROPONIN Collected: 1:56 PM Status: F Source: [facility] TYPE CODE TESTS RESULT OUT OF RANGE REFERENCE UNITS LAB HS TROPONIN(LOINC) HS TROPONIN 29.0 0.0 - 51.4 pg/mL Performed By: #### [id number] ## ## [address] [address] ED PHYSICIAN DISCHARGE REPORT Observed: 09/23/2024 1:30 PM Status: F Source: [facility] Discharge Instructions Discharge Summary [address] [address] [phone] 09/23/2024 Patient: ABBEY HANNA Sex: Female : 2000 Age: 24y Thank you for visiting [facility]. You have been evaluated today by Adithya Rivera D.O. for the following condition(s): Principal Diagnosis Chest pain. INSTRUCTIONS Follow-up: Follow up with a kettle operator head as scheduled. Follow up with your healthcare provider in three days. Call for an appointment. You have been given the following additional information: Uncertain Causes of Chest Pain Patient Signature Facility Education Administrator Date/Time 1 of 4 Discharge Instructions General Instructions with ExitWriter [address] [address] [phone] 09/23/2024 Patient: ABBEY HANNA Sex: Female : 2000 Age: 24y Thank you for visiting [facility]. You have been evaluated today by Adithya Rivera D.O. for the following condition(s): Principal Diagnosis Chest pain. INSTRUCTIONS Follow-up: Follow up with a kettle operator head as scheduled. Follow up with your healthcare [...] Observed: 2024 1:30 PM Status: F Source: [facility] Nurse Narrative Nurse Clinical Narrative [address] [place] [address] [phone] 09/23/2024 Patient: ABBEY HANNA Sex: Female : [...] 4 Nurse Narrative 13:32 09/23/24. Preferred Pharmacy: ([facility]). -- 13:40 09/23/24 EDT Rashmi Arcos [...] Patient verbalized understanding. Written instructions provided in Haitian. The patient was discharged by the physician. The patient was discharged home. The patient left ambulatory and via private vehicle. Patient driving. -- 18:21 09/23/24 SPENCERT Ector Ocampo R.N. 18:17 09/23/24. Site #1 removed upon discharge. Catheter intact. Bandage applied. -- 18:20 09/23/24 SPENCERT Ector Eastep, R.N. (Electronically signed by Ector Ocampo R.N. 09/24/24 07:45:20 EDT) Generated by [facility] 4 of 4 ED VITALS FLOW SHEET Observed: 1:30 PM Status: F Source: [facility] Vitals Vital Sign Flow Sheet [facility] [address] [place] [address] [phone] 09/23/2024 Patient: ABBEY HANNA Sex: Female : [...] Observed: 09/23/2024 1:30 PM Status: F Source: [address] [place] [address] [phone] 09/23/2024 Patient: JACQUES, ABEBY Sex: Female : 2000 Age: 24y Item Professional Category Description Facility Code Code Quantity Fee Total Nurse/E/M EMERGENCY 797039 1 $0.00 $0.00 DEPARTMENT VISIT HIGH/URGENT SEVERITY (46441-48) Grand Total $0.00 Providers Adithya Rivera D.O. Chief Complaint CHEST PAIN. Principal Diagnosis Chest pain. ICD-10 Codes 1 of 2 Superbill R07.9: Chest pain, unspecified 2 of 2 ED ORDER SHEET (CPOE ONLY) Observed: 07/2024 1:30 PM Status: F Source: [facility] Order Sheet Order Sheet [address] [place] [address] [id number] 09/23/2024 Patient: ABBEY HANNA Sex: Female : [...] 15:31 09/23/2024 Carla Moore Lemasters, D.O. R.N. Pot Runner 13:32 09/23/2024 13:42 09/23/2024 15:31 09/23/2024 Caral Moore, 2 of 3 Order Sheet Urszula Rivera R.N. Vital signs every 15 13:32 09/23/2024 13:42 09/23/2024 15:31 09/23/2024 minutes Carla Moore Lemasters, D.O. R.N. IV Saline Lock 13:32 09/23/2024 13:42 09/23/2024 15:31 09/23/2024 Carla Moore Lemasters, D.O. R.N. [Electronically signed by Adithya Rivera D.O. (09/23/2024 17:55 EDT)] 3 of 3 ED PHYSICIAN CLINICAL REPORT Observed: 0 09/23/2024 1:30 PM Status: F Source: [facility] Narrative Physician Clinical Narrative [facility] [address] [place] [address] [phone] 09/23/2024 Patient: ABBEY HANNA Sex: Female : [...] 1.50 - 7.10 Final EDT 09/23/2024 14:12 [place] # 0.44 x10/UL 0.20 - 1.00 Final [...] 09/23/2024 14:04:00 EDT MsgRcvd: 09/23/2024 14:08 EDT [place] [address] Patient: ABBEY HANNA Phone#: : 2000 Age: 24 Gender: F Pt. Type: ER Account: [id number] Location: [facility] Narrative Ordering: ADITHYA RIVERA Exam Date: 09/23/2024/13:33 Family Phys: RINKU GONZALES Charge Code: 024326 Physician: Tucker Order #: [id number] Dose#: PROCEDURE: X-RAY CHEST 1 VIEW COMPARISON: [facility], XR, CHEST 1 VIEW, 06/07/2024, 19:53. INDICATIONS: [...] 09/23/2024 17:39:00 EDT MsgRcvd: 09/23/2024 17:[address] [address] Patient: ABBEY HANNA Phone#: : 2000 Age: 24 Gender: F Pt. Type: ER Account: [id number] Location: 052 Ordering: ADITHYA RIVERA Exam Date: 09/23/2024/17:00 Family Phys: RINKU GONZALES Charge Code: 926066 Physician: Tucker Order #: [id number] Dose#: 7.70 PROCEDURE: CT CHEST WITH CONTRAST [...] 24 Gender: F Pt. Type: ER Account: [id number] Location: 052 Ordering: ADITHYA RIVERA Exam Date: 09/23/2024/17:00 Family Phys: RINKU GONZALES Charge Code: 045202 Physician: Tucker Order #: [id number] Dose#: 7.70 Approved by: Catie Meehan MD on 09/23/2024 at 17:39 PROGRESS AND PROCEDURES Differential Diagnosis: Other possible considerations: ACS, pneumonia, pneumothorax, pulmonary embolism, musculoskeletal pain, arrhythmia. Narrative MEDICAL DECISION MAKING: (Patient appears well nontoxic. EKG nonischemic. Chest x-ray clear. Elevated D-dimer prompting CTA which was negative. High sensitivity troponin negative x2. Heart score of 1. Patient advised on keeping appointment with kettle operator head and asked to return for new or worsening symptoms. Stable time of discharge.). Disposition: Condition: good. Disposition Decision Time: 17:53 09/23/2024. Patient discharged. Discharged in good condition. CLINICAL IMPRESSION Chest pain. DISCHARGE INSTRUCTIONS Follow-up: Follow up with a kettle operator head as scheduled. Follow up with your healthcare provider in three days. Call for an appointment. (Electronically signed by Adithya Rivera D.O. 09/23/24 17:55:31 EDT) Generated by [facility] ED VISIT SUMMARY Observed: 09/23/2024 1:30 PM Status: F Source: [facility] Visit Overview Visit Overview [address] [address] [id number] 09/23/2024 Patient: ABBEY HANNA Sex: Female : [...] 0 09/23/2024 1:30 PM Status: F Source: [facility] Building Architectural Designer Medication Administration Record [address] [place] [address] [id number] 09/23/2024 Patient: ABBEY HANNA Sex: Female : 2000 Age: 24y MEASUREMENTS: Wt: 95.3 kg, Ht/Frederick: 62.0 in, BMI: 38.41 ALLERGIES: No known drug allergies Medication Ordered Medication Administration Date/Time 1 of 1 PELVIC (NON OB) LIMITED Observed: 1:04 PM Status: F Source: [place] [address] Patient: ABBEY HANNA Phone#: : 2000 Age: 24 Gender: F Pt. Type: Out Account: [id number] Location: [facility] Ordering: RINKU GONZALES Exam Date: 09/21/2024/11:04 Family Phys: Charge Code: 047749 Physician: Tucker Order #: [id number] Dose#: PROCEDURE: PELVIC (NON OB) LIMITED ULTRASOUND [...] Collected: 09/14/2024 12:53 PM Status: F Source: [facility] Order Comment: Specimen Type : MICROBIAL ISOLATE Ordering Facility: [facility] Address: [address] [place] [address] TYPE CODE TESTS RESULT OUT OF RANGE REFERENCE UNITS LAB 54450-1(LOINC) N gonorrhoea rRNA Spec Ql SASCHA+probe Not detected Not detected LAB 60856-3(LOINC) C trach rRNA Spec Ql SASCHA+probe Not detected Not detected Performed By: #### 00703-6, JOE, 630-4 #### [facility] CLIA [id number] [address] [place] [address] [place] TRICHOMONAS VAGINALIS NAAT Collected: 0 09/14/2024 12:53 PM Status: F Source: [facility] Order Comment: Specimen Type : MICROBIAL ISOLATE Ordering Facility: [facility] Address: [address] [place] [address] TYPE CODE TESTS RESULT OUT OF RANGE REFERENCE UNITS LAB 43369-4([facility]) T vaginalis DNA Spec Ql SASCHA+probe Not detected Not detected Performed By: #### 89695-9, JOE, 630-4 #### [facility] CLIA [id number] [address] [place] [address] [place] BACTERIA UR CULT Observed: 09/14/2024 12:53 PM Status: F Source: [facility] ORGANISM ID: 1 10,000 -<50,000 CFU/ml Normal urogenital max Performed By: #### 52083-9, JOE, 630-4 #### [facility] CLIA [id number] [address] [place] [address] [place] URINE CULTURE [CCL] Observed: 09/14/2024 12:53 PM Status: F Source: [facility] URCUL See Results Below See Below CULTURE, URINE NORMAL UROGENITAL MAX 10,000 -<50,000 CFU/ml Normal urogenital max SOURCE: Urine (Nonspecific) [facility] [address] [place] [address] Manjeet Retana III, M.D. [id number] SEND TO NO Performed By: #### [id number] ## ## [facility],[address] [place], [place] [id number] GC/CHLAM AMPLIFICATION [CCL] Collected: 09/14/2024 12:53 PM [...] and its performance characteristics determined by the [facility] ([facility]). It has not been cleared or approved by the FDA. [facility] is regulated under CLIA as qualified to perform high-complexity testing. This test is used for clinical purposes. It should not be regarded as investigational or for research. SOURCE: [place] [address] Manjeet Retana III, M.D. [id number] Performed By: #### [id number] ## ## [place] [id number] TRICHOMONAS VAGINALIS AMPLIFICATION[CCL] Collected: 09/14/2024 12:53 PM Status: F Source: [facility] TYPE CODE TESTS RESULT OUT OF RANGE REFERENCE UNITS LAB TVAMPL(LOINC) Trichomonas vaginalis RNA Not detected Not detected Result Comment: SOURCE: [place] [address] Manjeet Retana III, M.D. [id number] Performed By: #### [id number] ## ## [place] [id number] BACTERIA UR CULT Observed: 08/28/2024 1:30 PM Status: F Source: [facility] ORGANISM ID: 1 10,000 -<50,000 CFU/ml Normal urogenital max Performed By: #### 630-4 ### # [facility] CLIA [id number] [address] [place] [address] [place] URINE CULTURE [CCL] Observed: 08/28/2024 1:30 PM Status: F Source: [facility] URCUL See Results Below See Below CULTURE, URINE NORMAL UROGENITAL MAX 10,000 -<50,000 CFU/ml Normal urogenital max SOURCE: Urine (Nonspecific) [place] [address] Manjeet Retana III, M.D. [id number] SEND TO IC YES Performed By: #### [id number] ## ## [facility],[address] [place] [address] PROGRESS Observed: 08/27/2024 10:14 AM Status: COMPLETED Source: [facility] HNO ID: [id number] Author: ISAAC MIRANDA OD Service: ? Author Type: EXECUTIVE SALES MANAGER Type: Progress Notes Filed: 08/27/2024 10:19 Note [...] Observed: 07/03/2024 2:06 PM Status: F Source: [facility] ORGANISM ID: 1 10,000 -<50,000 CFU/ml Normal urogenital max Performed By: #### 630-4 ### # [facility] CLIA [id number] [address] [place] [address] [place] URINE CULTURE [CCL] Observed: 07/03/2024 2:06 PM Status: F Source: [facility] URCUL See Results Below See Below CULTURE, URINE NORMAL UROGENITAL MAX 10,000 -<50,000 CFU/ml Normal urogenital max SOURCE: Urine (Nonspecific) [place] [address] Manjeet Retana III, M.D. [id number] SEND TO IC NO Performed By: #### [id number] ## ## [facility],[address] [place] [address] URINE Collected: 06/07/2024 8:15 PM Status : F Source: [facility] TYPE CODE TESTS RESULT OUT OF RANGE REFERENCE UNITS LAB UR(LOINC) UR NEGATIVE NEGATIVE LAB INTERNAL QC(LOINC) INTERNAL QC PASS LAB EXTERNAL QC DONE?(LOINC) EXTERNAL QC DONE? YES Performed By: #### [id number] ## ## [facility],[address] [place] [address] URINALYSIS Collected: 8:15 PM Status: F Source: [facility] TYPE CODE TESTS RESULT OUT [...] Urobilinog 8 Abnormal NORMAL: NORMAL LAB Sp [place](LOINC) [place] 1.015 NORMAL: 1.010-1.030 LAB Nitrite(LOINC) Nitrite POS [...] LAB Yeast(LOINC) Yeast NONE Performed By: #### [id number] ## ## [place] [id number] CBC + DIFF Collected: 4 8:11 PM Status: F Source: [facility] TYPE CODE TESTS RESULT OUT [...] 4.22 1.50 - 7.10 x10EE3 /UL LAB [place] #(LOINC) [place] # 0.46 0.20 - 1.00 x10EE3 /UL LAB EO #(LOINC) EO # 0.23 0.00 - 0.50 x10EE3/U L LAB Baso #(LOINC) Baso # 0.02 0.00 - 0.10 x10EE3 /UL LAB MANUAL DIFF(LOINC) MANUAL DIFF N/A LAB MORPHOLOGY(DILSHAD NC) MORPHOLOGY N/A Performed By: #### [id number] ## ## [facility],[address] [place], [place] [id number] D-DIMER, QUANTITATIVE Collected: 06/07/2024 8:11 PM Status: F Source: [facility] TYPE CODE TESTS RESULT OUT OF RANGE REFERENCE UNITS LAB D-DIMER, QUANTITATIVE(LO INC) D-DIMER, QUANTITATIVE Result Comment: QUANT D-DIME R LAB D-DIMER QUANT(INC) D-DIMER QUANT <200 0 - 230 ng/ml Performed By: #### [id number] ## ## [place] [id number] CMP WITH EGFR Collected: 8:11 PM Status: F Source: [facility] TYPE CODE TESTS RESULT OUT [...] OF AGE AND OLDER. Performed By: #### [id number] ## ## [place] [address] TROPONIN Collected: 8:11 PM Status: F Source: [facility] TYPE CODE TESTS RESULT OUT OF RANGE REFERENCE UNITS LAB HS TROPONIN([facility]) HS TROPONIN 25.2 0.0 - 51.4 pg/mL Performed By: #### [id number] ## ## [place] [id number] CHEST 1 VIEW Observed: 06/07/2024 8:07 PM Status: F Source: [place] [address] Patient: ABBEY HANNA Phone#: : 2000 Age: 24 Gender: F Pt. Type: ER Account: [id number] Location: 052 Ordering: DR. ROBI BOYD Exam Date: 06/07/2024/19:53 Family Phys: SID COOPER Charge Code: 644093 Physician: Tucker Order #: [id number] Dose#: PROCEDURE: X-RAY CHEST 1 VIEW COMPARISON: [...] Observed: 06/07/2024 7:17 PM Status: F Source: [facility] Visit Overview Visit Overview [place] [address] [place] [address] [phone] 06/07/2024 Patient: ABBEY HANNA Sex: Female : [...] Observed: 06/07/2024 7:17 PM Status: F Source: [facility] Discharge Instructions Discharge Summary [facility] [address] [place] [address]. [place] [address] [phone] 06/07/2024 Patient: ABBEY HANNA Sex: Female : 2000 Age: 24y Thank you for visiting [facility]. You have been evaluated today by Robi Boyd M.D. for the following condition(s): Principal Diagnosis Chest pain characterized as discomfort. Urinary tract infection. INSTRUCTIONS Follow-up: Follow up with your doctor in three. Summary of care provided to via paper. You have been given the following additional information: Uncertain Causes of Chest Pain Patient Signature Facility Education Administrator Date/Time 1 of 4 Discharge Instructions General Instructions with ExitWriter [facility] [address] [place] [address] [phone] 06/07/2024 Patient: JACQUES ABBEY Sex: Female : 2000 Age: 24y Thank you for visiting [facility]. You have been evaluated today by Robi [...] SHEET Observed: 7:17 PM Status: F Source: [facility] Vitals Vital Sign Flow Sheet [address] [address] [id number] 06/07/2024 Patient: ABBEY HANNA Sex: Female : [...] 1 08/08/2023 7:17 PM Status: F Source: [facility] Narrative Physician Clinical Narrative [address] [address] [phone] 06/07/2024 Patient: ABBEY HANNA Sex: Female : [...] 1.50 - 7.10 Final EST 06/07/2024 20:29 [place] # 0.46 x10/UL 0.20 - 1.00 Final [...] Abnormal NORMAL EST NORMAL: 06/07/2024 21:41 [place] 1.015 Final 1.010-1.030 EST NORMAL: 06/07/2024 21:41 [...] 06/07/2024 20:07:00 EST MsgRcvd: 06/07/2024 21:17 EST [place] [address] Patient: ABBEY HANNA Phone#: : 2000 Age: 24 Gender: F Pt. Type: ER Account: [id number] Location: [facility] Ordering: DR. ROBI BOYD Exam Date: 06/07/2024/19:53 Family Phys: SID COOPER Charge Code: 516717 Physician: Tucker Order #: [id number] Dose#: PROCEDURE: X-RAY CHEST 1 VIEW COMPARISON: [...] Boyd M.D. 06/08/24 00:42:36 EST) Generated [facility] 12 of 12 ED SUPER BILL Observed: 06/07/2024 7:17 PM Status: F Source: [facility] Superbill Superbill [address] [address] [id number] 06/07/2024 Patient: ABBEY HANNA Sex: Female : 2000 Age: 24y Item Professional Category Description Facility Code Code Quantity Fee Total Nurse/E/M EMERGENCY 684102 1 $0.00 $0.00 DEPARTMENT VISIT HIGH/URGENT SEVERITY (53085-41) Grand Total $0.00 Providers Robi Boyd M.D. Chief Complaint CHEST PAIN. Principal Diagnosis Chest pain characterized as discomfort. Urinary tract infection. 1 of 2 [facility] ICD-10 Codes R07.89: Other chest pain N39.0: Urinary tract infection, site not specified 2 of 2 ED NURSES CLINICAL NOTE Observed: 2023 7:17 PM Status: F Source: [facility] Nurse Narrative Nurse Clinical Narrative [address] [address] [phone] 06/07/2024 Patient: ABBEY HANNA Sex: Female : 2000 Age: 24y Disposition: Discharge to Home Disposition Decision Time: 22:11 06/07/2024 Departure Time: 22:14 06/07/2024 TRIAGE Arrived by private vehicle. Historian: patient. Unaccompanied. [facility] Triage time: 19:12 06/07/2024. Acuity: LEVEL 3. [...] 12-Lead EKG was ordered, performed by a plastics technician and shown to the ED physician. [...] Patient verbalized understanding. Written instructions provided in Haitian. The patient was discharged by the physician. The patient was discharged home and accompanied by spouse. The patient left ambulatory and via private vehicle. Patient driving. -- 22:14 06/07/24 RENETTA Arango R.N. (Electronically signed by Pippa Arango R.N. 06/07/24 22:15:13 EST) Generated by [facility] 4 of 4 ED ORDER SHEET (CPOE ONLY) Observed: 7:17 PM Status: F Source: [facility] Order Sheet Order Sheet [address] [place] [address] [id number] 06/07/2024 Patient: ABBEY HANNA Sex: Female : [...] 1 08/08/2023 7:17 PM Status: F Source: [facility] Building Architectural Designer Medication Administration Record [facility] [address] [place] [address] [id number] 06/07/2024 Patient: ABBEY HANNA Sex: Female : 2000 Age: 24y MEASUREMENTS: Wt: 95.3 kg, Ht/[place]: 62.0 in, BMI: 38.41 ALLERGIES: No known drug allergies Medication Ordered Medication Administration Date/Time 1 of 1 ALLERGIES DATE TYPE / CODE NAME / CODE REACTION SEVERITY SOURCE Drug Class/624448797(SNOMED CT) NO KNOWN ALLERGIES [facility] Miscellaneous Allergy/262482507(SNOM ED CT) No Known Allergies Moderate (Severity Modifier) (Qualifier Value) [facility] ENCOUNTERS ADMIT/DISCHARGE ACCOUNT NUMBER ADMITTING ENCOUNTER CLASS LOCATION SOURCE 03/18/2025/03/18/20 [id number] Ambulatory [facility]Build ing:[facility] 03/06/2025/03/06/20 25 [id number] RINKU GONZALES APRN Ambulatory Building:Unkn own [facility] 01/29/2025 [id number] Ambulatory [id number] lding:[facility] 01/29/2025/01/30/20 [id number] Ambulatory [id number] lding:[address] 12/29/2024/12/30/19 [id number] Ambulatory [facility] ing[facility] 12/18/2024/12/19/19 25 [id number] SID COOPER Ambulatory Building:Unkn own [facility] 12/11/2024/12/12/19 [id number] Ambulatory [id number] lding:[address] 11/20/2024/11/21/19 [id number] Ambulatory [facility] HospitalBuild ing:[facility] 10/19/2024/10/20/19 25 [id number] GAVIOTA MARKS MD Ambulatory Building:Unkn own [facility] 10/09/2024/10/10/19 25 [id number] GAVIOTA MARKS MD Ambulatory Building:Unkn own [facility] 09/23/2024/09/24/19 25 [id number] ADITHYA RIVERA Emergency BuildinR oom: ERBed: 7 [facility] 09/21/2024/09/22/19 25 [id number] RINKU GONZALES APRN Ambulatory Building:Unkn own [facility] 09/14/2024/09/15/19 25 [id number] RINKU GONZALES APRN Ambulatory Building:Unkn own [facility] 08/28/2024/08/29/19 25 [id number] RINKU GONZALES APRN Ambulatory Building:Unkn own [facility] 08/27/2024/08/28/19 25 [id number] [facility] 08/21/2024/08/21/19 25 [id number] RINUK GONZALES APRN Ambulatory Building:Unkn own [facility] 07/03/2024/07/03/19 25 [id number] RINKU GONZALES APRN Ambulatory Building:Unkn own [facility] 06/07/2024/06/07/20 24 [id number] ROBI BOYD MD Emergency BuildinR oom: ERBed: 5 [facility] PAYERS ENCOUNTER GUARANTOR PAYER SUBSCRIBER SOURCE 03/18/2025 Primary Insurance:[employer] MEDICAIDPolicy Number: [id number] Date:4847-62-47Crwq Name[facility] [id number] [address] [address] [facility] 03/06/2025 ABBEY Alfred [id number] [address] [address]Ucl: () Primary Insurance:[employer] OUTPATIENTPolicy Number: [id number] Date:Plan Name:XLex [facility]: [id number] [address] [address] [facility] 01/29/2025 Primary Insuranc e:MMO MHSPolicy Number: [id number] Date:0463-13-59Ayqe Name:Marcella SALAZAROB: [id number] [address] [place] [address] 01/29/2025 Secondary Insurance:[employer] MEDICAIDPolicy Number: [id number] Date:7411-01-17Taiu Name:Claudia DIEZSDOB: [id number] [address] [place] [id number] [place] [address] 01/29/2025 Primary Insuranc e:MMO MHSPolicy Number: [id number] Date:4895-64-13Yskb Name:Marcella SALAZAROB: [id number] [address] [place] [address] 01/29/2025 Secondary Insurance:[employer] MEDICAIDPolicy Number: [id number] Date:9922-43-59Yeos Name:Claudia BYERS HINDSDOB: [id number] [address] [place] [address] [place] [address] 12/29/2024 Primary Insuranc e:MMO MHSPolicy Number: [id number] Date:2460-86-33Crmt Name:Marcella SALAZAROB: [id number] [address] [place] [address] 12/29/2024 Secondary Insurance:[employer] MEDICAIDPolicy Number: [id number] Date:6554-60-86Fnxh Name:Claudia DIEZSDOB: [id number] [place] [address] [facility] 12/18/2024 ABBEY Simon HINDSDOB: [id number] [address] [address]Tfj: (IG) Primary Insurance:[facility] OUTPATIENTPolicy Number: [id number] Date:Plan Name:Samra DIEZSDOB: [id number] [address] [address] [facility] 12/18/2024 Secondary Insurance:[facility] OUTPATIENTPolicy Number: [id number] Date:Plan Name:Chema Simon HINDSDOB: [id number] [address] [facility] 12/11/2024 Primary Insuranc e:MMO MHSPolicy Number: [id number] Date:7599-07-97Lbqs Name:Marcella DIEZSDOB: [id number] [address] [place] [address] 12/11/2024 Secondary Insurance:[facility] MEDICAIDPolicy Number: [id number] Date:2198-25-62Fpbq Name:Claudia BYERS HINDSDOB: [id number] [address] [address] [facility] 11/20/2024 Primary Insuranc e:MMO MHSPolicy Number: [id number] Date:3655-78-75Jjmh Name:Marcella DIEZSDOB: [id number] [address] [place] [address] 11/20/2024 Secondary Insurance:[facility] MEDICAIDPolicy Number: [id number] Date:7047-59-06Ojjq Name:Claudia DIEZSDOB: [id number] [address] [address] [facility] 10/19/2024 ABBEY E HINDSDOB: [id number] [address] [address]Vvi: (hp) Primary Insurance:[facility] OUTPATIENTPolicy Number: [id number] Date:Plan Name:Samra DIEZSDOB: [id number] [address] [address] [facility] 10/19/2024 Secondary Insurance:[facility] OUTPATIENTPolicy Number: [id number] Date:Plan Name:X3 ABBEY E HINDSDOB: [id number] [address] [address] [facility] 10/09/2024 ABBEY E HINDSDOB: [address] [address]Uus: (HP) Primary Insurance:[facility] OUTPATIENTPolicy Number: [id number] Date:Plan Name:Samra DIEZSDOB: [id number] [address] [place] [address] 10/09/2024 Secondary Insurance[place] [place] OUTPATIENTPolicy Number: [id number] Date:Plan Name:X3 ABBEY E HINDSDOB: [id number] [address] [place] [address] 09/23/2024 ABBEY E HINDSDOB: [address] [address]Qpm: (HP) Primary Insurance:[facility] OUTPATIENTPolicy Number: [id number] Date:Plan Name:Samra SALAZAROB: [id number] [address] [place] [address] 09/23/2024 Secondary Insurance:[facility] OUTPATIENTPolicy Number: [id number] Date:Plan Name:X3 ABBEY E HINDSDOB: [id number] [address] [address] [facility] 09/21/2024 ABBEY E HINDSDOB: [address] [address]Gti: (HP) Primary Insurance:[facility] OUTPATIENTPolicy Number: [id number] Date:Plan Name:Samra SALAZAROB: [id number] [address] [place] [address] 09/21/2024 Secondary Insurance:[employer] OUTPATIENTPolicy Number: [id number] Date: ABBEY E HINDSDOB: [id number] [address] [facility] 09/14/2024 ABBEY E HINDSDOB: [address] [address]Nwh: () Primary Insurance:[facility] OUTPATIENTPolicy Number: [id number] Date:Plan Name:Samra DIEZSDOB: [id number] [address] [place] [address] 09/14/2024 Secondary Insurance:[employer] OUTPATIENTPolicy Number: [id number] Date:Plan Name:XLex DIEZSDOB: [id number] [address] [place] [address] 08/28/2024 ABBEY E HINDSDOB: [id number] [address] [address]Qlq: () Primary Insurance:[facility] OUTPATIENTPolicy Number: [id number] Date:Plan Name:Samra DIEZSDOB: [id number] [address] [place] [address] 08/28/2024 Secondary Insurance:[employer] OUTPATIENTPolicy Number: [id number] Date: ABBEY E HINDSDOB: [id number] [address] [address] [facility] 08/27/2024 Primary Insuranc e:MMO SPolicy Number: [id number] Date:1533-55-52Mgvh Name:Marcella DIEZBRUNOOB: [id number] [address] [place] [address] [facility] 08/27/2024 Secondary Insurance:[employer] [facility] [facility]: [id number] Date:3914-62-75Rewn Name:Claudia DIEZSDOB: [id number] [address] [address] [facility] 08/27/2024 Tertiary Insurance:[facility] MEDICAIDPolicy Number: [id number] Date:4279-52-29Taqr Name:Claudia BYERS HINDSDOB: [id number] [address] [address] [facility] 08/21/2024 ABBEY E HINDSDOB: [address] [address]Mmj: (HP) Primary Insurance:[facility] OUTPATIENTPolicy Number: [id number] Date:Plan Name:Samra DIEZSDOB: [id number] [address] [place] [address] 08/21/2024 Secondary Insurance:[facility] OUTPATIENTPolicy Number: [id number] Date: ABBEY E HINDSDOB: [id number] [address] [place] [address] 07/03/2024 ABBEY E HINDSDOB: [address] [address]Stz: (HP) Primary Insurance:[facility] OUTPATIENTPolicy Number: [id number] Date:Plan Name:Samra DIEZSDOB: [id number] [address] [place] [address] 07/03/2024 Secondary Insurance:[employer] [place] OUTPATIENTPolicy Number: [id number] Date: ABBEY E HINDSDOB: [id number] [address] [place] [address] 06/07/2024 ABBEY E HINDSDOB: [address] [address]Wae: (HP) Primary Insurance:[facility] OUTPATIENTPolicy Number: [id number] Date:Plan Name:Samra DIEZSDOB: [id number] [address] [address] [facility] 06/07/2024 Secondary Insurance:[employer] [place] OUTPATIENTPolicy Number: [id number] Date: ABBEY CANELA: [id number] [address] [address] [facility]
[2025-03-25 16:09] LABS: Immunoglobulin A 106 mg/dL (87-352)
== END | disposition home or self-care (01) ==
LOC: LAB 13:26
PROVIDERS: PCP Nurse Practitioner Family; Referring Provider Student in an Organized Health Care Education/Training Program; Visit Provider Student in an Organized Health Care Education/Training Program
DX: R19.5 Other fecal abnormalities (principal)
CPT/HCPCS: 36415; 82784; 83516; 86255